=== PATIENT | male | born 1980 | race Caucasian/White ===

== ENCOUNTER 2021-07-14 19:51 | Inpatient (IN) | payer MEDICAID, SELFPAY ==
--- NOTE | ~2021-07-14 | CT_ITS ---
EXAMINATION: CT ABDOMEN AND PELVIS WITH CONTRAST CLINICAL INFORMATION: belly button bleeding/foul-smelling dis x1 mos.+ind mass COMPARISON: CT abdomen pelvis 03/19/2017, CT PE study 03/29/2019 TECHNIQUE: Multidetector volumetric images were obtained from the superior aspect of the liver through the pubic symphysis following administration 85 mL of Omnipaque 350 intravenous contrast. Sagittal and coronal reformatted images were obtained on the technologist's workstation. Oral contrast: No This CT examination was performed using dose optimization techniques as appropriate, variously including the following: *Automated exposure control *Adjustment of mA and/or kV according to patient size (this includes techniques or standardized protocols for targeted exams where dose is matched to indication/reason for exam; i.e. extremities or head) *Use of iterative reconstruction technique DLP: 993 mGy-cm FINDINGS: LUNG BASES: The visualized lung bases are unremarkable. LIVER, GALLBLADDER, AND BILIARY TREE: The liver is normal in size, shape, and attenuation. No focal hepatic lesion or biliary ductal dilatation is present. The gallbladder is unremarkable with no evidence of radiopaque gallstones, gallbladder wall thickening, or obvious pericholecystic inflammatory changes. PANCREAS: Unremarkable. SPLEEN: Unremarkable. ADRENAL GLANDS: Unremarkable. KIDNEYS AND URETERS: The kidneys are normal in size, shape, and attenuation. At least 5 small nonobstructing stones present in the right kidney, the largest measuring only 2 mm. 2 nonobstructing adjacent calculi noted in the left lower pole measuring about 4 mm each with few barely perceptible other calculi seen around this area. No hydronephrosis, hydroureter, or ureteral calculi seen. No perinephric stranding. BLADDER: Unremarkable. GASTROINTESTINAL TRACT: A lap band is present. The small and large bowel are unremarkable. The appendix is unremarkable. ABDOMINAL WALL: A periumbilical hernia is seen containing only fat. There is a tiny knee collection behind the umbilicus measuring 2.2 x 1.2 x 0.8 cm which contains a small locule of air inferiorly. No other abdominal wall or periumbilical collections are seen. No enterocutaneous fistulas are present. These findings are new when compared to the 03/19/2017 CT abdomen Some small lymph nodes are present in the greater omentum behind this region. LYMPH NODES: There is no retroperitoneal lymphadenopathy. VASCULAR: Unremarkable. PELVIC VISCERA: Unremarkable. OSSEOUS STRUCTURES: Unremarkable. CT/CT abdomen pelvis w con IMPRESSION: Small area of thickening/fluid collection with small locule of air in the periumbilical region as described above.
--- NOTE | ~2021-07-14 | CT_ITS ---
EXAMINATION: CT HEAD WITHOUT CONTRAST CLINICAL INFORMATION: Hypertensive urgency. Headache. COMPARISON: Head CT 03/29/2019. TECHNIQUE: Contiguous axial imaging was performed from the skull base to vertex without intravenous administration of contrast. This CT examination was performed using dose optimization techniques as appropriate, variously including the following: *Automated exposure control *Adjustment of mA and/or kV according to patient size (this includes techniques or standardized protocols for targeted exams where dose is matched to indication/reason for exam; i.e. extremities or head) *Use of iterative reconstruction technique DLP: 708 mGy-cm. FINDINGS: There is no intracranial hemorrhage, large infarction, or mass lesion. There is no extra-axial collection. The ventricles are normal in size and configuration without evidence of hydrocephalus. The cerebellar tonsils are normally positioned above the foramen magnum. There is mild paranasal sinus mucosal thickening. Mastoid air cells are clear. Cerclage wiring is incidentally noted posteriorly at the C1 level. CT/CT head/brain wo con IMPRESSION: No acute intracranial abnormality.
[2021-07-14 19:54] VITALS: BP 181/103; PULSE 73; RESP 16; TEMP 36.6; O2SAT 98; BMI 44.1
[2021-07-14 21:17] VITALS: BP 196/103
[2021-07-14 21:22] VITALS: BP 196/103; PULSE 73
[2021-07-14 21:22] LABS: MANUAL DIFF FLAG NO
[2021-07-14] MEDS: Losartan Potassium 50 MG TABLET PO (21:22)
[2021-07-14] MEDS: 0.9 % Sodium Chloride 1,000 ML 999 ML IVCONT (21:23)
[2021-07-14 21:24] LABS: Basophils Percent Auto 0.5 % (0-2); Eosinophils Absolute Auto 0.3 X10*3/uL (0.0-0.4); Eosinophils Percent Auto 3.7 % (0-4); Hematocrit 37.7 % (42-52); Hemoglobin 11.8 g/dl (14.0-18.0); Imm Gran Abs Auto 0.02 X10*3/uL (0.00-0.03); Imm Gran Pct Auto 0.3 % (0.0-0.4); Lymphocytes Absolute Auto 1.6 X10*3/uL (1.2-4.9); Lymphocytes Percent Auto 21.4 % (20-40); Mean Corpuscular HGB Conc 31.3 g/dl (31.0-36.0); Mean Corpuscular Hemoglobin 28.6 pg (27.0-33.0); Mean Corpuscular Volume 91.5 fL (80-98); Monocytes Absolute Auto 0.7 X10*3/uL (0.1-1.2); Monocytes Percent Auto 9.1 % (2-11); Neutrophils Absolute Auto 4.9 X10*3/uL (2.0-8.3); Platelet Count 252 X10*3/uL (160-400); Red Blood Count 4.12 X10*6/uL (4.60-5.80); Red Cell Distribution Width 13.2 % (11.0-16.0); White Blood Count 7.6 X10*3/uL (4.8-10.8)
--- NOTE | 2021-07-14 21:27 | ED.GENADULT ---
HPI - General Adult General Chief complaint: General Medical Stated complaint: bleeding from belly button? Time Seen by Provider: 07/14/21 20:49 Source: patient Mode of arrival: ambulatory History of Present Illness HPI narrative: 41-year-old male with a past medical history of hypertension, lap band about 3 years ago, presenting to the ED complaining of belly button bleeding and foul smelling discharge x1 month. Reports periumbilical pain that began today. Denies fever, chills, nausea, vomiting, diarrhea/constipation, dysuria Related Data Allergies Allergy/AdvReac Type Severity Reaction Status Date / Time No Known Allergies Allergy Unverified 07/30/20 15:19 [No Known Allergies*] Pt states no food/medication Allergy Unknown Uncoded 03/20/17 00:00 a Review of Systems Review of Systems: Constitutional: No Fever, No Chills, No Fatigue, No Malaise ENT/Mouth: No Ear Pain, No Nasal Congestion, No Sinus Pain, No sore throat, No Rhinorrhea, No Swallowing Difficulty Eyes: No Eye Pain, No Swelling, No Discharge Cardiovascular: No Chest Pain, No SOB Respiratory: No Cough, No Dyspnea Gastrointestinal: No Nausea, No Vomiting, No Diarrhea, No Constipation, + Abdominal pain, No Hematochezia, No Melena Genitourinary:No Dysuria, No Urinary Frequency, No Hematuria,+ Urgency, No Flank Pain Musculoskeletal: No joint pain, No Myalgias, No Joint Swelling Skin: +Skin Lesions, No rash Neuro: No Weakness, No Numbness, No Paresthesias, No Headache Yes all other systems are reviewed and are negative [facility] Past Medical History Attestation statement: The following information was validated with the patient. Medical History (Updated 07/14/21 @ 23:22 by DIONNE Tee) Hypertension Social History Social History Advance Directives: No Advance Directives Information Provided: No Physical Exam Vital Signs: Vital Signs: Last Vital Signs Temp 98.1 F 07/14/21 21:43 Pulse 61 07/14/21 21:43 Resp 16 07/14/21 21:43 BP 164/90 H 07/14/21 21:43 Pulse Ox 97 07/14/21 21:43 Body Mass Index 44.1 Const: General: cooperative and healthy appearing Orientation/consciousness: patient oriented x3 Limitations: no limitations HENMT: Head: Yes normal to inspection Ears: hearing grossly normal bilaterally General nose exam: Normal external nose present Face and sinus: Yes normal facial exam Eyes: General: appearance normal, both eyes and all related structures EOM: EOMs intact bilaterally Neck: Neck: Yes normal visual inspection Resp: Effort & Inspection: normal respiratory effort and no respiratory distress Cardio: Rate: regular rate Heart sounds: S1 normal heart sound present and S2 normal heart sound present GI: Other: + dark/bloody malodorous discharge noted from umbilicus. + hard indurated palpable mass noted left of umbilicus. No fluctuance Inspection: Yes normal to inspection Palpation (GI): Soft to palpation, Tenderness to palpation present (GI) (Periumbilically), no guarding and not rigid Skin: Rashes: no rashes Neuro: General: patient oriented x3 Gait exam (Neuro): Normal gait present Extrem: General: Yes normal to inspection Course Course Course Narrative: -2303--no leukocytosis. H&H is stable. Labs otherwise unremarkable. CT abdomen pelvis w con IMPRESSION: Small area of thickening/fluid collection with small locule of air in the periumbilical region as described above >> surgery consulted --case discussed with Dr. Christian, plan is for admission Medical Decision Making MDM Narrative Medical decision making narrative: 41-year-old male with a past medical history of hypertension, lap band about 3 years ago, presenting to the ED complaining of belly button bleeding and foul smelling discharge x1 month. On exam hypertensive patient reports he did not take his losartan today, will give home dose, NAD/nontoxic, physical exam as above. Concern for underlying abdominal abscess vs intra-abdominal infection or complication of prior lap band. Plan: Labs, UA, CT AP, IVF, reassess Lab Data Result diagrams: 07/14/21 21:13 07/14/21 21:13 Labs: Lab Results 07/14/21 07/14/21 07/14/21 Range/Units 21:13 21:13 21:13 WBC 7.6 (4.8-10.8) X10*3/uL RBC 4.12 L (4.60-5.80) X10*6/uL Hgb 11.8 L (14.0-18.0) g/dl Hct 37.7 L (42-52) % MCV 91.5 (80-98) fL MCH 28.6 (27.0-33.0) pg MCHC 31.3 (31.0-36.0) g/dl RDW 13.2 (11.0-16.0) % Plt Count 252 (160-400) X10*3/uL MPV 11.0 (9.4-12.4) fL Immature Gran % (Auto) 0.3 (0.0-0.4) % Neut % (Auto) 65.0 (45-73) % Lymph % (Auto) 21.4 (20-40) % Butts % (Auto) 9.1 (2-11) % Eos % (Auto) 3.7 (0-4) % Baso % (Auto) 0.5 (0-2) % Lymph # (Auto) 1.6 (1.2-4.9) X10*3/uL Butts # (Auto) 0.7 (0.1-1.2) X10*3/uL Eos # (Auto) 0.3 (0.0-0.4) X10*3/uL Baso # (Auto) 0.0 (0.0-0.2) X10*3/uL Abs Immat Gran (auto) 0.02 (0.00-0.03) X10*3/uL Absolute Neuts (auto) 4.9 (2.0-8.3) X10*3/uL Absolute Nucleated RBC 0.000 (0.0-0.012) X10*3/uL Nucleated RBC % (auto) 0.0 (0.0-0.2) /100WBC PT (9.9-13.0) SEC INR (0.9-1.1) APTT (24.1-38.0) SEC Sodium 140 (135-145) mmol/L Potassium 3.5 (3.3-5.1) mmol/L Chloride 105 (96-108) mmol/L Carbon Dioxide 29 (22-29) mmol/L Anion Gap 10 L (12-20) BUN 19 H (9-16) mg/dL Creatinine 0.83 (0.5-1.4) mg/dL Estim Creat Clear Calc 153.5 Estimated GFR > 60 Random Glucose 91 (60-115) mg/dL Lactic Acid 0.9 (0.5-2.0) mmol/L Calcium 9.1 (8.4-10.2) mg/dL Magnesium 2.1 (1.6-2.6) mg/dL Total Bilirubin 0.3 (0.0-1.0) mg/dL Direct Bilirubin < 0.2 (0.0-0.5) mg/dL AST 15 (5-37) U/L ALT 9 (0-40) U/L Alkaline Phosphatase 80 (39-117) U/L Total Protein 7.7 (6.5-8.0) g/dL Albumin 4.3 (3.5-5.0) g/dL Lipase 26 (8-78) U/L 07/14/21 Range/Units 21:43 WBC (4.8-10.8) X10*3/uL RBC (4.60-5.80) X10*6/uL Hgb (14.0-18.0) g/dl Hct (42-52) % MCV (80-98) fL MCH (27.0-33.0) pg MCHC (31.0-36.0) g/dl RDW (11.0-16.0) % Plt Count (160-400) X10*3/uL MPV (9.4-12.4) fL Immature Gran % (Auto) (0.0-0.4) % Neut % (Auto) (45-73) % Lymph % (Auto) (20-40) % Butts % (Auto) (2-11) % Eos % (Auto) (0-4) % Baso % (Auto) (0-2) % Lymph # (Auto) (1.2-4.9) X10*3/uL Butts # (Auto) (0.1-1.2) X10*3/uL Eos # (Auto) (0.0-0.4) X10*3/uL Baso # (Auto) (0.0-0.2) X10*3/uL Abs Immat Gran (auto) (0.00-0.03) X10*3/uL Absolute Neuts (auto) (2.0-8.3) X10*3/uL Absolute Nucleated RBC (0.0-0.012) X10*3/uL Nucleated RBC % (auto) (0.0-0.2) /100WBC PT 12.2 (9.9-13.0) SEC INR 1.1 (0.9-1.1) APTT 29.4 (24.1-38.0) SEC Sodium (135-145) mmol/L Potassium (3.3-5.1) mmol/L Chloride (96-108) mmol/L Carbon Dioxide (22-29) mmol/L Anion Gap (12-20) BUN (9-16) mg/dL Creatinine (0.5-1.4) mg/dL Estim Creat Clear Calc Estimated GFR Random Glucose (60-115) mg/dL Lactic Acid (0.5-2.0) mmol/L Calcium (8.4-10.2) mg/dL Magnesium (1.6-2.6) mg/dL Total Bilirubin (0.0-1.0) mg/dL Direct Bilirubin (0.0-0.5) mg/dL AST (5-37) U/L ALT (0-40) U/L Alkaline Phosphatase (39-117) U/L Total Protein (6.5-8.0) g/dL Albumin (3.5-5.0) g/dL Lipase (8-78) U/L Discharge Plan Discharge Clinical Impression: Abdominal fluid collection Patient Disposition: Admitted As Inpatient
[2021-07-14 21:40] LABS: Lactic Acid 0.9 mmol/L (0.5-2.0)
[2021-07-14 21:43] VITALS: BP 164/90; PULSE 61; RESP 16; TEMP 36.7; O2SAT 97
[2021-07-14 21:46] LABS: Alanine Aminotransferase 9 U/L (0-40); Albumin Level 4.3 g/dL (3.5-5.0); Alkaline Phosphatase 80 U/L (39-117); Anion Gap 10 (12-20); Aspartate Amino Transferase 15 U/L (5-37); Bilirubin Direct < 0.2 mg/dL (0.0-0.5); Bilirubin Total 0.3 mg/dL (0.0-1.0); Blood Urea Nitrogen 19 mg/dL (9-16); Calcium 9.1 mg/dL (8.4-10.2); Carbon Dioxide 29 mmol/L (22-29); Chloride 105 mmol/L (96-108); Creatinine Clr Calc Pharmacy 153.5; Estimated Glomerular Filt Rate > 60; Glucose Random 91 mg/dL (60-115); Lipase 26 U/L (8-78); Magnesium 2.1 mg/dL (1.6-2.6); Potassium 3.5 mmol/L (3.3-5.1); Sodium 140 mmol/L (135-145); Total Protein 7.7 g/dL (6.5-8.0)
[2021-07-14 21:59] LABS: INTERNATIONAL NORM RATIO 1.1 (0.9-1.1); Prothrombin Time 12.2 SEC (9.9-13.0)
[2021-07-14 22:01] LABS: Partial Thromboplastin Time 29.4 SEC (24.1-38.0)
[2021-07-14] MEDS: iohexoL 350 MG/ML 100 ML INFUS..BTL IV (22:26)
[2021-07-14 23:57] LABS: COVID-19 Test Negative (Negative); IDNOW Serial# 55D5AD1C
[2021-07-15] VITALS (12 sets, daily range): BP systolic 170–194; BP diastolic 86–120; PULSE 60–70; RESP 16–20; TEMP 36.4–37.1; O2SAT 96–99
--- NOTE | 2021-07-15 00:14 | PC.NURSE ---
JAYA TEIXEIRA IS AWARE OF PATIENT HIGH BLOOD PRESSURE OF 184/104.
[2021-07-15] MEDS: ceFAZolin Sodium/Dextrose,Iso 2 GM/50 ML PIGGYBACK IV ×4 (00:32→23:49)
--- NOTE | 2021-07-15 01:47 | PC.NURSE ---
Nurse to nurse given to Sarai LAKE on [facility].
[2021-07-15] MEDS: Dextrose 5 % and Lactated Ring 1,000 ML 100 ML IVCONT ×3 (02:57→23:50)
--- NOTE | 2021-07-15 07:58 | PM.HPGS ---
History of Present Illness History of Present Illness Date of Service: 07/15/21 Chief complaint: Ulcerated umbilical hernia Narrative: Ben Celaya is a 41 year old male presenting with a one month history of bleeding and discharge from the umbilicus. He previously underwent a lap band placement at [facility] approximately three years ago. He denies any problems following the surgery. He developed some bleeding from the umbilicus 1 month ago denies any inciting event. He denies fever or chills but does have occasional discomfort from the site. He denies a previous history of infection from this location. He presented to the emergency department and was found to have a normal WBC. CT of the abdomen abd pelvis reveals an umbilical hernia with a small fluid collection and a small loculus of air. The Lap Band tubing is noted to be adjacent to the umbilical hernia but no fluid collections are noted around the band/port/tubing. He is admitted to the surgical service for IV antibiotics and wound management. Review of Systems Review of Systems: Yes all other systems are reviewed and are negative Constitutional: Constitutional: Denies anorexia, Denies chills, Denies fever(s) and Denies night sweats ENT: Denies dysphagia Cardiovascular: Cardiovascular: Denies chest pain, Denies rapid heart rate, Denies irregular heart rhythm and Denies leg edema Respiratory: Respiratory: Denies chest congestion, Denies cough and Denies hemoptysis Gastrointestinal: Gastrointestinal: Reports abdominal pain, Denies hematochezia, Denies dysphagia, Denies heartburn, Denies diarrhea, Denies nausea and Denies vomiting Musculoskeletal: Musculoskeletal: Reports no additional musculoskeletal complaints Integumentary/Breasts: Skin/Breast: Reports as per [facility] Past Medical History Medical History (Updated 07/15/21 @ 08:17 by Raphael Toro MD) History of substance abuse Hypertension Obesity Surgical History Surgical History Hx of laparoscopic gastric banding Social History Social History Household Members: Spouse and Children Housing: House Patient Tobacco Use Status: Never used Tobacco Use of substances other than those prescribed or required for medical reasons: No Have you been hit, kicked, punched, or otherwise hurt by someone within the past year? If so, by whom?: No Do you feel safe in your current relationship?: Yes Is there a partner from a previous relationship who is making you feel unsafe now?: No Are you made to feel afraid or neglected: No Advance Directives: No Advance Directives Information Provided: No Do you have thoughts of harming others: None Do you have a plan to hurt others: No Plan Recently lost weight without trying: No Meds Allergies Allergy/AdvReac Type Severity Reaction Status Date / Time No Known Allergies Allergy Unverified 07/30/20 15:19 [No Known Allergies*] Pt states no food/medication Allergy Unknown Uncoded 03/20/17 00:00 a Active Medications: Current Medications Generic Name Dose Route Start Last Admin Trade Name Freq PRN Reason Stop Dose Admin Acetaminophen 650 mg 07/15/21 01:55 Acetaminophen 325 Mg Tablet PO Q6H PRN Pain, Mild (Pain Scale 1-3) Enoxaparin Sodium 40 mg 07/15/21 09:00 Enoxaparin Sodium 40 Mg/0.4 Ml Syringe SUBCUT DAILY YUE Cefazolin Sodium/Dextrose 2 gm in 50 mls @ 100 mls/hr 07/14/21 23:30 07/15/21 02:38 Ancef IV Infused Q8H YUE Infusion Dextrose/Lactated Ringer's 1,000 mls @ 100 mls/hr 07/15/21 01:55 07/15/21 02:57 D5lr IVCONT 100 mls/hr .Q10H YUE Administration Morphine Sulfate 4 mg 07/15/21 01:55 Morphine Sulfate 4 Mg/Ml Cartridge IVPUSH Q3H PRN Pain, severe Protocol Non-Formulary Medication 1 tab 07/15/21 09:00 Losartan-Hydrochlorothiazide PO DAILY YUE Ondansetron HCl 4 mg 07/15/21 01:55 Ondansetron Hcl 4 Mg/2 Ml Vial IVPUSH Q8H PRN Nausea Pharmacy Consult 1 each 07/14/21 23:22 Consult Rx Perform Med Rec MISCELLANE ONCE PRN Consult order Home Medications Medication Instructions Recorded Confirmed Last Taken Type buprenorphine 8 mg-naloxone 2 mg 2.5 film SUBLINGUAL 07/15/21 Unknown History sublingual film (Suboxone) losartan 50 mg-hydrochlorothiazide 1 tab PO DAILY 07/15/21 07/15/21 Unknown History 12.5 mg tablet Physical Exam Vital Signs: Vital Signs: Last Vital Signs Temp 98.0 F 07/15/21 07:27 Pulse 62 07/15/21 07:27 Resp 20 07/15/21 07:27 BP 176/100 H 07/15/21 02:18 Pulse Ox 98 07/15/21 07:27 Body Mass Index 44.1 Const: General: healthy appearing, comfortable and no acute distress Nutritional Appearance: obese Orientation/consciousness: patient oriented x3 Limitations: no limitations HENMT: Head: Yes normocephalic and Yes atraumatic Ears: hearing grossly normal bilaterally Eyes: Sclerae: sclerae normal EOM: EOMs intact bilaterally Resp: Effort & Inspection: normal respiratory effort, not labored and no stridor Cardio: Jugular venous distension: no JVD GI: Other: small umbilical hernia with bleeding from the base, fungal odor noted, no fluctuance, no purulent discharge. Inspection: Yes obesity and Yes scar Palpation (GI): Soft to palpation, nontender, no guarding and not rigid Abdomen image: 1. site of hernia/discharge Skin: Other: umbilical skin as noted above General skin exam: no rashes or lesions noted Neuro: General: patient oriented x3 Extrem: General: Yes normal exam except as noted and Yes no clubbing, cyanosis or edema Results Results Labs: Short CBC 07/14/21 Range/Units 21:13 WBC 7.6 (4.8-10.8) X10*3/uL Hgb 11.8 L (14.0-18.0) g/dl Hct 37.7 L (42-52) % Plt Count 252 (160-400) X10*3/uL BMP 07/14/21 21:13 Sodium 140 Potassium 3.5 Chloride 105 Carbon Dioxide 29 BUN 19 H Creatinine 0.83 Calcium 9.1 Liver Function 07/14/21 Range/Units 21:13 Total Bilirubin 0.3 (0.0-1.0) mg/dL Direct Bilirubin < 0.2 (0.0-0.5) mg/dL AST 15 (5-37) U/L ALT 9 (0-40) U/L Alkaline Phosphatase 80 (39-117) U/L Albumin 4.3 (3.5-5.0) g/dL Abdomen CT scan report/results: image reviewed Assessment and Plan (1) Abscess, umbilical: Status: Acute (2) Hypertension: Status: Acute 41 year old male patient presenting with an abdominal fluid collection and discharge from the umbilicus for one month, admitted to the surgical service for antibiotics and wound management. Review of the CT reveals an umbilical hernia associated with a small air collection with the lap band tubing adjacent to the hernia. Examination reveals a small hernia with blood discharge and a yeasty smell. BP is elevated this morning; has been off his meds. Plan: Continue IV antibiotics Add antifungal cream to skin Consult Weight Management to evaluate lap band Recheck CBC in AM Restart Losartan Hospitalist consult for further HTN management Quality Stroke Does the patient have a stroke diagnosis?: No VTE Prior VTE?: No VTE Risk Level:: Surgical - moderate VTE Device Contraindication: N/A - Device Ordered VTE Drug Contraindication: N/A - Med Ordered Procedures Date of Service Date of Service: 07/15/21
[2021-07-15] MEDS: hydroCHLOROthiazide 12.5 MG TABLET PO (08:09)
[2021-07-15] MEDS: Enoxaparin Sodium 40 MG/0.4 ML SYRINGE SUBCUT (08:09)
[2021-07-15] MEDS: Losartan Potassium 50 MG TABLET PO (08:09)
--- NOTE | 2021-07-15 09:24 | MHC.CM.PN ---
CM met with Patient at bedside. Patient lives in a house with his and 3 children ages 10,15,17 years of age. Patient's goal is to return home/no services and CM has initiated and will follow for dc planning. PCP is at [facility].
--- NOTE | 2021-07-15 10:20 | P.CONIM_ITS ---
History of Present Illness Data of Consult Service Date: 07/15/21 Primary Care Provider: [facility] HPI Reason for consult: Uncontrolled HTN This is a 41 yo M with a PMH of HTN, Obesity - s/p Lap Band about 3 years ago at [facility] who presents to the hospital with drainage from the umbilicus. He is admitted under the surgical service for treatment of that issue. Medical services are consulted for management of his uncontrolled HTN. Patient is seen and examined on [facility]. His is bedside. He currently does denies any symptoms of elevated blood pressure. In regards to his history of antihypertensives, he reports that he is on his current home med (Losartan/HCTZ combo) at the same dose for quiet some time. He reports that he does not check his BP at home, but at doctors visits it is typically ok. Upon further questioning, he reports that his BP is mainly a problem when he does not take this BP meds -- which is endorses is quiet frequently. He reports he last took his antihypertensives >5 days ago. Review of Systems Review of Systems: General - no fevers or chills Cardiovascular - no chest pain Respiratory - no shortness of breath or cough Abdominal- no abdominal pain, nausea, vomiting, diarrhea Neuro - no [facility] Medical History (Updated 07/15/21 @ 08:17 by Raphael Toro MD) History of substance abuse Hypertension Obesity Pertinent family history: HTN in mother DM in father Surgical History Hx of laparoscopic gastric banding Social History Household Members: Spouse and Children Housing: House Patient Tobacco Use Status: Never used Tobacco Use of substances other than those prescribed or required for medical reasons: No Currently Displaying Signs/Symptoms of Drug Intoxication Withdrawal: No Have you been hit, kicked, punched, or otherwise hurt by someone within the past year? If so, by whom?: No Do you feel safe in your current relationship?: Yes Is there a partner from a previous relationship who is making you feel unsafe now?: No Are you made to feel afraid or neglected: No Advance Directives: No Advance Directives Information Provided: No Do you have thoughts of harming others: None Do you have a plan to hurt others: No Plan Recently lost weight without trying: No service: No Current occupational status: unemployed Meds Allergies Allergy/AdvReac Type Severity Reaction Status Date / Time No Known Allergies Allergy Unverified 07/30/20 15:19 [No Known Allergies*] Pt states no food/medication Allergy Unknown Uncoded 03/20/17 00:00 a Active Medications: Current Medications Generic Name Dose Route Start Last Admin Trade Name Freq PRN Reason Stop Dose Admin Acetaminophen 650 mg 07/15/21 01:55 Acetaminophen 325 Mg Tablet PO Q6H PRN Pain, Mild (Pain Scale 1-3) Enoxaparin Sodium 40 mg 07/15/21 09:00 07/15/21 08:09 Enoxaparin Sodium 40 Mg/0.4 Ml Syringe SUBCUT 40 mg DAILY YUE Administration Hydrochlorothiazide 12.5 mg 07/15/21 09:00 07/15/21 08:09 Hydrochlorothiazide 12.5 Mg Tablet PO 12.5 mg DAILY YUE Administration Cefazolin Sodium/Dextrose 2 gm in 50 mls @ 100 mls/hr 07/14/21 23:30 07/15/21 08:42 Ancef IV Infused Q8H YUE Infusion Dextrose/Lactated Ringer's 1,000 mls @ 100 mls/hr 07/15/21 01:55 07/15/21 02:57 D5lr IVCONT 100 mls/hr .Q10H YUE Administration Losartan Potassium 50 mg 07/15/21 09:00 07/15/21 08:09 Losartan Potassium 50 Mg Tablet PO 50 mg DAILY YUE Administration Morphine Sulfate 4 mg 07/15/21 01:55 Morphine Sulfate 4 Mg/Ml Cartridge IVPUSH Q3H PRN Pain, severe Protocol Ondansetron HCl 4 mg 07/15/21 01:55 Ondansetron Hcl 4 Mg/2 Ml Vial IVPUSH Q8H PRN Nausea Pharmacy Consult 1 each 07/14/21 23:22 Consult Rx Perform Med Rec MISCELLANE ONCE PRN Consult order Home Medications Medication Instructions Recorded Confirmed Last Taken Type buprenorphine 8 mg-naloxone 2 mg 2.5 film SUBLINGUAL DAILY 07/15/21 07/15/21 Unknown History sublingual film (Suboxone) losartan 50 mg-hydrochlorothiazide 1 tab PO DAILY 07/15/21 07/15/21 Unknown History 12.5 mg tablet Physical Exam Vital Signs and Narrative: Vital Signs: Last Vital Signs Temp 98.0 F 07/15/21 07:27 Pulse 62 07/15/21 08:09 Resp 20 07/15/21 07:27 BP 190/98 H 07/15/21 08:09 Pulse Ox 98 07/15/21 07:27 Body Mass Index 44.1 Const: Other: General - no acute distress, appears comfortable Cardiovascular - regular rate and rhythm, S1-S2 Lungs - normal respiratory effort, clear to auscultation bilaterally, no wh eezing Abdomen - soft, nontender, no rebound or guarding Extremities - no edema bilaterally Neuro - awake and alert, no focal deficits Results Labs CBC and Chem 7: 07/14/21 21:13 07/14/21 21:13 Labs: Laboratory Results - last 24 hr 07/14/21 07/14/21 07/14/21 21:13 21:13 21:13 MCV 91.5 MCH 28.6 MCHC 31.3 RDW 13.2 Plt Count 252 MPV 11.0 Immature Gran % (Auto) 0.3 Neut % (Auto) 65.0 Lymph % (Auto) 21.4 [place] % (Auto) 9.1 Eos % (Auto) 3.7 Baso % (Auto) 0.5 Lymph # (Auto) 1.6 [place] # (Auto) 0.7 Eos # (Auto) 0.3 Baso # (Auto) 0.0 Abs Immat Gran (auto) 0.02 Absolute Neuts (auto) 4.9 Absolute Nucleated RBC 0.000 Nucleated RBC % (auto) 0.0 PT INR APTT Anion Gap 10 L Estim Creat Clear Calc 153.5 Estimated GFR > 60 Random Glucose 91 Lactic Acid 0.9 Calcium 9.1 Magnesium 2.1 Total Bilirubin 0.3 Direct Bilirubin < 0.2 AST 15 ALT 9 Alkaline Phosphatase 80 Total Protein 7.7 Albumin 4.3 Lipase 26 COVID-19 ([facility]) COVID-19 Clin Com 07/14/21 07/14/21 21:43 23:35 MCV MCH MCHC RDW Plt Count MPV Immature Gran % (Auto) Neut % (Auto) Lymph % (Auto) [place] % (Auto) Eos % (Auto) Baso % (Auto) Lymph # (Auto) [place] # (Auto) Eos # (Auto) Baso # (Auto) Abs Immat Gran (auto) Absolute Neuts (auto) Absolute Nucleated RBC Nucleated RBC % (auto) PT 12.2 INR 1.1 APTT 29.4 Anion Gap Estim Creat Clear Calc Estimated GFR Random Glucose Lactic Acid Calcium Magnesium Total Bilirubin Direct Bilirubin AST ALT Alkaline Phosphatase Total Protein Albumin Lipase COVID-19 ([facility]IANA) Negative COVID-19 Clin Com See Note Imaging Radiologist's Impressions: Impressions Abdomen/Pelvis CT 07/14/21 21:09 IMPRESSION: Small area of thickening/fluid collection with small locule of air in the periumbilical region as described above. Assessment and Plan (1) Hypertension: Status: Acute This is a 41 yo M with a PMH of HTN (non-compliant with his meds), Obesity - s/p Lap band 3 years ago who is admitted under the surgical services. Medical consultation has been requested for management of his uncontrolled HTN. 1. Uncontrolled BP due to non-compliance; reports he has not taken his meds in >5 days continue his home medications for now, if it remains uncontrolled -- will increase it further 2. Bita-umbilical collection mgmt per surgery. Will follow with you.
[2021-07-15] MEDS: Acetaminophen 325 MG TABLET 650 MG PO ×2 (12:45→21:37)
--- NOTE | 2021-07-15 14:43 | PM.CNGS ---
History of Present Illness Consult details Consult date: 07/15/21 <DIONNE Duran - Last Filed: 07/15/21 15:08> Reason for consult: other (Concern of lap band tubing adjacent to umbilical hernia) <DIONNE Duran Last Filed: 07/15/21 15:08> Requesting physician: Raphael Toro <DIONNE Duran - Last Filed: 07/15/21 15:08> Narrative: The patient is a pleasant 41-year-old male with a history lap band gastric surgery performed at [facility] approximately 3 years ago. He states that approximately 3-4 months after the surgery he had the band completely deflated as he was unable to tolerate it. He states that approximately 2 months ago he noticed mild drainage coming from the umbilicus. He applied alcohol and cleaned it while in the shower and the drainage stopped spontaneously. It began to recur approximately 3 weeks ago and last night there was more drainage with associated pain and he presented to the emergency room. In the emergency room, initial workup was benign for leukocytosis however CT scan of the abdomen showed a very small focus of air within an umbilical hernia and there was concern of infection adjacent to the lap band. He was started on cefazolin and is being managed by the surgical team. Consult was placed to bariatric surgery with regard to the lap band tubing as a potential nidus of ongoing infection. The patient does report mild pain about the umbilicus with external pressure or manipulation. Otherwise he offers no significant complaints and feels well. <DIONNE Duran - Last Filed: 07/15/21 15:08> Review of Systems Review of Systems: Yes all other systems are reviewed and are negative <DIONNE Duran Last Filed: 07/15/21 15:08> Constitutional: Constitutional: Reports as per HPI <DIONNE Duran Last Filed: 07/15/21 15:08> [facility] Past Medical History Medical History: Medical History History of substance abuse Hypertension Obesity <DIONNE Duran Last Filed: 07/15/21 15:08> Surgical History Surgical History: Surgical History Hx of laparoscopic gastric banding <DIONNE uDran Last Filed: 07/15/21 15:08> Social History Social History: Social History Household Members: Spouse and Children Housing: House Patient Tobacco Use Status: Never used Tobacco Use of substances other than those prescribed or required for medical reasons: No Currently Displaying Signs/Symptoms of Drug Intoxication Withdrawal: No Have you been hit, kicked, punched, or otherwise hurt by someone within the past year? If so, by whom?: No Do you feel safe in your current relationship?: Yes Is there a partner from a previous relationship who is making you feel unsafe now?: No Are you made to feel afraid or neglected: No Advance Directives: No Advance Directives Information Provided: No Do you have thoughts of harming others: None Do you have a plan to hurt others: No Plan Recently lost weight without trying: No service: No Current occupational status: unemployed <DIONNE Duran - Last Filed: 07/15/21 15:08> Meds Allergies/Adverse reactions: Allergies Allergy/AdvReac Type Severity Reaction Status Date / Time No Known Allergies Allergy Unverified 07/30/20 15:19 [No Known Allergies*] Pt states no food/medication Allergy Unknown Uncoded 03/20/17 00:00 a <DIONNE Duran - Last Filed: 07/15/21 15:08> Active Medications: Current Medications Generic Name Dose Route Start Last Admin Trade Name Freq PRN Reason Stop Dose Admin Acetaminophen 650 mg 07/15/21 01:55 07/15/21 12:45 Acetaminophen 325 Mg Tablet PO 650 mg Q6H PRN Administration Pain, Mild (Pain Scale 1-3) Enoxaparin Sodium 40 mg 07/15/21 09:00 07/15/21 08:09 Enoxaparin Sodium 40 Mg/0.4 Ml Syringe SUBCUT 40 mg DAILY YUE Administration Hydrochlorothiazide 12.5 mg 07/15/21 09:00 07/15/21 08:09 Hydrochlorothiazide 12.5 Mg Tablet PO 12.5 mg DAILY YUE Administration Cefazolin Sodium/Dextrose 2 gm in 50 mls @ 100 mls/hr 07/14/21 23:30 07/15/21 08:42 Ancef IV Infused Q8H YUE Infusion Dextrose/Lactated Ringer's 1,000 mls @ 100 mls/hr 07/15/21 01:55 07/15/21 12:45 D5lr IVCONT 100 mls/hr .Q10H YUE Administration Losartan Potassium 50 mg 07/15/21 09:00 07/15/21 08:09 Losartan Potassium 50 Mg Tablet PO 50 mg DAILY YUE Administration Morphine Sulfate 4 mg 07/15/21 01:55 Morphine Sulfate 4 Mg/Ml Cartridge IVPUSH Q3H PRN Pain, severe Protocol Ondansetron HCl 4 mg 07/15/21 01:55 Ondansetron Hcl 4 Mg/2 Ml Vial IVPUSH Q8H PRN Nausea Pharmacy Consult 1 each 07/14/21 23:22 Consult Rx Perform Med Rec MISCELLANE ONCE PRN Consult order <DIONNE Duran Last Filed: 07/15/21 15:08> Home medications: Home Medications Medication Instructions Recorded Confirmed Last Taken Type buprenorphine 8 mg-naloxone 2 mg 2.5 film SUBLINGUAL DAILY 07/15/21 07/15/21 Unknown History sublingual film (Suboxone) losartan 50 mg-hydrochlorothiazide 1 tab PO DAILY 07/15/21 07/15/21 Unknown History 12.5 mg tablet <DIONNE Duran Last Filed: 07/15/21 15:08> Physical Exam Vital Signs: Vital Signs: Last Vital Signs Temp 98.1 F 07/15/21 11:06 Pulse 60 07/15/21 11:06 Resp 20 07/15/21 11:06 BP 180/98 H 07/15/21 11:16 Pulse Ox 96 07/15/21 11:06 Body Mass Index 44.1 <DIONNE Duran Last Filed: 07/15/21 15:08> Const: General: cooperative, healthy appearing, comfortable and no acute distress <DIONNE Duran Last Filed: 07/15/21 15:08> Nutritional Appearance: obese <DIONNE Duran Last Filed: 07/15/21 15:08> Orientation/consciousness: patient oriented x3 <DIONNE Duran Last Filed: 07/15/21 15:08> Limitations: no limitations <DIONNE Duran Last Filed: 07/15/21 15:08> HENMT: Head: Yes normal to inspection <DIONNE Duran Last Filed: 07/15/21 15:08> Ears: hearing grossly normal bilaterally <Duy Lee DIONNE Benjamin - Last Filed: 07/15/21 15:08> Mouth: Normal oral and palatal mucosa present <Duy Lee DIONNE Benjamin - Last Filed: 07/15/21 15:08> Eyes: General: appearance normal, both eyes and all related structures <Duy Lee DIONNE Benjamin - Last Filed: 07/15/21 15:08> Chest: Chest palpation & inspection: normal inspection of the chest <Duy Lee DIONNE Benjamin - Last Filed: 07/15/21 15:08> Resp: Effort & Inspection: normal respiratory effort <Duy Lee DIONNE Benjamin - Last Filed: 07/15/21 15:08> Auscultation: clear to auscultation bilaterally <Duy Lee DIONNE Benjamin - Last Filed: 07/15/21 15:08> Cardio: Rate: regular rate <Duy Lee DIONNE Benjamin - Last Filed: 07/15/21 15:08> Rhythm: regular rhythm <Duy Jesus DIONNE Benjamin - Last Filed: 07/15/21 15:08> Heart sounds: S1 normal heart sound present and S2 normal heart sound present <Duy Lee DIONNE Benjamin - Last Filed: 07/15/21 15:08> GI: Inspection: Yes Abdominal panniculus present and Yes other (excoriated skin inferior posterior umbilicus, dried blood, no purulence) <Duy Lee DIONNE Benjamin - Last Filed: 07/15/21 15:08> Palpation (GI): Soft to palpation <Duy Jesus DIONNE Benjamin - Last Filed: 07/15/21 15:08> Auscultation: normal bowel sounds <DIONNE Duran - Last Filed: 07/15/21 15:08> Skin: Other: as above <DIONNE Duran - Last Filed: 07/15/21 15:08> Neuro: General: patient oriented x3 <DIONNE Duran - Last Filed: 07/15/21 15:08> Extrem: General: Yes normal to inspection and Yes no pedal edema <DIONNE Duran - Last Filed: 07/15/21 15:08> Results Labs Result diagrams: : 07/14/21 21:13 07/14/21 21:13 <DIONNE Duran - Last Filed: 07/15/21 15:08> Labs: Abnormal lab results 07/14/21 07/14/21 Range/Units 21:13 21:13 RBC 4.12 L (4.60-5.80) X10*6/uL Hgb 11.8 L (14.0-18.0) g/dl Hct 37.7 L (42-52) % Anion Gap 10 L (12-20) BUN 19 H (9-16) mg/dL Short CBC 07/14/21 Range/Units 21:13 WBC 7.6 (4.8-10.8) X10*3/uL Hgb 11.8 L (14.0-18.0) g/dl Hct 37.7 L (42-52) % Plt Count 252 (160-400) X10*3/uL BMP 07/14/21 21:13 Sodium 140 Potassium 3.5 Chloride 105 Carbon Dioxide 29 BUN 19 H Creatinine 0.83 Calcium 9.1 Liver Function 07/14/21 Range/Units 21:13 Total Bilirubin 0.3 (0.0-1.0) mg/dL Direct Bilirubin < 0.2 (0.0-0.5) mg/dL AST 15 (5-37) U/L ALT 9 (0-40) U/L Alkaline Phosphatase 80 (39-117) U/L Albumin 4.3 (3.5-5.0) g/dL All other labs normal. <DIONNE Duran - Last Filed: 07/15/21 15:08> Assessment and Plan (1) Abscess, umbilical: Status: Acute <DIONNE Duran - Last Filed: 07/15/21 15:08> Defer to surgery for wound care and continued antibiotics. Reviewed CT scan and doubt band tubing as source or involvement. He does have an umbilical hernia and would also defer to surgery for option of repair. <DIONNE Duran - Last Filed: 07/15/21 15:08> (2) History of laparoscopic adjustable gastric banding: Status: Acute <DIONNE Duran - Last Filed: 07/15/21 15:08> Pt has not followed up with his previous surgeon at [facility] since the procedure. He has had the band completely deflated since approximately 3-4 months postop and would like to join the weight management clinic as an outpt. Will give him an office card and he can follow up upon discharge. He would benefit from ban removal and this can be discussed further as an outpt. <DIONNE Duran - Last Filed: 07/15/21 15:08> (3) Abdominal fluid collection: Status: Acute <DIONNE Duran - Last Filed: 07/15/21 15:08> as above <DIONNE Duran - Last Filed: 07/15/21 15:08> Thank you for allowing us to participate in the care of your patient and if there are any further issues or questions, please do not hesitate to call or re-consult. The pt was seen and case was discussed in its entirety with attending Dr Hudson. <DIONNE Duran - Last Filed: 07/15/21 15:08> Thank you for allowing us to participate in the care of your patient and if there are any further issues or questions, please do not hesitate to call or re-consult. The pt was seen and case was discussed in its entirety with attending Dr Hudson. Patient was seen and examined. Above note was reviewed and I agree with its content. <Luis Hudson MD - Last Filed: 07/15/21 20:25> Procedures Date of Service Date of Service: 07/15/21 <DIONNE Duran - Last Filed: 07/15/21 15:08>
[2021-07-15] MEDS: Buprenorphine/Naloxone 8/2 mg FILM 2.5 FILM SUBLINGUAL (15:02)
[2021-07-15] MEDS: Labetalol HCL 100 MG/20 ML VIAL 10 MG IVPUSH (19:44)
[2021-07-16] VITALS (11 sets, daily range): BP systolic 160–213; BP diastolic 82–123; PULSE 60–90; RESP 16–20; TEMP 36.6–37.1; O2SAT 96–98
[2021-07-16 06:38] LABS: MANUAL DIFF FLAG NO
[2021-07-16 07:01] LABS: Basophils Percent Auto 0.7 % (0-2); Eosinophils Absolute Auto 0.2 X10*3/uL (0.0-0.4); Eosinophils Percent Auto 3.9 % (0-4); Hematocrit 36.6 % (42-52); Hemoglobin 11.7 g/dl (14.0-18.0); Imm Gran Abs Auto 0.02 X10*3/uL (0.00-0.03); Imm Gran Pct Auto 0.4 % (0.0-0.4); Lymphocytes Absolute Auto 1.3 X10*3/uL (1.2-4.9); Lymphocytes Percent Auto 23.3 % (20-40); Mean Corpuscular Hemoglobin 28.8 pg (27.0-33.0); Mean Corpuscular Volume 90.1 fL (80-98); Mean Platelet Volume 11.3 fL (9.4-12.4); Monocytes Absolute Auto 0.5 X10*3/uL (0.1-1.2); Neutrophils Absolute Auto 3.3 X10*3/uL (2.0-8.3); Neutrophils Percent Auto 61.7 % (45-73); Platelet Count 240 X10*3/uL (160-400); Red Blood Count 4.06 X10*6/uL (4.60-5.80); Red Cell Distribution Width 13.1 % (11.0-16.0); White Blood Count 5.4 X10*3/uL (4.8-10.8)
--- NOTE | 2021-07-16 07:50 | P.DS_ITS ---
DS: Providers Provider Date of Service: 07/16/21 Date of admission: 07/14/21 23:24 Date of discharge: 07/16/21 Primary care physician: [facility] Admitting clinician: Paula Christian Attending physician on admission: Raphael Toro Consults: 07/15/21 07:54 Consult to Bariatric Surgery Routine Consulting Provider: [facility] Weight Management Reason for consultation: Umbilical abscess, ? lap band infection Consult to Hospitalist Routine Consulting Provider: Hospitalist Reason For Exam: Hypertension, umbilical abscess Discharging clinician: Raphael Toro DS: Diagnosis Discharge Diagnosis (1) Abscess, umbilical: Status: Acute (2) History of laparoscopic adjustable gastric banding: Status: Acute (3) Abdominal fluid collection: Status: Acute DS: Summary Hospital Course Hospital Course: Ben Celaya is a 41 year old male presenting with a one month history of bleeding and discharge from the umbilicus.? He previously underwent a lap band placement at [facility] approximately three years ago.? He denies any problems? following the surgery.? He developed some bleeding from? the umbilicus 1 month ago denies any inciting event.? He denies fever or chills but does have occasional discomfort from the site.? He denies a previous history of infection from this location.? He presented to the emergency department and was found to have a normal WBC.? CT of the abdomen abd pelvis reveals an umbilical hernia with a small fluid collection and a small loculus of air.? The Lap Band tubing is noted to be adjacent to the umbilical hernia but no fluid collections are noted around the band/port/tubing. He is admitted to the surgical service for IV antibiotics and wound management. Examination of the abdominal wound revealed several cracks in the umbilical skin with an obvious small umbilical hernia. Discharge from the umbilicus had a fungal smell. Findings were suggestive of a fungal skin infection. Patient was placed on Ancef and nystatin topical ointment. Consultation was obtained from the hospitalist team regarding his elevated blood pressure. Patient apparently has not been taking his hypertensive medications daily. Consultation was also obtained from bariatric surgery to evaluate for lap band infection. They felt the tube was not involved in the infection and no additional treatment is needed at this time. On hospital day 2 the patient felt much improved and discharge had decreased significantly. On examination the umbilical skin appeared much improved with minimal discharge on the dressing. A clean dressing was applied to the wound. He will be discharged home on oral antibiotics as well as a topical antifungal cream. I have asked him to return to the office in 1-2 weeks for follow-up examination. The umbilical hernia will need to be repaired at some point once the infection is resolved. He may return to work without restriction as of tomorrow. Status at Discharge Functional status at discharge: independent ambulation Overall status at discharge: patient is back to baseline Time Spent with Patient Time attestation: Total time spent providing and/or coordinating discharge services: Discharge coordination time: Less than 30 minutes Quality: Stroke Does the patient have a stroke diagnosis?: No Physical Exam Vital Signs: Vital Signs: Last Vital Signs Temp 97.8 F 07/16/21 00:00 Pulse 82 07/16/21 00:00 Resp 16 07/16/21 00:00 BP 164/100 H 07/16/21 00:00 Pulse Ox 96 07/16/21 00:00 Body Mass Index 44.1 Const: General: cooperative, healthy appearing and well developed Nutritional Appearance: obese Orientation/consciousness: patient oriented x3 Limitations: no limitations HENMT: Head: Yes normocephalic and Yes atraumatic Ears: hearing grossly normal bilaterally Neck: Neck: Yes trachea midline and Yes supple Resp: Effort & Inspection: normal respiratory effort, no audible wheezes, no cough and no respiratory distress GI: Other: Umbilical skin is dry with no odor. There is a slight purplish di scoloration but the hernia is easily reducible. No tenderness elicited with palpation. Inspection: Yes normal to inspection Palpation (GI): Soft to palpation, nontender, no guarding and not rigid Percussion: Yes normal to percussion Auscultation: normal bowel sounds Skin: General skin exam: no rashes or lesions noted Neuro: General: patient oriented x3 Extrem: General: Yes no clubbing, cyanosis or edema DS: Data Data Completed and Pending Labs on day of discharge: Laboratory Results - last 24 hr 07/16/21 05:48 WBC 5.4 RBC 4.06 L Hgb 11.7 L Hct 36.6 L MCV 90.1 MCH 28.8 MCHC 32.0 RDW 13.1 Plt Count 240 MPV 11.3 Immature Gran % (Auto) 0.4 Neut % (Auto) 61.7 Lymph % (Auto) 23.3 [place] % (Auto) 10.0 Eos % (Auto) 3.9 Baso % (Auto) 0.7 Lymph # (Auto) 1.3 [place] # (Auto) 0.5 Eos # (Auto) 0.2 Baso # (Auto) 0.0 Abs Immat Gran (auto) 0.02 Absolute Neuts (auto) 3.3 Absolute Nucleated RBC 0.000 Nucleated RBC % (auto) 0.0 Preliminary micro results at discharge 07/14/21 21:43 Blood Culture - Preliminary Blood - Venous No growth after 24 hours. 07/14/21 21:13 Blood Culture - Preliminary Blood - Venous No growth after 24 hours. 07/14/21 21:15 Routine Culture - Preliminary Abdomen - Abdominal No growth to date. Imaging CT scan - abdomen: Attestation: I personally reviewed and interpreted this imaging study as follows: My impression: Umbilical hernia with adjacent lap band tubing. No bowel within the hernia sac. Radiologist's impression: ITS Impressions Abdomen/Pelvis CT 07/14/21 21:09 IMPRESSION: Small area of thickening/fluid collection with small locule of air in the periumbilical region as described above. Head CT 07/15/21 20:15 IMPRESSION: No acute intracranial abnormality. Discharge Plan Discharge Patient Disposition: Home, Self-Care Discharge Diagnosis: Umbilical abscess Referrals: [facility] [Primary Care Provider] - 1 Week Raphael Toro MD [Physician] - 1 Week Discharge Medications: New cephalexin [Keflex] 750 mg capsule 750 mg PO BID Qty: 20 RF: 0 nystatin-triamcinolone 100,000-0.1 unit/gram-% ointment 1 appl topical BID Qty: 30 RF: 0 Continued losartan-hydrochlorothiazide 50-12.5 mg tablet 1 tab PO DAILY RF: 0 buprenorphine-naloxone [Suboxone] 8-2 mg film 2.5 film sublingual DAILY RF: 0 Discharge Orders: Discharge Order (Routine); Ordered 07/16/21 Ordered By: Raphael Toro Diet: advance to usual diet Activity on Discharge: As tolerated Stand Alone Forms: Patient Portal Discharge page, Work/School Release Care Plan Goals: full healing of umbilical skin Health Concerns: bleeding and discharge from umbilicus Plan of Treatment: Antibiotics by mouth and antifungal cream Assessment: Umbilical abscess, fungal skin infection
[2021-07-16] MEDS: ceFAZolin Sodium/Dextrose,Iso 2 GM/50 ML PIGGYBACK IV ×3 (08:01→22:41)
[2021-07-16] MEDS: Labetalol HCL 100 MG/20 ML VIAL 10 MG IVPUSH (08:03)
[2021-07-16] MEDS: Dextrose 5 % and Lactated Ring 1,000 ML 100 ML IVCONT (08:11)
--- NOTE | 2021-07-16 08:22 | MHC.CM.PN ---
Patient has been medically cleared for dc to home today, no services.
[2021-07-16] MEDS: Losartan Potassium 50 MG TABLET PO ×2 (09:15→10:01)
[2021-07-16] MEDS: Buprenorphine/Naloxone 8/2 mg FILM 2.5 FILM SUBLINGUAL (09:15)
[2021-07-16] MEDS: Enoxaparin Sodium 40 MG/0.4 ML SYRINGE SUBCUT (09:15)
[2021-07-16] MEDS: hydroCHLOROthiazide 12.5 MG TABLET PO (09:20)
--- NOTE | 2021-07-16 09:48 | PC.NURSE ---
pt hypertensive at 190's this AM, treated with PRN dose of labetolol. At 9am reassessment pt remains more hypertensive in 220[address] Toro as pt ready for discharge. HE states contact Dr. Tinsley. Dr. Tinsley contacted and aware of pt condition. Pt denies headache or dizziness.
--- NOTE | 2021-07-16 11:06 | P.PNIM_ITS ---
Subjective Subjective Date of Service: 07/16/21 Interval History: seen and examined this AM no complaints denies brand, cp or other symptoms of elevated htn Review of Systems General - no fevers or chills Cardiovascular - no chest pain Respiratory - no shortness of breath or cough Abdominal- no abdominal pain, nausea, vomiting, diarrhea Physical Exam Vital Signs: Vital Signs: Last Vital Signs Temp 98.7 F 07/16/21 07:54 Pulse 62 07/16/21 10:01 Resp 20 07/16/21 07:54 BP 213/113 H 07/16/21 10:01 Pulse Ox 97 07/16/21 07:54 Body Mass Index 44.1 Const: Other: General - no acute distress, appears comfortable Cardiovascular - regular rate and rhythm, S1-S2 Lungs - normal respiratory effort, clear to auscultation bilaterally, no wheezing Abdomen - soft, nontender, no rebound or guarding Extremities - no edema bilaterally Neuro - awake and alert, no focal deficits Objective Data Active Medications Acetaminophen (Acetaminophen 325 Mg Tablet) 650 mg PO Q6H PRN PRN Reason: Pain, Mild (Pain Scale 1-3) Last Admin: 07/15/21 21:37 Dose: 650 mg Documented by: PABLO Buprenorphine/Naloxone (Buprenorphine/Naloxone 8/2 Mg Film) 2.5 film SUBLINGUAL DAILY [facility] Last Admin: 07/16/21 09:15 Dose: 2.5 film Documented by: NINO Enoxaparin Sodium (Enoxaparin Sodium 40 Mg/0.4 Ml Syringe) 40 mg SUBCUT DAILY [facility] Last Admin: 07/16/21 09:15 Dose: 40 mg Documented by: NINO Cefazolin Sodium/Dextrose (Ancef) 2 gm in 50 mls @ 100 mls/hr IV Q8H [facility] Last Infusion: 07/16/21 08:48 Dose: 0 mls/hr Documented by: NINO Morphine Sulfate (Morphine Sulfate 4 Mg/Ml Cartridge) 4 mg IVPUSH Q3H PRN; Protocol PRN Reason: Pain, severe Ondansetron HCl (Ondansetron Hcl 4 Mg/2 Ml Vial) 4 mg IVPUSH Q8H PRN PRN Reason: Nausea Pharmacy Consult (Consult Rx Perform Med Rec) 1 each MISCELLANE ONCE PRN PRN Reason: Consult order Labs CBC & Chem 7: 07/16/21 05:48 07/14/21 21:13 Labs: Laboratory Results - last 24 hr 07/16/21 05:48 MCV 90.1 MCH 28.8 MCHC 32.0 RDW 13.1 Plt Count 240 MPV 11.3 Immature Gran % (Auto) 0.4 Neut % (Auto) 61.7 Lymph % (Auto) 23.3 Perkins % (Auto) 10.0 Eos % (Auto) 3.9 Baso % (Auto) 0.7 Lymph # (Auto) 1.3 Perkins # (Auto) 0.5 Eos # (Auto) 0.2 Baso # (Auto) 0.0 Abs Immat Gran (auto) 0.02 Absolute Neuts (auto) 3.3 Absolute Nucleated RBC 0.000 Nucleated RBC % (auto) 0.0 Microbiology Microbiology Results: Microbiology 07/14/21 21:15 Gram Stain - Final Abdomen - Abdominal Routine Culture - Final 07/14/21 21:43 Blood Culture - Preliminary Blood - Venous No growth after 24 hours. 07/14/21 21:13 Blood Culture - Preliminary Blood - Venous No growth after 24 hours. Assessment and Plan (1) Hypertension: Status: Acute Assessment and Plan: This is a 41 yo M with a PMH of HTN (non-compliant with his meds), Obesity - s/p Lap band 3 years ago who is admitted under the surgical services. Medical consultation has been requested for management of his uncontrolled HTN. 1. Uncontrolled BP due to non-compliance; reports he has not taken his meds in >5 days required IV labetalol over night for BP increase cozaar to 100mg and hctz to 25; stop IVF if BP around 170/90 this afternoon, can d/c home on his home antihypertensives at double dose (from 50/12.5 to 100/25); if remains significantly elevated, would need to stay in the hospital 2. Bita-umbilical collection mgmt per surgery. Will follow with you if he remains in the hospital Quality Stroke Does the patient have a stroke diagnosis?: No VTE Prior VTE?: No VTE Risk Level:: Surgical - moderate VTE Device Contraindication: N/A - Device Ordered VTE Drug Contraindication: N/A - Med Ordered
[2021-07-16] MEDS: Acetaminophen 325 MG TABLET 650 MG PO (20:36)
[2021-07-17 07:23] VITALS: BP 177/73; PULSE 73; RESP 18; TEMP 37.2; O2SAT 97
[2021-07-17] MEDS: Enoxaparin Sodium 40 MG/0.4 ML SYRINGE SUBCUT (07:46)
[2021-07-17 07:47] VITALS: BP 177/73; PULSE 73
[2021-07-17] MEDS: Losartan Potassium 50 MG TABLET 100 MG PO (07:47)
[2021-07-17] MEDS: ceFAZolin Sodium/Dextrose,Iso 2 GM/50 ML PIGGYBACK IV ×2 (07:47→15:06)
[2021-07-17] MEDS: hydroCHLOROthiazide 25 MG TABLET PO ×2 (07:48→09:27)
--- NOTE | 2021-07-17 08:57 | PM.PNGS ---
Subjective Subjective Date of Service: 07/17/21 Interval history: Patient feels improved, denies abdominal pain. Reports blood pressures improved. Physical Exam Vital Signs: Vital Signs: Last Vital Signs Temp 99.0 F 07/17/21 07:23 Pulse 73 07/17/21 07:47 Resp 18 07/17/21 07:23 BP 177/73 H 07/17/21 07:47 Pulse Ox 97 07/17/21 07:23 Body Mass Index 44.1 Const: General: no acute distress and well developed Nutritional Appearance: obese Orientation/consciousness: patient oriented x3 Limitations: no limitations Resp: Other: Breathing comfortably on room air GI: Other: Abdominal wound at umbilicus is clean and dry. Neuro: General: patient oriented x3 Procedures Date of Service Date of Service: 07/17/21 Progress Note: A&P Assessment and plan (1) Fungal skin infection: Status: Acute (2) Abdominal fluid collection: Status: Acute (3) Abscess, umbilical: Status: Acute Assessment and Plan: Patient is much improved with decreased pain and discharge from the umbilicus. Will continue on the Keflex after discharge. Will await Dr. Tinsley's assessment of his blood pressure; possible discharge later today. Fall Risk Details Current Medications: Current Medications Generic Name Dose Route Start Last Admin Trade Name Freq PRN Reason Stop Dose Admin Acetaminophen 650 mg 07/15/21 01:55 07/16/21 20:36 Acetaminophen 325 Mg Tablet PO 650 mg Q6H PRN Administration Pain, Mild (Pain Scale 1-3) Buprenorphine/Naloxone 2.5 film 07/15/21 15:00 07/16/21 09:15 Buprenorphine/Naloxone 8/2 Mg Film SUBLINGUAL 2.5 film DAILY [facility] Administration Enoxaparin Sodium 40 mg 07/15/21 09:00 07/17/21 07:46 Enoxaparin Sodium 40 Mg/0.4 Ml Syringe SUBCUT 40 mg DAILY [facility] Administration Hydrochlorothiazide 25 mg 07/17/21 09:00 07/17/21 07:48 Hydrochlorothiazide 25 Mg Tablet PO 25 mg DAILY [facility]UE Administration Cefazolin Sodium/Dextrose 2 gm in 50 mls @ 100 mls/hr 07/14/21 23:30 07/17/21 08:23 Ancef IV Infused Q8H [facility] Infusion Losartan Potassium 100 mg 07/17/21 09:00 07/17/21 07:47 Losartan Potassium 50 Mg Tablet PO 100 mg DAILY [facility]UE Administration Morphine Sulfate 4 mg 07/15/21 01:55 Morphine Sulfate 4 Mg/Ml Cartridge IVPUSH Q3H PRN Pain, severe Protocol Ondansetron HCl 4 mg 07/15/21 01:55 Ondansetron Hcl 4 Mg/2 Ml Vial IVPUSH Q8H PRN Nausea Pharmacy Consult 1 each 07/14/21 23:22 Consult Rx Perform Med Rec MISCELLANE ONCE PRN Consult order Time Spent With Patient Time: Total time spent is greater than 50% in coordination of care (as documented) at patient's floor/unit and/or counseling patient: Time with patient: 15 - 24 minutes Quality Stroke Does the patient have a stroke diagnosis?: No VTE Prior VTE?: No VTE Risk Level:: Surgical - moderate VTE Device Contraindication: N/A - Device Ordered VTE Drug Contraindication: N/A - Med Ordered
[2021-07-17] MEDS: Buprenorphine/Naloxone 8/2 mg FILM 2.5 FILM SUBLINGUAL (09:28)
[2021-07-17 12:30] VITALS: BP 180/104; PULSE 85; RESP 20; TEMP 36.6; O2SAT 96
--- NOTE | 2021-07-17 14:13 | PM.IMPN ---
Progress Note: A&P (1) Hypertension: Status: Acute Assessment and Plan: This is a 41 yo M with a PMH of HTN (non-compliant with his meds), Obesity - s/p Lap band 3 years ago who is admitted under the surgical services. Medical consultation has been requested for management of his uncontrolled HTN. Uncontrolled BP due to non-compliance; reports he has not taken his meds in >5 days required IV labetalol over night for BP increase cozaar to 100mg and hctz to 50; stop IVF if BP around 170/90 this afternoon, can d/c home on his home antihypertensives at double dose (from 50/12.5 to 100/25); if remains significantly elevated, would need to stay in the hospital Bita-umbilical collection mgmt per surgery. Subjective Subjective Date of Service: 07/17/21 Review of Systems Follow up consult for HTN Still with some high BP but missed meds for one week Physical Exam Vital Signs: Vital Signs: Last Vital Signs Temp 97.8 F 07/17/21 12:30 Pulse 85 07/17/21 12:30 Resp 20 07/17/21 12:30 BP 180/104 H 07/17/21 12:30 Pulse Ox 96 07/17/21 12:30 Body Mass Index 44.1 Appearing in no acute distress lung sounds are clear to auscultation heart regular rate rhythm, clear S1, S2 positive bowel sounds, abdomen is soft, nontender neuro patient is alert x3, no focal deficits Objective Data Current Medications Generic Name Dose Route Start Last Admin Trade Name Freq PRN Reason Stop Dose Admin Acetaminophen 650 mg 07/15/21 01:55 07/16/21 20:36 Acetaminophen 325 Mg Tablet PO 650 mg Q6H PRN Administration Pain, Mild (Pain Scale 1-3) Buprenorphine/Naloxone 2.5 film 07/15/21 15:00 07/17/21 09:28 Buprenorphine/Naloxone 8/2 Mg Film SUBLINGUAL 2.5 film DAILY [facility] Administration Enoxaparin Sodium 40 mg 07/15/21 09:00 07/17/21 07:46 Enoxaparin Sodium 40 Mg/0.4 Ml Syringe SUBCUT 40 mg DAILY [facility] Administration Hydrochlorothiazide 50 mg 07/18/21 09:00 Hydrochlorothiazide 50 Mg Tablet PO DAILY [facility] Cefazolin Sodium/Dextrose 2 gm in 50 mls @ 100 mls/hr 07/14/21 23:30 07/17/21 08:23 Ancef IV Infused Q8H [facility] Infusion Losartan Potassium 100 mg 07/17/21 09:00 07/17/21 07:47 Losartan Potassium 50 Mg Tablet PO 100 mg DAILY [facility] Administration Morphine Sulfate 4 mg 07/15/21 01:55 Morphine Sulfate 4 Mg/Ml Cartridge IVPUSH Q3H PRN Pain, severe Protocol Ondansetron HCl 4 mg 07/15/21 01:55 Ondansetron Hcl 4 Mg/2 Ml Vial IVPUSH Q8H PRN Nausea Pharmacy Consult 1 each 07/14/21 23:22 Consult Rx Perform Med Rec MISCELLANE ONCE PRN Consult order Labs CBC & Chem 7: 07/16/21 05:48 07/14/21 21:13 Microbiology Microbiology Results: Microbiology 07/14/21 21:43 Blood - Venous Blood Culture - Preliminary No growth after 48 hours. 07/14/21 21:13 Blood - Venous Blood Culture - Preliminary No growth after 48 hours. 07/14/21 21:15 Abdomen - Abdominal Gram Stain - Final 07/14/21 21:15 Abdomen - Abdominal Routine Culture - Final Quality Stroke Does the patient have a stroke diagnosis?: No VTE Prior VTE?: No VTE Risk Level:: Surgical - moderate VTE Device Contraindication: N/A - Device Ordered VTE Drug Contraindication: N/A - Med Ordered
[2021-07-17 14:29] VITALS: BP 178/100
[2021-07-17 15:46] VITALS: BP 164/95; PULSE 86; RESP 18; O2SAT 96
== END 2021-07-17 17:39 | disposition home or self-care (01) | DRG 721 ==
LOC: HO.ED 23:21 → HO.EDOVER 23:50 → HO.IMC 07-15 00:12
PROVIDERS: Physician Assistant; Surgery; Admitting Provider Surgery; Emergency Provider Emergency Medicine; Visit Provider Surgery
DX: T85.79XA Infection and inflammatory reaction due to other internal prosthetic devices, implants and grafts, initial encounter (principal); F11.20 Opioid dependence, uncomplicated; L02.216 Cutaneous abscess of umbilicus; I10 Essential (primary) hypertension; Z91.14 Patient's other noncompliance with medication regimen; Z20.822 Contact with and (suspected) exposure to COVID-19; Z79.899 Other long term (current) drug therapy
CPT/HCPCS: 36415; 70450; 74177; 80048; 80076; 83605; 83690; 83735; 85025; 85610; 85730; 87040; 87071; 87205; 87635; 96360; 99285; J0690; J1650; Q9967

== ENCOUNTER 2022-05-31 09:36 | Outpatient (REF) | payer MEDICAID, SELFPAY ==
[2022-05-31 10:01] LABS: MANUAL DIFF FLAG NO
[2022-05-31 10:37] LABS: Basophils Absolute Auto 0.1 X10*3/uL (0.0-0.2); Basophils Percent Auto 0.8 % (0-2); Eosinophils Absolute Auto 0.2 X10*3/uL (0.0-0.4); Eosinophils Percent Auto 2.5 % (0-4); Imm Gran Abs Auto 0.03 X10*3/uL (0.00-0.03); Imm Gran Pct Auto 0.5 % (0.0-0.4); Lymphocytes Absolute Auto 1.4 X10*3/uL (1.2-4.9); Lymphocytes Percent Auto 22.5 % (20-40); Mean Corpuscular HGB Conc 32.5 g/dl (31.0-36.0); Mean Corpuscular Hemoglobin 28.9 pg (27.0-33.0); Mean Corpuscular Volume 88.9 fL (80.0-98.0); Mean Platelet Volume 10.7 fL (9.4-12.4); Monocytes Absolute Auto 0.7 X10*3/uL (0.1-1.2); Monocytes Percent Auto 10.9 % (2-11); Neutrophils Absolute Auto 3.8 x10*3/uL (2.0-8.3); Neutrophils Percent Auto 62.8 % (45-73); Platelet Count 281 X10*3/uL (160-400); Red Cell Distribution Width 13.1 % (11.0-16.0); White Blood Count 6.1 X10*3/uL (4.8-10.8)
[2022-05-31 10:43] LABS: Estimated Average Glucose 108 mg/dL; Hemoglobin A1c % 5.4 %
[2022-05-31 11:14] LABS: Alanine Aminotransferase 10 U/L (0-40); Albumin Level 4.4 g/dL (3.5-5.0); Alkaline Phosphatase 78 U/L (39-117); Anion Gap 13 (12-20); Aspartate Amino Transferase 16 U/L (5-37); Bilirubin Direct 0.2 mg/dL (0.0-0.5); Bilirubin Total 0.5 mg/dL (0.0-1.0); Blood Urea Nitrogen 19 mg/dL (9-16); Calcium 9.7 mg/dL (8.4-10.2); Carbon Dioxide 27 mmol/L (22-29); Chloride 99 mmol/L (96-108); Cholesterol 197 mg/dL; Estimated Glomerular Filt Rate > 60; Glucose Random 104 mg/dL (60-115); HDL Cholesterol 40 mg/dL; LDL Cholesterol Calculated 139 mg/dl; Potassium 3.6 mmol/L (3.3-5.1); Sodium 135 mmol/L (135-145); Triglycerides 91 mg/dL
[2022-05-31 11:24] LABS: ~HepC Num1 0.15 S/CO (0.00-0.79); ~Hepatitis C Antibody Nonreactive (Nonreactive)
[2022-05-31 11:25] LABS: HBS Num1 21.68 mIU/mL (0-7.99); HBsAGNum1 1.44 S/CO (0.00-0.99); HIV AB/AG Nonreactive (Nonreactive); HIV Num 1 0.13 S/CO (0.00-0.99); ~Hepatitis B Surface Antibody REACTIVE (Nonreactive)
[2022-05-31 11:37] LABS: Thyroid Stimulating Hormone 1.33 uIU/mL (0.32-4.0)
[2022-06-01 05:15] LABS: Hepatitis A Antibody IgG Nonreactive (Nonreactive); ~Hepatitis A Antibody IgG 0.36 S/CO (0.00-0.99)
[2022-06-01 06:11] LABS: HBsAGNum2 Nonreactive
[2022-06-01 06:12] LABS: HBsAGNum3 Nonreactive; Hepatitis B Surface Antigen NEGATIVE (Negative)
[2022-06-01 07:11] LABS: Syphilis Screen Nonreactive (Nonreactive)
== END 2022-05-31 09:37 | disposition home or self-care (01) ==
LOC: HO.LAB 09:36
PROVIDERS: PCP Family Medicine; Visit Provider Family Medicine
DX: Z11.4 Encounter for screening for human immunodeficiency virus [HIV] (principal); I10 Essential (primary) hypertension
CPT/HCPCS: 36415; 80048; 80061; 80076; 83036; 84443; 85025; 86706; 86708; 86780; 86803; 87340; 87389

== ENCOUNTER 2022-06-16 14:50 | Outpatient (REF) | payer MEDICAID, SELFPAY ==
[2022-06-16 15:19] LABS: Creatinine Urine 115.68 mg/dL; Microalbum/Creatinine Ratio Ur 12.9 ug/mg cr
[2022-06-17 00:01] LABS: CT PCR NOT DETECTED (Not Detect.); NG PCR NOT DETECTED (Not Detect.)
== END 2022-06-16 14:51 | disposition home or self-care (01) ==
LOC: HO.LNP 14:50
PROVIDERS: Visit Provider Family Medicine
DX: Z11.3 Encounter for screening for infections with a predominantly sexual mode of transmission (principal); I10 Essential (primary) hypertension; B36.9 Superficial mycosis, unspecified; E66.9 Obesity, unspecified; K42.9 Umbilical hernia without obstruction or gangrene; Z98.84 Bariatric surgery status
CPT/HCPCS: 82043; 87491; 87591; 99202

== ENCOUNTER → 2022-06-17 10:55 | Outpatient (BNVA) | payer MEDICAID, SELFPAY | PROVIDERS: PCP Family Medicine; Visit Provider Dietitian, Registered | DX: E66.9 Obesity, unspecified (principal); Z71.3 Dietary counseling and surveillance | CPT/HCPCS: 97802 ==

== ENCOUNTER → 2022-06-23 13:54 | Outpatient (BNVA) | payer MEDICAID, SELFPAY | PROVIDERS: PCP Family Medicine; Referring Provider Surgery; Visit Provider Dietitian, Registered | DX: E66.01 Morbid (severe) obesity due to excess calories (principal); Z71.3 Dietary counseling and surveillance | CPT/HCPCS: 97803 ==

== ENCOUNTER 2023-06-15 11:28 | Outpatient (REF) | payer MEDICAID, SELFPAY ==
[2023-06-15 13:21] LABS: MANUAL DIFF FLAG NO
[2023-06-15 13:46] LABS: Basophils Absolute Auto 0.1 X10*3/uL (0.0-0.2); Basophils Percent Auto 0.9 % (0-2); Eosinophils Absolute Auto 0.3 X10*3/uL (0.0-0.4); Eosinophils Percent Auto 5.6 % (0-4); Hematocrit 36.3 % (42.0-52.0); Hemoglobin 11.4 g/dl (14.0-18.0); Imm Gran Abs Auto 0.02 X10*3/uL (0.00-0.03); Imm Gran Pct Auto 0.4 % (0.0-0.4); Lymphocytes Absolute Auto 1.1 X10*3/uL (1.2-4.9); Lymphocytes Percent Auto 20.1 % (20-40); Mean Corpuscular HGB Conc 31.4 g/dl (31.0-36.0); Mean Corpuscular Hemoglobin 29.1 pg (27.0-33.0); Mean Corpuscular Volume 92.6 fL (80.0-98.0); Mean Platelet Volume 11.3 fL (9.4-12.4); Monocytes Absolute Auto 0.6 X10*3/uL (0.1-1.2); Monocytes Percent Auto 10.3 % (2-11); Neutrophils Absolute Auto 3.5 x10*3/uL (2.0-8.3); Neutrophils Percent Auto 62.7 % (45-73); Platelet Count 259 X10*3/uL (160-400); Red Blood Count 3.92 X10*6/uL (4.60-5.80); Red Cell Distribution Width 13.4 % (11.0-16.0); White Blood Count 5.6 X10*3/uL (4.8-10.8)
[2023-06-15 13:54] LABS: Estimated Average Glucose 100 mg/dL; Hemoglobin A1c % 5.1 %
[2023-06-15 14:27] LABS: Alanine Aminotransferase 8 U/L (0-40); Albumin Level 3.9 g/dL (3.5-5.0); Alkaline Phosphatase 57 U/L (39-117); Anion Gap 16 (12-20); Aspartate Amino Transferase 16 U/L (5-37); Bilirubin Direct 0.1 mg/dL (0.0-0.5); Bilirubin Total 0.3 mg/dL (0.0-1.0); Blood Urea Nitrogen 16 mg/dL (9-16); Calcium 9.2 mg/dL (8.4-10.2); Carbon Dioxide 24 mmol/L (22-29); Chloride 107 mmol/L (96-108); Cholesterol 171 mg/dL; Estimated Glomerular Filt Rate > 60; Glucose Random 98 mg/dL (60-115); HDL Cholesterol 36 mg/dL; LDL Cholesterol Calculated 120 mg/dl; Potassium 3.7 mmol/L (3.3-5.1); Sodium 143 mmol/L (135-145); Total Protein 7.2 g/dL (6.5-8.0); Triglycerides 76 mg/dL
[2023-06-15 14:32] LABS: Free T4 (Free Thyroxine) 0.81 ng/dL (0.71-1.85); Thyroid Stimulating Hormone 1.05 uIU/mL (0.32-4.0); Vitamin D 25-OH Total 27.4 ng/mL (>30)
[2023-06-15 17:05] LABS: Creatinine Urine 88.28 mg/dL; Microalbum/Creatinine Ratio Ur 19.2 ug/mg cr
[2023-06-15 18:08] LABS: CT PCR NOT DETECTED (Not Detect.); NG PCR NOT DETECTED (Not Detect.)
[2023-06-16 05:08] LABS: Syphilis Screen Nonreactive (Nonreactive)
[2023-06-16 05:34] LABS: HIV AB/AG Nonreactive (Nonreactive); HIV Num 1 0.07 S/CO (0.00-0.99)
[2023-06-16 05:48] LABS: ~HepC Num1 0.16 S/CO (0.00-0.79); ~Hepatitis C Antibody Nonreactive (Nonreactive)
== END 2023-06-15 11:29 | disposition home or self-care (01) ==
LOC: HO.HHCL 11:28
PROVIDERS: Visit Provider Family Medicine
DX: Z11.4 Encounter for screening for human immunodeficiency virus [HIV] (principal); Z11.3 Encounter for screening for infections with a predominantly sexual mode of transmission; I10 Essential (primary) hypertension
CPT/HCPCS: 0353U; 80048; 80061; 80076; 82043; 82306; 83036; 84439; 84443; 85025; 86780; 86803; 87389

== ENCOUNTER 2023-06-28 19:43 | Emergency (ER) | payer OTHER, SELFPAY ==
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
[2023-06-28 20:18] VITALS: BP 185/104; PULSE 72; RESP 16; TEMP 37.1; O2SAT 100; BMI 40.6
[2023-06-28] MEDS: Cyclobenzaprine HCl 10 MG TABLET PO (21:55)
--- NOTE | 2023-06-28 21:56 | PC.NURSE ---
pt medicated per JAN for 810 back pain.
[2023-06-28 23:48] VITALS: BP 190/107; PULSE 58; RESP 16; TEMP 36.3; O2SAT 100
--- NOTE | 2023-06-28 23:54 | PC.NURSE ---
provider Alonso made aware of increase in bp. discharge on hold till further notice.
[2023-06-29 00:51] VITALS: BP 187/108; PULSE 67; RESP 17; O2SAT 99
== END 2023-06-29 00:52 | disposition home or self-care (01) ==
PROVIDERS: Emergency Provider Emergency Medicine; PCP Family Medicine
DX: S13.4XXA Sprain of ligaments of cervical spine, initial encounter (principal); S39.012A Strain of muscle, fascia and tendon of lower back, initial encounter; M17.0 Bilateral primary osteoarthritis of knee; R51.9 Headache, unspecified; M54.2 Cervicalgia; V43.62XA Car passenger injured in collision with other type car in traffic accident, initial encounter; Y93.9 Activity, unspecified; Y92.410 Unspecified street and highway as the place of occurrence of the external cause; Y99.9 Unspecified external cause status; Z79.899 Other long term (current) drug therapy
CPT/HCPCS: 70450; 72100; 72125; 73564; 99283

== ENCOUNTER 2023-12-12 14:15 | Outpatient (AMB) | payer MEDICAID, SELFPAY ==
--- NOTE | 2023-12-12 14:18 | MHC.OFFVIS ---
Intake Vital Signs 12/12/23 14:29 Height 5 ft 8 in Weight 268 lb BMI 40.7 BP 166/96 H Blood Pressure Location Lt brachial Position Sitting Intake Visit Reasons: umbilical hernia Intake Note: Patient is seen in office for evaluation and treatment of an umbilical hernia. 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 He reports undergoing a lap band procedure several years ago but only recently began to note a lump in the umbilicus. This was initially asymptomatic but now has become more painful especially with lifting. 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 He feels this is increasing the pain. He denies nausea, vomiting, fever or chills. His bowels are normal without blood. [facility] Medical History History of substance abuse Obesity Hypertension Surgical History History of laparoscopic adjustable gastric banding Hx of laparoscopic gastric banding Social History Household Members: Spouse and Children Housing: House Patient Tobacco Use Status: Never used Tobacco service: No Current occupational status: unemployed Review of Systems Const All systems reviewed & are unremarkable except as noted in HPI and below Physical Exam Vital Signs: Last Vital Signs BP 190/110 H 12/12/23 14:29 BMI result Body Mass Index 40.7 Const General: cooperative and no acute distress Nutritional Appearance: well nourished Orientation/consciousness: patient oriented x3 Limitations: no limitations HEENT Head: Yes normocephalic and Yes atraumatic Ears: hearing grossly normal bilaterally Resp Effort & Inspection: normal respiratory effort, no audible wheezes, no cough and no respiratory distress Cardio Jugular venous distension: no JVD GI Inspection: Yes normal to inspection Palpation (GI): Soft to palpation, Tenderness to palpation present (GI) periumbilically and Hernia present (Non reducible, red skin, tender to palpation) umbilical Abdomen image: 1. Site of hernia Skin Other: Warm, dry, no rash Neuro General: patient oriented x3 Extrem General: Yes no clubbing, cyanosis or edema Assessment & Plan Assessment & Plan (1) Umbilical hernia: Code(s): K42.9 - Umbilical hernia without obstruction or gangrene Qualifiers: Obstruction and gangrene presence: without obstruction or gangrene Qualified Code(s): K42.9 - Umbilical hernia without obstruction or gangrene Plan 43-year-old male patient with a non reducible umbilical hernia at the site of previous surgery for a lap band. On examination there is a 2 cm defect which is not reducible. I recommended the patient avoid any lifting more than 5 lb until after surgical repair. We discussed repair of the umbilical hernia including the risks and benefits and he consents to the surgery. He will require approximately 5 weeks of no heavy greater than 10 lb following the surgery. Coding Level of Care Code New Pt Level 4 (53501) Diagnoses Umbilical hernia without obstruction and without gangrene K42.9 Obstruction and gangrene presence: without obstruction or gangrene
[2023-12-12 14:29] VITALS: BP 166/96; BMI 40.7
== END 2023-12-12 14:55 | disposition home or self-care (01) ==
PROVIDERS: PCP Family Medicine; Visit Provider Surgery
DX: K42.9 Umbilical hernia without obstruction or gangrene (principal)
CPT/HCPCS: 99214

== ENCOUNTER → 2023-12-12 14:15 | Outpatient (BNVA) | payer MEDICAID, SELFPAY | PROVIDERS: PCP Family Medicine; Visit Provider Surgery | DX: K42.9 Umbilical hernia without obstruction or gangrene (principal); Z98.84 Bariatric surgery status | CPT/HCPCS: 99212 ==

== ENCOUNTER 2023-12-20 07:00 | Day surgery (SDC) | payer MEDICAID, SELFPAY ==
--- NOTE | 2023-12-19 08:48 | HO.ANESPROP2 ---
Documented by User: Reina Bustamante NP 12/19/23 08:50 HPI - Anesthesia Eval Consult details Narrative: 43yo M for Repair Hernial Umbilical Irreducible with mesh Sublocade injections PMFSH Active Problems Active Problems: All Active Problems (Updated 12/12/23 @ 14:39 by Raphael Toro MD) Umbilical hernia (Acute) History of substance abuse (Acute) History of laparoscopic adjustable gastric banding (Acute) Fungal skin infection (Acute) Hypertension (Acute) Obesity (Acute) Abscess, umbilical (Acute) Past Medical History Medical History History of substance abuse Obesity Hypertension Surgical History Surgical History History of laparoscopic adjustable gastric banding Hx of laparoscopic gastric banding Social History Social History Household Members: Spouse and Children Housing: House Patient Tobacco Use Status: Never used Tobacco Advance Directives: No Advance Directives Information Provided: Yes service: No Current occupational status: unemployed Meds Allergies Allergy/AdvReac Type Severity Reaction Status Date / Time No Known Allergies Allergy Verified 12/20/23 07:29 [No Known Allergies*] Home Medications Medication Instructions Recorded Confirmed Last Taken Type buprenorphine 100 mg/0.5 mL mg subcut 12/12/23 Unknown History solution,exten.rel.subcutaneous syringe (Sublocade) diltiazem HCl 120 mg capsule,24 120 mg PO QAM 12/20/23 12/20/23 12/20/23 06:30 History hr,extended release Assessment and Plan Assessment Anesthesia Assessment: Chart Reviewed Documented by User: Colin Rothman MD 12/20/23 08:33 PMFSH Past Medical History Medical History History of substance abuse Obesity Hypertension Family History Family history of problems with anesthesia: No Surgical History Surgical History History of laparoscopic adjustable gastric banding Hx of laparoscopic gastric banding History of Problems with Anesthesia: No Social History Social History Household Members: Spouse and Children Housing: House Patient Tobacco Use Status: Never used Tobacco Advance Directives: No Advance Directives Information Provided: Yes service: No Current occupational status: unemployed Meds Allergies Allergy/AdvReac Type Severity Reaction Status Date / Time No Known Allergies Allergy Verified 12/20/23 07:29 [No Known Allergies*] Home Medications Medication Instructions Recorded Confirmed Last Taken Type buprenorphine 100 mg/0.5 mL mg subcut 12/12/23 Unknown History solution,exten.rel.subcutaneous syringe (Sublocade) diltiazem HCl 120 mg capsule,24 120 mg PO QAM 12/20/23 12/20/23 12/20/23 06:30 History hr,extended release Exam Airway Mallampati Class: III TM Dist: <=3cm Neck ROM: Full Loose/Missing/Broken Teeth: No Heart: rrr Lungs: cta b/l Assessment and Plan Assessment Anesthesia Assessment: Anesthesia Plan Discussed and Chart Reviewed Final Anesthetic Review Family History of Problems with Anesthesia: No History of Problems with Anesthesia: No NPO: Yes ASA Class: III Final Preanesthetic Review: No Changes in Pt Med Stat and Consent Obtained/Reviewed Patient Risk: Low Procedure Risk: Low Anesthetic Plan Anesthetic Plan: GA Disposition: Standard PACU
[2023-12-20] VITALS (15 sets, daily range): BP systolic 146–174; BP diastolic 90–116; PULSE 64–88; RESP 14–18; TEMP 36.5–37.4; O2SAT 94–100; BMI 40.3
--- NOTE | 2023-12-20 08:19 | MHC.SHP ---
Pre-Procedural Eval Section A - 24 Hr Update-Section A only Date of Service: 12/20/23 The patient is an INPATIENT: No Changes since office visit: Yes Patient answered all questions; No Cold of Flu in the past 2 weeks, No New Medical Problems and No Changes in Medication The patient has been examined within 24 hours of the surgical procedure. The History & Physical has been completed within 30 days and I have reviewed it.: Yes Section B - Complete if H&P > 30 days Chief Complaint: Umbilical hernia without obstruction or gangrene Allergies: Allergies Allergy/AdvReac Type Severity Reaction Status Date / Time No Known Allergies Allergy Verified 12/20/23 07:29 [No Known Allergies*] Plan Diagnosis/Plan: Unchanged I have reviewed the history and physical and performed a pertinent physical examination on my patient. No changes have occurred unless specified. Time Spent With Patient Time: Total time managing care of this patient today ____ minutes.
--- NOTE | 2023-12-20 09:48 | W.PM.OPN ---
Operative Note Operative Note Date of Service: 12/20/23 Narrative: Preoperative diagnosis: Umbilical hernia non reducible Postoperative diagnosis: Same Procedure: Repair of non reducible umbilical hernia with mesh Surgeon: Raphael Toro MD Land Clearer: Megan Minor PA-C Anesthesia: General LMA Indications for procedure: 43-year-old male patient presenting with a non reducible umbilical hernia measuring approximately 2 cm in diameter. Patient is reporting increased pain and redness in the skin and has requested repair. Operative findings: Incarcerated umbilical hernia measuring approximately 2 cm in diameter containing omentum and small bowel. Hernia was repaired using a 6.4 cm round Ventralex mesh. Specimen: None Estimated blood loss: 5 mL Complications: None Procedure details: Patient was brought to the OR placed in a supine position. After administering general anesthesia the patient's abdomen was prepped with ChloraPrep and draped in a sterile fashion. A surgical time-out was called the consent confirmed. Patient received preoperative antibiotics and Venodyne boots were in place. Local anesthesia consisting of 0.5% Sensorcaine was infiltrated in a curvilinear fashion across the umbilicus. A curvilinear incision was made above the umbilicus and carried out through subcutaneous tissue. The hernia sac was identified and dissected down to the fascia. This hernia sac was then dissected off the umbilical skin. The sac was then entered and omental and small bowel identified within the hernia sac. This was densely adherent and needed lysis of adhesions to remove. The abdominal contents were then reduced into the abdominal cavity. The sac was then further mobilized down to fascial edge. This was then reduced into the abdominal cavity. A preperitoneal space was then created using both sharp and blunt dissection. Hemostasis was assured all times using electrocautery. A 6.4 cm round Ventralex mesh was then obtained. This was deployed within the preperitoneal space and secured in 4 quadrants using a parachute type technique using 0 Tycron suture. The fascia was then closed over the mesh incorporating the mesh in the closure using [id number] 0 Tycron sutures. Wounds were then irrigated with saline solution and suctioned dry. Umbilical skin was then secured to the fascia using a 3-0 Polysorb suture. Dermis was reapproximated using interrupted 3-0 Polysorb sutures. Skin was then closed using a running subcuticular 4-0 Polysorb suture. Steri-Strips, 2 x 2 gauze and Tegaderm were then applied. The patient tolerated the procedure well. Sponge, instrument, and needle counts reported as correct. Patient was transferred to PACU in stable condition.
[2023-12-20] MEDS: HYDROmorphone HCl 0.5 MG/0.5 ML SYRINGE IVPUSH (11:08)
[2023-12-20] MEDS: fentaNYL citrate/PF 100 MCG/2 ML VIAL 25 MCG IVPUSH ×4 (11:30→11:58)
== END 2023-12-20 12:42 | disposition home or self-care (01) ==
PROVIDERS: Visit Provider Surgery
PROC: (CPT 49592; principal; 2023-12-20 08:40)
DX: K42.0 Umbilical hernia with obstruction, without gangrene (principal); Z98.84 Bariatric surgery status; I10 Essential (primary) hypertension; E66.9 Obesity, unspecified; Z68.41 Body mass index [BMI] 40.0-44.9, adult; F19.11 Other psychoactive substance abuse, in remission; Z79.899 Other long term (current) drug therapy
CPT/HCPCS: 49592; C1781; J0131; J0665; J0690; J1170; J1596; J2250; J2405; J2704; J3010

== ENCOUNTER → 2023-12-20 07:00 | Outpatient (BNV) | payer MEDICAID, SELFPAY | PROVIDERS: Visit Provider Surgery | DX: K42.9 Umbilical hernia without obstruction or gangrene (principal) | CPT/HCPCS: 49592 ==

== ENCOUNTER 2023-12-29 11:02 | Outpatient (AMB) | payer MEDICAID, SELFPAY ==
--- NOTE | 2023-12-29 11:04 | MHC.OFFVIS ---
Intake Vital Signs 12/29/23 11:09 Height 5 ft 8 in Weight 267 lb 6 oz BMI 40.6 BP 197/101 H Blood Pressure Location Lt brachial Position Sitting Pulse 72 Intake Visit Reasons: S/p umbilical hernia repair Intake Note: Patient is seen in office for post op assessment post umbilical hernia repair. Pt c/o: states minimal bleeding in the area mostly when bending or sitting, denies any other concerns OP: 12/20/23 Laboratory Phlebotomist Required: No Accompanied by: Self / Same As Patient Allergies No Known Allergies [No Known Allergies*] Allergy (Verified 12/29/23 11:09) Medication List - Last Reconciled 12/29/23 by Raphael Toro MD buprenorphine ER (Sublocade) mg subcut diltiazem HCl ER 120 mg PO QAM losartan-hydrochlorothiazide 50-12.5 mg 2 tabs PO DAILY nystatin-triamcinolone 100,000-0.1 unit/gram-% 1 appl topical BID HPI HPI Comments History of Present Illness Details 43-year-old male patient found to have an umbilical hernia at the site of a previous lap band procedure which had increased in size and become more uncomfortable. He subsequently underwent repair of the umbilical hernia on 12/20/2023 as a short-stay surgery. He returns today for wound check. 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 He tolerated the surgery well but does note some bleeding from the incision over the last several days. [facility] Medical History History of substance abuse Obesity Hypertension Surgical History Hx of umbilical hernia repair (12/20/23) History of laparoscopic adjustable gastric banding Hx of laparoscopic gastric banding Social History Household Members: Spouse and Children Housing: House Patient Tobacco Use Status: Never used Tobacco service: No Current occupational status: unemployed Physical Exam Vital Signs: Last Vital Signs Pulse 72 12/29/23 11:09 BP 197/101 H 12/29/23 11:09 BMI result Body Mass Index 40.6 Const General: comfortable Nutritional Appearance: well nourished Orientation/consciousness: patient oriented x3 Resp Effort & Inspection: normal respiratory effort GI Other: Umbilical incision is clean, and intact however in the central portion of the incision a small area of bleeding is identified. This appears to be some old liquified blood suggestive of an underlying hematoma. Wounds were dressed with dry sterile dressings. No evidence of wound infection. Inspection: Yes normal to inspection Palpation (GI): Soft to palpation, nontender, no guarding and not rigid Skin Other: warm, dry Neuro General: patient oriented x3 Extrem Other: No edema Assessment & Plan Assessment & Plan (1) Umbilical hernia: Code(s): K42.9 - Umbilical hernia without obstruction or gangrene Qualifiers: Obstruction and gangrene presence: without obstruction or gangrene Qualified Code(s): K42.9 - Umbilical hernia without obstruction or gangrene Plan patient returns 1 week following repair of and umbilical hernia with mesh. His wounds are healing nicely however there is a small area of bleeding in the mid incision. This was dressed with dry sterile dressings. He was instructed on local wound care and will return in 2 weeks for follow-up examination. Coding Level of Care Code Global (17685) Diagnoses Umbilical hernia without obstruction and without gangrene K42.9 Obstruction and gangrene presence: without obstruction or gangrene
[2023-12-29 11:09] VITALS: BP 197/101; PULSE 72; BMI 40.6
== END 2023-12-29 11:15 | disposition home or self-care (01) ==
PROVIDERS: PCP Family Medicine; Visit Provider Surgery
DX: K42.9 Umbilical hernia without obstruction or gangrene (principal)
CPT/HCPCS: 99212

== ENCOUNTER → 2023-12-29 11:02 | Outpatient (BNVA) | payer MEDICAID, SELFPAY | PROVIDERS: PCP Family Medicine; Visit Provider Surgery | DX: K42.9 Umbilical hernia without obstruction or gangrene (principal) | CPT/HCPCS: 99212 ==

== ENCOUNTER 2024-01-16 08:52 | Outpatient (AMB) | payer MEDICAID, SELFPAY ==
--- NOTE | 2024-01-16 08:55 | A.OFFVIS_ITS ---
Intake Vital Signs 01/16/24 09:01 Height 5 ft 8 in Weight 263 lb BMI 40.0 Respiration 16 Pulse 72 Intake Visit Reasons: 2 wk follow up S/p umbilical hernia repair Intake Note: Patient is seen in office for 2 weeks follow up visit, wound check post umbilical hernia repair. Pt c/o:had some discharge a week ago, applied triple antibiotic and is better now Clothing Designer Required: No Accompanied by: Self / Same As Patient Allergies No Known Allergies [No Known Allergies*] Allergy (Verified 01/16/24 09:00) Medication List - Last Reconciled 01/16/24 by Raphael Toro MD buprenorphine ER (Sublocade) mg subcut diltiazem HCl ER 120 mg PO QAM losartan-hydrochlorothiazide 50-12.5 mg 2 tabs PO DAILY nystatin-triamcinolone 100,000-0.1 unit/gram-% 1 appl topical BID HPI HPI Comments History of Present Illness Details 43-year-old male patient returning 4 wee ks following repair of an umbilical hernia with mesh. He reports some discharge from the wound 1 week ago and subsequently applied some bacitracin ointment to the wound. It is now much improved and denies any pain, redness or discharge. [facility] Medical History History of substance abuse Obesity Hypertension Surgical History Hx of umbilical hernia repair (12/20/23) History of laparoscopic adjustable gastric banding Hx of laparoscopic gastric banding Social History Household Members: Spouse and Children Housing: House Patient Tobacco Use Status: Never used Tobacco service: No Current occupational status: unemployed Physical Exam Vital Signs: Last Vital Signs Pulse 72 01/16/24 09:01 Resp 16 01/16/24 09:01 BMI result Body Mass Index 40.0 Const General: comfortable Nutritional Appearance: well nourished Orientation/consciousness: patient oriented x3 Resp Effort & Inspection: normal respiratory effort GI Other: Umbilical incision is clean, dry, and intact without redness or discharge. No hernias noted with Valsalva maneuvers. Inspection: Yes normal to inspection Palpation (GI): Soft to palpation, nontender, no guarding and not rigid Skin Other: warm, dry Neuro General: patient oriented x3 Extrem Other: No edema Assessment & Plan Assessment & Plan (1) Umbilical hernia: Code(s): K42.9 - Umbilical hernia without obstruction or gangrene Qualifiers: Obstruction and gangrene presence: without obstruction or gangrene Q ualified Code(s): K42.9 - Umbilical hernia without obstruction or gangrene Plan 43-year-old male patient returning 4 weeks following repair of an umbilical hernia with mesh. His wounds are now clean, dry, and intact without redness or discharge. Will need another 2 weeks no heavy lifting before returning to full duty. He may return as of 01/30/2024. He should call for any problems. Coding Level of Care Code Global (27728) Diagnoses Umbilical hernia without obstruction and without gangrene K42.9 Obstruction and gangrene presence: without obstruction or gangrene
[2024-01-16 09:01] VITALS: PULSE 72; RESP 16; BMI 40.0
== END 2024-01-16 09:19 | disposition home or self-care (01) ==
PROVIDERS: PCP Family Medicine; Visit Provider Surgery
DX: K42.9 Umbilical hernia without obstruction or gangrene (principal)
CPT/HCPCS: 99212

== ENCOUNTER → 2024-01-16 08:52 | Outpatient (BNVA) | payer MEDICAID, SELFPAY | PROVIDERS: PCP Family Medicine; Visit Provider Surgery | DX: K42.9 Umbilical hernia without obstruction or gangrene (principal) | CPT/HCPCS: 99212 ==

== ENCOUNTER 2025-01-28 10:04 | Outpatient (REF) | payer MEDICAID, SELFPAY ==
--- NOTE | ~2025-01-28 | XR_ITS ---
EXAMINATION: XR KNEE 4 OR MORE VIEWS LEFT HISTORY: b/l knee pain and giving out sensation COMPARISON: Comparison is made with the prior examination dated 06/28/2023. FINDINGS: Four views of the left knee are submitted. Osseous mineralization is normal. Again seen is severe osteoarthritis of the medial compartment with joint space narrowing and osteophyte formation. There is moderate osteoarthritis of the patellofemoral compartment and mild osteoarthritis of the lateral compartment. There is no fracture or dislocation. The soft tissues are unremarkable. There is no joint effusion. XR/XR knee LT 4V IMPRESSION: Osteoarthritis of the left knee as described. Electronically signed by: Fernando Shelton MD 01/28/2025 11:15 AM EDT
--- NOTE | ~2025-01-28 | XR_ITS ---
EXAMINATION: XR KNEE 4 OR MORE VIEWS RIGHT HISTORY: b/l knee pain and giving out sensation COMPARISON: Comparison is made with the prior examination dated 06/28/2023. FINDINGS: Five views of the right knee are submitted. Osseous mineralization is normal. A portion of an intramedullary veena is noted in the distal femur. There is no fracture or dislocation. There is severe osteoarthritis of the medial compartment with joint space narrowing and osteophyte formation. There is moderate osteoarthritis of the patellofemoral compartment and mild osteoarthritis of the lateral compartment. The soft tissues are unremarkable. There is no joint effusion. XR/XR knee RT 4V IMPRESSION: Osteoarthritis of the right knee as described. Electronically signed by: Fernando Shelton MD 01/28/2025 11:16 AM EDT
[2025-01-28 11:26] LABS: Hematocrit 34.6 % (42.0-52.0); Hemoglobin 10.9 g/dl (14.0-18.0); Mean Corpuscular HGB Conc 31.5 g/dl (31.0-36.0); Mean Corpuscular Hemoglobin 26.8 pg (27.0-33.0); Mean Corpuscular Volume 85.2 fL (80.0-98.0); Mean Platelet Volume 10.8 fL (9.4-12.4); Platelet Count 402 X10*3/uL (160-400); Red Blood Count 4.06 X10*6/uL (4.60-5.80); Red Cell Distribution Width 13.2 % (11.0-16.0); White Blood Count 7.1 X10*3/uL (4.8-10.8)
--- OUTSIDE RECORDS SUMMARY | 2025-01-28 11:29 | XMS_ITS | Encounter Summary ---
Author Organization [facility] Address [address] [place] [address] Care Team Providers Care Oil Pipeline Dispatcher Name Role Phone Erica Cantu DO Primary Care Provider + [phone] Reason for Visit * Reason Onset Date Comments Hospital Follow-up 01/16/2025 Encounter Details Date Type Department Care Team ([facility] st Contact Info) Description 01/16/2025 Telephone [facility] [address] [place] [address] Erica Cantu DO [address] [place] [address] Hospital Follow-up Social History Tobacco Use Types Packs/Day Years Used Date Smoking Tobacco: Never Smokeless Tobacco: Never Depression Answer Date Recorded Patient Health Questionnaire-9 Score 3 07/03/2023 Housing Stability Answer Date Recorded What is your housing situation today? I have all denise 01/16/[address] you li ve. Do you have problems with any of the following? None of the above 01/16/2025 Food Insecurity Answer Date Recorded Within the past 12 months, y ou worried that your food would run out before you got money to buy more: Often true 01/16/2025 Within the past 12 months,th e food you bought just didn't last and you didn't have enough money to get more: Often true 04/2025 Transportation Answer Date Recorded In the past 12 months, has l ack of transportation kept you from medical appts, meetings, work or from getting things needed for daily living? No 01/16/2025 Utilities Answer Date Recorded In the past 12 months, has t he electric, gas, oil or water company threatened to shut off services in your home? No 01/16/2025 Depression Answer Date Recorded Patient Health Questionnaire-2 Score 0 07/03/2023 Internet Access Answer Date Recorded Internet Access Q1 Yes 01/16/2025 Internet Access Q2 Not on file 01/16/2025 Sex and Gender Information Value Date Recorded Sex Assigned at Male 09/12/2022 10:17 AM EDT Legal Sex Male 10:17 AM EDT Gender Identity Male 09/12/2022 10:17 AM EDT Sexual Orientation Straight 09/12/2022 10 :17 AM EDT documented as of this encounter Miscellaneous Notes * Telephone Encounter - Daisy Corey - 01/16/2025 11:53 AM EST Tc from pt requesting a HDF appt. Hospital: [place], [place] Date of admission: 01/07 Discharge date: 01/10 Diagnosed: Blood spots *Send message to [place] [facility] Care Coordinators [phone] documented in this encounter Plan of Treatment Not on file documented as of this encounter Visit Diagnoses Not on filedocumented in this encounter Additional Health Concerns Assessment Noted Time PHQ-9 Depression Total Score: 3 07/03/20 23 10:46 AM EDT documented as of this encounter Care Teams Oil Pipeline Dispatcher Relationship Specialty Start Date End Date Erica Cantu DO [address] [place] [id number] PCP - General Family Medicine 05/30/14 documented as of this encounter
--- OUTSIDE RECORDS SUMMARY | 2025-01-28 11:29 | XMS_ITS | Encounter Summary ---
Author Organization [employer] Address [address] [facility] 7t [place] [address] Care Team Providers Care Frameman Name Role Phone AlondraErica Primary Care Provider + [phone] Encounter Details Date Type Department Care Team ([facility] st Contact Info) Description 01/21/2025 Telephone [facility] MEDICINE [address] [place] [address] Shea Urena, PharmD [address] [place] [address] Social History Tobacco Use Types Packs/Day Years [...] encounter Miscellaneous Notes * Telephone Encounter - Shea Urena PharmD - 01/21/2025 11:59 AM EDT Please assist in obtaining discharge paperwork from [facility]. Patient was discharged on 01/10/25. Thank you documented in this encounter Plan of Treatment Not on file documented as of this encounter Goals Goal Patient Goal Type Associated Problems Recent Progress Patient-Stated? Author To stay clean. 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, JAYA documented as of this encounter Visit Diagnoses Not on filedocumented in this encounter Additional Health Concerns Assessment Noted Time PHQ-9 Depression Total Score: 3 07/03/20 23 10:46 AM EDT documented as of this encounter Care Teams Frameman Relationship Specialty Start Date End Date Erica Cantu DO [address] [place] [address] PCP - General Family Medicine 05/30/14 documented as of this encounter
--- OUTSIDE RECORDS SUMMARY | 2025-01-28 11:29 | XMS_ITS | Encounter Summary ---
Author Organization [employer] Address [address] [facility] 7t [place] [address] Care Team Providers Care Medical Appliance Maker Name Role Phone Erica Cantu DO Primary Care Provider + [phone] Reason for Visit * Reason Comments Care Coordination CHW outreach for SDO H PT-1 and food needs-referral completed Encounter Details Date Type Department Care Team (Latest Contact Info) Description 01/16/2025 Patient Outreach [facility] MEDICINE [address] [place] [address] Erica Cantu DO [address] [place] [address] Care Coordination (CHW outreach for SDOH PT-1 and food needs-referral completed /) Social History Tobacco Use Types Packs/Day Years [...] AM EDT documented as of this encounter Progress Notes * Destin Massey - 01/16/2025 1:37 PM EST CHW Destin Massey, placed outbound call to patient for assistance with SDOH as a referral was received by the provider. Patient's name and were confirmed. Patient screened positive for the following SDOH food insecurities. CHW referral patient to the local list of pantries in the area for help. Patient verbalizes understanding, and able to agree with plan to follow up. Patient educated on ex tended clinic hours on Mondays through Wednesdays, and Walk-In Urgent Care Located in [facility] of [facility].Patient provided with after-hours line for [facility], , which offer night time triage serviceand option to transfer to conveyancer provider if needed. documented in this encounter Plan of Treatment Not on file documented as of this encounter Visit Diagnoses Not on filedocumented in this encounter Additional Health Concerns Assessment Noted Time PHQ-9 Depression Total Score: 3 07/03/20 23 10:46 AM EDT documented as of this encounter Care Teams Medical Appliance Maker Relationship Specialty Start Date End Date Erica Cantu DO [address] [place] [address] PCP - General Family Medicine 05/30/14 documented as of this encounter
--- OUTSIDE RECORDS SUMMARY | 2025-01-28 11:29 | XMS_ITS | Encounter Summary ---
Author Organization [employer] Address [address] [facility] 7t [place] [address] Care Team Providers Care Truck Car And Bus Cleaner Name Role Phone Erica Cantu DO Primary Care Provider + [phone] Reason for Visit * Reason Comments Med Refill Encounter Details Date Type Department Care Team (Late st Contact Info) Description 01/27/2025 Refill [facility] MEDICINE [address] [place] [address] Erica Cantu DO [address] [place] [address] Social History Tobacco Use Types Packs/Day Years Used Date Smoking Tobacco: Never Smokeless Tobacco: Never Depression Answer Date Recorded Patient Health Questionnaire-9 Score 0 01/28/2025 Patient Health Questionnaire-9 Score 0 01/28/2025 Last PHQ-9: Questionnaire Data Not on file 0 01/28/2025 Housing Stability Answer Date Recorded What is [...] Date Recorded Patient Health Questionnaire-2 Score 0 01/28/2025 Internet Access Answer Date Recorded Internet Access Q1 Yes 01/16/2025 Internet Access Q2 Not on file 01/16/2025 Sex and Gender Information Value Date Recorded Sex Assigned at Male 09/12/2022 10:17 AM EDT Legal Sex Male 10:17 AM EDT Gender Identity Male 09/12/2022 10:17 AM EDT Sexual Orientation Straight 09/12/2022 10 :17 AM EDT documented as of this encounter Plan of Treatment Not on [...] documented as of this encounter Care Teams Truck Car And Bus Cleaner Relationship Specialty Start Date End Date Erica Cantu DO [address] [place] [address] PCP - General Family Medicine 05/30/14 documented as of this encounter
--- OUTSIDE RECORDS SUMMARY | 2025-01-28 11:29 | XMS_ITS | Encounter Summary ---
Author Organization [employer] Address [address] [facility] 7t [place] [address] Care Team Providers Care Draw Press Operator Name Role Phone Erica Cantu DO Primary Care Provider + [phone] Encounter Details Date Type Department Care Team (Latest Contact Info) Description 01/21/2025 Travel Social History Tobacco Use Types Packs/Day Years [...] Author To stay clean. 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 RN documented as of this encounter Visit Diagnoses Not on filedocumented in this encounter Additional Health Concerns Assessment Noted Time PHQ-9 Depression Total Score: 3 07/03/20 23 10:46 AM EDT documented as of this encounter Care Teams Draw Press Operator Relationship Specialty Start Date End Date Erica Cantu DO [address] [place] [address] PCP - General Family Medicine 05/30/14 documented as of this encounter
--- OUTSIDE RECORDS SUMMARY | 2025-01-28 11:29 | XMS_ITS | Encounter Summary ---
Author Organization [employer] Address [address] [facility] 7t [place] [address] Care Team Providers Care Study Abroad Coordinator Name Role Phone Erica Cantu DO Primary Care Provider + [phone] Encounter Details Date Type Department Care Team (Latest Contact Info) Description 01/28/2025 Travel Social History Tobacco Use Types Packs/Day [...] Assessment Noted Time PHQ-9 Depression Total Score: 0 01/29/20 25 9:24 AM EDT documented as of this encounter Care Teams Study Abroad Coordinator Relationship Specialty Start Date End Date Erica Cantu DO [address] [place] [address] PCP - General Family Medicine 05/30/14 documented as of this encounter
--- OUTSIDE RECORDS SUMMARY | 2025-01-28 11:29 | XMS_ITS | Encounter Summary ---
Author Organization [employer] Address [address] [facility] 7t [place] [address] Care Team Providers Care Pet Handler Name Role Phone Erica Cantu DO Primary Care Provider [phone] Encounter Details Date Type Department Care Team ([facility] st Contact Info) Description 05/22/2023 Orders Only [facility] MEDICINE [address] [place] [address] Paula Woo RN Social History Tobacco Use Types Packs/Day Years Used Date Smoking Tobacco: Never Smokeless Tobacco: Never Sex and Gender Information Value Date Recorded Sex Assigned at Male 09/12/2022 10:17 AM EDT Legal Sex Male 10:17 AM EDT Gender Identity Male 09/12/2022 10:17 AM EDT Sexual Orientation Straight 09/12/2022 10 :17 AM EDT COVID-19 Exposure Response Date Recorded In the last 10 days, have yo u been in contact with someone who was confirmed or suspected to have Coronavirus/COVID-19? No / Unsure 05/10/2023 11:23 AM EDT documented as of this encounter Plan of Treatment Not on file documented as of this encounter Visit Diagnoses Not on filedocumented in this encounter Care Teams Pet Handler Relationship Specialty Start Date End Date Erica Cantu DO [address] [place] [address] PCP - General Family Medicine 05/30/14 documented as of this encounter
--- OUTSIDE RECORDS SUMMARY | 2025-01-28 11:29 | XMS_ITS | Encounter Summary ---
Author Organization [employer] Address [address] [facility] 7t [place] [address] Care Team Providers Care Oil Well Directional Surveyor Name Role Phone Erica Cantu DO Primary Care Provider + [phone] Reason for Visit * Reason Comments Med Refill Encounter Details Date Type Department Care Team (Late st Contact Info) Description 01/06/2025 Refill [facility] MEDICINE [address] [place] [address] Erica Cantu DO [address] [place] [address] Social History Tobacco Use Types Packs/Day Years Used Date Smoking Tobacco: Never Smokeless Tobacco: Never Depression Answer Date Recorded Patient Health Questionnaire-9 Score 3 07/03/2023 Housing Stability Answer Date Recorded What is your housing situation today? I have all denise 08/30/[address] you li ve. Do you have problems with any of the following? None of the above 08/30/2023 Food Insecurity Answer Date Recorded Within the past 12 months, y ou worried that your food would run out before you got money to buy more: Never True 08/30/2023 Within the past 12 months,th e food you bought just didn't last and you didn't have enough money to get more: Never True Transportation Answer Date Recorded In the past 12 months, has l ack of transportation kept you from medical appts, meetings, work or from getting things needed for daily living? No 08/30/2023 Utilities Answer Date Recorded In the past 12 months, has t he [employer], gas, oil or water company threatened to shut off services in your home? Yes 08/22/2023 Depression Answer Date Recorded Patient Health Questionnaire-2 Score 0 07/03/2023 Sex and Gender Information Value Date Recorded [...] as of this encounter Care Teams Oil Well Directional Surveyor Relationship Specialty Start Date End Date Erica Cantu DO [address] [place] [address] PCP - General Family Medicine 05/30/14 documented as of this encounter
--- OUTSIDE RECORDS SUMMARY | 2025-01-28 11:29 | XMS_ITS | Encounter Summary ---
Author Organization [employer] Address [address] [facility] 7t [place] [address] Care Team Providers Care Legal Archivist Name Role Phone Erica Cantu DO Primary Care Provider + [phone] Reason for Visit * Reason Comments Transition Of Care (Tcm) HDF- Scheduled Encounter Details Date Type Department Care Team ([facility] st Contact Info) Description 01/16/2025 Patient Outreach [facility] MEDICINE [address] [place] [address] Erica Cantu DO [address] [place] [address] Transition Of Care (Tcm) (HDF- Scheduled ) Social History Tobacco Use Types Packs/Day Years Used Date Smoking Tobacco: Never Smokeless Tobacco: Never Depression Answer Date Recorded Patient Health Questionnaire-9 Score 3 07/03/2023 Housing Stability Answer Date Recorded What is your housing situation today? I have all ednise 01/16/[address] you li [...] as of this encounter Progress Notes * Fernandez Will - 01/16/2025 1:01 PM EST CORRIE Ochoa placed successful outbound call to patient for pre-visit planning. Patient name and confirmed. Patient confirms appt date and time, and has transportation arrangements. Biggest concern for appointment at this time is requesting a call back to discuss blood thinner meds . Appropriate screenings completed in anticipation of appointment. SDOH screening is positive for food insecurities. * Dory Devlin RN - 01/16/2025 1:01 PM EST TC placed to patient [phone] in regards to below message. Patient reports he only has 3 more days of Eliquis left from the hospital and he needs more medication. RN inquired on dose of Eliquis and frequency however the patient was not sure. RN advised patient to return call to [facility] with Eliquisdose and frequency. Patient verbalized understanding. Patient to f/u PRN. Patient has [facility] pharmacy listed in chart. RN called [facility] pharmacy to inquire if Eliquis was filled at [facility], unfortunately it was not. RN will await CB from patient. documented in this encounter Miscellaneous Notes * Significant Event - Fernandez Will - 01/16/2025 1:08 PM EST 01/16/25 1303 Hospital Discharges and Admission for [facility] Type of Visit Hospital Admission Date of Admission/Visit 01/07/25 Date of Discharge 01/10/25 Facility [facility] Diagnosis Blood spots Disposition Discharged Home Follow-Up Actions Follow-Up Needed Provider appointment Follow-Up Outcome Spoke to Patient CC Fernandez Jsaon placed outbound call to patient for HDF outreach. Patient's name and were confirmed. Patient educated on the importance of follow up with provider following inpatient admission. Patient offered an HDF appt. Patient is agreeable to an appointment and has been scheduled for 01/28/2025 at 9:[address] Cantu.Patient is requesting a call back from nurses to discuss blood thinner meds. Will send to nurses for follow up. Insurance verified prior to scheduling. Patient advised to bring to appointment a photo id and insurance card. Patient also notified that a [facility] pharmacist will be reaching out to them via telephone prior to their scheduled appointment in order toreview their medications in preparation for their appointment. Patient provided with education on contacting the Health Center with any questions or concerns prior to the scheduled appointment. Patient educated on extended clinic hours on Mondays and Wednesdays, and Walk-In Urgent Care Located in [facility] of [facility]. Patient provided with after-hours line for [facility], , which offer night time tri age service and option to transfer to payroll consultant provider if needed. CC will request Discharge summaryto be scanned into chart. documented in this encounter Plan of Treatment Not on file documented as of this encounter Visit Diagnoses Not on filedocumented in this encounter Additional Health Concerns Assessment Noted Time PHQ-9 Depression Total Score: 3 07/03/20 23 10:46 AM EDT documented as of this encounter Care Teams Legal Archivist Relationship Specialty Start Date End Date Erica Cantu DO [address] [place] [address] PCP - General Family Medicine 05/30/14 documented as of this encounter
--- OUTSIDE RECORDS SUMMARY | 2025-01-28 11:29 | XMS_ITS | Encounter Summary ---
Author Organization [employer] Address [address] [facility] 7t [place] [address] Care Team Providers Care Silver Plater Name Role Phone AlondraErica Primary Care Provider + [phone] Encounter Details Date Type Department Care Team ([facility] st Contact Info) Description 01/24/2025 Telephone [facility] MEDICINE [address] [place] [address] Shea Urena, PharmD [address] [place] [address] Social History Tobacco Use Types Packs/Day Years [...] encounter Miscellaneous Notes * Telephone Encounter - Ligia Schulte RN - 01/24/2025 4:12 PM EDT called pt to triage, spoke to pt. pt has HDF appt on Monday post admission to [facility]. pt diagnosed with PE and discharged on Elequis. pt states having some aching pain in his right LE from calf up to his thigh. pt worried it could be a clot and wants recommendation. pt denies significant swelling, redness, heat, difficulty flexing the foot, fevers, or difficulty breathing. advised to pt that if he is having significant symptoms and is concerned would recommend going back to the ER at [facility] for re evaluation. also advised home care: rest, fluids, take Elequis as prescribed, ice, heat, OTC pain reliever as needed, and call back as needed. pt states they were unable to find out why he had the PE while in the hospital. insurance verified. advised to keep his appt for HDF on Monday as scheduled. Protocol Used: Leg Pain (Adult) Protocol-Based Disposition: See in Office or Video Visit within 2 Weeks Video visit offer not recorded Positive Triage Question: * Mild pain (e.g., does not interfere with normal activities) and present > 7 days * All higher-acuity triage questions were negative Care Advice Discussed: * Reassurance and Education - Leg Pain * Pain Medicines * Reasons To Call Back - Moderate pain (such as limping) lasts more than 3 days - Mild pain lasts more than 7 days - Signs of infection occur (such as spreading redness, warmth, fever) - You become worse * Telephone Encounter - Evona Bolaske, PharmD - 01/24/2025 3:33 PM EDT Pharmacist contacted this patient for pre-visit HDF and patient reported experiencing new onset R-sided leg cramping/pain. Of note, patient recently discharged from [facility] on 12/25/24 due to PE and was started on Eliquis at that time. Please reach out to patient for further evaluation and next steps. Thank you. documented in this encounter Plan of Treatment [...] documented as of this encounter Care Teams Silver Plater Relationship Specialty Start Date End Date Erica Cantu DO [address] [place] [id number] PCP - General Family Medicine 05/30/14 documented as of this encounter
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
--- OUTSIDE RECORDS SUMMARY | 2025-01-28 11:29 | XMS_ITS | Encounter Summary ---
Author Organization [employer] Address [address] [facility] [address]t [place] [address] Care Team Providers Care Sawmill Or Timber Yard Worker Name Role Phone MeyErica eddy Primary Care Provider + [phone] Encounter Details Date Type Department Care Team ([facility] st Contact Info) Description 01/24/[address] [facility] () Department [address] [place] [phone] Provider, Population Health Generic Social History Tobacco Use Types Packs/Day Years [...] documented as of this encounter Care Teams Sawmill Or Timber Yard Worker Relationship Specialty Start Date End Date Erica Cantu DO [address] [place] [address] PCP - General Family Medicine 05/30/14 documented as of this encounter
--- OUTSIDE RECORDS SUMMARY | 2025-01-28 11:29 | XMS_ITS | Encounter Summary ---
Author Organization [employer] Address [address] [facility] 7t [place] [address] Care Team Providers Care Financial Institution Manager Name Role Phone Erica Cantu DO Primary Care Provider + [phone] Reason for Visit * Reason Comments Med Refill Encounter Details Date Type Department Care Team (Late st Contact Info) Description 01/21/[address] [facility] [address] [place] [address] Erica Cantu DO [address] [place] [address] Social History Tobacco Use Types Packs/Day Years [...] the past 12 months, has t he [employer], gas, oil or water company threatened to [...] documented as of this encounter Care Teams Financial Institution Manager Relationship Specialty Start Date End Date Erica Cantu DO [address] [place] [address] PCP - General Family Medicine 05/30/14 documented as of this encounter
--- OUTSIDE RECORDS SUMMARY | 2025-01-28 11:29 | XMS_ITS | Encounter Summary ---
Author Organization [employer] Address [address] [facility] [address] [place] [address] Care Team Providers Care Area Sales Manager Name Role Phone Erica Cantu DO Primary Care Provider + [phone] Reason for Referral * Consultation (Urgent) - Pending Review Specialty Diagnoses / Procedures Referred By Contac t Referred To Contact Cardiology Diagnoses Paroxysmal atrial fibrillation (CMS/HCC) Erica Cantu DO [address] [place] [address] Phone: tel: fax: Referral ID Status Reason Start Date Expiration Date Visits Requested Visits Authorized [id number] Pending Review Specialty Services Required 01/28/2025 01/28/2026 1 1 * Consultation (Urgent) - Pending Review Specialty Diagnoses / Procedures Referred By Contac t Referred To Contact Urology Diagnoses Hydronephrosis, unspecified hydronephrosis type Nephrolithiasis Erica Cantu DO [address] [place] [address] Phone: tel: fax: Referral ID Status Reason Start Date Expiration Date Visits Requested Visits Authorized [id number] Pending Review Specialty Services Required 01/28/2025 01/28/2026 1 1 * Consultation (Urgent) - Pending Review Specialty Diagnoses / Procedures Referred By Contac t Referred To Contact Hematology and Oncology Diagnoses Pulmonary embolism, bilateral (CMS/HCC) Erica Cantu DO [address] [place] [address] Phone: tel: fax: Referral ID Status Reason Start Date Expiration Date Visits Requested Visits Authorized [id number] Pending Review Specialty Services Required 01/28/2025 01/28/2026 1 1 * Imaging (Routine) - Authorized Specialty Diagnoses / Procedures Referred By Contac t Referred To Contact Radiology Diagnoses Hydronephrosis, unspecified hydronephrosis type Nephrolithiasis Procedures US RENAL BI Erica Cantu DO [address] [place], [place] Phone: tel: fax: [address] Phone: tel: fax: Referral ID Status Reason Start Date Expiration Date V isits Requested Visits Authorized [id number] Authorized 01/28/2025 01/28/2026 1 1 * Imaging (Routine) - Authorized Specialty Diagnoses / Procedures Referred By Contac t Referred To Contact Cardiology Diagnoses Pulmonary embolism, bilateral (CMS/HCC) Paroxysmal atrial fibrillation (CMS/HCC) Procedures Transthoracic Echo (TTE) Complete Erica Cantu DO [address] [place], [place] Phone: tel: fax: [address] Phone: tel: fax: Referral ID Status Reason Start Date Expiration Date Visits Requested Visits Authorized [id number] Authorized Perform Procedure 01/28/2025 01/28/2026 1 1 Encounter Details Date Type Department Care Team (Latest Contact Info) Description 01/28/2025 9:15 AM EDT Office Visit [facility] [address] [place] [address] Erica Cantu DO [address] [place] [address] Pulmonary embolism, bilateral (CMS/HCC) (Primary Dx); Paroxysmal atrial fibrillation (CMS/HCC); Acute kidney injury (CMS/HCC); Hydronephrosis, unspecified hydronephrosis type; Nephrolithiasis; Acute pain of both knees Social History Tobacco Use Types Packs/Day Years [...] AM EDT documented as of this encounter Last Filed Vital Signs Vital Sign Reading [...] Mass Index 40.14 01/28/2025 9:23 AM EDT documented in this encounter Progress Notes * Erica Cantu, DO - 01/28/2025 9:15 AM EDT SUBJECTIVE: Ben Celaya is a 44 y.o. year old male who presents for follow up after recent [facility] hospitalization. HPI He was brought to [facility] ED on 12/23/24 for eval after syncopal episode while incarcerated. In the ED his initial BP was 84/74 which improved to 90s systolic with IVFs. His WBC was 15, hgb 12, initial troponin 76 -> 59, TSH nml, severe hypokalemia with Cr 2.3, COVID negative, BNP 249 and D-dimer 4000. He had CTA chest which revealed multiple PE with mild R heart strain and CT abd/pelvis with L hydronephrosis with renal and distal ureteral calculi. IR and ICE advised no indication for clot retrieval. He was admitted to telemetry for monitoring. He was initially anticoagulated with lovenox then transitioned to eliqius 10mg BID for 7 days then 5 mg BID. He had ECHO on 12/24 with no evidence of R heart strain. He had LE dopplers with no evidence of thrombosis. Immobility was thought to be his primary RF. He had a 6 min walk test with no desaturation prior to discharge. His IVFs were discontinued after HD#1 and he was transitioned to PO fluids. His Cr returned to 1.0. His elevated biomarkers were thought to be due to his VIC. His K+ was aggressively replenished withIV and PO. He was seen by urology for his hydronephrosis and offered stent placement vs watchful waiting and he opted for the latter. He was given prophylactic abx and advised to f/u in 4-6 weeks. His BP meds were initially held due to hypotension. He was noted to have A. Fib with RVR early during his hospitalization and diltiazem was started 12/25 with improvement in his rate control. [facility]. He says that he is feeling much better now. He says that at the time, the [facility] was really rushing for the hospital to discharge him and he didn't feel ready. He has never had blood clots before. He has no family h/o blood clots that he knows of. He had no blood clots in his legs. He says that he was very depressed in [facility] and was just lying down all the time for the 7 days thathe had been there. He wasn't even eating in [facility]. He had never been told that he he had A. Fib. He finished the abx that he was given but has not seen urology yet. He has not been contacted for an appt. He says that his knees have been hurting him since he started the eliquis. He feels that they are alittle more swollen and hurt to bend. He feels that they are going to give out. He denies any bruising. He denies and trauma. Review of Systems Constitutional: Negative for chills, fatigue and fever. HENT: Negative for congestion. Eyes: Negative for visual disturbance. Respiratory: Negative for cough and shortness of breath. Cardiovascular: Negative for chest pain, palpitations and leg swelling. Gastrointestinal: Negative for abdominal pain, constipation, diarrhea and vomiting. Musculoskeletal: Positive for arthralgias, gait problem and joint swelling. Skin: Negative for rash. Neurological: Negative for dizziness and headaches. Patient Active Problem List Diagnosis Chronic pain syndrome Essential hypertension Lymphedema Morbid obesity (CMS/HCC) Obstructive sleep apnea Opioid dependence in remission (CMS/HCC) Pulmonary embolism, bilateral (CMS/HCC) Paroxysmal atrial fibrillation (CMS/HCC) Nephrolithiasis No Known Allergies OBJECTIVE Vitals: 01/28/25 0923 BP: 122/70 BP Location: Left arm Patient Position: Sitting BP Cuff Size: Adult Pulse: 70 Resp: 19 Temp: 97.1 ??F (36.2 ??C) TempSrc: Oral SpO2: 99% Weight: 264 lb (120 kg) Height: 5' 8 (1.727 m) Physical Exam Constitutional: General: He is not in acute distress. Appearance: Normal appearance. Cardiovascular: Rate and Rhythm: Normal rate and regular rhythm. Heart sounds: Normal heart sounds. No murmur heard. Pulmonary: Effort: Pulmonary effort is normal. Breath sounds: Normal breath sounds. No wheezing or rhonchi. Neurological: General: No focal deficit present. Mental Status: He is alert and oriented to person, place, and time. Cranial Nerves: No cranial nerve deficit. Motor: No weakness. Gait: Gait normal. Psychiatric: Mood and Affect: Mood normal. ASSESSMENT/PLAN Diagnoses and all orders for this visit: Pulmonary embolism, bilateral (CMS/HCC) Likely 2/2 PAF -cont eliquis BID -referred to hematology for eval - Transthoracic Echo (TTE) Complete; Future - Referral to Hematology / Oncology; Future Paroxysmal atrial fibrillation (CMS/HCC) New onset, rate controlled -cont diltiazem daily -cont eliquis BID -referred for ECHO -referred to cardiology for eval - Transthoracic Echo (TTE) Complete; Future - Referral to Cardiology; Future Acute kidney injury (CMS/HCC) Likely 2/2 hypotension, resolved with IVFs -repeat basic labs - T4, Free; Future - Vitamin D, 25-Hydroxy, Total, Immunoassay; Future - Lipid Panel, Standard; Future - TSH; Future - Hepatic Function Panel; Future - Hemoglobin A1c; Future - Basic Metabolic Panel; Future - CBC; Future - Albumin, Random Urine W/Creatinine; Future - Hepatitis B surface antigen, EIA; Future - Chlamydia/N. Gonorrhoeae RNA, TMA, Urogenitial - HIV-1/2 Antigen and Antibodies, Fourth Generation, with Reflexes; Future - Hepatitis C Antibody with Reflex to HCV, RNA, Quantitative, Real-Time PCR; Future - RPR (Monitor) with Reflex to Titer; Future - Hepatitis B Surface Antibody, Qualitative; Future - Hepatitis A Antibody, Total; Future - Hepatitis B Core Antibody, Total; Future Hydronephrosis, unspecified hydronephrosis type Nephrolithiasis -referred for reneal US -referred to urology for eval - US RENAL BI; Future - Referral to Urology; Future Acute pain of both knees Probable OA flare -provided reassurance -referred for knee xrays -cont tylenol prn -trial baclofen and diclofenac gel -consider PT vs ortho pending results, he agrees with plans - XR Knee 4+ Views Left; Future - XR Knee 4+ Views Right; Future F/U with me in 3 mos or sooner prn Current Outpatient Medications: apixaban (Eliquis) 5 MG tablet, Take 1 tablet (5 mg) by mouth 2 times daily., Disp: 60 tablet, Rfl:0 cholecalciferol (Vitamin D-3) 25 MCG (1000 UT) tablet, Take 1 tablet (25 mcg) by mouth in the morning., Disp: 90 tablet, Rfl: 3 dilTIAZem ER (Tiazac) 120 MG 24 hr capsule, TAKE 1 CAPSULE BY MOUTH EVERY DAY IN THE MORNING, Disp:90 capsule, Rfl: 0 lidocaine (Lidoderm) 5 % patch, APPLY 1 PATCH TOPICALLY TO SKIN IN THE MORNING. LEAVE ON FOR 12 HOURS AND OFF FOR 12 HOURS DIRECTED, Disp: 15 patch, Rfl: 2 naloxone (Narcan) 4 mg/0.1 mL nasal spray, CALL 911. SPR CONTENTS OF ONE SPRAYER (0.1ML) INTO ONE NOSTRIL. REPEAT IN 2-3 MIN IF SYMPTOMS OF OPIOID EMERGENCY PERSIST, ALTERNATE NOSTRILS, Disp: , Rfl: Viagra 100 MG tablet, TAKE 1 TABLET 1 HOUR BEFORE SEXUAL RELATIONS ONCE DAILY NEEDED., Disp: 10 tablet, Rfl: 0 acetaminophen (Tylenol 8 Hour) 650 MG ER tablet, Take 1 tablet (650 mg) by mouth every 8 (eight) hours if needed for mild pain. Do not crush, chew, or split., Disp: 40 tablet, Rfl: 1 baclofen (Lioresal) 10 MG tablet, Take 1 tablet (10 mg) by mouth if needed in the morning, at noon,and at bedtime for muscle spasms., Disp: 60 tablet, Rfl: 1 Diclofenac Sodium 1 % gel, Apply 2 g topically if needed in the morning, at noon, in the evening, and at bedtime (pain)., Disp: 150 g, Rfl: 3 documented in this encounter Plan of Treatment Scheduled Orders Name Type Priority Associated Diagnoses Orde r Schedule T4, Free Lab Routine Acute kidney injury ([facility]/HCC) Expected: 01/28/2025 (Approximate), Expires: 01/28/2026 Vitamin D, 25-Hydroxy, Total, Immunoassay Lab Routine Acute kidney injury ([facility]/HCC) Expected: 01/28/2025 (Approximate), Expires: 01/28/2026 Lipid Panel, Standard Lab Routine Acute kidney injury ([facility]/HCC) Expected: 01/28/2025 (Approximate), Expires: 01/28/2026 TSH Lab Routine Acute kidney injury ([facility]) Expected: 01/28/2025 (Approximate), Expires: 01/28/2026 Hepatic Function Panel Lab Routine Acute kidney injury ([facility]) Expected: 01/28/2025 (Approximate), Expires: 01/28/2026 Hemoglobin A1c Lab Routine Acute kidney injury ([facility]) Expected: 01/28/2025 (Approximate), Expires: 01/28/2026 Basic Metabolic Panel Lab Routine Acute kidney injury ([facility]) Expected: 01/28/2025 (Approximate), Expires: 01/28/2026 Albumin, Random Urine W/Creatinine Lab Routine Acute kidney injury ([facility]) Expected: 01/28/2025 (Approximate), Expires: 01/28/2026 Hepatitis B surface antigen, EIA Lab Routine Acute kidney injury ([facility]) Expected: 01/28/2025 (Approximate), Expires: 01/28/2026 Chlamydia/N. Gonorrhoeae RNA, TMA, Urogenitial Microbiology Routine Acute kidney injury ([facility]) Ordered: 01/28/2025 HIV-1/2 Antigen and Antibodies, Fourth Generation, with Reflexes Lab Routine Acute kidney injury ([facility]) Expected: 01/28/2025 (Approximate), Expires: 01/28/2026 Hepatitis C Antibody with Reflex to HCV, RNA, Quantitative, Real-Time PCR Lab Routine Acute kidney injury ([facility]) Expected: 01/28/2025, Expires: 01/28/2026 RPR (Monitor) with Reflex to??Titer Lab Routine Acute kidney injury ([facility]) Expected: 01/28/2025, Expires: 01/28/2026 Hepatitis B Surface Antibody, Qualitative Lab Routine Acute kidney injury (CMS/HCC) Expected: 01/28/2025 (Approximate), Expires: 01/28/2026 Hepatitis A Antibody, Total Lab Routine Acute kidney injury (CMS/HCC) Expected: 01/28/2025 (Approximate), Expires: 01/28/2026 Hepatitis B Core Antibody, Total Lab Routine Acute kidney injury (CMS/HCC) Expected: 01/28/2025 (Approximate), Expires: 01/28/2026 Transthoracic Echo (TTE) Complete Echocardiography Routine Pulmonary embolism, bilateral (CMS/HCC) Paroxysmal atrial fibrillation (CMS/HCC) Expected: 01/28/2025 (Approximate), Expires: 01/28/2027 US RENAL BI Imaging Routine Hydronephrosis, unspecified hydronephrosis type Nephrolithiasis Expected: 01/28/2025, Expires: 01/28/2026 Scheduled Referrals Name Type Priority Associated Diagnoses Orde r Schedule Referral to Hematology / Oncology Outpatient Referral Urgent Pulmonary embolism, bilateral (CMS/HCC) Expected: 01/28/2025 (Approximate), Expires: 01/28/2026 Referral to Urology Outpatient Referral Urgent Hydronephrosis, unspecified hydronephrosis type Nephrolithiasis Expected: 01/28/2025 (Approximate), Expires: 01/28/2026 Referral to Cardiology Outpatient Referral Urgent Paroxysmal atrial fibrillation (CMS/HCC) Expected: 01/28/2025 (Approximate), Expires: 01/28/2026 documented as of this encounter Goals Goal Patient Goal Type Associated Problems Recent Progress Patient-Stated? Author To stay clean. 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 RN documented as of this encounter Procedures Procedure Name Priority Date/Time Associated Diagnosis Comments CBC Routine 01/28/2025 10:44 AM EDT Acute kidney injury (CMS/HCC) XR KNEE 4+ VIEWS RIGHT Routine 01/28/2025 10:05 AM EDT Acute pain of both knees XR KNEE 4+ VIEWS LEFT Routine 01/28/2025 10:05 AM EDT Acute pain of both knees documented in this encounter Results * (ABNORMAL) CBC (01/28/2025 10:44 AM EDT) White Blood Count 7.1 4.8 - 10.8 X10*3/uL [facility] Red Blood Count 4.06(L) 4.60 - 5.80 X10*6/uL [facility] Hemoglobin 10.9(L) 14.0 - 18.0 g/dl [facility] Hematocrit 34.6(L) 42.0 - 52.0 % [facility] Mean Corpuscular Volume 85.2 80.0 - 98.0 fL [facility] Mean Corpuscular Hemoglobin 26.8(L) 27.0 - 33.0 pg [facility] Mean Corpuscular HGB Conc 31.5 31.0 - 36.0 g/dl [facility] Red Cell Distribution Width 13.2 11.0 - 16.0 % [facility] Platelet Count 402(H) 160 - 400 X10*3/uL [facility] Mean Platelet Volume 10.8 9.4 - 12.4 fL [facility] NRBC Pct Auto 0.0 0.0 - 0.2 /100WBC [facility] NRBC Abs Auto 0.000 0.0 - 0.012 X10*3/uL [facility] Blood Venous blood specimen / Unknown 01/28/2025 10:44 AM EDT 01/28/2025 11:14 AM EDT us Erica Cantu DO LAB BLOOD ORDERABLES Final R esult [facility] [address] [place], [place] [id number] [phone] * XR Knee 4+ Views Right (01/28/2025 10:05 AM EDT) Anatomical Region Laterality Modality Lower Extremities, Knee Right Radiogra phic Imaging 01/28/2025 10:0 5 AM EDT Narrative 01/28/2025 11:19 AM EDT ?[facility] ?[address] ?[place] [address] ?XRay Report ? Signed ? Patient: Celaya,Ben ?MR#: [id number] ? : 1980 ?Acct:[id number] ? Age/Sex: 44 / M ?ADM Date: 01/28/25 ? Loc: HO.HHCX ? Attending Dr: Erica Cantu DO ? Ordering Physician: Erica Cantu DO ?? Date of Service: 01/28/25 ?? Procedure(s): XR knee RT 4V ?? Accession Number(s): [id number] ? cc: Erica Cantu DO ? EXAMINATION: [...] DD/ 1005 ? TD/TT: 01/28/25 1034 ? Business Job Titles: ? Procedure Note Suyapa Merino - 01/28/2025 [facility] [address] [place] [address] XRay Report Signed Patient: Ben CelayaMR#: [id number] : 1980Acct:[id number] Age/Sex: 44 / MADM Date: 01/28/25 Loc: HO.HHCX Attending Dr: Erica Cantu DO Ordering Physician: Erica Cantu DO Date of Service: 01/28/25 Procedure(s): XR knee RT 4V Accession Number(s): [id number] cc: Erica Cantu DO EXAMINATION: XR KNEE [...] Fernando Shelton MD 01/28/2025 11:16 AM EDT Dictated By: Fernando Shelton MD Signed By: <Electronically signed by Fernando Shelton MD in OV> 01/28/25 1116 DD/ 1005 TD/TT: 01/28/25 1034 Business Job Titles: us Erica Cantu DO IMG XR PROCEDURES Final Resu lt * XR Knee 4+ Views Left (01/28/2025 10:05 AM EDT) Anatomical Region Laterality Modality Lower Extremities, Knee Left [facility] 01/28/2025 10:0 5 AM EDT Narrative 01/28/2025 11:18 AM EDT ?[facility] ?[address] ?[place] [address] ?XRay Report ? Signed ? Patient: Celaya,Ben ?MR#: [id number] ? : 1980 ?Acct:[id number] ? Age/Sex: 44 / M ?ADM Date: 03/18/25 ? Loc: HO.HHCX ? Attending Dr: Erica Catnu DO ? Ordering Physician: Erica Cantu DO ?? Date of Service: 01/28/25 ?? Procedure(s): XR knee LT 4V ?? Accession Number(s): [id number] ? cc: Erica Cantu DO ? EXAMINATION: [...] ??Fernando Shelton MD ??01/28/2025 11:15 AM EDT ? Dictated By: ?Fernando Shelton MD ? Signed By: ?<Electronically signed by Fernando Shelton MD in OV> ?01/28/25 1115 ? DD/ 1005 ? TD/TT: 01/28/25 1034 ? Business Job Titles: ? Procedure Note Suyapa Merino - 01/28/[address] [address] XRay Report Signed Patient: Ben CelayaMR#: [id number] : 1980Acct:[id number] Age/Sex: 44 / MADM Date: 01/28/25 Loc: HO.HHCX Attending Dr: Erica Cantu DO Ordering Physician: Erica Cantu DO Date of Service: 01/28/25 Procedure(s): XR knee LT 4V Accession Number(s): [id number] cc: Erica Cantu DO EXAMINATION: XR KNEE [...] 01/28/25 1115 DD/ 1005 TD/TT: 01/28/25 1034 Business Job Titles: Erica Cantu DO IMG XR PROCEDURES Final Resu lt documented in this encounter Visit Diagnoses Diagnosis Pulmonary embolism, bilateral (CMS/HCC)- Primary Other pulmonary embolism and infarction Paroxysmal atrial fibrillation (CMS/HCC) Atrial fibrillation Acute kidney injury (CMS/HCC) Hydronephrosis, unspecified hydronephrosis type Nephrolithiasis Calculus of kidney Acute pain of both knees documented in this encounter Additional Health Concerns Assessment Noted Time PHQ-9 Depression Total Score: 0 01/29/20 25 9:24 AM EDT documented as of this encounter Care Teams Area Sales Manager Relationship Specialty Start Date End Date Erica Cantu DO [address] [place] [address] PCP - General Family Medicine 05/30/14 documented as of this encounter
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
--- OUTSIDE RECORDS SUMMARY | 2025-01-28 11:29 | XMS_ITS | Encounter Summary ---
Author Organization [employer] Address [address] [facility] 7[address] [place] [address] Care Team Providers Care Termite Inspector Name Role Phone Erica Cantu DO Primary Care Provider + [phone] Reason for Visit * Reason Onset Date Comments FYI 01/20/2025 Encounter Details Date Type Department Care Team (Late st Contact Info) Description 01/20/2025 Refill [facility] [address] [place] [address] Erica Cantu DO [address] [place] [address] History of blood clots Social History Tobacco Use Types Packs/Day Years [...] encounter Miscellaneous Notes * Telephone Encounter - Olivia Rey RN - 01/21/2025 9:10 AM EDT Per patient report: Eliquis 5mg bid prescribed by Lucero at recent admission. Pt. Is out of medication. HDF is scheduled for 01/28/25. Rx pended * Telephone Encounter - Gordo Monteiro - 01/20/2025 10:06 AM EDT Tc from pt Stating that He received a Call from the Nurse asking for Information Regarding Dosage of Medication Elequis. Which pt states now he has the Information and he states that he takes 5 Mg two times a Day. Contact pt at [phone] documented in this encounter Plan of Treatment Not on file documented as of this encounter Goals Goal Patient Goal Type Associated Problems Recent Progress Patient-Stated? Author To stay clean. 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, JAYA documented as of this encounter Visit Diagnoses Diagnosis History of blood clots documented in this encounter Additional Health Concerns Assessment Noted Time PHQ-9 Depression Total Score: 3 07/03/20 23 10:46 AM EDT documented as of this encounter Care Teams Termite Inspector Relationship Specialty Start Date End Date Erica Cantu DO [address] [place] [id number] PCP - General Family Medicine 05/30/14 documented as of this encounter
--- OUTSIDE RECORDS SUMMARY | 2025-01-28 11:30 | XMS_ITS | Encounter Summary ---
Author Organization [employer] Address [address] [facility] 7t [place] [address] Care Team Providers Care Kindergartner Name Role Phone Erica Cantu DO Primary Care Provider + [phone] Reason for Visit * Reason Comments Med Refill Encounter Details Date Type Department Care Team (Late st Contact Info) Description 09/01/2023 Refill [facility] [address] [place] [address] Erica Cantu DO [address] [place] [address] Social History Tobacco Use Types Packs/Day Years [...] the past 12 months, has t he [employer], gas, oil or water company threatened to [...] documented as of this encounter Care Teams Kindergartner Relationship Specialty Start Date End Date Erica Cantu DO [address] [place] [address] PCP - General Family Medicine 05/30/14 documented as of this encounter
--- OUTSIDE RECORDS SUMMARY | 2025-01-28 11:30 | XMS_ITS | Encounter Summary ---
Author Organization [employer] Address [address] [facility] 7[address] [place] [address] Care Team Providers Care Guard Museum Name Role Phone Erica Cantu DO Primary Care Provider [phone] Encounter Details Date Type Department Care Team (Late st Contact Info) Description 06/20/2023 Orders Only [facility] [address] [place] [address] Charito Bell MD [address] [place] [address] Social History Tobacco Use Types Packs/Day Years [...] on filedocumented in this encounter Care Teams Guard Museum Relationship Specialty Start Date End Date Erica Cantu DO [address] [place] [address] PCP - General Family Medicine 05/30/14 documented as of this encounter
--- OUTSIDE RECORDS SUMMARY | 2025-01-28 11:30 | XMS_ITS | Encounter Summary ---
Author Organization [employer] Address [address] [facility] 7[address] [place] [address] Care Team Providers Care Farm Equipment Assembler Name Role Phone Erica Cantu DO Primary Care Provider + [phone] Reason for Visit * Reason Comments Med Refill Encounter Details Date Type Department Care Team (Late st Contact Info) Description 09/19/2023 Refill [facility] [address] [place] [address] Erica Cantu DO [address] [place] [address] Social History Tobacco Use Types Packs/Day Years [...] the past 12 months, has t he [employer], gas, oil or water company threatened to [...] documented as of this encounter Care Teams Farm Equipment Assembler Relationship Specialty Start Date End Date Erica Cantu DO [address] [place] [address] PCP - General Family Medicine 05/30/14 documented as of this encounter
[2025-01-28 11:39] LABS: Estimated Average Glucose 111 mg/dL; Hemoglobin A1C 107.4406 umol/L; Hemoglobin A1c % 5.5 % (<6.0); Total Hemoglobin (HGBA1C) 2909.9867 umol/L
[2025-01-28 11:48] LABS: Alanine Aminotransferase < 6 U/L (0-40); Albumin Level 4.1 g/dL (3.5-5.0); Alkaline Phosphatase 69 U/L (39-117); Anion Gap 11 (12-20); Aspartate Amino Transferase 19 U/L (5-37); Bilirubin Direct 0.1 mg/dL (0.0-0.5); Bilirubin Total 0.3 mg/dL (0.0-1.0); Blood Urea Nitrogen 15 mg/dL (9-16); Calcium 9.3 mg/dL (8.4-10.2); Carbon Dioxide 25 mmol/L (22-29); Chloride 106 mmol/L (96-108); Cholesterol 159 mg/dL (<200); Estimated Glomerular Filt Rate > 60; Glucose Random 95 mg/dL (60-115); HDL Cholesterol 35 mg/dL (>40); LDL Cholesterol Calculated 108 mg/dL (<100); Potassium 3.1 mmol/L (3.3-5.1); Sodium 139 mmol/L (135-145); Triglycerides 81 mg/dL (<150)
[2025-01-28 12:03] LABS: Creatinine Urine 56.42 mg/dL; Microalbumin Urine < 5.0 mg/L; Thyroid Stimulating Hormone 0.75 uIU/mL (0.32-4.0); Vitamin D 25-OH Total 13.2 ng/mL (>30)
[2025-01-28 12:17] LABS: HBS Num1 137.67 mIU/mL (0-7.99); HBc Num1 0.28 S/CO (0.00-0.79); HBsAGNum1 0.29 S/CO (0.00-0.99); HIV AB/AG Nonreactive (Nonreactive); HIV Num 1 0.07 S/CO (0.00-0.99); Hepatitis B Core Antibody Nonreactive (Nonreactive); Hepatitis B Surface Antigen Negative (Negative); ~HepC Num1 0.24 S/CO (0.00-0.79); ~Hepatitis B Surface Antibody REACTIVE (Nonreactive); ~Hepatitis C Antibody Nonreactive (Nonreactive)
[2025-01-28 14:20] LABS: CT PCR NOT DETECTED (Not Detect.); NG PCR NOT DETECTED (Not Detect.)
[2025-01-28 17:28] LABS: Iron 31 mcg/dL (45-160); Percent Iron Saturation 9 % (15-50); Total Iron Binding Capacity 336 mcg/dL (228-428); Unsaturated Iron Binding 305 ug/dL
[2025-01-28 17:42] LABS: Ferritin 13 ng/mL (20-250)
[2025-01-29 08:53] LABS: Hepatitis A Antibody IgG Nonreactive (Nonreactive); ~Hepatitis A Antibody IgG 0.46 S/CO (0.00-0.99)
[2025-01-29 10:13] LABS: RPR Rapid Plasma Reagin NON-REACTIVE (NON-REACTIVE)
== END 2025-01-28 10:05 | disposition home or self-care (01) ==
LOC: HO.HHCX 10:04
PROVIDERS: Visit Provider Family Medicine
DX: M25.561 Pain in right knee (principal); M25.562 Pain in left knee; N17.9 Acute kidney failure, unspecified; Z11.3 Encounter for screening for infections with a predominantly sexual mode of transmission; Z11.4 Encounter for screening for human immunodeficiency virus [HIV]
CPT/HCPCS: 73564; 80048; 80061; 80076; 82043; 82306; 82570; 82728; 83036; 83540; 84439; 84443; 85027; 86592; 86704; 86706; 86708; 86803; 87340; 87389; 87491; 87591

== ENCOUNTER → 2025-01-28 10:05 | Outpatient (BNV) | payer MEDICAID, SELFPAY | PROVIDERS: Visit Provider Radiology Diagnostic Radiology | DX: M17.0 Bilateral primary osteoarthritis of knee (principal) | CPT/HCPCS: 73564 ==

== ENCOUNTER 2025-01-28 10:35 | Outpatient (REF) | payer MEDICAID, SELFPAY | END 2025-01-28 10:36 | disposition home or self-care (01) | LOC: HO.HHCL 10:35 | PROVIDERS: Visit Provider Family Medicine | DX: Z13.89 Encounter for screening for other disorder (principal) ==

== ENCOUNTER 2025-02-06 09:43 | Outpatient (REF) | payer MEDICAID, SELFPAY ==
[2025-02-06 11:37] LABS: Iron 23 mcg/dL (45-160); Percent Iron Saturation 7 % (15-50); Potassium 4.3 mmol/L (3.3-5.1); Total Iron Binding Capacity 308 mcg/dL (228-428); Unsaturated Iron Binding 285 ug/dL
[2025-02-06 11:47] LABS: Ferritin 8 ng/mL (20-250)
== END 2025-02-06 09:44 | disposition home or self-care (01) ==
LOC: HO.HHCL 09:43
PROVIDERS: Visit Provider Family Medicine
DX: D64.9 Anemia, unspecified (principal); I10 Essential (primary) hypertension
CPT/HCPCS: 36415; 82728; 83540; 84132

== ENCOUNTER 2025-02-12 09:50 | Outpatient (AMB) | payer MEDICAID, SELFPAY ==
--- NOTE | 2025-02-12 09:58 | MHC.OFFVIS ---
Intake Visit Reasons: bilateral calculi Intake Note: New patient presents today for initial visit for bilateral calculi Urology Medication:none Blood Thinner:none Antibiotic Allergies:none Allergies No Known Allergies [No Known Allergies*] Allergy (Verified 02/12/25 10:55) Medication List - Last Reconciled 02/12/25 by OCTAVIO Hurt-CASEY buprenorphine ER (Sublocade) mg subcut diltiazem HCl ER 120 mg PO QAM losartan-hydrochlorothiazide 50-12.5 mg 2 tabs PO DAILY nystatin-triamcinolone 100,000-0.1 unit/gram-% 1 appl topical BID HPI Comments Details: Anna is a very pleasant 44-year-old male patient of Dr. Cantu. He has a past medical history of substance abuse, pulmonary emboli, obesity, and hypertension. He presents to the office today as a new patient for nephrolithiasis. In discussion with the patient today he reports having seeked emergency room care at [facility] 2 months ago for ongoing issues he had been experiencing at which time CT 01/07 noted bilateral renal calculi with left hydronephrosis due to a 7 mm distal left ureteral calculus. When asked he reports a longstanding history of nephrolithiasis and a previous surgical history for nephrolithiasis. He reports previously following up with a urologist in [place] however does not recall his or her name and or how long ago this was. He reports pain he had been experiencing has since subsided. We discussed obtaining CT KUB for further assessment evaluation. He discusses his main concern is his ongoing issues with his erections. He reports following up with his PCP and was given a prescription for Viagra however given his history of heart failure discusses his reluctancy to wanting to take the medication. He does report a new patient appointment with cardiology here at [facility] within the next few weeks. We discussed potential causes of ED as well as further treatment options and risks and benefits of these treatment options. In office urinalysis results reviewed with the patient today. He denies urinary urgency, urinary frequency, incontinence, nocturia, hematuria, dysuria, foul smelling urine, changes to urinary stream, flank pain, fever, and or chills. He is happy with her current voiding parameters. He otherwise offers no other issues or concerns at this time Plan For nephrolithiasis, a CT scan will be scheduled to determine the presence of the kidney stone. If the scan reveals no passage, surgical options will be considered. I advised the patient on the benefits of hydration and lifestyle modifications to prevent the recurrence of stones. For erectile dysfunction, the safety of PDE5 inhibitors should be assessed by cardiology. Conservative and mechanical aids like penile pumps were suggested while avoiding medications that might impose cardiac risks. Patient was informed and verbally consented to the use of an ambient scribe for clinic note documentation during this visit. Discussion Notes I have discussed with the patient the necessity of further imaging studies via CT to confirm the passage of the kidney stone. I advised that without passage, surgical intervention might be necessary considering the historical difficulty in passing stones naturally. We reviewed lifestyle modifications to mitigate recurrence risk. Regarding erectile dysfunction, I informed the patient of concerns surrounding the use of PDE5 inhibitors given potential cardiac contraindications. We examined lifestyle factors contributing to dysfunction and suggested non-pharmacologic options such as penile vacuum devices. The patient acknowledged the need to consult his soft sugar operator head regarding medication safety before pursuing further pharmaceutical treatments. [facility] Medical History History of substance abuse Obesity Hypertension Surgical History Hx of umbilical hernia repair (12/20/23) History of laparoscopic adjustable gastric banding Hx of laparoscopic gastric banding Social History Household Members: Spouse and Children Housing: House Patient Tobacco Use Status: Never used Tobacco service: No Current occupational status: unemployed Review of Systems Const All systems reviewed & are unremarkable except as noted in HPI and below Physical Exam Const General: cooperative, healthy appearing, comfortable, no acute distress, well developed, alert and awake Nutritional Appearance: obese Orientation/consciousness: patient oriented x3 Limitations: no limitations HEENT Head: Yes normal to inspection, Yes normocephalic and Yes atraumatic Ears: hearing grossly normal bilaterally Eyes General: appearance normal, both eyes and all related structures Neck Neck: Yes normal visual inspection and Yes trachea midline Chest Chest palpation & inspection: normal inspection of the chest Resp Effort & Inspection: normal respiratory effort and able to speak in complete sentences Cardio Rate: regular rate GI Inspection: Yes normal to inspection General: Yes no CVA tenderness Back/Spine/Pelvis Back: no CVA tenderness Skin General skin exam: no rashes or lesions noted Neuro General: patient oriented x3 Extrem General: Yes normal to inspection Psych Appearance: grossly normal and well kempt Mental Status: mental status grossly normal Speech and movement: Normal speech and movement present and Clear speech present Affect: normal affect Attitude: cooperative Thought process: Normal thought process present Thought content: Normal thought content present Insight: Fair insight present (Psych) Judgement: Fair judgement present (Psych) Results AMB Urinalysis, Automated UA Leukoctes 0 Eulogio/uL Last Edit by Sumaya Mistry on 02/12/25 10:08 UA Nitrite Negative Last Edit by Sumaya Mistry on 02/12/25 10:08 UA Urobilinogen 0.2 mg/dL Last Edit by Sumaya Mistry on 02/12/25 10:08 UA Protein 15 mg/dL Last Edit by Sumaya Mistry on 02/12/25 10:08 UA pH 6.5 Last Edit by Sumaya Mistry on 02/12/25 10:08 UA Blood 25 Josiah/uL Last Edit by Sumaya Mistry on 02/12/25 10:08 UA Specific [place] 1.015 Last Edit by Sumaya Mistry on 02/12/25 10:08 UA Ketone Negative Last Edit by Sumaya Mistry on 02/12/25 10:08 UA Bilirubin 0 mg/dL Last Edit by Sumaya Mistry on 02/12/25 10:08 UA Glucose 0 mg/dL Last Edit by Sumaya Mistry on 02/12/25 10:08 Results Reviewed Results Reviewed: Laboratory Last Values Urine pH (Auto) 6.5 02/12/25 10:04 Specific [place] (Auto) 1.015 02/12/25 10:04 Urine Protein (Auto) 15 mg/dL 02/12/25 10:04 Glucose (UA)(Auto) 0 mg/dL 02/12/25 10:04 Urine Ketones (Auto) Negative 02/12/25 10:04 Urine Blood (Auto) 25 Josiah/uL 02/12/25 10:04 Urine Nitrite (Auto) Negative 02/12/25 10:04 Urine Bilirubin (Auto) 0 mg/dL 02/12/25 10:04 Urine Urobilinogen (Auto) 0.2 mg/dL 02/12/25 10:04 Leukocyte Esterase (Auto) 0 Eulogio/uL 02/12/25 10:04 Assessment & Plan Assessment & Plan (1) Nephrolithiasis: Code(s): N20.0 - Calculus of kidney Category: Medical (2) Hydronephrosis: Code(s): N13.30 - Unspecified hydronephrosis Category: Medical Plan In office urinalysis results with the patient today; as noted above. Previous records were reviewed Most recent CT results reviewed with the patient today; as noted above. Will obtain CT KUB for further assessment evaluation. We discussed at length potential causes of nephrolithiasis as well as erectile dysfunction and further treatment options and risks and benefits of these treatment options. We discussed lifestyle modifications to assist with ED as well as overall health and well-being. Patient currently denies any bothersome urinary issues. He reports be happy with current voiding parameters. Follow-up in 1 month with imaging to be completed prior; or sooner with any issues, concerns, and or questions. Orders: Orders AMB Urinalysis Automated Today Z13.9 - Encounter for screening, unspecified CT kidney stone Today N13.30 - Unspecified hydronephrosis, N20.0 - Calculus of kidney Patient Instructions: The patient had an opportunity to ask questions regarding the treatment plan. All questions were answered. Physical exam, labs, and imaging were discussed and reviewed in detail. As well as risks, benefits, and discussion of treatment choices. No major barriers to understanding were identified. The patient expressed understanding and agreement with the above treatment plan. The patient was made aware they should contact our office by phone for worsening of their current condition, the appearance of new symptoms, or with any questions or concerns. Compliance is encouraged with any medications and follow up testing that is ordered. It is a privilege to be allowed the opportunity to participate in? your urological care.? Again, if you have any questions or concerns If you have any questions or concerns please do not hesitate to contact me. The office is [phone]. This note is constructed using voice recognition software. While every effort has been made to ensure accuracy it web development consultant errors may have been included. Yours sincerely, LARRY Hurt Coding Level of Care Code New Pt Level 4 (50481) Diagnoses Nephrolithiasis N20.0 Hydronephrosis N13.30 Time Spent (min) 35
--- OUTSIDE RECORDS SUMMARY | 2025-02-12 11:11 | XMS_ITS | Encounter Summary ---
Author Organization [employer] Address [address] [facility] [address] [place] [address] Care Team Providers Care Solar Crew Member Name Role Phone Erica Cantu DO Primary Care Provider + [phone] Reason for Visit * Reason Comments Med Refill Encounter Details Date Type Department Care Team (Late st Contact Info) Description 09/19/2023 Refill [facility] MEDICINE [address] [place] [address] Erica Cantu DO [address] [place] [address] Social History Tobacco Use Types Packs/Day Years [...] the past 12 months, has t he [employer], gas, oil or water company threatened to [...] as of this encounter Plan of Treatment Upcoming Encounters Date Type Department Care Team (Late st Contact Info) Description 02/19/2025 10:00 AM EDT Clinical Support [facility] MEDICINE [address] [place] [address] documented as of this encounter Visit Diagnoses Not on filedocumented in this encounter Additional Health Concerns Assessment Noted Time PHQ-9 Depression Total Score: 3 07/03/20 23 10:46 AM EDT documented as of this encounter Care Teams Solar Crew Member Relationship Specialty Start Date End Date Erica Cantu DO [address] [place] [address] PCP - General Family Medicine 05/30/14 documented as of this encounter
--- OUTSIDE RECORDS SUMMARY | 2025-02-12 11:11 | XMS_ITS | Encounter Summary ---
Author Organization [employer] Address [address] [facility] [address] [place] [address] Care Team Providers Care Fabrication Technician Name Role Phone Erica Cantu DO Primary Care Provider + [phone] Reason for Visit * Reason Onset Date Comments Hospital Follow-up 01/16/2025 Encounter Details Date Type Department Care Team ([facility] st Contact Info) Description 01/16/2025 Telephone [facility] [address] [place] [address] Erica aCntu DO [address] [place] [address] Hospital Follow-up Social History Tobacco Use Types [...] from pt requesting a HDF appt. Hospital: [place], [place] Date of admission: 01/07 Discharge date: 01/10 Diagnosed: Blood spots *Send message to [place] Clinical Care Coordinators [phone] documented in this encounter Plan of Treatment Upcoming Encounters Date Type Department Care Team (Late st Contact Info) Description 02/19/2025 10:00 AM EDT Clinical Support [facility] [address] [place] [address] documented as of this encounter Visit Diagnoses Not on filedocumented in this encounter Additional Health Concerns Assessment Noted Time PHQ-9 Depression Total Score: 3 07/03/20 23 10:46 AM EDT documented as of this encounter Care Teams Fabrication Technician Relationship Specialty Start Date End Date Erica Cantu DO [address] [place] [address] PCP - General Family Medicine 05/30/14 documented as of this encounter
--- OUTSIDE RECORDS SUMMARY | 2025-02-12 11:11 | XMS_ITS | Encounter Summary ---
Author Organization [employer] Address [address] [facility] [address] [place] [address] Care Team Providers Care Biomed Tech Name Role Phone Erica Cantu DO Primary Care Provider + [phone] Reason for Visit * Reason Comments Med Refill Encounter Details Date Type Department Care Team (Late st Contact Info) Description 02/10/2025 Refill [facility] [address] [place] [address] Erica Cantu DO [address] [place] [address] Social History Tobacco Use Types Packs/Day Years [...] Description 02/19/2025 10:00 AM EDT Clinical Support [facility] [address] [place] [address] documented as of this encounter Goals Goal Patient Goal Type Associated Problems Recent Progress Patient-Stated? Author To stay clean. General Yes Puala Woo, JAYA documented as of this encounter Visit Diagnoses Not on filedocumented in this encounter Additional Health Concerns Assessment Noted Time PHQ-9 Depression Total Score: 0 01/29/20 25 9:24 AM EDT documented as of this encounter Care Teams Biomed Tech Relationship Specialty Start Date End Date Erica Cantu DO [address] [place] [address] PCP - General Family Medicine 05/30/14 documented as of this encounter
--- OUTSIDE RECORDS SUMMARY | 2025-02-12 11:11 | XMS_ITS | Encounter Summary ---
Author Organization [employer] Address [address] [facility] [address] [place] [address] Care Team Providers Care Supervisor Hand Workers Name Role Phone Erica Cantu DO Primary Care Provider [phone] Encounter Details Date Type Department Care Team (Late st Contact Info) Description 05/22/2023 Orders Only [facility] [address] [place] [phone] Paula Woo RN Social History Tobacco Use [...] Description 02/19/2025 10:00 AM EDT Clinical Support [facility] [address] [place] [phone] documented as of this encounter Visit Diagnoses Not on filedocumented in this encounter Care Teams Supervisor Hand Workers Relationship Specialty Start Date End Date Erica Cantu DO [address] [place] [id number] PCP - General Family Medicine 05/30/14 documented as of this encounter
--- OUTSIDE RECORDS SUMMARY | 2025-02-12 11:11 | XMS_ITS | Encounter Summary ---
Author Organization [employer] Address [address] [facility] [address] [place] [address] Care Team Providers Care Director Of User Experience Name Role Phone Erica Cantu DO Primary Care Provider + [phone] Reason for Visit * Reason Comments Med Refill Encounter Details Date Type Department Care Team (Late st Contact Info) Description 09/01/2023 Refill [facility] [address] [place] [address] Erica Cantu DO [address] [place] [address] Social History Tobacco Use Types Packs/Day Years [...] the past 12 months, has t he [employer], oil or water company threatened to [...] Description 02/19/2025 10:00 AM EDT Clinical Support [facility] [address] [place] [address] documented as of this encounter Visit Diagnoses Not on filedocumented in this encounter Additional Health Concerns Assessment Noted Time PHQ-9 Depression Total Score: 3 07/03/20 23 10:46 AM EDT documented as of this encounter Care Teams Director Of User Experience Relationship Specialty Start Date End Date Erica Cantu DO [address] [place] [address] PCP - General Family Medicine 05/30/14 documented as of this encounter
--- OUTSIDE RECORDS SUMMARY | 2025-02-12 11:11 | XMS_ITS | Clinical Summary ---
Author Organization [employer] Address [address] [facility] [address] [place] [address] Care Team Providers Care Tungsten Tender Name Role Phone MeyErica eddy Primary Care Provider Allergies No known active [...] DIRECTED 15 patch 2 11/07/20 23 Active dilTIAZem ER (Tiazac) 120 MG 24 hr capsule TAKE 1 CAPSULE BY MOUTH EVERY DAY IN THE MORNING 90 capsule 01/22/20 25 Active apixaban (Eliquis) 5 MG tabletIndicat ions:History of blood clots Take 1 tablet (5 mg) by mouth 2 times daily. 60 tablet 01/22/20 25 Active Viagra 100 MG tablet TAKE 1 TABLET 1 HOUR BEFORE SEXUAL RELATIONS ONCE DAILY NEEDED. 10 tablet 01/29/20 25 Active acetaminophen (Tylenol 8 Hour) 650 [...] for muscle spasms. 60 tablet 1 01/29/20 25 025 Active Diclofenac Sodium 1 % gel Apply 2 g topically if needed in the morning, at noon, in the evening, and at bedtime (pain). 150 g 3 01/29/20 25 Active ergocalcifero l (Vitamin D2) 1.25 MG (77032 UT) capsule Take 1 capsule (1.25 mg) by mouth 1 (one) time per week. 12 capsule 01/29/20 25 025 Active ferrous gluconate (Fergon) 324 (38 Fe) MG tablet Take 1 tablet (324 mg) by mouth with breakfast. 90 tablet 3 01/31/20 25 026 Active losartan (Cozaar) 50 MG tablet Take 1 tablet (50 mg) by mouth Once per day. 30 tablet 11 02/06/20 25 026 Active Blood Pressure kit Use to check blood pressure as directed. 1 kit 02/06/20 25 Active ferrous gluconate (Fergon) 324 (38 Fe) MG tablet Take 1 tablet (324 mg) by mouth with breakfast. 90 tablet 1 06/20/20 025 Discontinued cyclobenzapri ne (Flexeril) 2.5 MG split tablet 10 mg. 06/28/20 23 025 Discontinued Buprenorphine HCl-Naloxone HCl (Suboxone) 8-2 MG SL filmIndicatio ns:Opioid type dependence, continuous (CMS/HCC) Place 1 Film under the tongue Once per day for 4 days. 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 10 tablet 04/09/20 24 025 Discontinued dilTIAZem ER (Tiazac) 120 MG 24 hr capsule TAKE 1 CAPSULE BY MOUTH DAILY IN THE MORNING 90 capsule 1 06/03/20 24 025 Discontinued losartan-hydr oCHLOROthiazi de (Hyzaar) 100-25 MG tablet TAKE 1 TABLET BY MOUTH EVERY DAY IN THE MORNING 90 tablet 01/08/20 25 025 Discontinued(Di scontinued by another clinician) potassium chloride CR (Klor-Con M20) 20 MEQ ER tablet Take 1 tablet (20 mEq) by mouth 2 times daily for 7 days. Do not crush or chew. 14 tablet 01/29/20 25 025 Active Problems Problem Noted Date Diagnosed Date Pulmonary embolism, bilateral 01/28/2025 Paroxysmal atrial fibrillation 01/28/2025 Nephrolithiasis 01/28/2025 Opioid dependence in remission 02/15/2023 Morbid obesity 12/22/2022 Assessment & Plan (07/04/2023 7:12 PM EDT): Advised pt to improve diet and exercise,discussed healthy life style -discussed insurance premium auditor referral -referred today Chronic pain syndrome 07/27/2016 [...] Encounters Date Type Department Care Team Description 02/10/2025 Refill [facility] [address] [place] [address] Erica Cantu DO 02/05/2025 9:30 AM EDT Clinical Support [facility] [address] [facility] [place] [address] Naya Salazar RN Essential hypertension 02/05/2025 Refill [facility] [address] [facility] [place] [address] Erica Cantu DO 02/05/2025 Travel 02/04/2025 Orders Only [facility] [address] [facility] [place] [address] Erica Cantu DO Pain in both knees, unspecified chronicity (Primary Dx); Osteoarthritis of both knees, unspecified osteoarthritis type; Iron deficiency anemia, unspecified iron deficiency anemia type 01/28/2025 9:15 AM EDT Office Visit [facility] [address] [facility] [place] [address] Erica Cantu DO Pulmonary embolism, bilateral (CMS/HCC) (Primary Dx); Paroxysmal atrial fibrillation (CMS/HCC); Acute kidney injury (CMS/HCC); Hydronephrosis, unspecified hydronephrosis type; Nephrolithiasis; Acute pain of both knees 01/28/2025 Refill [facility] [address] [facility] [place] [address] Erica Cantu DO Low hemoglobin 01/28/2025 Travel 01/27/2025 Refill [facility] [address] [place] [address] Erica Cantu DO 01/24/2025 Telephone [facility] [address] [place] [address] Shea Urena, PharmD 01/24/2025 Population Health Risk Score [facility] () Department [address] [place] [phone] Provider, Population Health Generic 01/21/2025 9:30 AM EDT Office Visit [facility] [place] [address] Paula Woo RN Uncomplicated opioid dependence (CMS/HCC) 01/21/2025 Telephone [facility] [address] [place] [address] Shea Urena, PharmD 01/21/2025 Travel 01/21/2025 Refill [facility] [address] [place] [address] Erica Cantu DO 01/20/2025 Refill [facility] [address] [place] [address] Erica Cantu DO History of blood clots 01/16/2025 Patient Outreach [facility] [address] [place] [address] Erica Cantu DO Care Coordination (CHW outreach for SDOH PT-1 and food needs-referral completed /) 01/16/2025 Patient Outreach [facility] [address] [place] [address] Erica Cantu DO Transition Of Care (Tcm) (HDF- Scheduled ) 01/16/2025 Telephone [facility] [address] [place] [address] Erica Cantu DO Hospital Follow-up 01/06/2025 Refill [facility] [address] [place] [address] Erica Cantu, from Last 3 Months Immunizations Name Administration [...] Sign Reading Time Taken Comments Blood Pressure 160/102 02/05/2025 9:54 AM EDT Pulse 71 02/05/2025 9:54 AM EDT Temperature 36.2 ??C (97.1 ??F) 01/28/2025 9:23 AM ED T Respiratory Rate 19 01/28/2025 9:23 AM EDT Oxygen Saturation 100% 02/05/2025 9:54 AM EDT Inhaled Oxygen Concentration - - Weight 120 kg (264 lb) 01/28/2025 9:23 AM EDT Height 172.7 cm (5' 8 ) 01/28/2025 9:23 AM EDT Body Mass Index 40.14 01/28/2025 9:23 AM EDT Plan of Treatment Upcoming Encounters Date Type Department Care Team (Late st Contact Info) Description 02/19/2025 10:00 AM EDT Clinical Support [facility] [address] [place] [phone] Health Maintenance Due Date Last Done Comments [...] 01/28/2026 01/28/2025 Depression Screening 01/28/2026 01/28/2025, 01/29/20 Tobacco Screening 01/28/2026 01/28/2025 Zoster Vaccines (1 of 2) 2029 Lipid Panel 01/28/2030 01/28/2025, 06/15/2023 RSV Patients and Patients Aged 60 years or older (1 - 1-dose 75+ series) 2054 Hepatitis B Vaccines Completed 05/30/2022, 07/08/2011, 05/23/2011 HIV Screening Completed 01/28/2025, 01/2023, 05/31/2022, Additional history exists Hepatitis C Screening Completed 01/28/2025 , 06/15/2023, 05/31/2022 HIB Vaccines Aged Out No longer eligi [...] To stay clean. 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, recruitment manager Procedure Name Priority Date/Time Associated Diagnosis Comments FERRITIN Routine 02/06/2025 9:45 AM EDT Pain in both knees, unspecified chronicity IRON AND TOTAL IRON BINDING CAPACITY Routine 02/06/2025 9:45 AM EDT Pain in both knees, unspecified chronicity POTASSIUM Routine 02/06/2025 9:45 AM EDT Essential hypertension IRON AND TOTAL IRON BINDING CAPACITY Routine 01/28/2025 10:44 AM EDT Low hemoglobin FERRITIN Routine 01/28/2025 10:44 AM EDT Low hemoglobin HEPATITIS B CORE AB TOTAL Routine 01/28/2025 10:44 AM EDT Acute kidney injury (CMS/HCC) HEPATITIS A ANTIBODY, TOTAL Routine 01/28/2025 10:44 AM EDT Acute kidney injury (CMS/HCC) HEPATITIS B SURFACE ANTIBODY, QUALITATIVE Routine 01/28/2025 10:44 AM EDT Acute kidney injury (CMS/HCC) RPR (MONITOR) W/REFL TITER Routine 01/28/2025 10:44 AM EDT Acute kidney injury (CMS/HCC) HEPATITIS C AB W/REFL TO HCV RNA, QN, PCR Routine 01/28/2025 10:44 AM EDT Acute kidney injury (CMS/HCC) HIV 1/2 ANTIGEN/ANTIBODY, FOURTH GENERATION W/RFL Routine 01/28/2025 10:44 AM EDT Acute kidney injury (CMS/HCC) HEPATITIS B SURFACE ANTIGEN, EIA Routine 01/28/2025 10:44 AM EDT Acute kidney injury (CMS/HCC) ALBUMIN, RANDOM URINE W/CREATININE Routine 01/28/2025 10:44 AM EDT Acute kidney injury (CMS/HCC) CBC Routine 01/28/2025 10:44 AM EDT Acute kidney injury (CMS/HCC) BASIC METABOLIC PANEL Routine 01/28/2025 10:44 AM EDT Acute kidney injury (CMS/HCC) HEMOGLOBIN A1C Routine 01/28/2025 10:44 AM EDT Acute kidney injury (CMS/HCC) HEPATIC FUNCTION PANEL Routine 01/28/2025 10:44 AM EDT Acute kidney injury (CMS/HCC) TSH Routine 01/28/2025 10:44 AM EDT Acute kidney injury (CMS/HCC) LIPID PANEL, STANDARD Routine 01/28/2025 10:44 AM EDT Acute kidney injury (CMS/HCC) VITAMIN D,25-OH,TOTAL,IA Routine 01/28/2025 10:44 AM EDT Acute kidney injury (CMS/HCC) T4, FREE Routine 01/28/2025 10:44 AM EDT Acute kidney injury (CMS/HCC) CHLAMYDIA/N. GONORRHOEAE RNA, TMA, UROGENITAL Routine 01/28/2025 10:44 AM EDT Acute kidney injury (CMS/HCC) XR KNEE 4+ VIEWS RIGHT Routine 01/28/2025 10:05 AM EDT Acute pain of both knees XR KNEE 4+ VIEWS LEFT Routine 01/28/2025 10:05 AM EDT Acute pain of both knees from Last 3 Months Results * (ABNORMAL) Iron And Total Iron Binding Capacity (02/06/2025 9:45 AM EDT) Only the most recent of2 resultswithin the time period is included. Iron 23(L) 45 - 160 mcg/dL [facility] Total Iron Binding Capacity 308 228 - 428 mcg/dL [facility] Percent Iron Saturation 7(L) 15 - 50 % [facility] Unsaturated Iron Binding 285 ug/dL [facility] 02/06/2025 9:45 AM EDT 02/06/2025 11:06 AM EDT us Erica Cantu DO LAB BLOOD ORDERABLES Final R esult [facility] [address] [place] [phone] * Potassium (02/06/2025 9:45 AM EDT) Pathologist [facility] Potassium 4.3 3.3 - 5.1 mmol/L [facility] Blood Venous blood specimen / Unknown 02/06/2025 9:45 AM EDT 02/06/2025 11:06 AM EDT Erica Cantu DO LAB BLOOD ORDERABLES Final R esult Performing Organization Address [facility] de Phone Number [facility] [address] [place] [phone] * (ABNORMAL) Ferritin (02/06/2025 9:45 AM EDT) Only the most recent of2 resultswithin the time period is included. Pathologist [facility] Ferritin 8(L) 20 - 250 ng/mL [facility] 02/06/2025 9:45 AM EDT 02/06/2025 11:06 AM EDT Erica Cantu DO LAB BLOOD ORDERABLES Final R esult Performing Organization Address [facility] de Phone Number [facility] [address] [place] [phone] * (ABNORMAL) Vitamin D, 25-Hydroxy, Total, Immunoassay (01/28/2025 10:44 AM EDT) Vitamin D 25-OH Total 13.2(L) >30 ng/mL [facility] Comment: Health Based Reference Values*< 20 ??ng/mL ??Tnkbcqaku21-46 ng/mL ??Insufficient> 30 ??ng/mL ??Sufficient*Mari NERI. N Engl J Med. 2007;357:266-280There is no well-established upper level of normal vitamin Dlevels. Some laboratories use 50 ng/mL as an upper limit ofnormal. However, toxicity is patient-dependent and may occurat any level. Careful correlation with the patient'spresentation is necessary and, if there is concern forvitamin D toxicity, treatment should be consideredirrespective of the serum level.Care must be taken in interpreting Vitamin D results fromdifferent laboratories and methodologies. ??Published datademonstrated that results from patients undergoinghemodialysis may show a negative bias when tested withvarious automated 25-OH vitamin D assays when compared toLC- MS/MS.When testing samples from patients whose predominant form ofVitamin D is Vitamin D2, such as patients receiving VitaminD2 supplementation, results that are subtherapeutic shouldbe confirmed with another method such as LC-MS/MS. Blood Venous blood specimen / Unknown 01/28/2025 10:44 AM EDT 01/28/2025 11:14 AM EDT Erica Cantu DO LAB BLOOD ORDERABLES Final R ult Performing Organization Address [facility] Co de Phone Number [facility] [address] [place] [phone] * Albumin, Random Urine W/Creatinine (01/28/2025 10:44 AM EDT) Creatinine, Urine 56.42 mg/dL [facility] Microalbumin Urine <5.0 mg/L [facility] Microalbum Creatinine Ratio Ur TNP <30 ug/mg cr [facility] Comment:Unable to calculate albumin/creatinine ratio due to lowmicroalbumin or creatinine result. Urine (Urine, Random) 01/28/2025 10:44 AM EDT 01/28/2025 11:14 AM EDT Erica Cantu DO LAB URINE ORDERABLES Final R esult Performing Organization Address [facility] Co de Phone Number [facility] [address] [place] [phone] * Hepatitis C Antibody with Reflex to HCV, RNA, Quantitative, Real-Time PCR (01/28/2025 10:44 AM EDT) [facility] Hepatitis C Antibody Nonreactive Nonreactive [facility] Comment:Antibodies to HCV no t detected; does not exclude early acuteHCV infection. Blood Venous blood specimen / Unknown 01/28/2025 10:44 AM EDT 01/28/2025 11:14 AM EDT [facility] LAB BLOOD ORDERABLES Final R esult Performing Organization Address City/[facility]/ZIP Co de Phone Number [facility] [address] [place] [phone] * Hepatitis A Antibody, Total (01/28/2025 10:44 AM EDT) [facility] Hepatitis A Antibody IgG Nonreactive Nonreactive [facility] Blood Venous blood specimen / Unknown 01/28/2025 10:44 AM EDT 01/28/2025 11:14 AM EDT Eric[facility]iasAC[facility] LAB BLOOD ORDERABLES Final R esult Performing Organization Address [facility] Co de Phone Number [facility] [address] [place] [phone] * Chlamydia/N. Gonorrhoeae RNA, TMA, Urogenitial (01/28/2025 10:44 AM EDT) [facility] CT PCR NOT DETECTED Not Detect. [facility] Comment:A not detected test result does not exclude the possibilityof infection because test results can be affected byimproper specimen collection, concurrent antibiotic therapy,or the number of organisms in the specimen which may bebelow the sensitivity of the test. As with many diagnostictests, results from the Xpert CT/NG assay should beinterpreted in conjunction with other laboratory andclinical data available to the clinician.Xpert CT/NG performance has not been evaluated in patientsless than 14 years of age. The assay should not be used forthe evaluationof suspected sexual abuse or for other medico-legalindications. Additional testing is recommended in anycircumstance when false positive or false negative resultscould lead to adverse medical, social or psychologicalconsequences. NG PCR NOT DETECTED Not Detect. [facility] Comment:A not detected test result does not exclude the possibilityof infection because test results can be affected byimproper specimen collection, concurrent antibiotic therapy,or the number of organisms in the specimen which may bebelow the sensitivity of the test. As with many diagnostictests, results from the Xpert CT/NG assay should beinterpreted in conjunction with other laboratory andclinical data available to the clinician.Xpert CT/NG performance has not been evaluated in patientsless than 14 years of age. The assay should not be used forthe evaluationof suspected sexual abuse or for other medico-legalindications. Additional testing is recommended in anycircumstance when false positive or false negative resultscould lead to adverse medical, social or psychologicalconsequences. Urine Urethral structure / Unknown 01/28/2025 10:44 AM EDT 01/28/2025 11:14 AM EDT Narrative [facility] - 01/28/2025 2:20 PM EDT Urine Erica Cantu DO LAB MICROBIOLOGY - GENERAL O RDERABLES Final Result Performing Organization Address [facility] Co de Phone Number [facility] [address] [place] [phone] * Hepatitis B surface antigen, EIA (01/28/2025 10:44 AM EDT) Hepatitis B Surface Ag Negative Negative [facility] Blood Venous blood specimen / Unknown 01/28/2025 10:44 AM EDT 01/28/2025 11:14 AM EDT Erica Cantu DO LAB BLOOD ORDERABLES Final R esult Performing Organization Address [facility] Co de Phone Number [facility] [address] [place] [phone] * Hepatitis B Core Antibody, Total (01/28/2025 10:44 AM EDT) Hepatitis B Core Antibody Nonreactive Nonreactive [facility] Blood Venous blood specimen / Unknown 01/28/2025 10:44 AM EDT 01/28/2025 11:14 AM EDT Erica Alondra DO LAB BLOOD ORDERABLES Final R esult Performing Organization Address [facility] Co de Phone Number [facility] [address] [place] [phone] * RPR (Monitor) with Reflex to??Titer (01/28/2025 10:44 AM EDT) Pathologist [facility] RPR (Monitor) w/Refl Titer NON-REACTI VE NON-REACT YSABEL [facility] Comment:THIS TEST WAS PERFOR MED AT:[facility] [place] [phone] STRANGE MD Rapid Plasma Reagin Ab Titer TNP [facility] Blood Venous blood specimen / Unknown 01/28/2025 10:44 AM EDT 01/28/2025 11:14 AM EDT Erica Alondra DO LAB BLOOD ORDERABLES Final R [facility] Performing Organization Address [facility] Co de Phone Number [facility] [address] [place] [phone] * HIV-1/2 Antigen and Antibodies, Fourth Generation, with Reflexes (01/28/2025 10:44 AM EDT) HIV AB/AG Nonreactive Nonreactive [facility] Comment:HIV-1 p24 Ag and/or HIV-1/HIV-2 Ab not detected.A test result that is nonreactive does not exclude thepossibility of exposure to or infection with HIV-1 and/orHIV-2. Nonreactive results in this assay for individualswith prior exposure to HIV-1 and/or HIV-2 may be due toantigen and antibody levels that are below the limit ofdetection of this assay.The [facility] HIV Ag/Ab Combo assay result andsupplemental assay results should be interpreted inconjunction with the patient's clinical presentation,history and other laboratory results. If the results areinconsistent with clinical evidence, additional testing issuggested to confirm the result. Blood Venous blood specimen / Unknown 01/28/2025 10:44 AM EDT 01/28/2025 11:14 AM EDT Erica Alondra LAB BLOOD ORDERABLES Final R esult Performing Organization Address [facility]/ZIP Co de Phone Number [facility] [address] [place] [phone] * Hepatitis B Surface Antibody, Qualitative (01/28/2025 10:44 AM EDT) Pathologist [facility] ~Hepatitis B Surface Antibody REACTIVE Nonreactive [facility] Comment:REACTIVE: > 11.99 mI U/mL Blood Venous blood specimen / Unknown 01/28/2025 10:44 AM EDT 01/28/2025 11:14 AM EDT Erica Alondra LAB BLOOD ORDERABLES Final R esult Performing Organization Address [facility] Co de Phone Number [facility] [address] [place] [phone] * (ABNORMAL) CBC (01/28/2025 10:44 AM EDT) Pathologist [facility] White Blood Count 7.1 4.8 - 10.8 X10*3/uL [facility] Red Blood Count 4.06(L) 4.60 - 5.80 X10*6/uL [facility] Hemoglobin 10.9(L) 14.0 - 18.0 g/dl [facility] Hematocrit 34.6(L) 42.0 - 52.0 % [facility] Mean Corpuscular Volume 85.2 80.0 - 98.0 fL [facility] Mean Corpuscular Hemoglobin 26.8(L) 27.0 - 33.0 pg [facility] Mean Corpuscular HGB Conc 31.5 31.0 - 36.0 g/dl [facility] Red Cell Distribution Width 13.2 11.0 - 16.0 % [facility] Platelet Count 402(H) 160 - 400 X10*3/uL [facility] Mean Platelet Volume 10.8 9.4 - 12.4 fL [facility] NRBC Pct Auto 0.0 0.0 - 0.2 /100WBC [facility] NRBC Abs Auto 0.000 0.0 - 0.012 X10*3/uL [facility] Blood Venous blood specimen / Unknown 01/28/2025 10:44 AM EDT 01/28/2025 11:14 AM EDT us Erica Cantu DO LAB BLOOD ORDERABLES Final R esult Performing Organization Address City/[facility]/ZIP Co de Phone Number [facility] [address] [place] [phone] * TSH (01/28/2025 10:44 AM EDT) Thyroid Stimulating Hormone 0.75 0.32 - 4.0 uIU/mL [facility] Comment:TSH 3rd Generation ( [facility]) Blood Venous blood specimen / Unknown 01/28/2025 10:44 AM EDT 01/28/2025 11:14 AM EDT Erica Cantu DO LAB BLOOD ORDERABLES Final R esult Performing Organization Address City/[facility]/ZIP Co de Phone Number [facility] [address] [place] [phone] * T4, Free (01/28/2025 10:44 AM EDT) Free T4 (Free Thyroxine) 1.10 0.71 - 1.85 ng/dL [facility] Blood Venous blood specimen / Unknown 01/28/2025 10:44 AM EDT 01/28/2025 11:14 AM EDT Erica Alondra LAB BLOOD ORDERABLES Final R esult Performing Organization Address [facility] Co de Phone Number [facility] [address] [place] [phone] * Hemoglobin A1c (01/28/2025 10:44 AM EDT) Hemoglobin A1c 5.5 <6.0 % [facility] Comment:Hemoglobin A1C Refer ence Range Adults: 4.8 - 6.0 % Non diabetic: < 6.0 % Goal: < 7.0 %Additional Action Suggested: > 8.0 %Note: Hemoglobin A1c results are invalid for patients with abnormal amounts of HbF. Blood transfusions may impact the HbA1c concentration in the patient sample. Estimated Average Glucose 111 mg/dL [facility] Comment:eAG = Estimated ave rage glucose which is %A1C expressed asaverage glucose, using the formula of the [id number] Glucose study (ADAG), Diabetes Care, Vol.31,#8,Jun. 2007 Blood Venous blood specimen / Unknown 01/28/2025 10:44 AM EDT 01/28/2025 11:14 AM EDT Erica Cantu DO LAB BLOOD ORDERABLES Final R esult Performing Organization Address City/[facility]/ZIP Co de Phone Number [facility] [address] [place] [address] [phone] * Hepatic Function Panel (01/28/2025 10:44 AM EDT) Bilirubin, Total 0.3 0.0 - 1.0 mg/dL [facility] Bilirubin, Direct 0.1 0.0 - 0.5 mg/dL [facility] Aspartate Amino Transferase 19 5 - 37 U/L [facility] Alanine Aminotransferase <6 0 - 40 U/L [facility] Total Protein 8.0 6.5 - 8.0 g/dL [facility] Albumin Level 4.1 3.5 - 5.0 g/dL [facility] Alkaline Phosphatase 69 39 - 117 U/L [facility] Blood Venous blood specimen / Unknown 01/28/2025 10:44 AM EDT 01/28/2025 11:14 AM EDT Erica Cantu DO LAB BLOOD ORDERABLES Final R esult [facility] [address] [place] [address] [phone] * (ABNORMAL) Lipid Panel, Standard (01/28/2025 10:44 AM EDT) Triglycerides 81 <150 mg/dL [facility] Comment:Desirable Triglyceri de: less than 150 mg/dLBorderline High Triglyceride 150-199 mg/dLHigh Triglyceride: 200-499 mg/dLVery High Triglyceride: greater than or equal to 5OO mg/dL Cholesterol 159 <200 mg/dL [facility] Comment:Desirable Cholestero l: less than 200 mg/dLBorderline High Cholesterol: 200-239 mg/dLHigh Cholesterol: greater than 239 mg/dL LDL Cholesterol Calculated 108(H) <100 mg/dL [facility] Comment:Desirable LDL: less than 100 mg/dLNear Optimal/Above Optimal LDL: 110- 129 mg/dLBorderline High LDL: 130-159 mg/dLHigh LDL: 160-189 mg/dLVery High LDL: greater than or equal to 190 mg/dL HDL Cholesterol 35(L) >40 mg/dL [facility] Comment:Desirable HDL: great er than 40 mg/dL Note: This HDL assay may give artificially low results in patients with liver disease. Blood Venous blood specimen / Unknown 01/28/2025 10:44 AM EDT 01/28/2025 11:14 AM EDT Erica Cantu DO LAB BLOOD ORDERABLES Final R esult Performing Organization Address [facility] de Phone Number [facility] [address] [place] [address] [phone] * (ABNORMAL) Basic Metabolic Panel (01/28/2025 10:44 AM EDT) Sodium 139 135 - 145 mmol/L [facility] Potassium 3.1(L) 3.3 - 5.1 mmol/L [facility] Chloride 106 96 - 108 mmol/L [facility] Carbon Dioxide 25 22 - 29 mmol/L [facility] Anion Gap 11(L) 12 - 20 [facility] Urea Nitrogen (BUN) 15 9 - 16 mg/dL [facility] Creatinine, Serum 0.82 0.5 - 1.4 mg/dL [facility] Estimated Glomerular Filt Rate >60 [facility] Comment:Chronic Kidney Disea se: Estimated GFR < 60 mL/min/[id number] Kidney Disease: Estimated GFR < 15 mL/min/1.73m2 Glucose 95 60 - 115 mg/dL [facility] Calcium 9.3 8.4 - 10.2 mg/dL [facility] Blood Venous blood specimen / Unknown 01/28/2025 10:44 AM EDT 01/28/2025 11:14 AM EDT Erica Cantu DO LAB BLOOD ORDERABLES Final R esult Performing Organization Address [facility] Co de Phone Number [facility] [address] [place] [phone] [phone] * XR Knee 4+ Views Right (01/28/2025 10:05 AM EDT) Anatomical Region Laterality Modality Lower Extremities, Knee Right Radiogra phic Imaging 01/28/2025 10:0 5 AM EDT Narrative 01/28/2025 11:19 AM EDT ?[place] [facility] ?[address] ?[place] [address] ?XRay Report ? Signed ? Patient: Celaya,Ben ?MR#: [id number] ? : 1980 ?Acct:[id number] ? Age/Sex: 44 / M ?ADM Date: 01/28/25 ? Loc: HO.HHCX ? Attending Dr: Erica Cantu DO ? Ordering Physician: Erica Cantu DO ?? Date of Service: 01/28/25 ?? Procedure(s): XR knee RT 4V ?? Accession Number(s): [id number] ? cc: Erica Cantu DO ? EXAMINATION: [...] DD/ 1005 ? TD/TT: 01/28/25 1034 ? Real Estate Office Manager: ? Procedure Note Suyapa Merino - 01/28/[address] [address] XRay Report Signed Patient: Ben CelayaMR#: [id number] : 1980Acct:[id number] Age/Sex: 44 / MADM Date: 01/28/25 Loc: HO.HHCX Attending Dr: Erica Cantu DO Ordering Physician: Erica Cantu DO Date of Service: 01/28/25 Procedure(s): XR knee RT 4V Accession Number(s): [id number] cc: Erica Cantu DO EXAMINATION: XR KNEE [...] 01/28/25 1116 DD/ 1005 TD/TT: 01/28/25 1034 Real Estate Office Manager: us Erica Cantu DO IMG XR PROCEDURES Final Resu lt * XR Knee 4+ Views Left (01/28/2025 10:05 AM EDT) Anatomical Region Laterality Modality Lower Extremities, Knee Left Radiogra [facility] 01/28/2025 10:0 5 AM EDT Narrative 01/28/2025 11:18 AM EDT ?[facility] ?[address] ?[place] [address] ?XRay Report ? Signed ? Patient: Celaya,Ben ?MR#: [id number] ? : 1980 ?Acct:[id number] ? Age/Sex: 44 / M ?ADM Date: 03/18/25 ? Loc: HO.HHCX ? Attending Dr: Erica Cantu DO ? Ordering Physician: Erica Cantu DO ?? Date of Service: 01/28/25 ?? Procedure(s): XR knee LT 4V ?? Accession Number(s): [id number] ? cc: Erica Cantu DO ? EXAMINATION: [...] DD/ 1005 ? TD/TT: 01/28/25 1034 ? Real Estate Office Manager: ? Procedure Note Angelique, Image - 01/28/[address] [address] XRay Report Signed Patient: Ben CelayaMR#: [id number] : 1980Acct:[id number] Age/Sex: 44 / MADM Date: 01/28/25 Loc: HO.HHCX Attending Dr: Erica Cantu DO Ordering Physician: Erica Cantu DO Date of Service: 01/28/25 Procedure(s): XR knee LT 4V Accession Number(s): [id number] cc: Erica Cantu DO EXAMINATION: XR KNEE [...] Fernando Shelton MD 01/28/2025 11:15 AM EDT RP Dictated By: Fernando Shelton MD Signed By: <Electronically signed by Fernando Shelton MD in OV> 01/28/25 1115 DD/ 1005 TD/TT: 01/28/25 1034 Real Estate Office Manager: Erica Cantu DO IMG XR PROCEDURES Final Resu lt from Last 3 Months [facility] [employer] C/O [employer] JE[place] [id number] Care Teams Tungsten Tender Relationship Specialty Start Date End Date Erica Cantu DO [address] [place] [phone] PCP - General Family Medicine 05/30/14
--- OUTSIDE RECORDS SUMMARY | 2025-02-12 11:11 | XMS_ITS | Encounter Summary ---
Author Organization [employer] [facility] Address [address] [place] [address] Care Team Providers Care Pharmaceutical Officer Name Role Phone Erica Cantu DO Primary Care Provider [phone] Encounter Details Date Type Department Care Team (Late st Contact Info) Description 06/20/2023 Orders Only [facility] [address] [place] [phone] Charito Bell MD [address] [place] [address] Social History Tobacco Use Types Packs/Day Years [...] Description 02/19/2025 10:00 AM EDT Clinical Support [facility] [address] [place] [address] documented as of this encounter Visit Diagnoses Not on filedocumented in this encounter Care Teams Pharmaceutical Officer Relationship Specialty Start Date End Date Erica Cantu DO [address] [place] [address] PCP - General Family Medicine 05/30/14 documented as of this encounter
== END 2025-02-12 10:23 | disposition home or self-care (01) ==
LOC: HO.HUSH 09:50
PROVIDERS: PCP Family Medicine; Visit Provider Nurse Practitioner Family
DX: N20.0 Calculus of kidney (principal); N13.30 Unspecified hydronephrosis; Z13.9 Encounter for screening, unspecified
CPT/HCPCS: 99204

== ENCOUNTER → 2025-02-12 09:50 | Outpatient (BNVA) | payer MEDICAID, SELFPAY | PROVIDERS: PCP Family Medicine; Visit Provider Nurse Practitioner Family | DX: N20.0 Calculus of kidney (principal); N13.30 Unspecified hydronephrosis | CPT/HCPCS: 81003; 99212 ==

== ENCOUNTER 2025-02-18 16:41 | Outpatient (REF) | payer MEDICAID, SELFPAY ==
--- NOTE | ~2025-02-18 | CT_ITS ---
CLINICAL HISTORY: N20.0 - Calculus of kidney CT abdomen and pelvis without IV contrast. COMPARISON: None FINDINGS: Partially visualized lung bases are unremarkable. Gastric band present. Normal gallbladder. Noncontrast appearance of the liver, spleen, pancreas and adrenal glands are unremarkable. Nonobstructing 6 mm right renal calculus. No right-sided hydronephrosis. No right hydroureter. No right ureteral calculus. Multiple nonobstructing left renal calculi measuring up to 1.2 cm. No left-sided hydronephrosis. No left hydroureter. In the distal left ureter there is a 5 mm ureteral calculus. Normal appendix. Mild colonic stool burden. No bowel obstruction. No mesenteric or retroperitoneal lymphadenopathy. Normal abdominal aorta. Urinary bladder is unremarkable given degree of distention. Prostate calcifications present. No inguinal lymphadenopathy. No acute fracture or suspicious bone lesion. Partially visualized internal fixation hardware within the proximal right femur. IMPRESSION: 1. Nonobstructing distal left ureteral 5 mm calculus. 2. Nonobstructing renal calculi present bilaterally measuring up to 1.2 cm on the left and 0.6 cm on the right. This document has been electronically signed by: Shivam Solorzano MD on 02/19/2025 16:39:59
--- OUTSIDE RECORDS SUMMARY | 2025-02-18 19:08 | XMS_ITS | Clinical Summary ---
Author Organization [employer] Address [address] [facility] 7[address] [place] [address] Care Team Providers Care Law Firm Consultant Name Role Phone MeyErica eddy Primary Care [...] Active ergocalcifero l (Vitamin D2) 1.25 MG (33700 UT) capsule Take 1 capsule (1.25 mg) [...] per day for 4 days. 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 referral -referred today Chronic pain syndrome 07/27/2016 [...] Encounters Date Type Department Care Team Description 02/18/2025 Travel 02/10/2025 Refill [facility] [address] [place] [address] Erica Cantu DO 02/05/2025 9:30 AM EDT Clinical Support [facility] MEDICINE [address] [place] [address] Naya Salazar RN Essential hypertension 02/05/2025 Refill [facility] MED & PEDS [address] [place] [address] Erica Cantu DO 02/05/2025 Travel 02/04/2025 Orders Only [facility] MEDICINE [address] [place], [place] [address] [place] [address] Erica Cantu DO Pain in both knees, unspecified chronicity (Primary Dx); Osteoarthritis of both knees, unspecified osteoarthritis type; Iron deficiency anemia, unspecified iron deficiency anemia type 01/28/2025 9:15 AM EDT Office Visit [facility] [address] [place] [address] Erica Cantu DO Pulmonary embolism, bilateral (CMS/HCC) (Primary Dx); Paroxysmal atrial fibrillation (CMS/HCC); Acute kidney injury (CMS/HCC); Hydronephrosis, unspecified hydronephrosis type; Nephrolithiasis; Acute pain of both knees 01/28/2025 Refill [facility] [address] [address] Erica Cantu DO Low hemoglobin 01/28/2025 Travel 01/27/2025 Refill [facility] [address] [place] [address] Erica Cantu DO 01/24/2025 Telephone [facility] [address] [facility] [place] [address] Shea Urena, PharmD 01/24/2025 Population Health Risk Score [facility] () Department [address] [place] [phone] Provider, Population Health Generic 01/21/2025 9:30 AM EDT Office Visit [facility] [place] [address] Paula Woo RN Uncomplicated opioid dependence (CMS/HCC) 01/21/2025 Telephone [facility] [address] [facility] [address] Shea Urena, PharmD 01/21/2025 Travel 01/21/2025 Refill [facility] [address] [facility] [address] Erica Cantu DO 01/20/2025 Refill [facility] MEDICINE [address] [place] [address] Erica Cantu DO History of blood clots 01/16/2025 Patient Outreach [address] [address] Erica Cantu DO Care Coordination (CHW outreach for SDOH PT-1 and food needs-referral completed /) 01/16/2025 Patient Outreach [facility] [address] [place] [address] Erica Cantu DO Transition Of Care (Tcm) (HDF- Scheduled ) 01/16/[address] [address] Erica Cantu DO Hospital Follow-up 01/06/[address] [address] Erica Cantu DO from Last 3 Months [...] t he electric, gas, oil or water [employer] threatened to shut off services in your [...] Description 02/19/2025 10:00 AM EDT Clinical Support [address] [address] Health Maintenance Due Date Last Done Comments [...] 01/28/2025, 01/29/20 25 Tobacco Screening 01/28/2026 01/28/2025 Zoster Vaccines (1 [...] To stay clean. 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, mixer lever operator Procedure Name Priority Date/Time Associated Diagnosis Comments [...] included. Iron 23(L) 45 - 160 mcg/dL [facility] Total Iron Binding Capacity 308 228 - 428 mcg/dL [facility] Percent Iron Saturation 7(L) 15 - 50 % [facility] Unsaturated Iron Binding 285 ug/dL [facility] 02/06/2025 9:45 AM EDT 02/06/2025 11:06 AM EDT Erica Cantu DO LAB BLOOD ORDERABLES Final R esult Performing Organization Address [facility]/ZIP Co de Phone Number [facility] [address] [place] [address] [phone] * Potassium (02/06/2025 9:45 AM EDT) Pathologist [facility] Potassium 4.3 3.3 - 5.1 mmol/L [facility] Blood Venous blood specimen / Unknown 02/06/2025 9:45 AM EDT 02/06/2025 11:06 AM EDT Erica Cnatu DO LAB BLOOD ORDERABLES Final R esult Performing Organization Address [facility] Co de Phone Number [facility] [address] [place] [phone] * (ABNORMAL) Ferritin (02/06/2025 9:45 AM EDT) Only the most recent of2 resultswithin the time period is included. Pathologist [facility] Ferritin 8(L) 20 - 250 ng/mL [facility] 02/06/2025 9:45 AM EDT 02/06/2025 11:06 AM EDT Erica Cantu DO LAB BLOOD ORDERABLES Final R esult Performing Organization Address [facility] de Phone Number [facility] [address] [place] [phone] * (ABNORMAL) Vitamin D, 25-Hydroxy, Total, Immunoassay (01/28/2025 10:44 AM EDT) Vitamin D 25-OH Total 13.2(L) >30 ng/mL [facility] Comment: Health Based Reference Values*< 20 ??ng/mL ??[id number] ng/mL ??Insufficient> 30 ??ng/mL ??Sufficient*Mari NERI. N [...] ORDERABLES Final R esult Performing Organization Address [facility] Co de Phone Number [facility] [address] [place] [phone] * Albumin, Random Urine W/Creatinine (01/28/2025 10:44 AM EDT) Creatinine, Urine 56.42 mg/dL [facility] Microalbumin Urine <5.0 mg/L [facility] Microalbum Creatinine Ratio Ur TNP <30 ug/mg cr [facility] Comment:Unable to calculate albumin/creatinine ratio due to lowmicroalbumin or creatinine result. Urine (Urine, Random) 01/28/2025 10:44 AM EDT 01/28/2025 11:14 AM EDT Erica Cantu DO LAB URINE ORDERABLES Final R esult Performing Organization Address [facility] Co de Phone Number [facility] [address] [place] [phone] * Hepatitis C Antibody with Reflex to HCV, RNA, Quantitative, Real-Time PCR (01/28/2025 10:44 AM EDT) [facility] Hepatitis C Antibody Nonreactive Nonreactive [facility] Comment:Antibodies to HCV no t detected; does not exclude early acuteHCV infection. Blood Venous blood specimen / Unknown 01/28/2025 10:44 AM EDT 01/28/2025 11:14 AM EDT [facility] BLOOD ORDERABLES Final R esult Performing Organization Address [facility] Co de Phone Number [facility] [address] [place] [phone] * Hepatitis A Antibody, Total (01/28/2025 10:44 AM EDT) [facility] Hepatitis A Antibody IgG Nonreactive Nonreactive [facility] Blood Venous blood specimen / Unknown 01/28/2025 10:44 AM EDT 01/28/2025 11:14 AM EDT [facility] LAB BLOOD ORDERABLES Final R esult Performing Organization Address [facility] de Phone Number [facility] [address] [place] [phone] * Chlamydia/N. Gonorrhoeae RNA, TMA, Urogenitial (01/28/2025 10:44 AM EDT) [facility] CT PCR NOT DETECTED Not Detect. [facility] Comment:A not detected test result [...] psychologicalconsequences. NG PCR NOT DETECTED Not Detect. [facility] Comment:A not detected test result [...] AM EDT 01/28/2025 11:14 AM EDT Narrative [facility] - 01/28/2025 2:20 PM EDT Urine Erica Cantu DO LAB MICROBIOLOGY - GENERAL O RDERABLES Final Result Performing Organization Address [facility] Co de Phone Number [facility] [address] [place] [phone] * Hepatitis B surface antigen, EIA (01/28/2025 10:44 AM EDT) Hepatitis B Surface Ag Negative Negative [facility] Blood Venous blood specimen / Unknown 01/28/2025 10:44 AM EDT 01/28/2025 11:14 AM EDT us Erica Cantu DO LAB BLOOD ORDERABLES Final R esult Performing Organization Address [facility] Co de Phone Number [facility] [address] [place] [phone] * Hepatitis B Core Antibody, Total (01/28/2025 10:44 AM EDT) Hepatitis B Core Antibody Nonreactive Nonreactive [facility] Blood Venous blood specimen / Unknown 01/28/2025 10:44 AM EDT 01/28/2025 11:14 AM EDT Erica Alondra LAB BLOOD ORDERABLES Final R esult Performing Organization Address [facility] Co de Phone Number [facility] [address] [place] [address] [phone] * RPR (Monitor) with Reflex to??Titer (01/28/2025 10:44 AM EDT) RPR (Monitor) w/Refl Titer NON-REACTI VE NON-REACT YSABEL [facility] Comment:THIS TEST WAS PERFOR MED AT:[employer] [place] [phone] STRANGE MD Rapid Plasma Reagin Ab Titer TNP [facility] Blood Venous blood specimen / Unknown 01/28/2025 10:44 AM EDT 01/28/2025 11:14 AM EDT Erica Alondra LAB BLOOD ORDERABLES Final R esult Performing Organization Address [facility] de Phone Number [facility] [address] [place] [address] [phone] * HIV-1/2 Antigen and Antibodies, Fourth Generation, with Reflexes (01/28/2025 10:44 AM EDT) HIV AB/AG Nonreactive Nonreactive [facility] Comment:HIV-1 p24 Ag and/or HIV-1/HIV-2 Ab not detected.A test result that is nonreactive does not exclude thepossibility of exposure to or infection with HIV-1 and/orHIV-2. Nonreactive results in this assay for individualswith prior exposure to HIV-1 and/or HIV-2 may be due toantigen and antibody levels that are below the limit ofdetection of this assay.The [employer] HIV Ag/Ab Combo assay result andsupplemental assay results should be interpreted inconjunction with the patient's clinical presentation,history and other laboratory results. If the results areinconsistent with clinical evidence, additional testing issuggested to confirm the result. Blood Venous blood specimen / Unknown 01/28/2025 10:44 AM EDT 01/28/2025 11:14 AM EDT Erica Cantu DO LAB BLOOD ORDERABLES Final R esult Performing Organization Address [facility]/ZIP Co de Phone Number [facility] [address] [place] [phone] * Hepatitis B Surface Antibody, Qualitative (01/28/2025 10:44 AM EDT) Pathologist [facility] ~Hepatitis B Surface Antibody REACTIVE Nonreactive [facility] Comment:REACTIVE: > 11.99 mI U/mL Blood Venous blood specimen / Unknown 01/28/2025 10:44 AM EDT 01/28/2025 11:14 AM EDT Erica Cantu DO LAB BLOOD ORDERABLES Final R esult Performing Organization Address [facility]/ZIP Co de Phone Number [facility] [address] [place] [phone] * (ABNORMAL) CBC (01/28/2025 10:44 AM EDT) Pathologist [facility] White Blood Count 7.1 4.8 - 10.8 X10*3/uL [facility] Red Blood Count 4.06(L) 4.60 - 5.80 X10*6/uL [facility] Hemoglobin 10.9(L) 14.0 - 18.0 g/dl [facility] Hematocrit 34.6(L) 42.0 - 52.0 % [facility] Mean Corpuscular Volume 85.2 80.0 - 98.0 fL [facility] Mean Corpuscular Hemoglobin 26.8(L) 27.0 - 33.0 pg [facility] Mean Corpuscular HGB Conc 31.5 31.0 - 36.0 g/dl [facility] Red Cell Distribution Width 13.2 11.0 - 16.0 % [facility] Platelet Count 402(H) 160 - 400 X10*3/uL [facility] Mean Platelet Volume 10.8 9.4 - 12.4 fL [facility] NRBC Pct Auto 0.0 0.0 - 0.2 /100WBC [facility] NRBC Abs Auto 0.000 0.0 - 0.012 X10*3/uL [facility] Blood Venous blood specimen / Unknown 01/28/2025 10:44 AM EDT 01/28/2025 11:14 AM EDT Erica Cantu LAB BLOOD ORDERABLES Final R esult Performing Organization Address City/[facility]/ZIP Co de Phone Number [facility] [address] [place] [phone] * TSH (01/28/2025 10:44 AM EDT) Thyroid Stimulating Hormone 0.75 0.32 - 4.0 uIU/mL [facility] Comment:TSH 3rd Generation ( [facility]) Blood Venous blood specimen / Unknown 01/28/2025 10:44 AM EDT 01/28/2025 11:14 AM EDT Erica Cantu LAB BLOOD ORDERABLES Final R esult Performing Organization Address City/[facility]/ZIP Co de Phone Number [facility] [address] [place] [phone] * T4, Free (01/28/2025 10:44 AM EDT) Free T4 (Free Thyroxine) 1.10 0.71 - 1.85 ng/dL [facility] Blood Venous blood specimen / Unknown 01/28/2025 10:44 AM EDT 01/28/2025 11:14 AM EDT Erica Alondra DO LAB BLOOD ORDERABLES Final R esult Performing Organization Address City/[facility] Co de Phone Number [facility] [address] [place] [phone] * Hemoglobin A1c (01/28/2025 10:44 AM EDT) Hemoglobin A1c 5.5 <6.0 % [facility] Comment:Hemoglobin A1C Refer ence Range Adults: 4.8 - 6.0 % Non diabetic: < 6.0 % Goal: < 7.0 %Additional Action Suggested: > 8.0 %Note: Hemoglobin A1c results are invalid for patients with abnormal amounts of HbF. Blood transfusions may impact the HbA1c concentration in the patient sample. Estimated Average Glucose 111 mg/dL [facility] Comment:eAG = Estimated ave rage glucose which is %A1C expressed asaverage glucose, using the formula of the N4G-PipoihgHybinkx Glucose study (ADAG), Diabetes Care, Vol.31,#8,Jun. 2007 Blood Venous blood specimen / Unknown 01/28/2025 10:44 AM EDT 01/28/2025 11:14 AM EDT Erica Cantu DO LAB BLOOD ORDERABLES Final R esult Performing Organization Address City/[facility]/ZIP Co de Phone Number [facility] [address] [place] [phone] * Hepatic Function Panel (01/28/2025 10:44 AM EDT) Bilirubin, Total 0.3 0.0 - 1.0 mg/dL [facility] Bilirubin, Direct 0.1 0.0 - 0.5 mg/dL [facility] Aspartate Amino Transferase 19 5 - 37 U/L [facility] Alanine Aminotransferase <6 0 - 40 U/L [facility] Total Protein 8.0 6.5 - 8.0 g/dL [facility] Albumin Level 4.1 3.5 - 5.0 g/dL [facility] Alkaline Phosphatase 69 39 - 117 U/L [facility] Blood Venous blood specimen / Unknown 01/28/2025 10:44 AM EDT 01/28/2025 11:14 AM EDT us Erica Cantu DO LAB BLOOD ORDERABLES Final R esult [facility] [address] [place] [phone] [phone] * (ABNORMAL) Lipid Panel, Standard (01/28/2025 10:44 AM EDT) Triglycerides 81 <150 mg/dL [facility] Comment:Desirable Triglyceri de: less than 150 mg/dLBorderline High Triglyceride 150-199 mg/dLHigh Triglyceride: 200-499 mg/dLVery High Triglyceride: greater than or equal to 5OO mg/dL Cholesterol 159 <200 mg/dL [facility] Comment:Desirable Cholestero l: less than 200 mg/dLBorderline High Cholesterol: 200-239 mg/dLHigh Cholesterol: greater than 239 mg/dL LDL Cholesterol Calculated 108(H) <100 mg/dL [facility] Comment:Desirable LDL: less than 100 mg/dLNear Optimal/Above Optimal LDL: 110- 129 mg/dLBorderline High LDL: 130-159 mg/dLHigh LDL: 160-189 mg/dLVery High LDL: greater than or equal to 190 mg/dL HDL Cholesterol 35(L) >40 mg/dL [facility] Comment:Desirable HDL: great er than 40 mg/dL Note: This HDL assay may give artificially low results in patients with liver disease. Blood Venous blood specimen / Unknown 01/28/2025 10:44 AM EDT 01/28/2025 11:14 AM EDT us Erica Cantu DO LAB BLOOD ORDERABLES Final R esult Performing Organization Address [facility] de Phone Number [facility] [address] [place] [phone] [phone] * (ABNORMAL) Basic Metabolic Panel (01/28/2025 10:44 AM EDT) Sodium 139 135 - 145 mmol/L [facility] Potassium 3.1(L) 3.3 - 5.1 mmol/L [facility] Chloride 106 96 - 108 mmol/L [facility] Carbon Dioxide 25 22 - 29 mmol/L [facility] Anion Gap 11(L) 12 - 20 [facility] Urea Nitrogen (BUN) 15 9 - 16 mg/dL [facility] Creatinine, Serum 0.82 0.5 - 1.4 mg/dL [facility] Estimated Glomerular Filt Rate >60 [facility] Comment:Chronic Kidney Disea se: Estimated GFR < 60 mL/min/1.13u3Qbilbc Kidney Disease: Estimated GFR < 15 mL/min/1.73m2 Glucose 95 60 - 115 mg/dL [facility] Calcium 9.3 8.4 - 10.2 mg/dL [facility] Blood Venous blood specimen / Unknown 01/28/2025 10:44 AM EDT 01/28/2025 11:14 AM EDT us Erica Alondra DO LAB BLOOD ORDERABLES Final R esult Performing Organization Address [facility] Co de Phone Number [facility] [address] [place] [phone] * XR Knee 4+ Views Right (01/28/2025 10:05 AM EDT) Anatomical Region Laterality Modality Lower Extremities, Knee Right Radiogra phic Imaging 01/28/2025 10:0 5 AM EDT Narrative 01/28/2025 11:19 AM EDT ?[facility] [facility] ?[address] ?[place] [address] ?XRay Report ? Signed ? Patient: Celaya,Ben ?MR#: [id number] ? : 1980 ?Acct:[id number] ? Age/Sex: 44 / M ?ADM Date: 01/28/25 ? Loc: HO.HHCX ? Attending Dr: Erica Cantu DO ? Ordering Physician: Erica Cantu DO ?? Date of Service: 01/28/25 ?? Procedure(s): XR knee RT 4V ?? Accession Number(s): [id number] ? cc: Erica Cantu DO ? EXAMINATION: [...] DD/ 1005 ? TD/TT: 01/28/25 1034 ? Steel Post Installer: ? Procedure Note Suyapa Merino - 01/28/[address] [address] XRay Report Signed Patient: Ben CelayaMR#: [id number] : 1980Acct:[id number] Age/Sex: 44 / MADM Date: 01/28/25 Loc: HO.HHCX Attending Dr: Erica Cantu DO Ordering Physician: Erica Cantu DO Date of Service: 01/28/25 Procedure(s): XR knee RT 4V Accession Number(s): [id number] cc: Erica Cantu DO EXAMINATION: XR KNEE [...] 01/28/25 1116 DD/ 1005 TD/TT: 01/28/25 1034 Steel Post Installer: Erica Cantu DO IMG XR PROCEDURES Final Resu lt * XR Knee 4+ Views Left (01/28/2025 10:05 AM EDT) Anatomical Region Laterality Modality Lower Extremities, Knee Left [facility] 01/28/2025 10:0 5 AM EDT Narrative 01/28/2025 11:18 AM EDT ?[facility] ?[address] ?[place] [address] ?XRay Report ? Signed ? Patient: Celaya,Ben ?MR#: [id number] ? : 1980 ?Acct:[id number] ? Age/Sex: 44 / M ?ADM Date: 03/18/25 ? Loc: HO.HHCX ? Attending Dr: Erica Cantu DO ? Ordering Physician: Erica Cantu DO ?? Date of Service: 01/28/25 ?? Procedure(s): XR knee LT 4V ?? Accession Number(s): [id number] ? cc: Erica Cantu DO ? EXAMINATION: [...] DD/ 1005 ? TD/TT: 01/28/25 1034 ? Steel Post Installer: ? Procedure Note Angelique, Image - 01/28/[address] [address] XRay Report Signed Patient: Colton Celaya#: [id number] : 1980Acct:[id number] Age/Sex: 44 / MADM Date: 01/28/25 Loc: HO.HHCX Attending Dr: Erica Cantu DO Ordering Physician: Erica Cantu DO Date of Service: 01/28/25 Procedure(s): XR knee LT 4V Accession Number(s): [id number] cc: Erica Cantu DO EXAMINATION: XR KNEE [...] 01/28/25 1116 DD/ 1005 TD/TT: 01/28/25 1034 Steel Post Installer: Erica Cantu DO IMG XR PROCEDURES Final Resu lt from Last 3 Months Insurance [facility] [employer] [place] [id number] Care Teams Law Firm Consultant Relationship Specialty Start Date End Date Erica Cantu DO [address] [place] [phone] PCP - General Family Medicine 05/30/14
--- OUTSIDE RECORDS SUMMARY | 2025-02-18 19:08 | XMS_ITS | Encounter Summary ---
Author Organization [employer] [facility] Address [address] [facility] [address]t [place] [address] Care Team Providers Care Band Sawing Machine Operator Name Role Phone Erica Cantu DO Primary Care Provider [phone] Encounter Details Date Type Department Care Team (Late st Contact Info) Description 06/20/2023 Orders Only [facility] [address] [place] [phone] Charito Bell MD [address] [place] [address] Social History Tobacco Use Types Packs/Day Years [...] Description 02/19/2025 10:00 AM EDT Clinical Support [facility] [address] [place] [address] documented as of this encounter Visit Diagnoses Not on filedocumented in this encounter Care Teams Band Sawing Machine Operator Relationship Specialty Start Date End Date Erica Cantu DO [address] [place] [address] PCP - General Family Medicine 05/30/14 documented as of this encounter
--- OUTSIDE RECORDS SUMMARY | 2025-02-18 19:08 | XMS_ITS | Encounter Summary ---
Author Organization [employer] Address [address] [facility] [address] [place] [address] Care Team Providers Care Business Support Liaison Name Role Phone Erica Cantu DO Primary Care Provider + [phone] Reason for Visit * Reason Onset Date Comments Hospital Follow-up 01/16/2025 Encounter Details Date Type Department Care Team ([facility] st Contact Info) Description 01/16/2025 Telephone [facility] [address] [place] [address] Erica Cantu DO [address] [place] [address] Hospital Follow-up Social History Tobacco Use Types [...] from pt requesting a HDF appt. Hospital: [place], [place] Date of admission: 01/07 Discharge date: 01/10 Diagnosed: Blood spots *Send message to [place] Clinical Care Coordinators [phone] documented in this encounter Plan of Treatment Upcoming Encounters Date Type Department Care Team (Late st Contact Info) Description 02/19/2025 10:00 AM EDT Clinical Support [facility] [address] [place] [address] documented as of this encounter Visit Diagnoses Not on filedocumented in this encounter Additional Health Concerns Assessment Noted Time PHQ-9 Depression Total Score: 3 07/03/20 23 10:46 AM EDT documented as of this encounter Care Teams Business Support Liaison Relationship Specialty Start Date End Date Erica Cantu DO [address] [place] [address] PCP - General Family Medicine 05/30/14 documented as of this encounter
--- OUTSIDE RECORDS SUMMARY | 2025-02-18 19:08 | XMS_ITS | Encounter Summary ---
Author Organization [employer] Address [address] [facility] 7t [place] [address] Care Team Providers Care Truck Safety Inspector Name Role Phone Erica Cantu DO Primary Care Provider + [phone] Reason for Visit * Reason Comments Med Refill Encounter Details Date Type Department Care Team (Late st Contact Info) Description 02/10/2025 Refill [facility] MED & PEDS [address] [place] [address] Erica Cantu DO [address] [place] [address] Social History Tobacco Use Types Packs/Day Years [...] 02/19/2025 10:00 AM EDT Clinical Support [facility] MEDICINE [address] [place] [address] documented as of this encounter Goals Goal Patient Goal Type Associated Problems Recent Progress Patient-Stated? Author To stay clean. 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, JAYA documented as of this encounter Visit Diagnoses Not on filedocumented in this encounter Additional Health Concerns Assessment Noted Time PHQ-9 Depression Total Score: 0 01/29/20 25 9:24 AM EDT documented as of this encounter Care Teams Truck Safety Inspector Relationship Specialty Start Date End Date Erica Cantu DO [address] [place] [address] PCP - General Family Medicine 05/30/14 documented as of this encounter
--- OUTSIDE RECORDS SUMMARY | 2025-02-18 19:08 | XMS_ITS | Encounter Summary ---
Author Organization [employer] Address 75 [facility] 7t [place] [address] Care Team Providers Care Certified Physician Assistant Name Role Phone Erica Cantu DO Primary Care Provider + [phone] Reason for Visit * Reason Comments Med Refill Encounter Details Date Type Department Care Team (Late st Contact Info) Description 09/19/2023 Refill [facility] MEDICINE [address] [place] [address] Erica Cantu DO [address] [place] [address] Social History Tobacco Use Types Packs/Day Years [...] the past 12 months, has t he [email or web address], gas, oil or water company threatened to [...] Description 02/19/2025 10:00 AM EDT Clinical Support [facility] MEDICINE [address] [place] [address] documented as of this encounter Visit Diagnoses Not on filedocumented in this encounter Additional Health Concerns Assessment Noted Time PHQ-9 Depression Total Score: 3 07/03/20 23 10:46 AM EDT documented as of this encounter Care Teams Certified Physician Assistant Relationship Specialty Start Date End Date Erica Cantu DO [address] [place] [address] PCP - General Family Medicine 05/30/14 documented as of this encounter
--- OUTSIDE RECORDS SUMMARY | 2025-02-18 19:08 | XMS_ITS | Encounter Summary ---
Author Organization [employer] Address 75 [facility] 7t [place] [address] Care Team Providers Care Screen Writer Name Role Phone Erica Cantu DO Primary Care Provider + [phone] Reason for Visit * Reason Comments Med Refill Encounter Details Date Type Department Care Team (Late st Contact Info) Description 09/01/2023 Refill [facility] MEDICINE [address] [place] [address] Erica Cantu DO [address] [place] [address] Social History Tobacco Use Types Packs/Day Years [...] the past 12 months, has t he [employer], gas, oil or water company threatened to [...] Description 02/19/2025 10:00 AM EDT Clinical Support [facility] MEDICINE [address] [place] [address] documented as of this encounter Visit Diagnoses Not on filedocumented in this encounter Additional Health Concerns Assessment Noted Time PHQ-9 Depression Total Score: 3 07/03/20 23 10:46 AM EDT documented as of this encounter Care Teams Screen Writer Relationship Specialty Start Date End Date Erica Cantu DO [address] [place] [address] PCP - General Family Medicine 05/30/14 documented as of this encounter
--- OUTSIDE RECORDS SUMMARY | 2025-02-18 19:08 | XMS_ITS | Encounter Summary ---
Author Organization [employer] Address 75 [facility] 7t [place] [address] Care Team Providers Care Offset Press Operator Name Role Phone Erica Cantu DO Primary Care Provider + [phone] Encounter Details Date Type Department Care Team (Latest Contact Info) Description 02/18/2025 Travel Social History Tobacco Use Types Packs/Day [...] Support [facility] MEDICINE [address] [place] [address] documented as of this encounter Goals Goal Patient Goal Type Associated Problems Recent Progress Patient-Stated? Author To stay clean. 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, JAYA documented as of this encounter Visit Diagnoses Not on filedocumented in this encounter Additional Health Concerns Assessment Noted Time PHQ-9 Depression Total Score: 0 01/29/20 25 9:24 AM EDT documented as of this encounter Care Teams Offset Press Operator Relationship Specialty Start Date End Date Erica Cantu DO [address] [place] [address] PCP - General Family Medicine 05/30/14 documented as of this encounter
--- OUTSIDE RECORDS SUMMARY | 2025-02-18 19:08 | XMS_ITS | Encounter Summary ---
Author Organization [employer] Address [address] [facility] 7t [place] [address] Care Team Providers Care Loading Manager Name Role Phone Erica Cantu DO Primary Care Provider [phone] Encounter Details Date Type Department Care Team (Late st Contact Info) Description 05/22/2023 Orders [address] [facility] MEDICINE [address] [place] [id number] Paula Woo RN Social History Tobacco Use [...] Description 02/19/2025 10:00 AM EDT Clinical Support [facility] MEDICINE [address] [place] [address] documented as of this encounter Visit Diagnoses Not on filedocumented in this encounter Care Teams Loading Manager Relationship Specialty Start Date End Date Erica Cantu DO [address] [place] [address] PCP - General Family Medicine 05/30/14 documented as of this encounter
== END 2025-02-18 16:42 | disposition home or self-care (01) ==
LOC: HO.CT 16:41
PROVIDERS: PCP Family Medicine; Visit Provider Nurse Practitioner Family
DX: N20.0 Calculus of kidney (principal); N13.30 Unspecified hydronephrosis
CPT/HCPCS: 74176

== ENCOUNTER → 2025-02-18 16:43 | Outpatient (BNV) | payer MEDICAID, SELFPAY | PROVIDERS: PCP Family Medicine; Visit Provider Radiology Diagnostic Radiology | DX: N20.0 Calculus of kidney (principal) | CPT/HCPCS: 74176 ==

== ENCOUNTER → 2025-02-19 11:05 | Outpatient (REF) | payer MEDICAID, SELFPAY ==
--- NOTE | 2025-02-19 11:07 | CA_ITS ---
Transthoracic Echocardiogram Patient (Last, First, Middle): Ben Celaya, Gender: Male Date of : 1980 Age: 44 Procedure Date: 02/19/2025 Procedure Type: Transthoracic Echocardiogram Location: OP Height: 172.72 cm Weight: 117.94 kg BSA: 2.29 m2 Heart Rate: bpm BP: 140 / 90 mmHg Perinatal Technician: SAJAN Referring MD: Erica Cantu DO Radio Station Engineer: Ángel Souza MD Symptoms: PULMONARY EMBOLISM BI LAT I26.99 PAF I48.0 Study Quality: Fair ECG Rhythm: Sinus Conclusions: - 1. Normal biventricular systolic function with LVEF of 60-65% 2. Mild biatrial enlargement 3. Normal cardiac valvular Dopplers 4. Normal measured RV systolic pressure 5. No pericardial effusion Findings Left Ventricle Normal left ventricular size, thickness, and systolic function. The visually estimated ejection fraction is between 60-65%. Spectral Doppler is indicative of a normal filling pattern. Right Ventricle Mildly increased right ventricular cavity size. There is normal right ventricular systolic function. Atria Mild biatrial enlargement. There is no evidence of interatrial shunt. Aortic Valve Normal aortic valve structure and function. There is no aortic valve stenosis. There is no aortic valve regurgitation. Mitral Valve Normal mitral valve structure and function. There is trace mitral valve regurgitation. There is no mitral valve stenosis. Pulmonic Valve The pulmonic valve was not well visualized. Tricuspid Valve Likely normal tricuspid valve structure and function. There is trace tricuspid valve regurgitation. The right ventricular systolic pressure is normal. The right ventricular systolic pressure is 9 mmHg. Normal right atrial pressure. There is no evidence of pulmonary hypertension. Great Vessels All visible segments of the aorta are normal in size. The pulmonary artery was not well visualized. Venous The inferior vena cava is normal in size and collapses greater than 50% with inspiration. Pericardium/Pleural There is no evidence of pericardial effusion. Prior Study Comparison No prior study available for comparison. Measurements 2D Linear Measurements IVSd: 1.05 0.6-0.9/0.6-1.0 cm LVIDd: 5.27 3.9-5.3/4.2-5.9 cm LVIDd Index: 2.30 2.4-3.2/2.2-3.1 cm/m2 LVIDs: 3.56 2.0-3.6 cm LVPWd: 1.01 0.7-1.1 cm LA Diam: 3.80 2.7-3.8/3.0-4.0 cm LAIDs Index: 1.66 1.5-2.3 cm/m2 LV Mass: 257.37 67-162/88-224 g LV Mass Index: 112.39 43-95/49-115 g/m2 LVOT Diam: 2.10 3.0+(-)1.3 cm 2D Systolic Function EF 4C: 54.20 >55% EF 2C: 69.30 >55% EF BiP: 62.00 >55% Mitral Valve MV Pk E: 0.78 MV PK A: 0.84 MV Decel Time: 196.00 E/A: 0.90 E'Lateral: 9.14 E'Medial: 8.59 E/E' Med: 9.10 E/E' Lat: 8.60 PHT: 58.00 MVA PHT: 3.79 Decel [place]: 3.99 Aortic Valve AoV Pk Wilian: 1.50 AoV Mn Wilian: 1.02 AoV VTI: 0.35 AoV Pk Grad: 9.00 Aov Mn Grad: 5.00 SON Cont.VTI: 2.81 LVOT LVOT Pk Wilian: 1.27 LVOT Mn Wilian: 0.87 LVOT VTI: 0.29 LVOT Pk Grad: 6.00 LVOT Mn Grad: 3.00 LVOT Diam: 2.10 LVOT Area: 3.46 Diastolic Function MV Pk E: 0.78 MV Pk A: 0.84 E/A: 0.90 E'Medial: 8.59 E/E' Med: 9.10 E' Laterial: 9.14 E/E' Lat: 8.60 Right Ventricle TAPSE (mm): 26.40 TVS' Wilian: 13.70 Tricuspid Valve TR Pk Wilian: 1.25 TR Pk Grad: 6.00 RA Press: 3.00 RVSP: 9.00 Great Vessels Aorta Sinus of Valsalva: 3.82 2.0-3.[address] Ridge: 2.82 1.7-3.4 cm Ao Asc: 3.50 2.1-3.4 cm Ao Arch: 2.20 Updated in Other Vendor System with Status of Final Ángel Souza MD electronically signed on 02/19/2025 2:38:56 PM with status of Final
== END ==
LOC: HO.CARD 11:05
PROVIDERS: PCP Family Medicine; Visit Provider Family Medicine
DX: I26.99 Other pulmonary embolism without acute cor pulmonale (principal); I48.0 Paroxysmal atrial fibrillation
CPT/HCPCS: 93306

== ENCOUNTER → 2025-02-19 11:07 | Outpatient (BNV) | payer MEDICAID, SELFPAY | PROVIDERS: PCP Family Medicine; Visit Provider Internal Medicine Cardiovascular Disease | DX: I34.0 Nonrheumatic mitral (valve) insufficiency (principal); I36.1 Nonrheumatic tricuspid (valve) insufficiency; I51.7 Cardiomegaly | CPT/HCPCS: 93306 ==

== ENCOUNTER 2025-02-28 12:05 | Outpatient (REF) | payer MEDICAID, SELFPAY ==
--- NOTE | ~2025-02-28 | US_ITS ---
CLINICAL HISTORY: f u L hyrdonephrosis US Renal Comparison: None Findings: Right kidney normal size and echotexture, 10.9 cm length. Left kidney normal size and echotexture, 11.5 cm length. There are bilateral renal parenchymal calculi. No collecting system dilatation of either kidney. Normal color Doppler. IMPRESSION: 1. Bilateral renal parenchymal calculi. No acute findings. This document has been electronically signed by: Kelvin Murphy MD on 03/01/2025 09:36:00
--- OUTSIDE RECORDS SUMMARY | 2025-02-28 12:57 | XMS_ITS | Encounter Summary ---
Author Organization [employer] Address 75 [facility] [address]t [place] [address] Care Team Providers Care Manual Tester Name Role Phone Erica Cantu DO Primary Care Provider + [phone] Reason for Visit * Reason Onset Date Comments Hospital Follow-up 01/16/2025 Encounter Details Date Type Department Care Team ([facility] st Contact Info) Description 01/16/2025 Telephone [facility] MEDICINE [address] [place] [address] Erica Cantu DO [address] [place] [address] Hospital Follow-up Social History Tobacco Use Types [...] from pt requesting a HDF appt. Hospital: [place] Date of admission: 01/07 Discharge date: 01/10 Diagnosed: Blood spots *Send message to [facility] Co[facility] [phone] documented in this encounter Plan of Treatment Not on file documented as of this encounter Visit Diagnoses Not on filedocumented in this encounter Additional Health Concerns Assessment Noted Time PHQ-9 Depression Total Score: 3 07/03/20 23 10:46 AM EDT documented as of this encounter Care Teams Manual Tester Relationship Specialty Start Date End Date Erica Cantu DO [address] [place] [address] PCP - General Family Medicine 05/30/14 documented as of this encounter
--- OUTSIDE RECORDS SUMMARY | 2025-02-28 12:57 | XMS_ITS | Encounter Summary ---
Author Organization [employer] Address [address] [facility] [address]t [place] [address] Care Team Providers Care Addictions Recovery Specialist Name Role Phone Erica Cantu DO Primary Care Provider + [phone] Reason for Visit * Reason Comments Med Refill Encounter Details Date Type Department Care Team (Late st Contact Info) Description 02/10/2025 Refill [facility] CHC MED & PEDS [address] [place] [address] Erica Cantu DO [address] [place] [address] Social History Tobacco Use Types Packs/Day Years [...] documented as of this encounter Care Teams Addictions Recovery Specialist Relationship Specialty Start Date End Date Erica Cantu DO [address] [place] [address] PCP - General Family Medicine 05/30/14 documented as of this encounter
--- OUTSIDE RECORDS SUMMARY | 2025-02-28 12:57 | XMS_ITS | Encounter Summary ---
Author Organization [employer] Address [address] [facility] 7t [place] [address] Care Team Providers Care Technical Business Analyst Name Role Phone Erica Cantu DO Primary Care Provider + [phone] Reason for Visit * Reason Comments Med Refill Encounter Details Date Type Department Care Team (Late st Contact Info) Description 02/20/2025 Refill [facility] MEDICINE [address] [place] [address] Erica Cantu DO [address] [place] [address] Social History Tobacco Use Types Packs/Day Years [...] documented as of this encounter Care Teams Technical Business Analyst Relationship Specialty Start Date End Date Erica Cantu DO [address] [place] [address] PCP - General Family Medicine 05/30/14 documented as of this encounter
--- OUTSIDE RECORDS SUMMARY | 2025-02-28 12:57 | XMS_ITS | Encounter Summary ---
Author Organization [employer] Address [address] [facility] [address]t [place] [address] Care Team Providers Care Shank Paperer Name Role Phone Eirca Cantu DO Primary Care Provider + [phone] Reason for Visit * Reason Comments Med Refill Encounter Details Date Type Department Care Team (Late st Contact Info) Description 09/01/2023 Refill [facility] MEDICINE [address] [place] [address] Erica Cantu DO [address] [place] [address] Social History Tobacco Use Types Packs/Day Years [...] the past 12 months, has t he [employer], gas, oil or water company threatened to [...] documented as of this encounter Care Teams Shank Paperer Relationship Specialty Start Date End Date Erica Cantu DO [address] [place] [address] PCP - General Family Medicine 05/30/14 documented as of this encounter
--- OUTSIDE RECORDS SUMMARY | 2025-02-28 12:57 | XMS_ITS | Encounter Summary ---
Author Organization [employer] Address [address] [facility] [address]t [place] [address] Care Team Providers Care Crepe Maker Name Role Phone Erica Cantu DO Primary Care Provider [phone] Encounter Details Date Type Department Care Team (Late st Contact Info) Description 06/20/2023 Orders Only [facility] MEDICINE [address] [place] [address] Charito Bell MD [address] [place] [address] Social History Tobacco Use Types Packs/Day Years [...] on filedocumented in this encounter Care Teams Crepe Maker Relationship Specialty Start Date End Date Erica Cantu DO [address] [place] [address] PCP - General Family Medicine 05/30/14 documented as of this encounter
--- OUTSIDE RECORDS SUMMARY | 2025-02-28 12:57 | XMS_ITS | Encounter Summary ---
Author Organization [employer] Address [address] [facility] [address]t [place] [address] Care Team Providers Care Hotel Controller Name Role Phone Erica Cantu DO Primary Care Provider [phone] Encounter Details Date Type Department Care Team ([facility] st Contact Info) Description 05/22/2023 Orders Only [facility] MEDICINE [address] [place] [address] Paula Woo RN Social History Tobacco Use [...] on filedocumented in this encounter Care Teams Hotel Controller Relationship Specialty Start Date End Date Erica Cantu DO [address] [place] [address] PCP - General Family Medicine 05/30/14 documented as of this encounter
--- OUTSIDE RECORDS SUMMARY | 2025-02-28 12:57 | XMS_ITS | Clinical Summary ---
Author Organization [facility] Address [address] [facility] [address] [place] [address] Care Team Providers Care Court Orderly Name Role Phone MeyErica eddy Primary Care Provider Allergies No known active allergies Medications naloxone (Narcan) 4 mg/0.1 mL nasal spray CALL 911. SPR CONTENTS OF ONE SPRAYER (0.1ML) INTO ONE NOSTRIL. REPEAT IN 2-3 MIN IF SYMPTOMS OF OPIOID EMERGENCY PERSIST, ALTERNATE NOSTRILS 12/13/19 23 Active cholecalcifero l (Vitamin D-3) 25 MCG (1000 UT) tablet [...] 01/22/20 25 Active apixaban (Eliquis) 5 MG tabletIndicati ons:History of blood clots Take 1 tablet (5 mg) by mouth 2 times daily. 60 tablet 01/22/20 25 Active baclofen (Lioresal) 10 MG tablet Take 1 tablet (10 mg) by mouth if needed in the morning, at noon, and at bedtime for muscle spasms. 60 tablet 1 01/29/20 25 03/29/ 025 Active Diclofenac Sodium 1 % gel Apply 2 g topically if needed in the morning, at noon, in the evening, and at bedtime (pain). 150 g 3 01/29/20 25 Active ergocalciferol (Vitamin D2) 1.25 MG (55591 UT) capsule Take 1 capsule (1.25 mg) [...] as directed. 1 kit 02/06/20 25 Active Viagra 100 MG tablet TAKE 1 TABLET 1 HOUR BEFORE SEXUAL RELATIONS ONCE DAILY NEEDED. 10 tablet 02/22/20 25 Active Buprenorphine HCl-Naloxone HCl (Suboxone) 8-2 MG SL filmIndication s:Opioid type dependence, continuous (CMS/HCC) Place 1 Film under the tongue Once per day for 4 days. 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 10 tablet 01/29/20 25 025 Discontinued acetaminophen (Tylenol 8 Hour) 650 MG ER tablet Take 1 tablet (650 mg) by mouth every 8 (eight) hours if needed for mild pain. Do not crush, chew, or split. 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 Chronic pain syndrome 07/27/2016 [...] Encounters Date Type Department Care Team Description 02/21/2025 Refill [facility] [address] [place] [address] Erica Cantu DO 02/20/2025 Refill [facility] [address] [place] [address] Erica Cantu DO 02/19/2025 10:00 AM EDT Clinical Support [facility] [address] [place] [address] Dory Devlin RN Essential hypertension [I10] 02/19/2025 Travel 02/18/2025 Travel 02/10/2025 Refill [facility] [address] [place] [address] Erica Cantu DO 02/05/2025 9:30 AM EDT Clinical Support [facility] [address] [place] [address] Naya Salazar RN Essential hypertension 02/05/2025 Refill [facility] [address] [place] [address] Erica Cantu DO 02/05/2025 Travel 02/04/2025 Orders Only [facility] [address] [place] [phone] Erica Cantu DO Pain in both knees, unspecified chronicity (Primary Dx); Osteoarthritis of both knees, unspecified osteoarthritis type; Iron deficiency anemia, unspecified iron deficiency anemia type 01/28/2025 9:15 AM EDT Office Visit [facility] [place] [address] Erica Cantu DO Pulmonary embolism, bilateral (CMS/HCC) (Primary Dx); Paroxysmal atrial fibrillation (CMS/HCC); Acute kidney injury (CMS/HCC); Hydronephrosis, unspecified hydronephrosis type; Nephrolithiasis; Acute pain of both knees 01/28/2025 Refill [facility] MED[facility] [address] [place] [address] Erica Cantu DO Low hemoglobin 01/28/2025 Travel 01/27/2025 Refill [facility] [address] [place] [address] Erica Cantu DO 01/24/2025 Telephone [facility] [place] [address] Shea Urena PharmD 01/24/2025 Population Health Risk Score [facility] () Department [address] [place] [phone] Provider, Population Health Generic 01/21/2025 9:30 AM EDT Office Visit [facility] [place] [address] Paula Woo, RN Uncomplicated opioid dependence (CMS/HCC) 01/21/2025 Telephone [facility] [address] [facility] [place] [address] Shea Urena PharmD 01/21/2025 Travel 01/21/2025 Refill [facility] [address] [facility] [place] [address] Erica Cantu DO 01/20/2025 Refill [facility] [address] [facility] [place] [address] Erica Cantu DO History of blood clots 01/16/2025 Patient Outreach [facility] [address] [place] [address] Erica Cantu DO Care Coordination (CHW outreach for SDOH PT-1 and food needs-referral completed /) 01/16/2025 Patient Outreach [facility] [address] [place] [address] Erica Cantu DO Transition Of Care (Tcm) (HDF- Scheduled ) 01/16/2025 Telephone [facility] [address] [place] [address] Erica Cantu DO Hospital Follow-up 01/06/2025 Refill [facility] [address] [place] [address] Erica Cantu DO from Last 3 Months [...] Sign Reading Time Taken Comments Blood Pressure 142/96 02/19/2025 10:20 AM EDT Pulse 73 02/19/2025 10:20 AM EDT Temperature 36.2 ??C (97.1 ??F) 01/28/2025 9:23 AM ED T Respiratory Rate 18 02/19/2025 10:20 AM EDT Oxygen Saturation 99% 02/19/2025 10:20 AM EDT Inhaled Oxygen Concentration - - [...] Tdap) 02/14/2024 02/13/2014, 11/13/2007 COVID-19 Vaccine ( - season) 2024 03/15/2022, 09/10/2021, 01/01/2021, Additional history [...] 05/30/2022, 07/08/2011, 05/23/2011 HIV Screening Completed 01/28/2025, 0801/2023, 05/31/2022, Additional history exists Hepatitis C Screening [...] stay clean. 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 RN Procedures Procedure Name Priority Date/Time Associated Diagnosis Comments CT RENAL FOR STONES Routine 02/19/2025 4 :39 PM EDT FERRITIN Routine 02/06/2025 9:45 AM EDT Pain [...] knees from Last 3 Months Results * CT RENAL FOR STONES (02/19/2025 4:39 PM EDT) Anatomical Region Laterality Modality Computed Tomogra phy 02/19/2025 4:39 PM EDT Narrative 02/19/2025 4:41 PM EDT ? [facility] ?[address] ?[place] [address] ? CT Scan Report ? Signed ? Patient: Ben Celaya ?MR#: [id number] ? : 1980 ?Acct:[id number] ? Age/Sex: 44 / M ?ADM Date: 04/08/25 ? Loc: HO.CT ? Attending Giovany Celaya [employer] ? Ordering Physician: Margaret Celaya [facility]- ?? Date of Service: 02/18/25 ?? Procedure(s): CT kidney stone ?? Accession Number(s): [id number] ? cc: Erica Cantu DO; Margaret Celaya [facility]- ? Report Number: ?? [id number]: Total DLP = ??758.00 mGy-cm ? CLINICAL HISTORY: N20.0 - Calculus of kidney ? CT abdomen and pelvis without IV contrast. ? COMPARISON: None ? FINDINGS: ?? Partially visualized lung bases are unremarkable. ?? Gastric band present. Normal gallbladder. ?? Noncontrast appearance of the liver, spleen, pancreas and adrenal glands ?? are unremarkable. ?? Nonobstructing 6 mm right renal calculus. No right-sided hydronephrosis. ?? No right hydroureter. No right ureteral calculus. ?? Multiple nonobstructing left renal calculi measuring up to 1.2 cm. No ?? left-sided hydronephrosis. No left hydroureter. In the distal left ureter ?? there is a 5 mm ureteral calculus. ? Normal appendix. Mild colonic stool burden. No bowel obstruction. ?? No mesenteric or retroperitoneal lymphadenopathy. ?? Normal abdominal aorta. ? Urinary bladder is unremarkable given degree of distention. Prostate ?? calcifications present. ?? No inguinal lymphadenopathy. ?? No acute fracture or suspicious bone lesion. Partially visualized internal ?? fixation hardware within the proximal right femur. ? IMPRESSION: ?? 1. Nonobstructing distal left ureteral 5 mm calculus. ?? 2. Nonobstructing renal calculi present bilaterally measuring up to 1.2 cm ?? on the left and 0.6 cm on the right. ? This document has been electronically signed by: Shivam Solorzano MD on ?? 02/19/2025 16:39:59 ? Dictated By: ?Shivam Solorzano MD ? Signed By: ?<Electronically signed by Shivam Solorzano MD in OV> ?02/19/25 1640 ? DD/ 1639 ? TD/TT: 02/19/25 1639 ? Home Health Clinical Supervisor: ? Procedure Note Angelique, Image - 02/19/[address] [address] [address] Scan Report Signed Patient: Colton Celaya#: [id number] : 1980Acct:[id number] Age/Sex: 44 / MADM Date: 02/18/25 Loc: HO.CT Attending Dr: Margaret Celaya [employer] Ordering Physician: Margaret Celaya [facility] Date of Service: 02/18/25 Procedure(s): CT kidney stone Accession Number(s): [id number] cc: Erica Cantu DO; Margaret Celaya [facility] Report Number: [id number]: Total DLP = 758.00 mGy-cm CLINICAL HISTORY: N20.0 - Calculus of kidney CT abdomen and pelvis without IV contrast. COMPARISON: None FINDINGS: Partially visualized lung bases are unremarkable. Gastric band present. Normal gallbladder. Noncontrast appearance of the liver, spleen, pancreas and adrenal glands are unremarkable. Nonobstructing 6 mm right renal calculus. No right-sided hydronephrosis. No right hydroureter. No right ureteral calculus. Multiple nonobstructing left renal calculi measuring up to 1.2 cm. No left-sided hydronephrosis. No left hydroureter. In the distal left ureter there is a 5 mm ureteral calculus. Normal appendix. Mild colonic stool burden. No bowel obstruction. No mesenteric or retroperitoneal lymphadenopathy. Normal abdominal aorta. Urinary bladder is unremarkable given degree of distention. Prostate calcifications present. No inguinal lymphadenopathy. No acute fracture or suspicious bone lesion. Partially visualized internal fixation hardware within the proximal right femur. IMPRESSION: 1. Nonobstructing distal left ureteral 5 mm calculus. 2. Nonobstructing renal calculi present bilaterally measuring up to 1.2 cm on the left and 0.6 cm on the right. This document has been electronically signed by: Shivam Solorzano MD on 02/19/2025 16:39:59 Dictated By: Shivam Solorzano MD Signed By: <Electronically signed by Shivam Solorzano MD in OV> 02/19/25 1640 DD/ 1639 TD/TT: 02/19/25 1639 Home Health Clinical Supervisor: [facility] External Provider IMG CT PROCEDURES Final Result * (ABNORMAL) Iron And Total Iron Binding Capacity (02/06/2025 9:45 AM EDT) Only the most recent of2 resultswithin the time period is included. Iron 23(L) 45 - 160 mcg/dL [facility] Total Iron Binding Capacity 308 228 - 428 mcg/dL [facility] Percent Iron Saturation 7(L) 15 - 50 % [facility] Unsaturated Iron Binding 285 ug/dL [facility] 02/06/2025 9:45 AM EDT 02/06/2025 11:06 AM EDT Erica Alondra DO LAB BLOOD ORDERABLES Final R esult Performing Organization Address City/[facility]/ZIP Co de Phone Number [facility] [address] [place] [phone] * Potassium (02/06/2025 9:45 AM EDT) Potassium 4.3 3.3 - 5.1 mmol/L [facility] Blood Venous blood specimen / Unknown 02/06/2025 9:45 AM EDT 02/06/2025 11:06 AM EDT Erica Alondra LAB BLOOD ORDERABLES Final R esult Performing Organization Address [facility] de Phone Number [facility] [address] [place] [address] [phone] * (ABNORMAL) Ferritin (02/06/2025 9:45 AM EDT) Only the most recent of2 resultswithin the time period is included. Ferritin 8(L) 20 - 250 ng/mL [facility] 02/06/2025 9:45 AM EDT 02/06/2025 11:06 AM EDT Erica Noguerahilariasurjit LAB BLOOD ORDERABLES Final R esult Performing Organization Address [facility] Co de Phone Number [facility] [address] [place] [phone] * (ABNORMAL) Vitamin D, 25-Hydroxy, Total, Immunoassay (01/28/2025 10:44 AM EDT) Vitamin D 25-OH Total 13.2(L) >30 ng/mL [facility] Comment: Health Based Reference Values*< 20 ??ng/mL ??[id number] ng/mL ??Insufficient> 30 ??ng/mL ??Sufficient*Mari NERI. N [...] DO LAB BLOOD ORDERABLES Final R esult [facility] [address] [place] [address] [phone] * Albumin, Random Urine W/Creatinine (01/28/2025 10:44 AM EDT) Creatinine, Urine 56.42 mg/dL [facility] Microalbumin Urine <5.0 mg/L [facility] Microalbum Creatinine Ratio Ur TNP <30 ug/mg cr [facility] Comment:Unable to calculate albumin/creatinine ratio due to lowmicroalbumin or creatinine result. Urine (Urine, Random) 01/28/2025 10:44 AM EDT 01/28/2025 11:14 AM EDT Erica Noguerahilariasurjit DO LAB URINE ORDERABLES Final R esult Performing Organization Address City/[facility]/ZIP Co de Phone Number [facility] [address] [place] [address] [phone] * Hepatitis C Antibody with Reflex to HCV, RNA, Quantitative, Real-Time PCR (01/28/2025 10:44 AM EDT) Pathologist [facility] Hepatitis C Antibody Nonreactive Nonreactive [facility] Comment:Antibodies to HCV no t detected; does not exclude early acuteHCV infection. Blood Venous blood specimen / Unknown 01/28/2025 10:44 AM EDT 01/28/2025 11:14 AM EDT Erica Alondra LAB BLOOD ORDERABLES Final R esult Performing Organization Address [facility] Co de Phone Number [facility] [address] [place] [address] [phone] * Hepatitis A Antibody, Total (01/28/2025 10:44 AM EDT) [facility] Hepatitis A Antibody IgG Nonreactive Nonreactive [facility] Blood Venous blood specimen / Unknown 01/28/2025 10:44 AM EDT 01/28/2025 11:14 AM EDT Erica Noguerasaul DO LAB BLOOD ORDERABLES Final R esult Performing Organization Address [facility] Co de Phone Number [facility] [address] [place] [address] [phone] * Chlamydia/N. Gonorrhoeae RNA, TMA, Urogenitial (01/28/2025 10:44 AM EDT) [facility] CT PCR NOT DETECTED Not Detect. [facility] Comment:A not detected test result does [...] psychologicalconsequences. NG PCR NOT DETECTED Not Detect. [facility] Comment:A not detected test result does [...] AM EDT 01/28/2025 11:14 AM EDT Narrative [facility] - 01/28/2025 2:20 PM EDT Urine us Erica Cantu DO LAB MICROBIOLOGY - GENERAL O RDERABLES Final Result [facility] [address] [place] [phone] * Hepatitis B surface antigen, EIA (01/28/2025 10:44 AM EDT) Hepatitis B Surface Ag Negative Negative [facility] Blood Venous blood specimen / Unknown 01/28/2025 10:44 AM EDT 01/28/2025 11:14 AM EDT Erica Cantu DO LAB BLOOD ORDERABLES Final R esult Performing Organization Address City/[facility]/ZIP Co de Phone Number [facility] [address] [place] [phone] * Hepatitis B Core Antibody, Total (01/28/2025 10:44 AM EDT) Hepatitis B Core Antibody Nonreactive Nonreactive [facility] Blood Venous blood specimen / Unknown 01/28/2025 10:44 AM EDT 01/28/2025 11:14 AM EDT us Erica Cantu DO LAB BLOOD ORDERABLES Final R esult Performing Organization Address [facility] Co de Phone Number [facility] [address] [place] [phone] * RPR (Monitor) with Reflex to??Titer (01/28/2025 10:44 AM EDT) RPR (Monitor) w/Refl Titer NON-REACTI VE NON-REACT YSABEL [facility] Comment:THIS TEST WAS PERFOR MED AT:[employer] [address] [phone] STRANGE MD Rapid Plasma Reagin Ab Titer TNP [facility] Blood Venous blood specimen / Unknown 01/28/2025 10:44 AM EDT 01/28/2025 11:14 AM EDT Erica Cantu DO LAB BLOOD ORDERABLES Final R esult Performing Organization Address [facility] Co de Phone Number [facility] [address] [place] [address] [phone] * HIV-1/2 Antigen and Antibodies, Fourth Generation, with Reflexes (01/28/2025 10:44 AM EDT) [facility] HIV AB/AG Nonreactive Nonreactive [facility] Comment:HIV-1 p24 Ag and/or HIV-1/HIV-2 Ab not detected.A test result that is nonreactive does not exclude thepossibility of exposure to or infection with HIV-1 and/orHIV-2. Nonreactive results in this assay for individualswith prior exposure to HIV-1 and/or HIV-2 may be due toantigen and antibody levels that are below the limit ofdetection of this assay.The [employer] HIV Ag/Ab Combo assay result andsupplemental assay results should be interpreted inconjunction with the patient's clinical presentation,history and other laboratory results. If the results areinconsistent with clinical evidence, additional testing issuggested to confirm the result. Blood Venous blood specimen / Unknown 01/28/2025 10:44 AM EDT 01/28/2025 11:14 AM EDT Erica Cantu DO LAB BLOOD ORDERABLES Final R esult Performing Organization Address City/[facility]/ZIP Co de Phone Number [facility] [address] [place] [address] [phone] * Hepatitis B Surface Antibody, Qualitative (01/28/2025 10:44 AM EDT) [facility] ~Hepatitis B Surface Antibody REACTIVE Nonreactive [facility] Comment:REACTIVE: > 11.99 mI U/mL Blood Venous blood specimen / Unknown 01/28/2025 10:44 AM EDT 01/28/2025 11:14 AM EDT Erica Cantu [email or web address] LAB BLOOD ORDERABLES Final R esult Performing Organization Address City/[facility]/ZIP Co de Phone Number [facility] [address] [place] [address] [phone] * (ABNORMAL) CBC (01/28/2025 10:44 AM EDT) [facility] White Blood Count 7.1 4.8 - 10.8 X10*3/uL [facility] Red Blood Count 4.06(L) 4.60 - 5.80 X10*6/uL [facility] Hemoglobin 10.9(L) 14.0 - 18.0 g/dl [facility] Hematocrit 34.6(L) 42.0 - 52.0 % [facility] Mean Corpuscular Volume 85.2 80.0 - 98.0 fL [facility] Mean Corpuscular Hemoglobin 26.8(L) 27.0 - 33.0 pg [facility] Mean Corpuscular HGB Conc 31.5 31.0 - 36.0 g/dl [facility] Red Cell Distribution Width 13.2 11.0 - 16.0 % [facility] Platelet Count 402(H) 160 - 400 X10*3/uL [facility] Mean Platelet Volume 10.8 9.4 - 12.4 fL [facility] NRBC Pct Auto 0.0 0.0 - 0.2 /100WBC [facility] NRBC Abs Auto 0.000 0.0 - 0.012 X10*3/uL [facility] Blood Venous blood specimen / Unknown 01/28/2025 10:44 AM EDT 01/28/2025 11:14 AM EDT us Erica Cantu DO LAB BLOOD ORDERABLES Final R esult [facility] [address] [place] [address] [phone] * TSH (01/28/2025 10:44 AM EDT) [facility] Thyroid Stimulating Hormone 0.75 0.32 - 4.0 uIU/mL [facility] Comment:TSH 3rd Generation ( [facility]) Blood Venous blood specimen / Unknown 01/28/2025 10:44 AM EDT 01/28/2025 11:14 AM EDT Erica Cantu LAB BLOOD ORDERABLES Final R esult Performing Organization Address City/[facility]/ZIP Co de Phone Number [facility] [address] [place] [address] [phone] * T4, Free (01/28/2025 10:44 AM EDT) Free T4 (Free Thyroxine) 1.10 0.71 - 1.85 ng/dL [facility] Blood Venous blood specimen / Unknown 01/28/2025 10:44 AM EDT 01/28/2025 11:14 AM EDT Erica Cantu LAB BLOOD ORDERABLES Final R esult Performing Organization Address [facility] Co de Phone Number [facility] [address] [place] [address] [phone] * Hemoglobin A1c (01/28/2025 10:44 AM EDT) Hemoglobin A1c 5.5 <6.0 % [facility] Comment:Hemoglobin A1C Refer ence Range Adults: 4.8 - 6.0 % Non diabetic: < 6.0 % Goal: < 7.0 %Additional Action Suggested: > 8.0 %Note: Hemoglobin A1c results are invalid for patients with abnormal amounts of HbF. Blood transfusions may impact the HbA1c concentration in the patient sample. Estimated Average Glucose 111 mg/dL [facility] Comment:eAG = Estimated ave rage glucose which is %A1C expressed asaverage glucose, using the formula of the N8W-DiuozjnUlylozk Glucose study (ADAG), Diabetes Care, Vol.31,#8,2007 Blood Venous blood specimen / Unknown 01/28/2025 10:44 AM EDT 01/28/2025 11:14 AM EDT Erica Cantu DO LAB BLOOD ORDERABLES Final R esult Performing Organization Address [facility] Co de Phone Number [facility] [address] [place] [address] [phone] * Hepatic Function Panel (01/28/2025 10:44 AM EDT) Bilirubin, Total 0.3 0.0 - 1.0 mg/dL [facility] Bilirubin, Direct 0.1 0.0 - 0.5 mg/dL [facility] Aspartate Amino Transferase 19 5 - 37 U/L [facility] Alanine Aminotransferase <6 0 - 40 U/L [facility] Total Protein 8.0 6.5 - 8.0 g/dL [facility] Albumin Level 4.1 3.5 - 5.0 g/dL [facility] Alkaline Phosphatase 69 39 - 117 U/L [facility] Blood Venous blood specimen / Unknown 01/28/2025 10:44 AM EDT 01/28/2025 11:14 AM EDT us Erica Cantu DO LAB BLOOD ORDERABLES Final R esult [facility] [address] [place] [phone] [phone] * (ABNORMAL) Lipid Panel, Standard (01/28/2025 10:44 AM EDT) Triglycerides 81 <150 mg/dL [facility] Comment:Desirable Triglyceri de: less than 150 mg/dLBorderline High Triglyceride 150-199 mg/dLHigh Triglyceride: 200-499 mg/dLVery High Triglyceride: greater than or equal to 5OO mg/dL Cholesterol 159 <200 mg/dL [facility] Comment:Desirable Cholestero l: less than 200 mg/dLBorderline High Cholesterol: 200-239 mg/dLHigh Cholesterol: greater than 239 mg/dL LDL Cholesterol Calculated 108(H) <100 mg/dL [facility] Comment:Desirable LDL: less than 100 mg/dLNear Optimal/Above Optimal LDL: 110- 129 mg/dLBorderline High LDL: 130-159 mg/dLHigh LDL: 160-189 mg/dLVery High LDL: greater than or equal to 190 mg/dL HDL Cholesterol 35(L) >40 mg/dL [facility] Comment:Desirable HDL: great er than 40 mg/dL Note: This HDL assay may give artificially low results in patients with liver disease. Blood Venous blood specimen / Unknown 01/28/2025 10:44 AM EDT 01/28/2025 11:14 AM EDT Erica Cantu DO LAB BLOOD ORDERABLES Final R esult Performing Organization Address [facility]/ZIP Co de Phone Number [facility] [address] [place] [address] [phone] * (ABNORMAL) Basic Metabolic Panel (01/28/2025 10:44 AM EDT) Sodium 139 135 - 145 mmol/L [facility] Potassium 3.1(L) 3.3 - 5.1 mmol/L [facility] Chloride 106 96 - 108 mmol/L [facility] Carbon Dioxide 25 22 - 29 mmol/L [facility] Anion Gap 11(L) 12 - 20 [facility] Urea Nitrogen (BUN) 15 9 - 16 mg/dL [facility] Creatinine, Serum 0.82 0.5 - 1.4 mg/dL [facility] Estimated Glomerular Filt Rate >60 [facility] Comment:Chronic Kidney Disea se: Estimated GFR < 60 mL/min/1.74t9Exiroe Kidney Disease: Estimated GFR < 15 mL/min/1.73m2 Glucose 95 60 - 115 mg/dL [facility] Calcium 9.3 8.4 - 10.2 mg/dL [facility] Blood Venous blood specimen / Unknown 01/28/2025 10:44 AM EDT 01/28/2025 11:14 AM EDT Erica Cantu DO LAB BLOOD ORDERABLES Final R esult Performing Organization Address [facility]/ZIP Co de Phone Number [facility] [address] [place] [address] [phone] * XR Knee 4+ Views Right (01/28/2025 10:05 AM EDT) Anatomical Region Laterality Modality Lower Extremities, Knee Right Radiogra phic Imaging 01/28/2025 10:0 5 AM EDT Narrative 01/28/2025 11:19 AM EDT ?[facility] ?[address] ?[place] [address] ?XRay Report ? Signed ? Patient: Celaya,Ben ?MR#: [id number] ? : 1980 ?Acct:[id number] ? Age/Sex: 44 / M ?ADM Date: 01/28/25 ? Loc: HO.HHCX ? Attending Dr: Erica Cantu DO ? Ordering Physician: Erica Cantu DO ?? Date of Service: 01/28/25 ?? Procedure(s): XR knee RT 4V ?? Accession Number(s): [id number] ? cc: Erica Cantu DO ? EXAMINATION: [...] signed by Fernando Shelton MD in OV> ?/18/25 1116 ? DD/DT: 18/25 1005 ? TD/TT: 18/ 1034 ? Home Health Clinical Supervisor: ? Procedure Note Donotuseinterpreter, Image - 01/28/[address] [address] XRay Report Signed Patient: Ben CelayaMR#: [id number] : 1980Acct:[id number] Age/Sex: 44 / MADM Date: 01/28/25 Loc: HO.HHCX Attending Dr: Erica Cantu DO Ordering Physician: Erica Cantu DO Date of Service: 01/28/25 Procedure(s): XR knee RT 4V Accession Number(s): [id number] cc: Erica Cantu DO EXAMINATION: XR KNEE [...] 01/28/25 1116 DD/ 1005 TD/TT: 01/28/25 1034 Home Health Clinical Supervisor: Erica Cantu DO IMG XR PROCEDURES Final Resu lt * XR Knee 4+ Views Left (01/28/2025 10:05 AM EDT) Anatomical Region Laterality Modality Lower Extremities, Knee Left Radiogra phic Imaging 01/28/2025 10:0 5 AM EDT Narrative 01/28/2025 11:18 AM EDT ?[facility] ?[address] ?[place] [address] ?XRay Report ? Signed ? Patient: Celaya,Ben ?MR#: [id number] ? : 1980 ?Acct:[id number] ? Age/Sex: 44 / M ?ADM Date: 01/28/25 ? Loc: HO.HHCX ? Attending Dr: Erica Cantu DO ? Ordering Physician: Erica Cantu DO ?? Date of Service: 01/28/25 ?? Procedure(s): XR knee LT 4V ?? Accession Number(s): [id number] ? cc: Erica Cantu DO ? EXAMINATION: [...] DD/ 1005 ? TD/TT: 01/28/25 1034 ? Home Health Clinical Supervisor: ? Procedure Note Suyapa Merino - 01/28/2025 [facility] [address] [place] [address] XRay Report Signed Patient: Ben Celaya#: [id number] : 1980Acct:[id number] Age/Sex: 44 / MADM Date: 01/28/25 Loc: HO.HHCX Attending Dr: Erica Cantu DO Ordering Physician: Erica Cantu DO Date of Service: 01/28/25 Procedure(s): XR knee LT 4V Accession Number(s): [id number] cc: Erica Cantu DO EXAMINATION: XR KNEE [...] 01/28/25 1115 DD/ 1005 TD/TT: 01/28/25 1034 Home Health Clinical Supervisor: Erica Cantu DO IMG XR PROCEDURES Final Resu lt from Last 3 Months Insurance [facility] [employer] C/O [employer] SERENAJEAN MARIE [id number] Orderly Relationship Specialty Start Date End Date Erica Cantu DO [address] [place] [phone] PCP - General Family Medicine 05/30/14
--- OUTSIDE RECORDS SUMMARY | 2025-02-28 12:57 | XMS_ITS | Encounter Summary ---
Author Organization [employer] Address [address] [facility] 7t [place] [address] Care Team Providers Care Cabana Attendant Name Role Phone Erica Cantu DO Primary Care Provider + [phone] Reason for Visit * Reason Comments Med Refill Encounter Details Date Type Department Care Team (Late st Contact Info) Description 09/19/2023 Refill [facility] MEDICINE [address] [place] [address] Erica Cantu DO [address] [place] [address] Social History Tobacco Use Types Packs/Day Years [...] the past 12 months, has t he [employer], gas, oil or water company threatened to [...] documented as of this encounter Care Teams Cabana Attendant Relationship Specialty Start Date End Date Erica Cantu DO [address] [place] [address] PCP - General Family Medicine 05/30/14 documented as of this encounter
== END 2025-02-28 12:06 | disposition home or self-care (01) ==
LOC: HO.US 12:05
PROVIDERS: PCP Family Medicine; Visit Provider Family Medicine
DX: N13.30 Unspecified hydronephrosis (principal); N20.0 Calculus of kidney
CPT/HCPCS: 76775

== ENCOUNTER → 2025-02-28 12:06 | Outpatient (BNV) | payer MEDICAID, SELFPAY | PROVIDERS: PCP Family Medicine; Visit Provider Specialist | DX: N20.0 Calculus of kidney (principal) | CPT/HCPCS: 76775 ==

== ENCOUNTER 2025-03-12 09:49 | Outpatient (AMB) | payer MEDICAID, SELFPAY ==
--- NOTE | 2025-03-12 09:57 | A.OFFVIS_ITS ---
Intake Visit Reasons: 1m/ CT(set) Intake Note: Patient presents today for a 1 month follow up/CT Urology Medication:none Blood Thinner:none Antibiotic Allergies:none Allergies No Known Allergies [No Known Allergies*] Allergy (Verified 03/12/25 13:19) Medication List - Last Reconciled 03/12/25 by OCTAVIO Hurt-CASEY diltiazem HCl ER 120 mg PO QAM losartan-hydrochlorothiazide 50-12.5 mg 2 tabs PO DAILY nystatin-triamcinolone 100,000-0.1 unit/gram-% 1 appl topical BID HPI Comments Details: Anna is a very pleasant 44-year-old male patient of Dr. Cantu. He has a past medical history of substance abuse, pulmonary emboli, obesity, and hypertension. He presents to the office today still for follow-up of his nephrolithiasis. Of note, patient was seen approximately 2 weeks ago as a new patient for nephrolithiasis at which time a CT KUB was ordered for further ass essment evaluation as patient was unsure as if he had passed stone that was noted from CT [address] results reviewed with the patient today 03/07 nonobstructing 6 mm right renal calculus. No right-sided hydronephrosis. Multiple nonobstructing left renal calculi measuring up to 1.2 cm no left-sided hydronephrosis however there is a distal left ureter there is a 5 mm ureteral calculus. We discussed further treatment options and risks and benefits of these treatment options. He otherwise denies any bothersome urinary issues. He denies urinary urgency, urinary frequency, incontinence, nocturia, hematuria, dysuria, foul smelling urine, changes to urinary stream, flank pain, fever, and or chills. He discusses his main concern is his ongoing issues with his erections. He discusses being given a prescription by his PCP for Viagra however discusses his reluctancy and taking medication due to his history of heart failure. He discusses his recent follow-up with cardiology and has underwent diagnostic testing and due to follow-up. We discussed obtaining testosterone levels for further assessment evaluation. We also discussed at length further treatment options of ED and risks and benefits of these treatment options. We discussed the importance of lifestyle modifications to assist with ED as well as overall health and well-being. In office urinalysis results reviewed with the patient today. He otherwise offers no other issues or concerns at this time. [facility] Medical History History of substance abuse Obesity Hypertension Surgical History Hx of umbilical hernia repair (12/20/23) History of laparoscopic adjustable gastric banding Hx of laparoscopic gastric banding Social History Household Members: Spouse and Children Housing: House Patient Tobacco Use Status: Never used Tobacco service: No Current occupational status: unemployed Review of Systems Const All systems reviewed & are unremarkable except as noted in HPI and below Physical Exam Const General: cooperative, healthy appearing, comfortable, no acute distress, well developed, alert and awake Nutritional Appearance: obese Orientation/consciousness: patient oriented x3 Limitations: no limitations HEENT Head: Yes normal to inspection, Yes normocephalic and Yes atraumatic Ears: hearing grossly normal bilaterally Eyes General: appearance normal, both eyes and all related structures Neck Neck: Yes normal visual inspection and Yes trachea midline Chest Chest palpation & inspection: normal inspection of the chest Resp Effort & Inspection: normal respiratory effort and able to speak in complete sentences Cardio Rate: regular rate GI Inspection: Yes normal to inspection General: Yes no CVA tenderness Back/Spine/Pelvis Back: no CVA tenderness Skin General skin exam: no rashes or lesions noted Neuro General: patient oriented x3 Extrem General: Yes normal to inspection Psych Appearance: grossly normal and well kempt Mental Status: mental status grossly normal Speech and movement: Normal speech and movement present and Clear speech present Affect: normal affect Attitude: cooperative Thought process: Normal thought process present Thought content: Normal thought content present Insight: Fair insight present (Psych) Judgement: Fair judgement present (Psych) Results AMB Urinalysis, Automated UA Leukoctes 0 Eulogio/uL Last Edit by Sumaya Mistry on 03/12/25 10:16 UA Nitrite Negative Last Edit by Sumaya Mistry on 03/12/25 10:16 UA Urobilinogen 0.2 mg/dL Last Edit by Sumaya Mistry on 03/12/25 10:16 UA Protein 15 mg/dL Last Edit by Sumaya Mistry on 03/12/25 10:16 UA pH 7.0 Last Edit by Sumaya Mistry on 03/12/25 10:16 UA Blood 80 Josiah/uL Last Edit by Sumaya Munguiatiz on 03/12/25 10:16 UA Specific [place] 1.015 Last Edit by Sumaya Munguiatiz on 03/12/25 10:16 UA Ketone Negative Last Edit by Sumaya Munguiatiz on 03/12/25 10:16 UA Bilirubin 0 mg/dL Last Edit by Sumaya Munguiatiz on 03/12/25 10:16 UA Glucose 0 mg/dL Last Edit by Sumaya Mistry on 03/12/25 10:16 Results Reviewed Results Reviewed: Laboratory Last Values Urine pH (Auto) 7.0 03/12/25 08:11 Specific [place] (Auto) 1.015 03/12/25 08:11 Urine Protein (Auto) 15 mg/dL 03/12/25 08:11 Glucose (UA)(Auto) 0 mg/dL 03/12/25 08:11 Urine Ketones (Auto) Negative 03/12/25 08:11 Urine Blood (Auto) 80 Josiah/uL 03/12/25 08:11 Urine Nitrite (Auto) Negative 03/12/25 08:11 Urine Bilirubin (Auto) 0 mg/dL 03/12/25 08:11 Urine Urobilinogen (Auto) 0.2 mg/dL 03/12/25 08:11 Leukocyte Esterase (Auto) 0 Eulogio/uL 03/12/25 08:11 Date of Service: 02/18/25 Procedure(s): CT kidney stone FINDINGS: Partially visualized lung bases are unremarkable. Gastric band present. Normal gallbladder. Noncontrast appearance of the liver, spleen, pancreas and adrenal glands are unremarkable. Nonobstructing 6 mm right renal calculus. No right-sided hydronephrosis. No right hydroureter. No right ureteral calculus. Multiple nonobstructing left renal calculi measuring up to 1.2 cm. No left-sided hydronephrosis. No left hydroureter. In the distal left ureter there is a 5 mm ureteral calculus. Normal appendix. Mild colonic stool burden. No bowel obstruction. No mesenteric or retroperitoneal lymphadenopathy. Normal abdominal aorta. Urinary bladder is unremarkable given degree of distention. Prostate calcifications present. No inguinal lymphadenopathy. No acute fracture or suspicious bone lesion. Partially visualized internal fixation hardware within the proximal right femur. IMPRESSION: 1. Nonobstructing distal left ureteral 5 mm calculus. 2. Nonobstructing renal calculi present bilaterally measuring up to 1.2 cm on the left and 0.6 cm on the right. Assessment & Plan Assessment & Plan (1) Erectile dysfunction: Code(s): N52.9 - Male erectile dysfunction, unspecified Category: Medical Plan: Ureteroscopy We discussed the nature of the decision and reasonable alternatives for performing ureteroscopy. Options such as medical therapy were discussed. Interventions include chemical dissolution, ESWL, ureteroscopy with laser lithotripsy and stent placement, PCNL. The relative uncertainties and benefits related to each alternate procedure were adequately discussed. General surgical risks including, but not limited to - pain, bleeding, infection, myocardial infarction, pulmonary embolus, deep vein thrombosis and cerebrovascular accident which may result in further hospitalization were discussed.? Full disclosure of the procedure as well as all major risks, benefits and complications were discussed including but not limited to damage to the urethra, bladder and kidney infection, damage to the ureter, stent migration or malposition, scarring to the renal pelvis, remnant stone fragments, subsequent stone passage with need for secondary procedures. The overall secondary procedure rate is approximately 10-15%.? The overall clearance rate is approximately 90-95%. Success of the procedure in the short-term does not necessarily guarantee that long-term success will be maintained. Suitable follow up will need to be maintained. The patient showed understanding of discussion and wishes to proceed with - cystoscopy, retrograde, ureteroscopy, possible lithotripsy/stone basketing and stent on the left side Plan In office urinalysis results reviewed with the patient today; as noted above. Recent CT results reviewed with the patient today; as noted above. We discussed further treatment options of left distal stone in risks and benefits of these these treatment options. We also discussed potential near future treatment options of nonobstructing left nephrolithiasis Will obtain testosterone free and total for further assessment evaluation. We discussed further treatment options of erectile dysfunction as well as risks and benefits of these treatment options We also discussed lifestyle modifications to assist with ED as well as overall health and well-being. He otherwise denies any bothersome urinary issues. He reports be happy with current voiding parameters. Will schedule for cystoscopy, retrograde, ureteroscopy, possible lithotrips y/stone basketing and stent on the left side Orders: Orders AMB Urinalysis Automated Today Z13.9 - Encounter for screening, unspecified Testosterone, Free/Total Today N52.9 - Male erectile dysfunction, unspecified Patient Instructions: The patient had an opportunity to ask questions regarding the treatment plan. All questions were answered. Physical exam, labs, and imaging were discussed and reviewed in detail. As well as risks, benefits, and discussion of treatment choices. No major barriers to understanding were identified. The patient expressed understanding and agreement with the above treatment plan. The patient was made aware they should contact our office by phone for worsening of their current condition, the appearance of new symptoms, or with any questions or concerns. Compliance is encouraged with any medications and follow up testing that is ordered. It is a privilege to be allowed the opportunity to participate in? your urological care.? Again, if you have any questions or conc erns If you have any questions or concerns please do not hesitate to contact me. The office is [phone]. This note is constructed using voice recognition software. While every effort has been made to ensure accuracy organizational research consultant errors may have been included. Yours sincerely, LARRY Hurt Coding Level of Care Code Est Pt Level 4 (87596) Diagnoses Erectile dysfunction N52.9
--- OUTSIDE RECORDS SUMMARY | 2025-03-12 10:43 | XMS_ITS | Encounter Summary ---
Author Organization [employer] Address [address] [facility] 7t [place] [address] Care Team Providers Care Oil Agent Name Role Phone Erica Cantu DO Primary Care Provider [phone] Encounter Details Date Type Department Care Team (Late st Contact Info) Description 05/22/2023 Orders Only [facility] MEDICINE [address] [place] [address] Paula Woo RN Social History Tobacco Use [...] on filedocumented in this encounter Care Teams Oil Agent Relationship Specialty Start Date End Date Erica Cantu DO [address] [place] [address] PCP - General Family Medicine 05/30/14 documented as of this encounter
--- OUTSIDE RECORDS SUMMARY | 2025-03-12 10:43 | XMS_ITS | Encounter Summary ---
Author Organization [facility] Address [address] [facility] [address]t [place] [address] Care Team Providers Care Soil Scientist Name Role Phone Erica Cantu DO Primary Care Provider + [phone] Reason for Visit * Reason Comments Med Refill Encounter Details Date Type Department Care Team (Late st Contact Info) Description 02/10/2025 Refill [facility] [address] [place] [address] Erica Cantu DO [address] [place] [address] Social History Tobacco Use Types Packs/Day Years [...] documented as of this encounter Care Teams Soil Scientist Relationship Specialty Start Date End Date Erica Cantu DO [address] [place] [address] PCP - General Family Medicine 05/30/14 documented as of this encounter
--- OUTSIDE RECORDS SUMMARY | 2025-03-12 10:43 | XMS_ITS | Encounter Summary ---
Author Organization [employer] Address [address] [facility] 7t [place] [address] Care Team Providers Care Clerical Office Name Role Phone Erica Cantu DO Primary Care Provider + [phone] Reason for Visit * Reason Onset Date Comments Hospital Follow-up 01/16/2025 Encounter Details Date Type Department Care Team ([facility] st Contact Info) Description 01/16/2025 Telephone [facility] MEDICINE [address] [place] [address] Erica Cantu DO [address] [place] [address] Hospital Follow-up Social History Tobacco Use Types [...] from pt requesting a HDF appt. Hospital: [place], [place] Date of admission: 01/07 Discharge date: 01/10 Diagnosed: Blood spots *Send message to [place] Clinical Care Coordinators [phone] documented in this encounter Plan of Treatment Not on file documented as of this encounter Visit Diagnoses Not on filedocumented in this encounter Additional Health Concerns Assessment Noted Time PHQ-9 Depression Total Score: 3 07/03/20 23 10:46 AM EDT documented as of this encounter Care Teams Clerical Office Relationship Specialty Start Date End Date Erica Cantu DO [address] [place] [address] PCP - General Family Medicine 05/30/14 documented as of this encounter
--- OUTSIDE RECORDS SUMMARY | 2025-03-12 10:43 | XMS_ITS | Encounter Summary ---
Author Organization [employer] Address [address] [facility] 7t [place] [address] Care Team Providers Care Salesperson Furniture Name Role Phone Erica Cantu DO Primary Care Provider + [phone] Reason for Visit * Reason Onset Date Comments Med Refill 03/12/2025 Encounter Details Date Type Department Care Team (Late st Contact Info) Description 03/12/2025 Refill [facility] MEDICINE [address] [place] [address] Erica Cantu DO [address] [place] [address] Social History Tobacco Use Types Packs/Day Years [...] documented as of this encounter Care Teams Salesperson Furniture Relationship Specialty Start Date End Date Erica Cantu DO [address] [place] [address] PCP - General Family Medicine 05/30/14 documented as of this encounter
--- OUTSIDE RECORDS SUMMARY | 2025-03-12 10:44 | XMS_ITS | Encounter Summary ---
Author Organization [employer] Address [address] [facility] [address]t [place] [address] Care Team Providers Care Knit Goods Washer Name Role Phone Erica Cantu DO Primary Care Provider + [phone] Reason for Visit * Reason Comments Med Refill Encounter Details Date Type Department Care Team (Late st Contact Info) Description 09/19/2023 Refill [facility] MEDICINE [address] [place] [address] Erica Cantu DO [address] [place] [address] Social History Tobacco Use Types Packs/Day Years [...] the past 12 months, has t he [employer], gas, oil or water company threatened to [...] documented as of this encounter Care Teams Knit Goods Washer Relationship Specialty Start Date End Date Erica Cnatu DO [address] [place] [address] PCP - General Family Medicine 05/30/14 documented as of this encounter
--- OUTSIDE RECORDS SUMMARY | 2025-03-12 10:44 | XMS_ITS | Clinical Summary ---
Author Organization [employer] Address [address] [facility] [address] [place] [address] Care Team Providers Care Bookkeepers Supervisor Name Role Phone MeyErica eddy Primary Care [...] times daily. 60 tablet 01/22/20 25 Active Diclofenac Sodium 1 % gel Apply 2 g topically if needed in the morning, at noon, in the evening, and at bedtime (pain). 150 g 3 01/29/20 25 Active ergocalciferol (Vitamin D2) 1.25 MG (52257 UT) capsule Take 1 capsule (1.25 mg) [...] DAILY NEEDED. 10 tablet 02/22/20 25 Active baclofen (Lioresal) 10 MG tablet TAKE 1 TABLET BY MOUTH THREE TIMES DAILY IN THE MORNING, AT NOON, AND AT BEDTIME NEEDED FOR MUSCLE SPASMS 60 tablet 1 03/06/20 25 Active Buprenorphine HCl-Naloxone HCl (Suboxone) 8-2 MG SL filmIndication s:Opioid type dependence, continuous (CMS/HCC) Place 1 Film under the tongue Once per day for 4 days. 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 strip picker (OK to strip picker without an appointment card) 4 Film [...] split. 40 tablet 1 01/29/20 25 025 baclofen (Lioresal) 10 MG tablet Take 1 tablet (10 mg) by mouth if needed in the morning, at noon, and at bedtime for muscle spasms. 60 tablet 1 01/29/20 25 025 Discontinued Active Problems Problem Noted Date Diagnosed Date Pulmonary embolism, bilateral 01/28/2025 Paroxysmal atrial fibrillation 01/28/2025 Nephrolithiasis 01/28/2025 Opioid dependence in remission 02/15/2023 Morbid obesity 12/22/2022 Assessment & Plan (07/04/2023 7:12 PM EDT): Advised pt to improve diet and exercise,discussed healthy life style -discussed political science chair referral -referred today Chronic pain syndrome 07/27/2016 [...] Encounters Date Type Department Care Team Description 03/12/2025 Refill [facility] [address] [place] [address] Erica Cantu DO 03/06/2025 Refill [facility] [address] [place] [address] Erica Cantu DO 02/21/2025 Refill [facility] [address] [place] [address] Erica Cantu DO 02/20/2025 Refill [facility] [address] [place] [address] Erica Cantu DO 02/19/2025 10:00 AM EDT Clinical Support [facility] [address] [place] [phone] Dory Devlin RN Essential hypertension [I10] 02/19/2025 Travel 02/18/2025 Travel 02/10/2025 Refill [facility] [address] [place] [address] Erica Cantu DO 02/05/2025 9:30 AM EDT Clinical Support [facility] [address] [place] [address] aNya Salazar RN Essential hypertension 02/05/2025 Refill [facility] [address] [place] [address] Erica Cantu DO 02/05/2025 Travel 02/04/2025 Orders Only [facility] [address] [place] [address] Erica Cantu DO Pain in both knees, unspecified chronicity (Primary Dx); Osteoarthritis of both knees, unspecified osteoarthritis type; Iron deficiency anemia, unspecified iron deficiency anemia type 01/28/2025 9:15 AM EDT Office Visit [facility] [address] [place] [address] Erica Cantu DO Pulmonary embolism, bilateral (CMS/HCC) (Primary Dx); Paroxysmal atrial fibrillation (CMS/HCC); Acute kidney injury (CMS/HCC); Hydronephrosis, unspecified hydronephrosis type; Nephrolithiasis; Acute pain of both knees 01/28/2025 Refill [facility] [address] [place] [address] Erica Cantu DO Low hemoglobin 01/28/2025 Travel 01/27/2025 Refill [facility] [address] [place] [address] Erica Cantu DO 01/24/2025 Telephone [facility] [address] [place] [address] Shea Urena, PharmD 01/24/2025 Population Health Risk Score [facility] () [address] [phone] Provider, Population Health Generic 01/21/2025 9:30 AM EDT Office Visit [facility] [address] [place] [address] Paula Woo, JAYA Uncomplicated opioid dependence (CMS/HCC) 01/21/2025 Telephone [facility] [address] [place] [address] Shea Urena, PharmD 01/21/2025 Travel 01/21/2025 Refill [facility] [address] [place] [address] Erica Cantu DO 01/20/2025 Refill [facility] [address] [place] [address] Erica Cantu DO History of blood clots 01/16/2025 Patient Outreach [facility] [address] [place] [address] Erica Cantu DO Care Coordination (CHW outreach for SDOH PT-1 and food needs-referral completed /) 01/16/2025 Patient Outreach [facility] [address] [place] [address] Erica Cantu DO Transition Of Care (Tcm) (HDF- Scheduled ) 01/16/2025 Telephone [facility] [address] [place] [address] Erica Cantu DO Hospital Follow-up 01/06/2025 Refill [facility] [address] [place] [address] Erica Cantu, from Last 3 Months Immunizations [...] To stay clean. 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, ent physician Procedure Name Priority Date/Time Associated Diagnosis Comments US RENAL BI Routine 03/01/2025 9:36 AM EDT Hydronephrosis, unspecified hydronephrosis type Nephrolithiasis CT RENAL FOR STONES Routine 02/19/2025 4 [...] knees from Last 3 Months Results * US RENAL BI (03/01/2025 9:36 AM EDT) Anatomical Region Laterality Modality Abdomen Ultrasound 03/01/2025 9:36 AM EDT Narrative 03/01/2025 9:37 AM EDT ? [facility] ?[address] ?[place] [address] ? Ultrasound Report ? Signed ? Patient: Celaya,Ben ?MR#: [id number] ? : 1980 ?Acct:[id number] ? Age/Sex: 44 / M ?ADM Date: 04/18/25 ? Loc: HO.US ? Attending Dr: Erica Cantu DO ? Ordering Physician: Erica Cantu DO ?? Date of Service: 02/28/25 ?? Procedure(s): US renal BI ?? Accession Number(s): [id number] ? cc: Erica Cantu DO ? CLINICAL HISTORY: f u L hyrdonephrosis ? US Renal ? Comparison: None ? Findings: ?? Right kidney normal size and echotexture, 10.9 cm length. ?? Left kidney normal size and echotexture, 11.5 cm length. ?? There are bilateral renal parenchymal calculi. ? No collecting system dilatation of either kidney. Normal color Doppler. ? IMPRESSION: ?? 1. Bilateral renal parenchymal calculi. No acute findings. ? This document has been electronically signed by: Kelvin Murphy MD on ?? 03/01/2025 09:36:00 ? Dictated By: ?Kelvin Murphy MD ? Signed By: ?<Electronically signed by Kelvin Murphy MD in OV> ?03/01/25 0936 ? DD/ ? TD/TT: 03/01/25935 ? Caustic Preparer: ? Procedure Note Angelique, Image - 03/01/2025 [place] [address] Ultrasound Report Signed Patient: Colton Celaya#: [id number] : 1980Acct:[id number] Age/Sex: 44 / MADM Date: 02/28/25 Loc: HO.US Attending Dr: Erica Cantu DO Ordering Physician: Erica Cantu DO Date of Service: 02/28/25 Procedure(s): US renal BI Accession Number(s): [id number] cc: Erica Cantu DO CLINICAL HISTORY: f u L hyrdonephrosis US Renal Comparison: None Findings: Right kidney normal size and echotexture, 10.9 cm length. Left kidney normal size and echotexture, 11.5 cm length. There are bilateral renal parenchymal calculi. No collecting system dilatation of either kidney. Normal color Doppler. IMPRESSION: 1. Bilateral renal parenchymal calculi. No acute findings. This document has been electronically signed by: Kelvin Murphy MD on 03/01/2025 09:36:00 Dictated By: Kelvin Murphy MD Signed By: <Electronically signed by Kelvin Murphy MD in OV> 03/01/25935 DD/ 5 TD/TT: 03/01/25935 Caustic Preparer: us Erica Cantu DO IMG US PROCEDURES Final Resu lt * CT RENAL FOR STONES (02/19/2025 4:39 PM EDT) Anatomical Region Laterality Modality Computed Tomogra phy 02/19/2025 4:39 PM EDT Narrative 02/19/2025 4:41 PM EDT ? [facility] ?[address] ?[place] [address] ? CT Scan Report ? Signed ? Patient: Ben Celaya ?MR#: [id number] ? : 1980 ?Acct:[id number] ? Age/Sex: 44 / M ?ADM Date: 02/18/25 ? Loc: HO.CT ? Attending Dr: Margaret JUAREZ ? Ordering Physician: Margaret Celaya ?? Date of Service: 02/18/25 ?? Procedure(s): CT kidney stone ?? Accession Number(s): [id number] ? cc: Erica Cantu DO; Margaret Celaya-CASEY ? Report Number: ?? [id number]: Total DLP = ??758.00 mGy-cm ? CLINICAL [...] DD/ 1639 ? TD/TT: 02/19/25 1639 ? Caustic Preparer: ? Procedure Note Suyapa Merino - 02/19/[address] [place] [address] [address] Scan Report Signed Patient: Ben CelayaMR#: [id number] : 1980Acct:[id number] Age/Sex: 44 / MADM Date: 02/18/25 Loc: HO.CT Attending Dr: Margaret Celaya [facility] Ordering Physician: Margaret Celaya Date of Service: 02/18/25 Procedure(s): CT kidney stone Accession Number(s): [id number] cc: Erica Cantu DO; Margaret Celaya [employer]- Report Number: [id number]: Total DLP = 758.00 mGy-cm CLINICAL HISTORY: [...] 02/19/25 1640 DD/ 1639 TD/TT: 02/19/25 1639 Caustic Preparer: [facility] External Provider IMG CT PROCEDURES Final Result * (ABNORMAL) Iron And Total Iron Binding Capacity (02/06/2025 9:45 AM EDT) Only the most recent of2 resultswithin the time period is included. Iron 23(L) 45 - 160 mcg/dL [facility] Total Iron Binding Capacity 308 228 - 428 mcg/dL [facility] Percent Iron Saturation 7(L) 15 - 50 % [facility] Unsaturated Iron Binding 285 ug/dL [facility] 02/06/2025 9:45 AM EDT 02/06/2025 11:06 AM EDT Erica Cantu DO LAB BLOOD ORDERABLES Final R esult [facility] [address] [place] [phone] * Potassium (02/06/2025 9:45 AM EDT) Potassium 4.3 3.3 - 5.1 mmol/L [facility] Blood Venous blood specimen / Unknown 02/06/2025 9:45 AM EDT 02/06/2025 11:06 AM EDT Erica Alondra DO LAB BLOOD ORDERABLES Final R esult Performing Organization Address City/[facility] Co de Phone Number [facility] [address] [place] [phone] * (ABNORMAL) Ferritin (02/06/2025 9:45 AM EDT) Only the most recent of2 resultswithin the time period is included. Ferritin 8(L) 20 - 250 ng/mL [facility] 02/06/2025 9:45 AM EDT 02/06/2025 11:06 AM EDT Erica Cantu DO LAB BLOOD ORDERABLES Final R esult Performing Organization Address [facility] de Phone Number [facility] [address] [place] [phone] * (ABNORMAL) Vitamin D, 25-Hydroxy, Total, Immunoassay (01/28/2025 10:44 AM EDT) Vitamin D 25-OH Total 13.2(L) >30 ng/mL [facility] Comment: Health Based Reference Values*< 20 ??ng/mL ??Guzefgdqa04-53 ng/mL ??Insufficient> 30 ??ng/mL ??Sufficient*Mari NERI. N [...] ORDERABLES Final R esult Performing Organization Address City/[facility]/ZIP Co de Phone Number [facility] [address] [place] [address] [phone] * Albumin, Random Urine W/Creatinine (01/28/2025 10:44 AM EDT) Creatinine, Urine 56.42 mg/dL [facility] Microalbumin Urine <5.0 mg/L [facility] Microalbum Creatinine Ratio Ur TNP <30 ug/mg cr [facility] Comment:Unable to calculate albumin/creatinine ratio due to lowmicroalbumin or creatinine result. Urine (Urine, Random) 01/28/2025 10:44 AM EDT 01/28/2025 11:14 AM EDT us Erica Cantu DO LAB URINE ORDERABLES Final R esult Performing Organization Address City/[facility]/ZIP Co de Phone Number [facility] [address] [place] [address] [phone] * Hepatitis C Antibody with Reflex to HCV, RNA, Quantitative, Real-Time PCR (01/28/2025 10:44 AM EDT) Hepatitis C Antibody Nonreactive Nonreactive [facility] Comment:Antibodies to HCV no t detected; does not exclude early acuteHCV infection. Blood Venous blood specimen / Unknown 01/28/2025 10:44 AM EDT 01/28/2025 11:14 AM EDT Erica Cantu DO LAB BLOOD ORDERABLES Final R esult Performing Organization Address City/[facility]/ZIP Co de Phone Number [facility] [address] [place] [phone] * Hepatitis A Antibody, Total (01/28/2025 10:44 AM EDT) Hepatitis A Antibody IgG Nonreactive Nonreactive [facility] Blood Venous blood specimen / Unknown 01/28/2025 10:44 AM EDT 01/28/2025 11:14 AM EDT Erica Mathiassurjit LAB BLOOD ORDERABLES Final R esult Performing Organization Address [facility] Co de Phone Number [facility] [address] [place] [phone] * Chlamydia/N. Gonorrhoeae RNA, TMA, Urogenitial (01/28/2025 10:44 AM EDT) CT PCR NOT DETECTED Not Detect. [facility] Comment:A not detected test result [...] psychologicalconsequences. NG PCR NOT DETECTED Not Detect. [facility] Comment:A not detected test result [...] AM EDT 01/28/2025 11:14 AM EDT Narrative [facility] - 01/28/2025 2:20 PM EDT Urine Erica Cantu DO LAB MICROBIOLOGY - GENERAL O RDERABLES Final Result Performing Organization Address City/[facility]/ZIP Co de Phone Number [facility] [address] [place] [phone] * Hepatitis B surface antigen, EIA (01/28/2025 10:44 AM EDT) Hepatitis B Surface Ag Negative Negative [facility] Blood Venous blood specimen / Unknown 01/28/2025 10:44 AM EDT 01/28/2025 11:14 AM EDT Erica Cantu DO LAB BLOOD ORDERABLES Final R esult Performing Organization Address City/[facility]/ZIP Co de Phone Number [facility] [address] [place] [phone] * Hepatitis B Core Antibody, Total (01/28/2025 10:44 AM EDT) Hepatitis B Core Antibody Nonreactive Nonreactive [facility] Blood Venous blood specimen / Unknown 01/28/2025 10:44 AM EDT 01/28/2025 11:14 AM EDT Erica Cantu DO LAB BLOOD ORDERABLES Final R esult Performing Organization Address [facility]/ZIP Co de Phone Number [facility] [address] [place] [phone] * RPR (Monitor) with Reflex to??Titer (01/28/2025 10:44 AM EDT) RPR (Monitor) w/Refl Titer NON-REACTI VE NON-REACT YSABEL [facility] Comment:THIS TEST WAS PERFOR MED AT:[facility] [address] [place] [phone] STRANGE MD Rapid Plasma Reagin Ab Titer TNP [facility] Blood Venous blood specimen / Unknown 01/28/2025 10:44 AM EDT 01/28/2025 11:14 AM EDT us Erica Alondra DO LAB BLOOD ORDERABLES Final R esult Performing Organization Address [facility] Co de Phone Number [facility] [address] [place] [phone] * HIV-1/2 Antigen and Antibodies, Fourth Generation, with Reflexes (01/28/2025 10:44 AM EDT) HIV AB/AG Nonreactive Nonreactive [facility] Comment:HIV-1 p24 Ag and/or HIV-1/HIV-2 Ab not detected.A test result that is nonreactive does not exclude thepossibility of exposure to or infection with HIV-1 and/orHIV-2. Nonreactive results in this assay for individualswith prior exposure to HIV-1 and/or HIV-2 may be due toantigen and antibody levels that are below the limit ofdetection of this assay.The [employer] HIV Ag/Ab Combo assay result andsupplemental assay results should be interpreted inconjunction with the patient's clinical presentation,history and other laboratory results. If the results areinconsistent with clinical evidence, additional testing issuggested to confirm the result. Blood Venous blood specimen / Unknown 01/28/2025 10:44 AM EDT 01/28/2025 11:14 AM EDT Erica Cantu LAB BLOOD ORDERABLES Final R esult Performing Organization Address City/[facility] Co de Phone Number [facility] [address] [place] [phone] * Hepatitis B Surface Antibody, Qualitative (01/28/2025 10:44 AM EDT) Pathologist [facility] ~Hepatitis B Surface Antibody REACTIVE Nonreactive [facility] Comment:REACTIVE: > 11.99 mI U/mL Blood Venous blood specimen / Unknown 01/28/2025 10:44 AM EDT 01/28/2025 11:14 AM EDT Eirca Cantu LAB BLOOD ORDERABLES Final R esult Performing Organization Address [facility] de Phone Number [facility] [address] [place] [phone] * (ABNORMAL) CBC (01/28/2025 10:44 AM EDT) Pathologist [facility] White Blood Count 7.1 4.8 - 10.8 X10*3/uL [facility] Red Blood Count 4.06(L) 4.60 - 5.80 X10*6/uL [facility] Hemoglobin 10.9(L) 14.0 - 18.0 g/dl [facility] Hematocrit 34.6(L) 42.0 - 52.0 % [facility] Mean Corpuscular Volume 85.2 80.0 - 98.0 fL [facility] Mean Corpuscular Hemoglobin 26.8(L) 27.0 - 33.0 pg [facility] Mean Corpuscular HGB Conc 31.5 31.0 - 36.0 g/dl [facility] Red Cell Distribution Width 13.2 11.0 - 16.0 % [facility] Platelet Count 402(H) 160 - 400 X10*3/uL [facility] Mean Platelet Volume 10.8 9.4 - 12.4 fL [facility] NRBC Pct Auto 0.0 0.0 - 0.2 /100WBC [facility] NRBC Abs Auto 0.000 0.0 - 0.012 X10*3/uL [facility] Blood Venous blood specimen / Unknown 01/28/2025 10:44 AM EDT 01/28/2025 11:14 AM EDT Erica Cantu LAB BLOOD ORDERABLES Final R esult Performing Organization Address [facility]/ZIP Co de Phone Number [facility] [address] [place] [phone] * TSH (01/28/2025 10:44 AM EDT) Thyroid Stimulating Hormone 0.75 0.32 - 4.0 uIU/mL [facility] Comment:TSH 3rd Generation ( [employer]) Blood Venous blood specimen / Unknown 01/28/2025 10:44 AM EDT 01/28/2025 11:14 AM EDT Erica Cantu LAB BLOOD ORDERABLES Final R esult [facility] [address] [place] [phone] * T4, Free (01/28/2025 10:44 AM EDT) Free T4 (Free Thyroxine) 1.10 0.71 - 1.85 ng/dL [facility] Blood Venous blood specimen / Unknown 01/28/2025 10:44 AM EDT 01/28/2025 11:14 AM EDT us Erica Alondra DO LAB BLOOD ORDERABLES Final R esult [facility] [address] [place] [phone] * Hemoglobin A1c (01/28/2025 10:44 AM EDT) Hemoglobin A1c 5.5 <6.0 % [facility] Comment:Hemoglobin A1C Refer ence Range Adults: 4.8 - 6.0 % Non diabetic: < 6.0 % Goal: < 7.0 %Additional Action Suggested: > 8.0 %Note: Hemoglobin A1c results are invalid for patients with abnormal amounts of HbF. Blood transfusions may impact the HbA1c concentration in the patient sample. Estimated Average Glucose 111 mg/dL [facility] Comment:eAG = Estimated ave rage glucose which is %A1C expressed asaverage glucose, using the formula of the D6T-UheuuxsJauzhmt Glucose study (ADAG), Diabetes Care, Vol.31,#8,Jun. 2007 Blood Venous blood specimen / Unknown 01/28/2025 10:44 AM EDT 01/28/2025 11:14 AM EDT us Erica Alondra DO LAB BLOOD ORDERABLES Final R esult Performing Organization Address City/[facility]/ZIP Co de Phone Number [facility] [address] [place] [phone] * Hepatic Function Panel (01/28/2025 10:44 AM EDT) Bilirubin, Total 0.3 0.0 - 1.0 mg/dL [facility] Bilirubin, Direct 0.1 0.0 - 0.5 mg/dL [facility] Aspartate Amino Transferase 19 5 - 37 U/L [facility] Alanine Aminotransferase <6 0 - 40 U/L [facility] Total Protein 8.0 6.5 - 8.0 g/dL [facility] Albumin Level 4.1 3.5 - 5.0 g/dL [facility] Alkaline Phosphatase 69 39 - 117 U/L [facility] Blood Venous blood specimen / Unknown 01/28/2025 10:44 AM EDT 01/28/2025 11:14 AM EDT Erica Cantu LAB BLOOD ORDERABLES Final R esult Performing Organization Address City/[facility] Co de Phone Number [facility] [address] [place] [phone] * (ABNORMAL) Lipid Panel, Standard (01/28/2025 10:44 AM EDT) Triglycerides 81 <150 mg/dL [facility] Comment:Desirable Triglyceri de: less than 150 mg/dLBorderline High Triglyceride 150-199 mg/dLHigh Triglyceride: 200-499 mg/dLVery High Triglyceride: greater than or equal to 5OO mg/dL Cholesterol 159 <200 mg/dL [facility] Comment:Desirable Cholestero l: less than 200 mg/dLBorderline High Cholesterol: 200-239 mg/dLHigh Cholesterol: greater than 239 mg/dL LDL Cholesterol Calculated 108(H) <100 mg/dL [facility] Comment:Desirable LDL: less than 100 mg/dLNear Optimal/Above Optimal LDL: 110- 129 mg/dLBorderline High LDL: 130-159 mg/dLHigh LDL: 160-189 mg/dLVery High LDL: greater than or equal to 190 mg/dL HDL Cholesterol 35(L) >40 mg/dL [facility] Comment:Desirable HDL: great er than 40 mg/dL Note: This HDL assay may give artificially low results in patients with liver disease. Blood Venous blood specimen / Unknown 01/28/2025 10:44 AM EDT 01/28/2025 11:14 AM EDT Erica Cantu DO LAB BLOOD ORDERABLES Final R esult Performing Organization Address [facility]/ZIP Co de Phone Number [facility] [address] [place] [phone] * (ABNORMAL) Basic Metabolic Panel (01/28/2025 10:44 AM EDT) Sodium 139 135 - 145 mmol/L [facility] Potassium 3.1(L) 3.3 - 5.1 mmol/L [facility] Chloride 106 96 - 108 mmol/L [facility] Carbon Dioxide 25 22 - 29 mmol/L [facility] Anion Gap 11(L) 12 - 20 [facility] Urea Nitrogen (BUN) 15 9 - 16 mg/dL [facility] Creatinine, Serum 0.82 0.5 - 1.4 mg/dL [facility] Estimated Glomerular Filt Rate >60 [facility] Comment:Chronic Kidney Disea se: Estimated GFR < 60 mL/min/1.14d2Blbewh Kidney Disease: Estimated GFR < 15 mL/min/1.73m2 Glucose 95 60 - 115 mg/dL [facility] Calcium 9.3 8.4 - 10.2 mg/dL [facility] Blood Venous blood specimen / Unknown 01/28/2025 10:44 AM EDT 01/28/2025 11:14 AM EDT us Erica Cantu DO LAB BLOOD ORDERABLES Final R esult [facility] [address] [place] [phone] * XR Knee 4+ Views Right (01/28/2025 10:05 AM EDT) Anatomical Region Laterality Modality Lower Extremities, Knee Right Radiogra phic Imaging 01/28/2025 10:0 5 AM EDT Narrative 01/28/2025 11:19 AM EDT ?[facility] ?[address] ?[place] [address] ?XRay Report ? Signed ? Patient: Celaya,Ben ?MR#: [id number] ? : 1980 ?Acct:[id number] ? Age/Sex: 44 / M ?ADM Date: 03/18/25 ? Loc: HO.HHCX ? Attending Dr: Erica Cantu DO ? Ordering Physician: Erica Cantu DO ?? Date of Service: 01/28/25 ?? Procedure(s): XR knee RT 4V ?? Accession Number(s): [id number] ? cc: Erica Cantu DO ? EXAMINATION: [...] ??Fernando Shelton MD ??01/28/2025 11:16 AM EDT ? Dictated By: ?Fernando Shelton MD ? Signed By: ?<Electronically signed by Fernando Shelton MD in OV> ?01/28/25 1116 ? DD/ 1005 ? TD/TT: 01/28/25 1034 ? Caustic Preparer: ? Procedure Note Suyapa Merino - 01/28/2025 [facility] [address] [place] [address] XRay Report Signed Patient: Ben CelayaMR#: [id number] : 1980Acct:[id number] Age/Sex: 44 / MADM Date: 01/28/25 Loc: HO.HHCX Attending Dr: Erica Cantu DO Ordering Physician: Erica Cantu DO Date of Service: 01/28/25 Procedure(s): XR knee RT 4V Accession Number(s): [id number] cc: Erica Cantu DO EXAMINATION: XR KNEE [...] 01/28/25 1116 DD/ 1005 TD/TT: 01/28/25 1034 Caustic Preparer: us Erica Cantu DO IMG XR PROCEDURES Final Resu lt * XR Knee 4+ Views Left (01/28/2025 10:05 AM EDT) Anatomical Region Laterality Modality Lower Extremities, Knee Left Radiogra phic Imaging 01/28/2025 10:0 5 AM EDT Narrative 01/28/2025 11:18 AM EDT ?[facility] ?[address] ?[place] [address] ?XRay Report ? Signed ? Patient: Donnie Celayaick ?MR#: [id number] ? : 1980 ?Acct:[id number] ? Age/Sex: 44 / M ?ADM Date: 03/18/25 ? Loc: HO.HHCX ? Attending Dr: Erica Cantu DO ? Ordering Physician: Erica Cantu DO ?? Date of Service: 01/28/25 ?? Procedure(s): XR knee LT 4V ?? Accession Number(s): [id number] ? cc: Erica Cantu DO ? EXAMINATION: [...] DD/ 1005 ? TD/TT: 01/28/25 1034 ? Caustic Preparer: ? Procedure Note Angelique, Suyapa - 01/28/[address] [address] XRay Report Signed Patient: Ben CelayaMR#: [id number] : [id number]:[id number] Age/Sex: 44 / MADM Date: 01/28/25 Loc: HO.HHCX Attending Dr: Erica Cantu DO Ordering Physician: Erica Cantu DO Date of Service: 01/28/25 Procedure(s): XR knee LT 4V Accession Number(s): [id number] cc: Erica Cantu DO EXAMINATION: XR KNEE [...] 01/28/25 1115 DD/ 1005 TD/TT: 01/28/25 1034 Caustic Preparer: Erica Cantu DO IMG XR PROCEDURES Final Resu lt from Last 3 Months Insurance [employer] [place] [employer] C/O [employer] [place] [id number] Care Teams Bookkeepers Supervisor Relationship Specialty Start Date End Date Erica Cantu DO [address] [place] [id number] PCP - General Family Medicine 05/30/14
--- OUTSIDE RECORDS SUMMARY | 2025-03-12 10:44 | XMS_ITS | Encounter Summary ---
Author Organization [employer] Address [address] [facility] 7t [place] [address] Care Team Providers Care Pathology Technologist Name Role Phone Erica Cantu DO Primary Care Provider + [phone] Reason for Visit * Reason Comments Med Refill Encounter Details Date Type Department Care Team (Late st Contact Info) Description 09/01/2023 Refill [facility] MEDICINE [address] [place] [address] Erica Cantu DO [address] [place] [address] Social History Tobacco Use Types Packs/Day Years [...] the past 12 months, has t he [employer], gas, oil or water company threatened to [...] documented as of this encounter Care Teams Pathology Technologist Relationship Specialty Start Date End Date Erica Cantu DO [address] [place] [address] PCP - General Family Medicine 05/30/14 documented as of this encounter
--- OUTSIDE RECORDS SUMMARY | 2025-03-12 10:44 | XMS_ITS | Encounter Summary ---
Author Organization [employer] Address [address] [facility] 7t [place] [address] Care Team Providers Care Brass Burnisher Name Role Phone Erica Cantu DO Primary Care Provider [phone] Encounter Details Date Type Department Care Team (Late st Contact Info) Description 06/20/2023 Orders Only [facility] MEDICINE [address] [place] [address] Charito Bell MD [address] [place] [address] Social History Tobacco Use Types Packs/Day Years [...] on filedocumented in this encounter Care Teams Brass Burnisher Relationship Specialty Start Date End Date Erica Cantu DO [address] [place] [address] PCP - General Family Medicine 05/30/14 documented as of this encounter
--- OUTSIDE RECORDS SUMMARY | 2025-03-12 10:44 | XMS_ITS | Encounter Summary ---
Author Organization [employer] Address [address] [facility] 7t [place] [address] Care Team Providers Care Defensive Secondary Coach Name Role Phone Erica Cantu DO Primary Care Provider + [phone] Reason for Visit * Reason Comments Med Refill Encounter Details Date Type Department Care Team (Late st Contact Info) Description 02/20/2025 Refill [facility] MED[facility]INE [address] [place] [address] Erica Cantu DO [address] [place] [address] Social History Tobacco Use Types Packs/Day Years [...] documented as of this encounter Care Teams Defensive Secondary Coach Relationship Specialty Start Date End Date Erica Cantu DO [address] [place] [id number] PCP - General Family Medicine 05/30/14 documented as of this encounter
== END 2025-03-12 10:36 | disposition home or self-care (01) ==
LOC: HO.HUSH 09:50
PROVIDERS: PCP Family Medicine; Visit Provider Nurse Practitioner Family
DX: Z13.9 Encounter for screening, unspecified (principal); N52.9 Male erectile dysfunction, unspecified
CPT/HCPCS: 99214

== ENCOUNTER → 2025-03-12 09:49 | Outpatient (BNVA) | payer MEDICAID, SELFPAY | PROVIDERS: PCP Family Medicine; Visit Provider Nurse Practitioner Family | DX: N52.9 Male erectile dysfunction, unspecified (principal) | CPT/HCPCS: 81003; 99212 ==

== ENCOUNTER 2025-03-13 08:50 | Outpatient (REF) | payer MEDICAID, SELFPAY ==
--- OUTSIDE RECORDS SUMMARY | 2025-03-13 09:16 | XMS_ITS | Encounter Summary ---
Author Organization [employer] Address [address] [facility] 7t [place] [address] Care Team Providers Care Machine Fastener Name Role Phone Erica Cantu DO Primary Care Provider + [phone] Reason for Visit * Reason Onset Date Comments Med Refill 03/12/2025 Encounter Details Date Type Department Care Team (Late st Contact Info) Description 03/12/2025 Refill [facility] MEDICINE [address] [place] [address] Erica Cantu DO [address] [place] [address] Social History Tobacco Use Types Packs/Day Years [...] documented as of this encounter Care Teams Machine Fastener Relationship Specialty Start Date End Date Erica Cantu DO [address] [place] [phone] PCP - General Family Medicine 05/30/14 documented as of this encounter
--- OUTSIDE RECORDS SUMMARY | 2025-03-13 09:16 | XMS_ITS | Encounter Summary ---
Author Organization [employer] Address [address] [facility] 7t [place] [address] Care Team Providers Care Test Lead Application Testing Name Role Phone Erica Cantu DO Primary Care Provider + [phone] Reason for Visit * Reason Comments Med Refill Encounter Details Date Type Department Care Team (Late st Contact Info) Description 09/01/2023 Refill [facility] MEDICINE [address] [place] [address] Erica Cantu DO [address] [place] [address] Social History Tobacco Use Types Packs/Day Years [...] the past 12 months, has t he [employer], gas, oil or water company threatened to [...] documented as of this encounter Care Teams Test Lead Application Testing Relationship Specialty Start Date End Date Erica Cantu DO [address] [place] [address] PCP - General Family Medicine 05/30/14 documented as of this encounter
--- OUTSIDE RECORDS SUMMARY | 2025-03-13 09:16 | XMS_ITS | Encounter Summary ---
Author Organization [email or web address] Address [address] [facility] 7t [place] [address] Care Team Providers Care Stitcher Special Machine Name Role Phone Erica Cantu DO Primary Care Provider + [phone] Reason for Visit * Reason Onset Date Comments Hospital Follow-up 01/16/2025 Encounter Details Date Type Department Care Team ([facility] st Contact Info) Description 01/16/2025 Telephone [facility] MEDICINE [address] [place] [address] Erica Cantu DO [address] [place] [address] Hospital Follow-up Social History Tobacco Use Types [...] from pt requesting a HDF appt. Hospital: [place], [place] Date of admission: 01/07 Discharge date: 01/10 Diagnosed: Blood spots *Send message to [place] [facility] [phone] documented in this encounter Plan of Treatment Not on file documented as of this encounter Visit Diagnoses Not on filedocumented in this encounter Additional Health Concerns Assessment Noted Time PHQ-9 Depression Total Score: 3 07/03/20 23 10:46 AM EDT documented as of this encounter Care Teams Stitcher Special Machine Relationship Specialty Start Date End Date Erica Cantu DO [address] [place] [id number] PCP - General Family Medicine 05/30/14 documented as of this encounter
--- OUTSIDE RECORDS SUMMARY | 2025-03-13 09:16 | XMS_ITS | Encounter Summary ---
Author Organization [employer] Address [address] [facility] 7t [place] [address] Care Team Providers Care Bumper Machine Operator Name Role Phone Erica Cantu DO Primary Care Provider + [phone] Reason for Visit * Reason Comments Med Refill Encounter Details Date Type Department Care Team (Late st Contact Info) Description 02/20/2025 Refill [facility] MEDICINE [address] [place] [address] Erica Cantu DO [address] [place] [address] Social History Tobacco Use Types Packs/Day Years [...] documented as of this encounter Care Teams Bumper Machine Operator Relationship Specialty Start Date End Date Erica Cantu DO [address] [place] [id number] PCP - General Family Medicine 05/30/14 documented as of this encounter
--- OUTSIDE RECORDS SUMMARY | 2025-03-13 09:16 | XMS_ITS | Encounter Summary ---
Author Organization [employer] Address [address] [facility] [address] [place] [address] Care Team Providers Care Outreach Consultant Name Role Phone Erica Cantu DO Primary Care Provider + [phone] Reason for Visit * Reason Comments Med Refill Encounter Details Date Type Department Care Team (Late st Contact Info) Description 02/10/2025 Refill [facility] [address] [place] [address] Erica Cantu DO [address] [place] [address] Social History Tobacco Use Types Packs/Day Years [...] documented as of this encounter Care Teams Outreach Consultant Relationship Specialty Start Date End Date Erica Cantu DO [address] [place] [address] PCP - General Family Medicine 05/30/14 documented as of this encounter
--- OUTSIDE RECORDS SUMMARY | 2025-03-13 09:16 | XMS_ITS | Clinical Summary ---
Author Organization [employer] Address [address] [facility] 7t [place] [address] Care Team Providers Care Activities Volunteer Name Role Phone MeyErica eddy Primary Care [...] 25 Active ergocalciferol (Vitamin D2) 1.25 MG (53057 UT) capsule Take 1 capsule (1.25 mg) [...] per day for 4 days. 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) 4 Film [...] diet and exercise,discussed healthy life style -discussed crushed stone grader referral -referred today Chronic pain syndrome 07/27/2016 [...] Type Department Care Team Description 03/12/2025 Refill [facility] [address] [place] [address] Erica Cantu DO 03/06/2025 Refill [facility] [address] [place] [address] Erica Cantu DO 02/21/2025 Refill [facility] [address] [place] [address] Erica Cantu DO 02/20/2025 Refill [facility] [address] [place] [address] Erica Cantu DO 02/19/2025 10:00 AM EDT Clinical Support [facility] [address] [place] [phone] Dory Devlin RN Essential hypertension [I10] 02/19/2025 Travel 02/18/2025 Travel 02/10/2025 Refill [facility] [address] [place] [address] Ercia Cantu DO 02/05/2025 9:30 AM EDT Clinical Support [facility] [address] [place] [address] Naya Salazar RN Essential hypertension 02/05/2025 Refill [facility] [address] [place] [address] Erica Cantu DO 02/05/2025 Travel 02/04/2025 Orders Only [facility] [address] [place] [address] Erica Cantu DO Pain in both knees, unspecified chronicity (Primary Dx); Osteoarthritis of both knees, unspecified osteoarthritis type; Iron deficiency anemia, unspecified iron deficiency anemia type 01/28/2025 9:15 AM EDT Office Visit [facility] [address] [place] [address] Erica Cantu DO Pulmonary embolism, bilateral (CMS/HCC) (Primary Dx); Paroxysmal atrial fibrillation (CMS/HCC); Acute kidney injury (CMS/HCC); Hydronephrosis, unspecified hydronephrosis type; Nephrolithiasis; Acute pain of both knees 01/28/2025 Refill [facility] [address] [place] [address] Erica Cantu DO Low hemoglobin 01/28/2025 Travel 01/27/2025 Refill [facility] [address] [place] [address] Erica Cantu DO 01/24/2025 Telephone [facility] [address] [place] [address] Shea Urena, PharmD 01/24/2025 Population Health Risk Score [facility] () [address] [phone] Provider, Population Health Generic 01/21/2025 9:30 AM EDT Office Visit [facility] [address] [place] [address] Paula Woo, JAYA Uncomplicated opioid dependence (CMS/HCC) 01/21/2025 Telephone [facility] [address] [place] [address] Shea Urena, PharmD 01/21/2025 Travel 01/21/2025 Refill [facility] [address] [place] [address] Erica Cantu DO 01/20/2025 Refill [facility] [address] [place] [address] Erica Cantu DO History of blood clots 01/16/2025 Patient Outreach [facility] [address] [place] [address] Erica Cantu DO Care Coordination (CHW outreach for SDOH PT-1 and food needs-referral completed /) 01/16/[address] [facility] [address] [place] [address] Erica Cantu DO Transition Of Care (Tcm) (HDF- Scheduled ) 01/16/[address] [facility] [address] [place] [address] Erica Cantu DO Hospital Follow-up 01/06/[address] [facility] [address] [place] [address] Erica Cantu, from Last 3 Months Immunizations [...] To stay clean. 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, director of consumer marketing Procedure Name Priority Date/Time Associated Diagnosis Comments [...] EDT Narrative 03/01/2025 9:37 AM EDT ? [facility] ?[address] ?[place] [address] ? Ultrasound Report ? Signed ? Patient: Celaya,Ben ?MR#: [id number] ? : 1980 ?Acct:[id number] ? Age/Sex: 44 / M ?ADM Date: 04/18/25 ? Loc: HO.US ? Attending Dr: Erica Cantu DO ? Ordering Physician: Erica Cantu DO ?? Date of Service: 02/28/25 ?? Procedure(s): US renal BI ?? Accession Number(s): [id number] ? cc: Erica Cantu DO ? CLINICAL [...] 0936 ? DD/ ? TD/TT: 03/01/25935 ? Pneumatic Tester Mechanic: ? Procedure Note Angelique, Image - 03/01/2025 [place] [address] Ultrasound Report Signed Patient: Colton Celaya#: [id number] : 1980Acct:[id number] Age/Sex: 44 / MADM Date: 02/28/25 Loc: HO.US Attending Dr: Erica Cantu DO Ordering Physician: Erica Cantu DO Date of Service: 02/28/25 Procedure(s): US renal BI Accession Number(s): [id number] cc: Erica Cantu DO CLINICAL HISTORY: f [...] in OV> 03/01/25935 DD/ 5 TD/TT: 03/01/25935 Pneumatic Tester Mechanic: us Erica Cantu DO IMG US PROCEDURES Final Resu lt * CT RENAL FOR STONES (02/19/2025 4:39 PM EDT) Anatomical Region Laterality Modality Computed Tomogra phy 02/19/2025 4:39 PM EDT Narrative 02/19/2025 4:41 PM EDT ? [facility] ?[address] ?[place] [address] ? CT Scan Report ? Signed ? Patient: Ben Celaya ?MR#: [id number] ? : 1980 ?Acct:[id number] ? Age/Sex: 44 / M ?ADM Date: 02/18/25 ? Loc: HO.CT ? Attending Dr: Margaret JUAREZ ? Ordering Physician: Margaret Celaya ?? Date of Service: 02/18/25 ?? Procedure(s): CT kidney stone ?? Accession Number(s): [id number] ? cc: Erica Cantu DO; Margaret Celaya-CASEY ? Report Number: ?? [id number]: Total DLP = ??758.00 mGy-cm ? CLINICAL [...] DD/ 1639 ? TD/TT: 02/19/25 1639 ? Pneumatic Tester Mechanic: ? Procedure Note Suyapa Merino - 02/19/[address] [place] [address] [address] Scan Report Signed Patient: Ben CelayaMR#: [id number] : 1980Acct:[id number] Age/Sex: 44 / MADM Date: 02/18/25 Loc: HO.CT Attending Dr: Margaret [facility] Ordering Physician: Margaret Celaya Date of Service: 02/18/25 Procedure(s): CT kidney stone Accession Number(s): [id number] cc: Erica Cantu DO; Margaret Celaya STEAM HOIST OPERATOR- Report Number: [id number]: Total DLP = 758.00 mGy-cm CLINICAL HISTORY: [...] 02/19/25 1640 DD/ 1639 TD/TT: 02/19/25 1639 Pneumatic Tester Mechanic: [facility] External Provider IMG CT PROCEDURES Final Result * (ABNORMAL) Iron And Total Iron Binding Capacity (02/06/2025 9:45 AM EDT) Only the most recent of2 resultswithin the time period is included. Iron 23(L) 45 - 160 mcg/dL [facility] Total Iron Binding Capacity 308 228 - 428 mcg/dL [facility] Percent Iron Saturation 7(L) 15 - 50 % [facility] Unsaturated Iron Binding 285 ug/dL [facility] 02/06/2025 9:45 AM EDT 02/06/2025 11:06 AM EDT Erica Cantu DO LAB BLOOD ORDERABLES Final R esult [facility] [address] [place] [phone] * Potassium (02/06/2025 9:45 AM EDT) Potassium 4.3 3.3 - 5.1 mmol/L [facility] Blood Venous blood specimen / Unknown 02/06/2025 9:45 AM EDT 02/06/2025 11:06 AM EDT Erica Alondra DO LAB BLOOD ORDERABLES Final R esult Performing Organization Address [facility] Co de Phone Number [facility] [address] [place] [phone] * (ABNORMAL) Ferritin (02/06/2025 9:45 AM EDT) Only the most recent of2 resultswithin the time period is included. Ferritin 8(L) 20 - 250 ng/mL [facility] 02/06/2025 9:45 AM EDT 02/06/2025 11:06 AM EDT Erica Cantu DO LAB BLOOD ORDERABLES Final R esult Performing Organization Address [facility] de Phone Number [facility] [address] [place] [phone] * (ABNORMAL) Vitamin D, 25-Hydroxy, Total, Immunoassay (01/28/2025 10:44 AM EDT) Vitamin D 25-OH Total 13.2(L) >30 ng/mL [facility] Comment: Health Based Reference Values*< 20 ??ng/mL ??Fiudlayie76-43 ng/mL ??Insufficient> 30 ??ng/mL ??Sufficient*Mari NERI. N [...] ORDERABLES Final R esult Performing Organization Address [facility]/ZIP Co de Phone Number [facility] [address] [place] [address] [phone] * Albumin, Random Urine W/Creatinine (01/28/2025 10:44 AM EDT) Creatinine, Urine 56.42 mg/dL [facility] Microalbumin Urine <5.0 mg/L [facility] Microalbum Creatinine Ratio Ur TNP <30 ug/mg cr [facility] Comment:Unable to calculate albumin/creatinine ratio due to lowmicroalbumin or creatinine result. Urine (Urine, Random) 01/28/2025 10:44 AM EDT 01/28/2025 11:14 AM EDT us Erica Cantu DO LAB URINE ORDERABLES Final R esult Performing Organization Address [facility]/ZIP Co de Phone Number [facility] [address] [place] [address] [phone] * Hepatitis C Antibody with Reflex to HCV, RNA, Quantitative, Real-Time PCR (01/28/2025 10:44 AM EDT) Hepatitis C Antibody Nonreactive Nonreactive [facility] Comment:Antibodies to HCV no t detected; does not exclude early acuteHCV infection. Blood Venous blood specimen / Unknown 01/28/2025 10:44 AM EDT 01/28/2025 11:14 AM EDT Erica Cantu DO LAB BLOOD ORDERABLES Final R esult Performing Organization Address [facility]/ZIP Co de Phone Number [facility] [address] [place] [phone] * Hepatitis A Antibody, Total (01/28/2025 10:44 AM EDT) Hepatitis A Antibody IgG Nonreactive Nonreactive [facility] Blood Venous blood specimen / Unknown 01/28/2025 10:44 AM EDT 01/28/2025 11:14 AM EDT Erica Mathiassurjit LAB BLOOD ORDERABLES Final R esult Performing Organization Address [facility] Co de Phone Number [facility] [address] [place] [phone] * Chlamydia/N. Gonorrhoeae RNA, TMA, Urogenitial (01/28/2025 10:44 AM EDT) CT PCR NOT DETECTED Not Detect. [facility] Comment:A not detected test result [...] psychologicalconsequences. NG PCR NOT DETECTED Not Detect. [facility] Comment:A not detected test result [...] AM EDT 01/28/2025 11:14 AM EDT Narrative [facility] - 01/28/2025 2:20 PM EDT Urine Erica Cantu DO LAB MICROBIOLOGY - GENERAL O RDERABLES Final Result Performing Organization Address [facility]/ZIP Co de Phone Number [facility] [address] [place] [phone] * Hepatitis B surface antigen, EIA (01/28/2025 10:44 AM EDT) Hepatitis B Surface Ag Negative Negative [facility] Blood Venous blood specimen / Unknown 01/28/2025 10:44 AM EDT 01/28/2025 11:14 AM EDT Erica Cantu DO LAB BLOOD ORDERABLES Final R esult Performing Organization Address [facility]/ZIP Co de Phone Number [facility] [address] [place] [phone] * Hepatitis B Core Antibody, Total (01/28/2025 10:44 AM EDT) Hepatitis B Core Antibody Nonreactive Nonreactive [facility] Blood Venous blood specimen / Unknown 01/28/2025 10:44 AM EDT 01/28/2025 11:14 AM EDT Erica Cantu DO LAB BLOOD ORDERABLES Final R esult Performing Organization Address [facility]/ZIP Co de Phone Number [facility] [address] [place] [phone] * RPR (Monitor) with Reflex to??Titer (01/28/2025 10:44 AM EDT) RPR (Monitor) w/Refl Titer NON-REACTI VE NON-REACT YSABEL [facility] Comment:THIS TEST WAS PERFOR MED AT:[email or web address] [place] [id number] STRANGE MD Rapid Plasma Reagin Ab Titer TNP [facility] Blood Venous blood specimen / Unknown 01/28/2025 10:44 AM EDT 01/28/2025 11:14 AM EDT us Erica Alondra DO LAB BLOOD ORDERABLES Final R esult Performing Organization Address [facility] Co de Phone Number [facility] [address] [place] [phone] * HIV-1/2 Antigen and Antibodies, Fourth Generation, with Reflexes (01/28/2025 10:44 AM EDT) HIV AB/AG Nonreactive Nonreactive [facility] Comment:HIV-1 p24 Ag and/or HIV-1/HIV-2 Ab not detected.A test result that is nonreactive does not exclude thepossibility of exposure to or infection with HIV-1 and/orHIV-2. Nonreactive results in this assay for individualswith prior exposure to HIV-1 and/or HIV-2 may be due toantigen and antibody levels that are below the limit ofdetection of this assay.The [employer] HIV Ag/Ab Combo assay result andsupplemental assay results should be interpreted inconjunction with the patient's clinical presentation,history and other laboratory results. If the results areinconsistent with clinical evidence, additional testing issuggested to confirm the result. Blood Venous blood specimen / Unknown 01/28/2025 10:44 AM EDT 01/28/2025 11:14 AM EDT Erica Cantu LAB BLOOD ORDERABLES Final R esult Performing Organization Address [facility] Co de Phone Number [facility] [address] [place] [phone] * Hepatitis B Surface Antibody, Qualitative (01/28/2025 10:44 AM EDT) Pathologist [facility] ~Hepatitis B Surface Antibody REACTIVE Nonreactive [facility] Comment:REACTIVE: > 11.99 mI U/mL Blood Venous blood specimen / Unknown 01/28/2025 10:44 AM EDT 01/28/2025 11:14 AM EDT Erica Cantu LAB BLOOD ORDERABLES Final R esult Performing Organization Address [facility] de Phone Number [facility] [address] [place] [phone] * (ABNORMAL) CBC (01/28/2025 10:44 AM EDT) Pathologist [facility] White Blood Count 7.1 4.8 - 10.8 X10*3/uL [facility] Red Blood Count 4.06(L) 4.60 - 5.80 X10*6/uL [facility] Hemoglobin 10.9(L) 14.0 - 18.0 g/dl [facility] Hematocrit 34.6(L) 42.0 - 52.0 % [facility] Mean Corpuscular Volume 85.2 80.0 - 98.0 fL [facility] Mean Corpuscular Hemoglobin 26.8(L) 27.0 - 33.0 pg [facility] Mean Corpuscular HGB Conc 31.5 31.0 - 36.0 g/dl [facility] Red Cell Distribution Width 13.2 11.0 - 16.0 % [facility] Platelet Count 402(H) 160 - 400 X10*3/uL [facility] Mean Platelet Volume 10.8 9.4 - 12.4 fL [facility] NRBC Pct Auto 0.0 0.0 - 0.2 /100WBC [facility] NRBC Abs Auto 0.000 0.0 - 0.012 X10*3/uL [facility] Blood Venous blood specimen / Unknown 01/28/2025 10:44 AM EDT 01/28/2025 11:14 AM EDT Erica Cantu LAB BLOOD ORDERABLES Final R esult Performing Organization Address [facility]/ZIP Co de Phone Number [facility] [address] [place] [phone] * TSH (01/28/2025 10:44 AM EDT) Thyroid Stimulating Hormone 0.75 0.32 - 4.0 uIU/mL [facility] Comment:TSH 3rd Generation ( [employer]) Blood Venous blood specimen / Unknown 01/28/2025 10:44 AM EDT 01/28/2025 11:14 AM EDT Erica Cantu LAB BLOOD ORDERABLES Final R esult [facility] [address] [place] [phone] * T4, Free (01/28/2025 10:44 AM EDT) Free T4 (Free Thyroxine) 1.10 0.71 - 1.85 ng/dL [facility] Blood Venous blood specimen / Unknown 01/28/2025 10:44 AM EDT 01/28/2025 11:14 AM EDT us Erica Alondra DO LAB BLOOD ORDERABLES Final R esult [facility] [address] [place] [phone] * Hemoglobin A1c (01/28/2025 10:44 AM EDT) Hemoglobin A1c 5.5 <6.0 % [facility] Comment:Hemoglobin A1C Refer ence Range Adults: 4.8 - 6.0 % Non diabetic: < 6.0 % Goal: < 7.0 %Additional Action Suggested: > 8.0 %Note: Hemoglobin A1c results are invalid for patients with abnormal amounts of HbF. Blood transfusions may impact the HbA1c concentration in the patient sample. Estimated Average Glucose 111 mg/dL [facility] Comment:eAG = Estimated ave rage glucose which is %A1C expressed asaverage glucose, using the formula of the R0H-IlielwwAmyncnd Glucose study (ADAG), Diabetes Care, Vol.31,#8,Jun. 2007 Blood Venous blood specimen / Unknown 01/28/2025 10:44 AM EDT 01/28/2025 11:14 AM EDT us Erica Alondra DO LAB BLOOD ORDERABLES Final R esult Performing Organization Address [facility]/ZIP Co de Phone Number [facility] [address] [place] [phone] * Hepatic Function Panel (01/28/2025 10:44 AM EDT) Bilirubin, Total 0.3 0.0 - 1.0 mg/dL [facility] Bilirubin, Direct 0.1 0.0 - 0.5 mg/dL [facility] Aspartate Amino Transferase 19 5 - 37 U/L [facility] Alanine Aminotransferase <6 0 - 40 U/L [facility] Total Protein 8.0 6.5 - 8.0 g/dL [facility] Albumin Level 4.1 3.5 - 5.0 g/dL [facility] Alkaline Phosphatase 69 39 - 117 U/L [facility] Blood Venous blood specimen / Unknown 01/28/2025 10:44 AM EDT 01/28/2025 11:14 AM EDT Erica Cantu LAB BLOOD ORDERABLES Final R esult Performing Organization Address [facility] Co de Phone Number [facility] [address] [place] [phone] * (ABNORMAL) Lipid Panel, Standard (01/28/2025 10:44 AM EDT) Triglycerides 81 <150 mg/dL [facility] Comment:Desirable Triglyceri de: less than 150 mg/dLBorderline High Triglyceride 150-199 mg/dLHigh Triglyceride: 200-499 mg/dLVery High Triglyceride: greater than or equal to 5OO mg/dL Cholesterol 159 <200 mg/dL [facility] Comment:Desirable Cholestero l: less than 200 mg/dLBorderline High Cholesterol: 200-239 mg/dLHigh Cholesterol: greater than 239 mg/dL LDL Cholesterol Calculated 108(H) <100 mg/dL [facility] Comment:Desirable LDL: less than 100 mg/dLNear Optimal/Above Optimal LDL: 110- 129 mg/dLBorderline High LDL: 130-159 mg/dLHigh LDL: 160-189 mg/dLVery High LDL: greater than or equal to 190 mg/dL HDL Cholesterol 35(L) >40 mg/dL [facility] Comment:Desirable HDL: great er than 40 mg/dL Note: This HDL assay may give artificially low results in patients with liver disease. Blood Venous blood specimen / Unknown 01/28/2025 10:44 AM EDT 01/28/2025 11:14 AM EDT Erica Cantu DO LAB BLOOD ORDERABLES Final R esult Performing Organization Address [facility]/ZIP Co de Phone Number [facility] [address] [place] [phone] * (ABNORMAL) Basic Metabolic Panel (01/28/2025 10:44 AM EDT) Sodium 139 135 - 145 mmol/L [facility] Potassium 3.1(L) 3.3 - 5.1 mmol/L [facility] Chloride 106 96 - 108 mmol/L [facility] Carbon Dioxide 25 22 - 29 mmol/L [facility] Anion Gap 11(L) 12 - 20 [facility] Urea Nitrogen (BUN) 15 9 - 16 mg/dL [facility] Creatinine, Serum 0.82 0.5 - 1.4 mg/dL [facility] Estimated Glomerular Filt Rate >60 [facility] Comment:Chronic Kidney Disea se: Estimated GFR < 60 mL/min/1.87u5Nwnrgi Kidney Disease: Estimated GFR < 15 mL/min/1.73m2 Glucose 95 60 - 115 mg/dL [facility] Calcium 9.3 8.4 - 10.2 mg/dL [facility] Blood Venous blood specimen / Unknown 01/28/2025 10:44 AM EDT 01/28/2025 11:14 AM EDT us Erica Cantu DO LAB BLOOD ORDERABLES Final R esult [facility] [address] [place] [phone] * XR Knee 4+ Views Right (01/28/2025 10:05 AM EDT) Anatomical Region Laterality Modality Lower Extremities, Knee Right Radiogra phic Imaging 01/28/2025 10:0 5 AM EDT Narrative 01/28/2025 11:19 AM EDT ?[facility] ?[address] ?[place] [address] ?XRay Report ? Signed ? Patient: Celaya,Ben ?MR#: [id number] ? : 1980 ?Acct:[id number] ? Age/Sex: 44 / M ?ADM Date: 03/18/25 ? Loc: HO.HHCX ? Attending Dr: Erica Cantu DO ? Ordering Physician: Erica Cantu DO ?? Date of Service: 01/28/25 ?? Procedure(s): XR knee RT 4V ?? Accession Number(s): [id number] ? cc: Erica Cantu DO ? EXAMINATION: [...] DD/ 1005 ? TD/TT: 01/28/25 1034 ? Pneumatic Tester Mechanic: ? Procedure Note Suyapa Merino - 01/28/2025 [facility] [address] [place] [address] XRay Report Signed Patient: Ben CelayaMR#: [id number] : 1980Acct:[id number] Age/Sex: 44 / MADM Date: 01/28/25 Loc: HO.HHCX Attending Dr: Erica Cantu DO Ordering Physician: Erica Cantu DO Date of Service: 01/28/25 Procedure(s): XR knee RT 4V Accession Number(s): [id number] cc: Erica Cantu DO EXAMINATION: XR KNEE [...] 01/28/25 1116 DD/ 1005 TD/TT: 01/28/25 1034 Pneumatic Tester Mechanic: us Erica Cantu DO IMG XR PROCEDURES Final Resu lt * XR Knee 4+ Views Left (01/28/2025 10:05 AM EDT) Anatomical Region Laterality Modality Lower Extremities, Knee Left Radiogra phic Imaging 01/28/2025 10:0 5 AM EDT Narrative 01/28/2025 11:18 AM EDT ?[facility] ?[address] ?[place] [address] ?XRay Report ? Signed ? Patient: Donnie Celayaick ?MR#: [id number] ? : 1980 ?Acct:[id number] ? Age/Sex: 44 / M ?ADM Date: 03/18/25 ? Loc: HO.HHCX ? Attending Dr: Erica Cantu DO ? Ordering Physician: Erica Cantu DO ?? Date of Service: 01/28/25 ?? Procedure(s): XR knee LT 4V ?? Accession Number(s): [id number] ? cc: Erica Cantu DO ? EXAMINATION: [...] DD/ 1005 ? TD/TT: 01/28/25 1034 ? Pneumatic Tester Mechanic: ? Procedure Note Angelique, Suyapa - 01/28/[address] [address] XRay Report Signed Patient: Ben CelayaMR#: [id number] : 1980Acct:[id number] Age/Sex: 44 / MADM Date: 01/28/25 Loc: HO.HHCX Attending Dr: Erica Cantu DO Ordering Physician: Erica Cantu DO Date of Service: 01/28/25 Procedure(s): XR knee LT 4V Accession Number(s): [id number] cc: Erica Cantu DO EXAMINATION: XR KNEE [...] Shelton MD Signed By: <Electronically signed by Fernanod Shelton MD in OV> 01/28/25 1115 DD/ 1005 TD/TT: 01/28/25 1034 Pneumatic Tester Mechanic: Erica Cantu DO IMG XR PROCEDURES Final Resu lt from Last 3 Months Insurance Product[employer]ev C[employer] C/O MEDATA JEAN [place] [phone] Care Teams Activities Volunteer Relationship Specialty Start Date End Date Erica Cantu DO [address] [place] [phone] PCP - General Family Medicine 05/30/14
--- OUTSIDE RECORDS SUMMARY | 2025-03-13 09:16 | XMS_ITS | Encounter Summary ---
Author Organization [employer] Address [address] [facility] 7t [place] [address] Care Team Providers Care Communications Scientist Name Role Phone Erica Cantu DO Primary Care Provider + [phone] Reason for Visit * Reason Comments Med Refill Encounter Details Date Type Department Care Team (Late st Contact Info) Description 09/19/2023 Refill [facility] [address] [place] [address] Erica Cantu DO [address] [place] [address] Social History Tobacco Use Types Packs/Day Years [...] the past 12 months, has t he [email or web address], gas, oil or water company threatened to [...] documented as of this encounter Care Teams Communications Scientist Relationship Specialty Start Date End Date Erica Cantu DO [address] [place] [address] PCP - General Family Medicine 05/30/14 documented as of this encounter
--- OUTSIDE RECORDS SUMMARY | 2025-03-13 09:16 | XMS_ITS | Encounter Summary ---
Author Organization [employer] Address [address] [facility] [address]t [place] [address] Care Team Providers Care Plan Manager Name Role Phone Erica Cantu DO Primary Care Provider [phone] Encounter Details Date Type Department Care Team (Late st Contact Info) Description 06/20/2023 Orders Only [facility] [address] [place] [address] Charito Bell MD [address] [place] [address] Social History Tobacco Use Types Packs/Day Years [...] on filedocumented in this encounter Care Teams Plan Manager Relationship Specialty Start Date End Date Erica Cantu DO [address] [place] [address] PCP - General Family Medicine 05/30/14 documented as of this encounter
--- OUTSIDE RECORDS SUMMARY | 2025-03-13 09:16 | XMS_ITS | Encounter Summary ---
Author Organization [employer] Address [address] [facility] 7t [place] [address] Care Team Providers Care Director Digital Catalogue Name Role Phone Erica Cantu DO Primary Care Provider [phone] Encounter Details Date Type Department Care Team ([facility] st Contact Info) Description 05/22/2023 Orders Only [facility] [address] [place] [address] Paula Woo RN Social History Tobacco Use [...] on filedocumented in this encounter Care Teams Director Digital Catalogue Relationship Specialty Start Date End Date Erica Cantu DO [address] [place] [address] PCP - General Family Medicine 05/30/14 documented as of this encounter
[2025-03-20 20:54] LABS: Testosterone, Free 48.1 pg/mL (35.0-155.0); Testosterone, Total 271 ng/dL (250-1100)
== END 2025-03-13 08:51 | disposition home or self-care (01) ==
LOC: HO.LAB 08:50
PROVIDERS: PCP Family Medicine; Visit Provider Nurse Practitioner Family
DX: N52.9 Male erectile dysfunction, unspecified (principal)
CPT/HCPCS: 36415; 84402; 84403

== ENCOUNTER → 2025-03-18 10:52 | Outpatient (BNV) | payer MEDICAID, SELFPAY | PROVIDERS: PCP Family Medicine; Referring Provider Family Medicine; Visit Provider Internal Medicine | DX: I26.09 Other pulmonary embolism with acute cor pulmonale (principal) | CPT/HCPCS: 99205 ==

== ENCOUNTER 2025-04-04 15:34 | Outpatient (REF) | payer MEDICAID, SELFPAY ==
--- NOTE | ~2025-04-04 | CT_ITS ---
CLINICAL HISTORY: histroy of PE CTA chest with 3-D postprocessing Comparison: None Findings: Study quality is adequate for the diagnosis of pulmonary embolism. No pulmonary embolism. Heart size within normal limits. RV/LV ratio is normal. No calcified coronary artery disease. No aortic dissection or aneurysm. No significant calcified atherosclerotic disease. No lymphadenopathy. No pulmonary pathology. No pneumothorax or pleural effusion. No acute osseous or soft tissue abnormality. No acute pathology in the imaged portion of the upper abdomen. Gastric band. Impression: No pulmonary embolism or other acute findings. This document has been electronically signed by: Mira Gonsalez MD on 04/04/2025 18:02:39
--- OUTSIDE RECORDS SUMMARY | 2025-04-04 15:37 | XMS_ITS | Encounter Summary ---
Author Organization [employer] Address 75 [facility] 7t [place] [address] Care Team Providers Care Thread Clipper Name Role Phone Erica Cantu DO Primary Care Provider Encounter Details Date Type Department Care Team ([facility] st Contact Info) Description 05/22/2023 Orders Only [facility] [address] [place] [address] Paula Woo RN Social History Tobacco Use [...] on filedocumented in this encounter Care Teams Thread Clipper Relationship Specialty Start Date End Date Erica Cantu DO [address] [place] [address] PCP - General Family Medicine 05/30/14 documented as of this encounter
[2025-04-04] MEDS: iohexoL 350 MG/ML 100 ML INFUS..BTL IV (17:16)
== END 2025-04-04 15:35 | disposition home or self-care (01) ==
LOC: HO.CT 15:34
PROVIDERS: PCP Family Medicine; Visit Provider Internal Medicine
DX: I26.99 Other pulmonary embolism without acute cor pulmonale (principal)
CPT/HCPCS: 71275; Q9967

== ENCOUNTER → 2025-04-04 15:36 | Outpatient (BNV) | payer MEDICAID, SELFPAY | PROVIDERS: PCP Family Medicine; Visit Provider Radiology Diagnostic Radiology | DX: Z86.711 Personal history of pulmonary embolism (principal) | CPT/HCPCS: 71275 ==

== ENCOUNTER 2025-04-08 09:46 | Day surgery (SDC) | payer MEDICAID, SELFPAY ==
--- OUTSIDE RECORDS SUMMARY | 2025-03-13 16:30 | XMS_ITS | Encounter Summary ---
Author Organization [employer] Address [address] [facility] 7t [place] [address] Care Team Providers Care Flask Fitter Name Role Phone Erica Cantu DO Primary Care Provider + [phone] Reason for Visit * Reason Onset Date Comments Med Refill 03/12/2025 Encounter Details Date Type Department Care Team (Late st Contact Info) Description 03/12/2025 Refill [facility] [address] [place] [address] Erica Cantu DO [address] [place] [address] Social History Tobacco Use Types Packs/Day Years [...] Care Team (Late st Contact Info) Description 03/19/2025 2:45 PM EDT Office Visit [facility] [address] [place], [place] [phone] Sukhwinder Blankenship CNP [address] [place] [address] documented as of this encounter Goals Goal Patient Goal Type Associated Problems Recent Progress Patient-Stated? Author To stay clean. 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, JAYA documented as of this encounter Visit Diagnoses Not on filedocumented in this encounter Additional Health Concerns Assessment Noted Time PHQ-9 Depression Total Score: 0 01/29/20 25 9:24 AM EDT documented as of this encounter Care Teams Flask Fitter Relationship Specialty Start Date End Date Erica Cantu DO [address] [place] [address] [phone] PCP - General Family Medicine 05/30/14 documented as of this encounter
--- OUTSIDE RECORDS SUMMARY | 2025-03-13 16:30 | XMS_ITS | Encounter Summary ---
Author Organization [employer] Address [address] [facility] 7t [place] [address] Care Team Providers Care Gypsum Roofer Name Role Phone Erica Cantu DO Primary Care Provider + [phone] Reason for Visit * Reason Comments Med Refill Encounter Details Date Type Department Care Team (Late st Contact Info) Description 02/10/2025 Refill [facility] [address] [place] [address] Erica Cantu DO [address] [place] [address] Social History Tobacco Use Types Packs/Day Years [...] Description 03/19/2025 2:45 PM EDT Office Visit [facility] [address] [place] [address] [phone] Sukhwinder Blankenship CNP [address] [place] [address] documented as of this encounter Goals Goal Patient Goal Type Associated Problems Recent Progress Patient-Stated? Author To stay clean. 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, JAYA documented as of this encounter Visit Diagnoses Not on filedocumented in this encounter Additional Health Concerns Assessment Noted Time PHQ-9 Depression Total Score: 0 01/29/20 25 9:24 AM EDT documented as of this encounter Care Teams Gypsum Roofer Relationship Specialty Start Date End Date Erica Cantu DO [address] [place] [id number] PCP - General Family Medicine 05/30/14 documented as of this encounter
--- OUTSIDE RECORDS SUMMARY | 2025-03-13 16:30 | XMS_ITS | Encounter Summary ---
Author Organization [employer] Address [address] [facility] 7t [place] [address] Care Team Providers Care Electric Motor Repairer Name Role Phone Erica Cantu DO Primary Care Provider + [phone] Reason for Visit * Reason Comments Med Refill Encounter Details Date Type Department Care Team (Late st Contact Info) Description 09/19/2023 Refill [facility] [address] [place] [address] Erica Cantu DO [address] [place] [address] Social History Tobacco Use Types Packs/Day Years [...] the past 12 months, has t he [employer] gas, oil or water company threatened to [...] Description 03/19/2025 2:45 PM EDT Office Visit [facility] [address] [place], [place] [phone] Sukhwinder Blankenship CNP [address] [place], [place] [phone] documented as of this encounter Visit Diagnoses Not on filedocumented in this encounter Additional Health Concerns Assessment Noted Time PHQ-9 Depression Total Score: 3 07/03/20 23 10:46 AM EDT documented as of this encounter Care Teams Electric Motor Repairer Relationship Specialty Start Date End Date Erica Cantu DO [address] [place] [address] [phone] PCP - General Family Medicine 05/30/14 documented as of this encounter
--- OUTSIDE RECORDS SUMMARY | 2025-03-13 16:30 | XMS_ITS | Encounter Summary ---
Author Organization [employer] Address [address] [facility] 7t [place] [address] Care Team Providers Care Laboratory Cureman Name Role Phone Erica Cantu DO Primary Care Provider + [phone] Reason for Visit * Reason Comments Med Refill Encounter Details Date Type Department Care Team (Late st Contact Info) Description 09/01/2023 Refill [facility] [address] [place] [address] Erica Cantu DO [address] [place] [address] Social History Tobacco Use Types Packs/Day Years [...] the past 12 months, has t he [employer], gas, oil or water company threatened to [...] Description 03/19/2025 2:45 PM EDT Office Visit [facility] [address] [place], [place] [phone] Sukhwinder Blankenship CNP [address] [place], [place] [phone] documented as of this encounter Visit Diagnoses Not on filedocumented in this encounter Additional Health Concerns Assessment Noted Time PHQ-9 Depression Total Score: 3 07/03/20 23 10:46 AM EDT documented as of this encounter Care Teams Laboratory Cureman Relationship Specialty Start Date End Date Erica Cantu DO [address] [place] [address] [phone] PCP - General Family Medicine 05/30/14 documented as of this encounter
--- OUTSIDE RECORDS SUMMARY | 2025-03-13 16:30 | XMS_ITS | Encounter Summary ---
Author Organization [employer] Address [address] [facility] 7t [place] [address] Care Team Providers Care Dressing Room Porter Name Role Phone Erica Cantu DO Primary Care Provider + [phone] Reason for Visit * Reason Onset Date Comments Hospital Follow-up 01/16/2025 Encounter Details Date Type Department Care Team ([facility] st Contact Info) Description 01/16/2025 Telephone [facility] [address] [place] [address] Erica Cantu DO [address] [place] [address] Hospital Follow-up Social History Tobacco Use Types [...] from pt requesting a HDF appt. Hospital: [place], [place] Date of admission: 01/07 Discharge date: 01/10 Diagnosed: Blood spots *Send message to [place] [facility] [phone] documented in this encounter Plan of Treatment Upcoming Encounters Date Type Department Care Team (Late st Contact Info) Description 03/19/2025 2:45 PM EDT Office Visit [facility] [address] [place] [address] Sukhwinder Blankenship CNP [address] [place] [address] documented as of this encounter Visit Diagnoses Not on filedocumented in this encounter Additional Health Concerns Assessment Noted Time PHQ-9 Depression Total Score: 3 07/03/20 23 10:46 AM EDT documented as of this encounter Care Teams Dressing Room Porter Relationship Specialty Start Date End Date Erica Cantu DO [address] [place] [address] PCP - General Family Medicine 05/30/14 documented as of this encounter
--- OUTSIDE RECORDS SUMMARY | 2025-03-13 16:30 | XMS_ITS | Clinical Summary ---
Author Organization [employer] Address [address] [facility] [address] [place] [address] Care Team Providers Care Meter Tester Primary Name Role Phone MeyErica eddy Primary Care [...] Active ergocalcifero l (Vitamin D2) 1.25 MG (37374 UT) capsule Take 1 capsule (1.25 mg) [...] as directed. 1 kit 02/06/20 25 Active baclofen (Lioresal) 10 MG tablet TAKE 1 TABLET BY MOUTH THREE TIMES DAILY IN THE MORNING, AT NOON, AND AT BEDTIME NEEDED FOR MUSCLE SPASMS 60 tablet 1 03/06/20 25 Active sildenafil (Viagra) 100 MG tablet TAKE 1 TABLET 1 HOUR BEFORE SEXUAL RELATIONS ONCE DAILY NEEDED. 10 tablet 03/13/20 25 Active Buprenorphine HCl-Naloxone HCl (Suboxone) 8-2 MG SL filmIndicatio ns:Opioid type dependence, continuous (CMS/HCC) Place 1 Film under the tongue Once per day for 4 days. 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 10 tablet 02/22/20 25 025 Discontinued(Re order (will not trigger notification to Pharmacy)) Active Problems Problem Noted Date Diagnosed Date Pulmonary embolism, bilateral 01/28/2025 Paroxysmal atrial fibrillation 01/28/2025 Nephrolithiasis 01/28/2025 Opioid dependence in remission 02/15/2023 Morbid obesity 12/22/2022 Assessment & Plan (07/04/2023 7:12 PM EDT): Advised pt to improve diet and exercise,discussed healthy life style -discussed [employer]orer [employer] referral -referred today Chronic pain syndrome 07/27/2016 [...] Encounters Date Type Department Care Team Description 03/13/2025 Telephone [facility] [address] [place] [address] Erica Cantu DO Pre-op Visit 03/12/2025 Refill [facility] [address] [place] [address] Erica Cantu DO 03/06/2025 Refill [facility] [address] [place] [address] Erica Cantu DO 02/21/2025 Refill [facility] [address] [place] [address] Erica Cantu DO 02/20/2025 Refill [facility] [address] [place] [address] Erica Cantu DO 02/19/2025 10:00 AM EDT Clinical Support [facility] [address] [place] [address] Dory Devlin, JAYA Essential hypertension [I10] 02/19/2025 Travel 02/18/2025 Travel 02/10/2025 Refill [facility] [address] [place], [place] [phone] Erica Cantu DO 02/05/2025 9:30 AM EDT Clinical Support [facility] [address] [facility] [address] Naya Salazar RN Essential hypertension 02/05/2025 Refill [facility] [address] [place] [address] Erica Cantu DO 02/05/2025 Travel 02/04/2025 Orders Only [facility] [address] [facility] [place] [address] Erica Cantu DO Pain in both knees, unspecified chronicity (Primary Dx); Osteoarthritis of both knees, unspecified osteoarthritis type; Iron deficiency anemia, unspecified iron deficiency anemia type 01/28/2025 9:15 AM EDT Office Visit [facility] [address] Erica Cantu DO Pulmonary embolism, bilateral (CMS/HCC) (Primary Dx); Paroxysmal atrial fibrillation (CMS/HCC); Acute kidney injury (CMS/HCC); Hydronephrosis, unspecified hydronephrosis type; Nephrolithiasis; Acute pain of both knees 01/28/2025 Refill [facility] [address] [facility] [address] Erica Cantu DO Low hemoglobin 01/28/2025 Travel 01/27/2025 Refill [facility] [address] [place], [place] [address]add[facility] [place] [address] Erica Cantu DO 01/24/2025 Telephone [facility] [address] [place] [address] Shea Urena PharmD 01/24/2025 Population Health Risk Score [facility] () Department [address] [place] [phone] Provider, Population Health Generic 01/21/2025 9:30 AM EDT Office Visit [facility] [address] [facility] [place] [address] Paula Woo RN Uncomplicated opioid dependence (CMS/HCC) 01/21/2025 Telephone [facility] [address] [place] [address] Shea Urena, Ashlee 01/21/2025 Travel 01/21/2025 Refill [facility] [address] [place] [phone] Erica Cantu DO 01/20/2025 Refill [facility] [address] [place] [phone] Erica Cantu DO History of blood clots 01/16/2025 Patient Outreach [address] [address] Erica Cantu DO Care Coordination (CHW outreach for SDOH PT-1 and food needs-referral completed /) 01/16/2025 Patient Outreach [address] [address] Erica Cantu DO Transition Of Care (Tcm) (HDF- Scheduled ) 01/16/[address] [address] Erica Cantu DO Hospital Follow-up 01/06/2025 Refill [facility] [address] [place] [phone] Erica Cantu DO from Last 3 Months [...] Description 03/19/2025 2:45 PM EDT Office Visit [facility] [address] [place] [address] Sukhwinder Blankenship, IDALIA [address] [place], [place] [phone] Health Maintenance Due Date Last Done Comments CT Colonography 1980 Colonoscopy 1979 Colorectal Cancer Screening 1979 FIT DNA/Cologuard 1979 FIT 1979 FOBT 1979 Sigmoidoscopy 1980 Family Planning (PISQ) 1994 DTaP/Tdap/Td Vaccines (2 - Td or Tdap) 02/14/2024 02/13/2014, 11/13/2007 COVID-19 Vaccine (5 - season) 2024 03/15/2022, 09/10/2021, 01/01/2021, Additional [...] EDT Narrative 03/01/2025 9:37 AM EDT ? [facility] ?[address] ?[place] [address] ? Ultrasound Report ? Signed ? Patient: Ben Celaya ?MR#: [id number] ? : 1980 ?Acct:[id number] ? Age/Sex: 44 / M ?ADM Date: 02/28/25 ? Loc: HO.US ? Attending Dr: Erica Cantu DO ? Ordering Physician: Erica Cantu DO ?? Date of Service: 02/28/25 ?? Procedure(s): US renal BI ?? Accession Number(s): [id number] ? cc: Erica Cantu DO ? CLINICAL [...] MD in OV> ?03/01/25 0936 ? DD/ 0936 ? TD/TT: 03/01/25 0936 ? Event Marketing Representative: ? Procedure Note Suyapa Merino - 03/01/[address] [address] Ultrasound Report Signed Patient: Ben Celaya#: [id number] : 1980Acct:[id number] Age/Sex: 44 / MADM Date: 02/28/25 Loc: HO.US Attending Dr: Erica Cantu DO Ordering Physician: Erica Cantu DO Date of Service: 02/28/25 Procedure(s): US renal BI Accession Number(s): [id number] cc: Erica Cantu DO CLINICAL HISTORY: f [...] in OV> 03/01/[address] DD/ 5 TD/TT: 03/01/25935 Event Marketing Representative: us Erica Cantu DO IMG US PROCEDURES Final Resu lt * CT RENAL FOR STONES (02/19/2025 4:39 PM EDT) Anatomical Region Laterality Modality Computed Tomogra phy 02/19/2025 4:39 PM EDT Narrative 02/19/2025 4:41 PM EDT ? [facility] ?[address] ?[place] [address] ? CT Scan Report ? Signed ? Patient: Celaya,Ben ?MR#: [id number] ? : 1980 ?Acct:[id number] ? Age/Sex: 44 / M ?ADM Date: 04/08/25 ? Loc: HO.CT ? Attending Dr: Margaret JUAREZ ? Ordering Physician: Margaret Celaya ?? Date of Service: 02/18/25 ?? Procedure(s): CT kidney stone ?? Accession Number(s): [id number] ? cc: Erica Cantu DO; Margaret Celaya ? Report Number: ?? [id number]: Total DLP = ??758.00 mGy-cm ? CLINICAL [...] DD/ 1639 ? TD/TT: 02/19/25 1639 ? Event Marketing Representative: ? Procedure Note Suyapa Merino - 02/19/[address] [address] [address] Scan Report Signed Patient: Ben CelayaMR#: [id number] : 1980Acct:[id number] Age/Sex: 44 / MADM Date: 02/18/25 Loc: HO.CT Attending Dr: Margaret Celaya [facility] Ordering Physician: Margaret Celaya Date of Service: 02/18/25 Procedure(s): CT kidney stone Accession Number(s): [id number] cc: AlondraErica Mratinez DO; Margaret Celaya [facility] Report Number: [id number]: Total DLP = 758.00 mGy-cm CLINICAL HISTORY: [...] 02/19/25 1640 DD/ 1639 TD/TT: 02/19/25 1639 Event Marketing Representative: [facility] External Provider IMG CT PROCEDURES Final Result * (ABNORMAL) Iron And Total Iron Binding Capacity (02/06/2025 9:45 AM EDT) Only the most recent of2 resultswithin the time period is included. Iron 23(L) 45 - 160 mcg/dL [facility] Total Iron Binding Capacity 308 228 - 428 mcg/dL [facility] Percent Iron Saturation 7(L) 15 - 50 % [facility] Unsaturated Iron Binding 285 ug/dL [facility] 02/06/2025 9:45 AM EDT 02/06/2025 11:06 AM EDT Erica Cantu DO LAB BLOOD ORDERABLES Final R esult Performing Organization Address City/[facility]/ZIP Co de Phone Number [facility] [address] [place] [phone] * Potassium (02/06/2025 9:45 AM EDT) [facility] Potassium 4.3 3.3 - 5.1 mmol/L [facility] Blood Venous blood specimen / Unknown 02/06/2025 9:45 AM EDT 02/06/2025 11:06 AM EDT Erica Cantu LAB BLOOD ORDERABLES Final R esult Performing Organization Address [facility] Co de Phone Number [facility] [address] [place] [phone] * (ABNORMAL) Ferritin (02/06/2025 9:45 AM EDT) Only the most recent of2 resultswithin the time period is included. Pathologist [facility] Ferritin 8(L) 20 - 250 ng/mL [facility] 02/06/2025 9:45 AM EDT 02/06/2025 11:06 AM EDT Erica Alondra LAB BLOOD ORDERABLES Final R esult Performing Organization Address [facility] Co de Phone Number [facility] [address] [place] [phone] * (ABNORMAL) Vitamin D, 25-Hydroxy, Total, Immunoassay (01/28/2025 10:44 AM EDT) Vitamin D 25-OH Total 13.2(L) >30 ng/mL [facility] Comment: Health Based Reference Values*< 20 ??ng/mL ??Dczvavqkd09-76 ng/mL ??Insufficient> 30 ??ng/mL ??Sufficient*Mari NERI. N [...] DO LAB BLOOD ORDERABLES Final R esult [facility] [address] [place] [phone] * Albumin, Random Urine W/Creatinine (01/28/2025 10:44 AM EDT) Creatinine, Urine 56.42 mg/dL [facility] Microalbumin Urine <5.0 mg/L [facility] Microalbum Creatinine Ratio Ur TNP <30 ug/mg cr [facility] Comment:Unable to calculate albumin/creatinine ratio due to lowmicroalbumin or creatinine result. Urine (Urine, Random) 01/28/2025 10:44 AM EDT 01/28/2025 11:14 AM EDT Erica Alondra LAB URINE ORDERABLES Final R esult Performing Organization Address City/[facility]/ZIP Co de Phone Number [facility] [address] [place] [phone] * Hepatitis C Antibody with Reflex to HCV, RNA, Quantitative, Real-Time PCR (01/28/2025 10:44 AM EDT) Hepatitis C Antibody Nonreactive Nonreactive [facility] Comment:Antibodies to HCV no t detected; does not exclude early acuteHCV infection. Blood Venous blood specimen / Unknown 01/28/2025 10:44 AM EDT 01/28/2025 11:14 AM EDT [facility] LAB BLOOD ORDERABLES Final R esult Performing Organization Address [facility]/ZIP Co de Phone Number [facility] [address] [place] [phone] * Hepatitis A Antibody, Total (01/28/2025 10:44 AM EDT) Hepatitis A Antibody IgG Nonreactive Nonreactive [facility] Blood Venous blood specimen / Unknown 01/28/2025 10:44 AM EDT 01/28/2025 11:14 AM EDT Erica [facility]Prem[facility] LAB BLOOD ORDERABLES Final R esult Performing Organization Address City/[facility]/ZIP Co de Phone Number [facility] [address] [place] [phone] * Chlamydia/N. Gonorrhoeae RNA, TMA, Urogenitial (01/28/2025 10:44 AM EDT) Pathologist [facility] CT PCR NOT DETECTED Not Detect. [facility] Comment:A not detected test result [...] psychologicalconsequences. NG PCR NOT DETECTED Not Detect. [facility] Comment:A not detected test result [...] AM EDT 01/28/2025 11:14 AM EDT Narrative [facility] - 01/28/2025 2:20 PM EDT Urine us Erica Cantu DO LAB MICROBIOLOGY - GENERAL O RDERABLES Final Result [facility] [address] [place] [phone] * Hepatitis B surface antigen, EIA (01/28/2025 10:44 AM EDT) Hepatitis B Surface Ag Negative Negative [facility] Blood Venous blood specimen / Unknown 01/28/2025 10:44 AM EDT 01/28/2025 11:14 AM EDT Erica Cantu DO LAB BLOOD ORDERABLES Final R esult Performing Organization Address City/[facility]/ZIP Co de Phone Number [facility] [address] [place] [phone] * Hepatitis B Core Antibody, Total (01/28/2025 10:44 AM EDT) Pathologist [facility] Hepatitis B Core Antibody Nonreactive Nonreactive [facility] Blood Venous blood specimen / Unknown 01/28/2025 10:44 AM EDT 01/28/2025 11:14 AM EDT Erica Cantu DO LAB BLOOD ORDERABLES Final R esult Performing Organization Address [facility] Co de Phone Number [facility] [address] [place] [phone] * RPR (Monitor) with Reflex to??Titer (01/28/2025 10:44 AM EDT) Pathologist [facility] RPR (Monitor) w/Refl Titer NON-REACTI VE NON-REACT YSABEL [facility] Comment:THIS TEST WAS PERFOR MED AT:[facility] [place] [phone] STRANGE MD Rapid Plasma Reagin Ab Titer TNP [facility] Blood Venous blood specimen / Unknown 01/28/2025 10:44 AM EDT 01/28/2025 11:14 AM EDT Erica Cantu DO LAB BLOOD ORDERABLES Final R esult Performing Organization Address [facility]/ZIP Co de Phone Number [facility] [address] [place] [phone] * HIV-1/2 Antigen and Antibodies, Fourth Generation, with Reflexes (01/28/2025 10:44 AM EDT) Pathologist [facility] HIV AB/AG Nonreactive Nonreactive [facility] Comment:HIV-1 p24 Ag and/or HIV-1/HIV-2 Ab not detected.A test result that is nonreactive does not exclude thepossibility of exposure to or infection with HIV-1 and/orHIV-2. Nonreactive results in this assay for individualswith prior exposure to HIV-1 and/or HIV-2 may be due toantigen and antibody levels that are below the limit ofdetection of this assay.The [email or web address] HIV Ag/Ab Combo assay result andsupplemental assay results should be interpreted inconjunction with the patient's clinical presentation,history and other laboratory results. If the results areinconsistent with clinical evidence, additional testing issuggested to confirm the result. Blood Venous blood specimen / Unknown 01/28/2025 10:44 AM EDT 01/28/2025 11:14 AM EDT Erica Cantu [facility] LAB BLOOD ORDERABLES Final R esult Performing Organization Address City/[facility]/ZIP Co de Phone Number [facility] [address] [place] [phone] * Hepatitis B Surface Antibody, Qualitative (01/28/2025 10:44 AM EDT) Pathologist [facility] ~Hepatitis B Surface Antibody REACTIVE Nonreactive [facility] Comment:REACTIVE: > 11.99 mI U/mL Blood Venous blood specimen / Unknown 01/28/2025 10:44 AM EDT 01/28/2025 11:14 AM EDT Erica Cantu [facility] LAB BLOOD ORDERABLES Final R esult [facility] [address] [place] [phone] * (ABNORMAL) CBC (01/28/2025 10:44 AM EDT) White Blood Count 7.1 4.8 - 10.8 X10*3/uL [facility] Red Blood Count 4.06(L) 4.60 - 5.80 X10*6/uL [facility] Hemoglobin 10.9(L) 14.0 - 18.0 g/dl [facility] Hematocrit 34.6(L) 42.0 - 52.0 % [facility] Mean Corpuscular Volume 85.2 80.0 - 98.0 fL [facility] Mean Corpuscular Hemoglobin 26.8(L) 27.0 - 33.0 pg [facility] Mean Corpuscular HGB Conc 31.5 31.0 - 36.0 g/dl [facility] Red Cell Distribution Width 13.2 11.0 - 16.0 % [facility] Platelet Count 402(H) 160 - 400 X10*3/uL [facility] Mean Platelet Volume 10.8 9.4 - 12.4 fL [facility] NRBC Pct Auto 0.0 0.0 - 0.2 /100WBC [facility] NRBC Abs Auto 0.000 0.0 - 0.012 X10*3/uL [facility] Blood Venous blood specimen / Unknown 01/28/2025 10:44 AM EDT 01/28/2025 11:14 AM EDT us Erica Cantu DO LAB BLOOD ORDERABLES Final R esult [facility] [address] [place] [phone] * TSH (01/28/2025 10:44 AM EDT) Thyroid Stimulating Hormone 0.75 0.32 - 4.0 uIU/mL [facility] Comment:TSH 3rd Generation ( [facility]) Blood Venous blood specimen / Unknown 01/28/2025 10:44 AM EDT 01/28/2025 11:14 AM EDT Erica Noguerahilariasurjit LAB BLOOD ORDERABLES Final R esult Performing Organization Address City/[facility] Co de Phone Number [facility] [address] [place] [phone] * T4, Free (01/28/2025 10:44 AM EDT) Free T4 (Free Thyroxine) 1.10 0.71 - 1.85 ng/dL [facility] Blood Venous blood specimen / Unknown 01/28/2025 10:44 AM EDT 01/28/2025 11:14 AM EDT Erica Noguerahilariasurjit LAB BLOOD ORDERABLES Final R esult Performing Organization Address [facility] Co de Phone Number [facility] [address] [place] [phone] * Hemoglobin A1c (01/28/2025 10:44 AM EDT) Hemoglobin A1c 5.5 <6.0 % [facility] Comment:Hemoglobin A1C Refer ence Range Adults: 4.8 - 6.0 % Non diabetic: < 6.0 % Goal: < 7.0 %Additional Action Suggested: > 8.0 %Note: Hemoglobin A1c results are invalid for patients with abnormal amounts of HbF. Blood transfusions may impact the HbA1c concentration in the patient sample. Estimated Average Glucose 111 mg/dL [facility] Comment:eAG = Estimated ave rage glucose which is %A1C expressed asaverage glucose, using the formula of the I7O-KvgydsaCdzlvoi Glucose study (ADAG), Diabetes Care, Vol.31,#8,Jun. 2007 Blood Venous blood specimen / Unknown 01/28/2025 10:44 AM EDT 01/28/2025 11:14 AM EDT Erica Cantu DO LAB BLOOD ORDERABLES Final R esult Performing Organization Address City/[facility]/ZIP Co de Phone Number [facility] [address] [place] [phone] * Hepatic Function Panel (01/28/2025 10:44 AM EDT) Bilirubin, Total 0.3 0.0 - 1.0 mg/dL [facility] Bilirubin, Direct 0.1 0.0 - 0.5 mg/dL [facility] Aspartate Amino Transferase 19 5 - 37 U/L [facility] Alanine Aminotransferase <6 0 - 40 U/L [facility] Total Protein 8.0 6.5 - 8.0 g/dL [facility] Albumin Level 4.1 3.5 - 5.0 g/dL [facility] Alkaline Phosphatase 69 39 - 117 U/L [facility] Blood Venous blood specimen / Unknown 01/28/2025 10:44 AM EDT 01/28/2025 11:14 AM EDT us Erica Cantu DO LAB BLOOD ORDERABLES Final R esult Performing Organization Address [facility] Co de Phone Number [facility] [address] [place] [phone] * (ABNORMAL) Lipid Panel, Standard (01/28/2025 10:44 AM EDT) Triglycerides 81 <150 mg/dL [facility] Comment:Desirable Triglyceri de: less than 150 mg/dLBorderline High Triglyceride 150-199 mg/dLHigh Triglyceride: 200-499 mg/dLVery High Triglyceride: greater than or equal to 5OO mg/dL Cholesterol 159 <200 mg/dL [facility] Comment:Desirable Cholestero l: less than 200 mg/dLBorderline High Cholesterol: 200-239 mg/dLHigh Cholesterol: greater than 239 mg/dL LDL Cholesterol Calculated 108(H) <100 mg/dL [facility] Comment:Desirable LDL: less than 100 mg/dLNear Optimal/Above Optimal LDL: 110- 129 mg/dLBorderline High LDL: 130-159 mg/dLHigh LDL: 160-189 mg/dLVery High LDL: greater than or equal to 190 mg/dL HDL Cholesterol 35(L) >40 mg/dL [facility] Comment:Desirable HDL: great er than 40 mg/dL Note: This HDL assay may give artificially low results in patients with liver disease. Blood Venous blood specimen / Unknown 01/28/2025 10:44 AM EDT 01/28/2025 11:14 AM EDT Erica Cantu DO LAB BLOOD ORDERABLES Final R esult Performing Organization Address City/[facility]/ZIP Co de Phone Number [facility] [address] [place] [address] [phone] * (ABNORMAL) Basic Metabolic Panel (01/28/2025 10:44 AM EDT) Sodium 139 135 - 145 mmol/L [facility] Potassium 3.1(L) 3.3 - 5.1 mmol/L [facility] Chloride 106 96 - 108 mmol/L [facility] Carbon Dioxide 25 22 - 29 mmol/L [facility] Anion Gap 11(L) 12 - 20 [facility] Urea Nitrogen (BUN) 15 9 - 16 mg/dL [facility] Creatinine, Serum 0.82 0.5 - 1.4 mg/dL [facility] Estimated Glomerular Filt Rate >60 [facility] Comment:Chronic Kidney Disea se: Estimated GFR < 60 mL/min/1.68n7Pplste Kidney Disease: Estimated GFR < 15 mL/min/1.73m2 Glucose 95 60 - 115 mg/dL [facility] Calcium 9.3 8.4 - 10.2 mg/dL [facility] Blood Venous blood specimen / Unknown 01/28/2025 10:44 AM EDT 01/28/2025 11:14 AM EDT Erica Cantu DO LAB BLOOD ORDERABLES Final R esult [facility] [address] [place] [phone] * XR Knee 4+ Views Right (01/28/2025 10:05 AM EDT) Anatomical Region Laterality Modality Lower Extremities, Knee Right Radiogra phic Imaging 01/28/2025 10:0 5 AM EDT Narrative 01/28/2025 11:19 AM EDT ?[facility] ?[address] ?[place] [address] ?XRay Report ? Signed ? Patient: Ben Celaya ?MR#: [id number] ? : 1980 ?Acct:[id number] ? Age/Sex: 44 / M ?ADM Date: 01/28/25 ? Loc: HO.HHCX ? Attending Dr: Erica Cantu DO ? Ordering Physician: Erica Cantu DO ?? Date of Service: 01/28/25 ?? Procedure(s): XR knee RT 4V ?? Accession Number(s): [id number] ? cc: Erica Cantu DO ? EXAMINATION: [...] DD/ 1005 ? TD/TT: 01/28/25 1034 ? Event Marketing Representative: ? Procedure Note Donotabimbolater, Image - 01/28/2025 [facility] [address] [place] [address] XRay Report Signed Patient: Ben CelayaMR#: [id number] : 1980Acct:[id number] Age/Sex: 44 / MADM Date: 01/28/25 Loc: HO.HHCX Attending Dr: Erica Cantu DO Ordering Physician: Erica Cantu DO Date of Service: 01/28/25 Procedure(s): XR knee RT 4V Accession Number(s): [id number] cc: Erica Cantu DO EXAMINATION: XR KNEE [...] 01/28/25 1116 DD/ 1005 TD/TT: 01/28/25 1034 Event Marketing Representative: Erica Cantu DO IMG XR PROCEDURES Final Resu lt * XR Knee 4+ Views Left (01/28/2025 10:05 AM EDT) Anatomical Region Laterality Modality Lower Extremities, Knee Left Radiogra phic Imaging 01/28/2025 10:0 5 AM EDT Narrative 01/28/2025 11:18 AM EDT ?[facility] ?[address] ?[place] [address] ?XRay Report ? Signed ? Patient: Ben Celaya ?MR#: [id number] ? : 1980 ?Acct:[id number] ? Age/Sex: 44 / M ?ADM Date: 01/28/25 ? Loc: HO.HHCX ? Attending Dr: Erica Cantu DO ? Ordering Physician: Erica Cantu DO ?? Date of Service: 01/28/25 ?? Procedure(s): XR knee LT 4V ?? Accession Number(s): [id number] ? cc: Erica Cantu DO ? EXAMINATION: [...] DD/ 1005 ? TD/TT: 01/28/25 1034 ? Event Marketing Representative: ? Procedure Note Angelique, Image - 01/28/2025 [facility] [place] [address] [place] [address] XRay Report Signed Patient: Ben CelayaMR#: [id number] : 1980Acct:[id number] Age/Sex: 44 / MADM Date: 01/28/25 Loc: HO.HHCX Attending Dr: Erica Cantu DO Ordering Physician: Erica Cantu DO Date of Service: 01/28/25 Procedure(s): XR knee LT 4V Accession Number(s): [id number] cc: Erica Cantu DO EXAMINATION: XR KNEE [...] 01/28/25 1115 DD/ 1005 TD/TT: 01/28/25 1034 Event Marketing Representative: Erica Cantu DO IMG XR PROCEDURES Final Resu lt from Last 3 Months Insurance [place] [id number] [facility] C3 [place] [employer] C/O MEDATA Care Teams Meter Tester Primary Relationship Specialty Start Date End Date Erica Cantu DO [address] [place] [address] PCP - General Family Medicine 05/30/14
--- OUTSIDE RECORDS SUMMARY | 2025-03-13 16:30 | XMS_ITS | Encounter Summary ---
Author Organization [employer] Address [address] [facility] 7t [place] [address] Care Team Providers Care Gis Software Developer Name Role Phone Erica Cantu DO Primary Care Provider + [phone] Reason for Visit * Reason Comments Med Refill Encounter Details Date Type Department Care Team (Late st Contact Info) Description 02/20/2025 Refill [facility] [address] [place] [address] Erica Cantu DO [address] [place] [address] Social History Tobacco Use Types Packs/Day Years [...] Description 03/19/2025 2:45 PM EDT Office Visit [facility] [address] [place] [address] [phone] Sukhwinder Blankenship CNP [address] [place] [address] documented as of this encounter Goals Goal Patient Goal Type Associated Problems Recent Progress Patient-Stated? Author To stay clean. 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, JAYA documented as of this encounter Visit Diagnoses Not on filedocumented in this encounter Additional Health Concerns Assessment Noted Time PHQ-9 Depression Total Score: 0 01/29/20 25 9:24 AM EDT documented as of this encounter Care Teams Gis Software Developer Relationship Specialty Start Date End Date Erica Cantu DO [address] [place] [phone] PCP - General Family Medicine 05/30/14 documented as of this encounter
--- OUTSIDE RECORDS SUMMARY | 2025-03-13 16:30 | XMS_ITS | Encounter Summary ---
Author Organization [employer] Address 75 [facility] 7 [place] [address] Care Team Providers Care Charrer Name Role Phone Erica Cantu DO Primary Care Provider [phone] Encounter Details Date Type Department Care Team (Late st Contact Info) Description 06/20/2023 Orders Only [facility] [address] [place] [phone] Charito Bell MD [address] [place] [address] Social History Tobacco Use Types Packs/Day Years [...] Description 03/19/2025 2:45 PM EDT Office Visit [facility] [address] [place] [phone] Sukhwinder Blankenship CNP [address] [place] [address] documented as of this encounter Visit Diagnoses Not on filedocumented in this encounter Care Teams Charrer Relationship Specialty Start Date End Date Erica Cantu DO [address] [place] [id number] PCP - General Family Medicine 05/30/14 documented as of this encounter
--- OUTSIDE RECORDS SUMMARY | 2025-03-13 16:30 | XMS_ITS | Encounter Summary ---
Author Organization [employer] Address 75 [facility] 7t [place] [address] Care Team Providers Care Railroad Firer Name Role Phone Erica Cantu DO Primary Care Provider + [phone] Reason for Visit * Reason Onset Date Comments Pre-op Visit 03/13/2025 Encounter Details Date Type Department Care Team ([facility] st Contact Info) Description 03/13/2025 Telephone [facility] [address] [place] [address] Erica Cantu DO [address] [place] [address] Pre-op Visit Social History Tobacco Use Types Packs/Day Years [...] encounter Miscellaneous Notes * Telephone Encounter - Tom Price - 03/13/2025 12:14 PM EDT Agreed to pre-op on 03/19 with GEORGES santiago Date of Surgery: 04/08/25 Surgical procedure being done: Urethoscopy Type of anesthesia: general anesthesia Lab needed: No EKG: Yes Elicrys to be placed on hold . Surgeon's name: Arpan ibrahim Facility name: [facility] Surgeon's office number: [phone] Surgeon's office fax number: [phone] Contact name (person you spoke with): Zeenat Last office note from surgeon requested: Yes Send Message to Ligia Abernathy and Tom Price documented in this encounter Plan of Treatment Upcoming Encounters Date Type Department Care Team (Late st Contact Info) Description 03/19/2025 2:45 PM EDT Office Visit [facility] [address] [place], [place] [phone] Sukhwinder Santiago CNP [address] [place] [address] documented as of this encounter Goals Goal Patient Goal Type Associated Problems Recent Progress Patient-Stated? Author To stay clean. 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 RN documented as of this encounter Visit Diagnoses Not on filedocumented in this encounter Additional Health Concerns Assessment Noted Time PHQ-9 Depression Total Score: 0 01/29/20 25 9:24 AM EDT documented as of this encounter Care Teams Railroad Firer Relationship Specialty Start Date End Date Erica Cantu DO [address] [place] [address] PCP - General Family Medicine 05/30/14 documented as of this encounter
--- OUTSIDE RECORDS SUMMARY | 2025-03-13 16:30 | XMS_ITS | Encounter Summary ---
Author Organization [employer] Address 75 [facility] 7t [place] [address] Care Team Providers Care Shop Router Name Role Phone Erica Cantu DO Primary Care Provider [phone] Encounter Details Date Type Department Care Team (Late st Contact Info) Description 05/22/2023 Orders Only [facility] [address] [place] [phone] Paula Woo RN Social History Tobacco Use [...] Description 03/19/2025 2:45 PM EDT Office Visit [facility] [address] [place] [address] Sukhwinder Blankenship CNP [address] [place] [address] documented as of this encounter Visit Diagnoses Not on filedocumented in this encounter Care Teams Shop Router Relationship Specialty Start Date End Date Erica Cantu DO [address] [place] [address] PCP - General Family Medicine 05/30/14 documented as of this encounter
[2025-04-03 13:47] VITALS: BMI 40.0
--- NOTE | ~2025-04-08 | FL_ITS ---
EXAMINATION: FL GUIDANCE ONLY HISTORY: CYSTOSCOPY, URETEROSCOPY, RETRO, LASER WITH STENT COMPARISON: Correlation is made with an unenhanced CT of the abdomen and pelvis dated 03/02/2025. TECHNIQUE: Fluoroscopy time: 22.1 seconds. Cumulative Dose: 11.64 mGy. Images: 4. FINDINGS: The initial image demonstrates contrast within the distal left ureter which is normal in caliber. No filling defects are identified. The final films demonstrate a wire in the ureter and renal collecting system. FL/FL guidance in OR IMPRESSION: Fluoroscopy during procedure. Please see procedure report for additional information. Electronically signed by: Fernando Shelton MD 04/08/2025 01:07 PM EDT
[2025-04-08 10:26] VITALS: BMI 38.2
[2025-04-08 10:36] VITALS: BP 124/79; PULSE 62; RESP 16; TEMP 36.7; O2SAT 97
[2025-04-08] MEDS: Lactated Ringers 1,000 ML 50 ML IVCONT (10:46)
--- NOTE | 2025-04-08 11:41 | P.OP_ITS ---
Operative Note Operative Note Date of Service: 04/08/25 Narrative: PreOperative Diagnosis:?? Left ureteral stone Post Operative Diagnosis:?? Left ureteral stone passed Procedure: - Cystoscopy, left retrograde, left ureteroscopy Surgeon:?Dr Anel Parker Anesthesia:? General Procedure: After informed consent was verified the patient was brought to the operating placed on the OR table in supine position.? General Anesthesia was administered per protocol.? The patient was placed in lithotomy position, prepped and draped in the usual sterile fashion.? Safety pause time-out and side of surgery confirmed.? Antibiotics confirmed. 2% lidocaine jelly 10 mL was passed transurethrally. A 22 Ecuadorean cystoscope was inserted transurethrally, [] the bulbous urethra was within normal limits. The prostatic urethra was nonobstructive. The bladder was visualized.? Both ureteric orifices were in normal position. There was good efflux of urine from both ureteral orifices. An open-ended ureteral catheter was passed into the left ureteral orifice and a retrograde examination was performed. There was distal narrowing with proximal dilatation of the left ureter. 2 guidewires were passed through the ureteral catheter into the kidney. The cystoscope was removed, leaving both guidewires in place. One guidewire was used as the safety and was attached to the draping. The semi rigid ureteroscope was passed over one of the guidewires to the proximal ureter. A stone was not visualized in the ureter. The ureteroscope was removed. The cystoscope was replaced transurethrally into the bladder, there were no calculi in the bladder. The bladder was emptied.? The rigid cystoscope was removed. ? The patient tolerated the procedure well and was brought to the recovery room in stable condition. Complications: None Drains: none
--- NOTE | 2025-04-08 11:41 | MHC.SHP ---
Pre-Procedural Eval Section A - 24 Hr Update-Section A only Date of Service: 04/08/25 The patient is an INPATIENT: No The patient has been examined within 24 hours of the surgical procedure. The History & Physical has been completed within 30 days and I have reviewed it.: Yes Section B - Complete if H&P > 30 days Chief Complaint: Calculus of kidney Allergies: Allergies Allergy/AdvReac Type Severity Reaction Status Date / Time No Known Allergies Allergy Verified 03/18/25 11:06 [No Known Allergies*] Plan Diagnosis/Plan: Unchanged I have reviewed the history and physical and performed a pertinent physical examination on my patient. No changes have occurred unless specified. Left Ureteral stone. Plan for Cystoscopy, Left ureteroscopy, possible laser lithotripsy, possible ureteral stent. Risks discussed included but not limited to, possible need to repeat procedure if stone is not completely fragmented, Irritative voiding symptoms, bladder spasms, urgency, blood in urine. Time Spent With Patient Time: Total time managing care of this patient today ____ minutes.
--- NOTE | 2025-04-08 12:26 | P.CONAN_ITS ---
[facility] Active Problems Active Problems: All Active Problems Pulmonary emboli (Acute) Erectile dysfunction (Acute) Hydronephrosis (Acute) Nephrolithiasis (Acute) Umbilical hernia (Acute) Fungal skin infection (Acute) Abscess, umbilical (Acute) PAF (paroxysmal atrial fibrillation) (Acute) History of substance abuse (Acute) History of laparoscopic adjustable gastric banding (Acute) Hypertension (Acute) Obesity (Acute) Past Medical History Medical History PAF (paroxysmal atrial fibrillation) Pulmonary embolism Sleep apnea Chronic pain syndrome Femur fracture, right History of substance abuse Obesity Hypertension Functional capacity: independent ambulation Family History Family History Father Lung cancer Mother Breast cancer Family history of problems with anesthesia: No Surgical History Surgical History H/O spinal fusion Hx of umbilical hernia repair (12/20/23) History of laparoscopic adjustable gastric banding Hx of laparoscopic gastric banding History of Problems with Anesthesia: No Social History Social History Household Members: Spouse and Children Housing: House Are you a primary rn primary care to a significant other at home: No Do you presently have visiting nurse or other home services: No Patient Tobacco Use Status: Never used Tobacco Use of substances other than those prescribed or required for medical reasons: No Advance Directives: No Advance Directives Information Provided: Yes Poor oral hygiene: No service: No Current occupational status: unemployed Meds Allergies Allergy/AdvReac Type Severity Reaction Status Date / Time No Known Allergies Allergy Verified 03/18/25 11:06 [No Known Allergies*] Active Medications: Current Medications Lactated Ringer's (Lr) 1,000 mls @ 50 mls/hr IVCONT .Q20H YUE Last Admin: 04/08/25 10:46 Dose: 50 mls/hr Home Medications ?Medication ?Instructions ?Recorded ?Confirmed ?Last Taken ?Type diltiazem HCl 120 mg capsule,24 120 mg PO QAM 12/20/23 04/03/25 04/08/25 History hr,extended release apixaban 5 mg tablet (Eliquis) 5 mg PO BID 0504/08/25 04/05/25 History baclofen 10 mg tablet 10 mg PO TID PRN muscle spasm 03/18/25 04/03/25 Unknown History diclofenac sodium 1 % topical gel 2 g topical QID PRN pain 03/18/25 04/03/25 Unknown History ergocalciferol (vitamin D2) 1,250 1,250 mcg PO QWEEK 03/18/25 04/03/25 Unknown History mcg (50,000 unit) capsule ferrous gluconate 324 mg (38 mg 324 mg PO QAM 03/18/25 04/03/25 Unknown History iron) tablet Exam Height,Weight and Vital Signs: Height 5 ft 8 in Weight 113.9 kg Last Vital Signs Temp 98.0 F 04/08/25 10:36 Pulse 62 04/08/25 10:36 Resp 16 04/08/25 10:36 BP 124/79 04/08/25 10:36 Pulse Ox 97 04/08/25 10:36 O2 Del Method Room Air 04/08/25 10:36 Airway Mallampati Class: II TM Dist: >3cm Neck ROM: Full Heart: RRR Lungs: CTA Assessment and Plan Assessment Anesthesia Assessment: Anesthesia Plan Discussed Final Anesthetic Review Family History of Problems with Anesthesia: No History of Problems with Anesthesia: No NPO: Yes ASA Class: III Final Preanesthetic Review: Meds/Allgs Chart Reviewed, Consent Obtained/Reviewed and Anes Risks/Benef Reviewed Patient Risk: Intermediate Procedure Risk: Low Anesthetic Plan Anesthetic Plan: GA Disposition: Standard PACU
[2025-04-08 12:40] VITALS: BP 133/77; PULSE 76; RESP 18; TEMP 36.7; O2SAT 98
[2025-04-08 12:45] VITALS: BP 136/87; PULSE 63; RESP 17; O2SAT 98
[2025-04-08 12:50] VITALS: BP 137/88; PULSE 63; RESP 17; O2SAT 99
[2025-04-08 12:55] VITALS: BP 136/88; PULSE 61; RESP 17; O2SAT 98
[2025-04-08 13:10] VITALS: BP 144/94; PULSE 59; RESP 18; TEMP 36.7; O2SAT 99
== END 2025-04-08 13:24 | disposition home or self-care (01) ==
PROVIDERS: PCP Family Medicine; Visit Provider Urology
PROC: (CPT 52351; principal; 2025-04-08 11:40)
DX: N20.1 Calculus of ureter (principal); N52.9 Male erectile dysfunction, unspecified; Z86.711 Personal history of pulmonary embolism; I10 Essential (primary) hypertension; E66.9 Obesity, unspecified; I48.0 Paroxysmal atrial fibrillation; G47.30 Sleep apnea, unspecified; Z79.01 Long term (current) use of anticoagulants; Z79.899 Other long term (current) drug therapy; F19.11 Other psychoactive substance abuse, in remission; Z98.84 Bariatric surgery status; Z98.890 Other specified postprocedural states; Z56.0 Unemployment, unspecified
CPT/HCPCS: 52351; C1758; C1769; J0690; J2003; J2704; J3010; Q9967

== ENCOUNTER → 2025-04-08 09:46 | Outpatient (BNV) | payer MEDICAID, SELFPAY | PROVIDERS: PCP Family Medicine; Visit Provider Urology | DX: N20.1 Calculus of ureter (principal) | CPT/HCPCS: 52000; 74420 ==

== ENCOUNTER 2025-04-10 11:06 | Outpatient (AMB) | payer MEDICAID, SELFPAY ==
--- NOTE | 2025-04-10 11:09 | MHC.OFFVIS ---
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 Required: No Accompanied by: Self / Same As Patient Allergies No Known Allergies [No Known Allergies*] Allergy (Verified 03/18/25 11:06) Medication List - Last Reconciled 04/10/25 by Andrez Walters MD apixaban (Eliquis) 5 mg PO BID baclofen 10 mg PO TID PRN diclofenac sodium 1% 2 grams topical QID PRN diltiazem HCl ER 120 mg PO QAM ergocalciferol (vitamin D2) 1,250 mcg PO QWEEK ferrous gluconate 324 mg PO QAM losartan-hydrochlorothiazide 50-12.5 mg 2 tabs PO DAILY nystatin-triamcinolone 100,000-0.1 unit/gram-% 1 appl topical BID HPI Comments Details: Ben is here for consultation regarding atrial fibrillation. Apparently, in December of 2024, he was incarcerated and at that time, had a syncopal episode. He was taken to [facility] ER where he was thought to be hypotensive. He was also hypokalemic with elevated creatinine. Elevated D-dimers. He had chest CTA and that showed multiple pulmonary embolisms with mild right heart strain. In that context, he had evidence of atrial fibrillation and then given diltiazem. Subsequently discharged home. He states that he did feel some palpitations around the time of atrial fibrillation but none since. No other cardiac issues. No known coronary disease or cardiomyopathy or in fact anything else of cardiac nature. [facility] Medical History PAF (paroxysmal atrial fibrillation) Pulmonary embolism Sleep apnea Chronic pain syndrome Femur fracture, right History of substance abuse Obesity Hypertension Surgical History H/O spinal fusion Hx of umbilical hernia repair (12/20/23) History of laparoscopic adjustable gastric banding Hx of laparoscopic gastric banding Family History Father Lung cancer Mother Breast cancer Social History Household Members: Spouse and Children Housing: House Are you a primary patient care specialist to a significant other at home: No Do you presently have visiting nurse or other home services: No Patient Tobacco Use Status: Never used Tobacco service: No Current occupational status: unemployed Review of Systems Const Denies chills, Denies fatigue, Denies fever(s), Denies frequent falls, Denies weakness, Denies weight gain and Denies weight loss ENT Denies dizziness Card Denies chest pain, Denies leg edema, Denies lightheadedness, Denies palpitations, Denies dyspnea, Denies dyspnea on exertion and Denies orthopnea Resp Denies cough, Denies dyspnea and Denies dyspnea on exertion GI Denies bloating and Denies change in bowel habits Musc Denies muscle weakness, Denies numbness and Denies tingling Neuro Denies dizziness, Denies frequent falls, Denies numbness, Denies tingling and Denies weakness Endo Denies fatigue and Denies palpitations Physical Exam Vital Signs: Last Vital Signs Pulse 62 04/10/25 11:12 BP 130/62 04/10/25 11:12 BMI result Body Mass Index 38.3 Const General: comfortable and no acute distress Orientation/consciousness: patient oriented x3 HEENT Other: Unremarkable Head: Yes normal to inspection Neck Neck: Yes normal visual inspection Chest Chest palpation & inspection: normal inspection of the chest Resp Auscultation: clear to auscultation bilaterally Cardio Palpation: normal PMI Heart sounds: S1 normal heart sound present, S2 normal heart sound present, no gallops, no murmurs and no rubs GI Palpation (GI): Soft to palpation Back/Spine/Pelvis Other: unremarkable Skin General skin exam: no rashes or lesions noted Neuro General: patient oriented x3 Extrem General: Yes normal to inspection Psych Mental Status: mental status grossly normal Assessment & Plan Assessment & Plan (1) PAF (paroxysmal atrial fibrillation): Comment: taking eliquis Code(s): I48.0 - Paroxysmal atrial fibrillation Category: Medical (2) Pulmonary emboli: Code(s): I26.99 - Other pulmonary embolism without acute cor pulmonale Category: Medical Plan In the recent echocardiogram, LVEF is 60-65%. Mildly increased right ventricular size with normal function. Mild biatrial enlargement. No significant valvular findings. It appears that the atrial fibrillation happened in the setting of acute pulmonary embolism, acute kidney injury and other acute medical issues. We will check a Holter monitor for any recurrence. Hopefully, he may not need anticoagulation long-term from the atrial fibrillation standpoint. With regard to the indication from pulmonary embolism, per primary care team. Follow up after the Holter. Orders: Orders ECG 14 day holter monitor Today I48.0 - Paroxysmal atrial fibrillation Coding Level of Care Code New Pt Level 4 (51451) Diagnoses PAF (paroxysmal atrial fibrillation) I48.0 Pulmonary emboli I26.99
[2025-04-10 11:12] VITALS: BP 130/62; PULSE 62; BMI 38.3
--- OUTSIDE RECORDS SUMMARY | 2025-04-10 11:34 | XMS_ITS | Encounter Summary ---
Author Organization [email or web address] Address 75 [facility] [address] [place] [address] Care Team Providers Care Heating Equipment Repairer Name Role Phone Erica Cantu DO Primary Care Provider [phone] Encounter Details Date Type Department Care Team ([facility] st Contact Info) Description 05/22/2023 Orders Only [facility] MEDICINE [address] [place] [address] Paula Woo RN Social History Tobacco Use [...] on filedocumented in this encounter Care Teams Heating Equipment Repairer Relationship Specialty Start Date End Date Erica Cantu DO [address] [place] [address] PCP - General Family Medicine 05/30/14 documented as of this encounter
== END 2025-04-10 11:32 | disposition home or self-care (01) ==
LOC: HO.HCS 11:07
PROVIDERS: PCP Family Medicine; Visit Provider Internal Medicine
DX: I48.0 Paroxysmal atrial fibrillation (principal); I26.99 Other pulmonary embolism without acute cor pulmonale
CPT/HCPCS: 93010; 99204

== ENCOUNTER → 2025-04-10 11:06 | Outpatient (BNVA) | payer MEDICAID, SELFPAY | PROVIDERS: PCP Family Medicine; Visit Provider Internal Medicine | DX: I48.0 Paroxysmal atrial fibrillation (principal); I26.99 Other pulmonary embolism without acute cor pulmonale; R94.31 Abnormal electrocardiogram [ECG] [EKG] | CPT/HCPCS: 93005; 99202 ==

== ENCOUNTER 2025-04-16 10:02 | Outpatient (AMB) | payer MEDICAID, SELFPAY ==
--- NOTE | 2025-04-16 10:03 | MHC.OFFVIS ---
Intake Visit Reasons: Stones Post-op/Labs(set) follow up Intake Note: Pt presents to the office today for a post op stones/lab/ follow up Urology meds:None Blood thinners:Eliquis Allergies No Known Allergies [No Known Allergies*] Allergy (Verified 04/16/25 10:29) Medication List - Last Reconciled 04/16/25 by OCTAVIO Hurt- apixaban (Eliquis) 5 mg PO BID baclofen 10 mg PO TID PRN diclofenac sodium 1% 2 grams topical QID PRN diltiazem HCl ER 120 mg PO QAM ergocalciferol (vitamin D2) 1,250 mcg PO QWEEK ferrous gluconate 324 mg PO QAM losartan-hydrochlorothiazide 50-12.5 mg 2 tabs PO DAILY nystatin-triamcinolone 100,000-0.1 unit/gram-% 1 appl topical BID HPI Comments Details: Anna is a very pleasant 44-year-old male patient of Dr. Cantu. He has a past medical history of substance abuse, pulmonary emboli, obesity, and hypertension. He presents to the office today for a follow-up of his nephrolithiasis and erectile dysfunction. Of note, patient was to undergo ureteroscopy with Dr. Gorge Guzman 04/08/2025 however upon procedure it appears patient had passed his stone. In discussion with the patient today he reports to be doing and feeling well. He currently denies any bothersome urinary issues. He continues to experience issues with obtaining and maintaining his erections. Recent labs were reviewed with the patient. Testosterone: 04/06 271 Free testosterone: 04/06 48.1 We did discussed borderline hypogonadism as well as further treatment options and risks and benefits of these treatment options. Previous workup for nephrolithiasis included CT 03/07 nonobstructing 6 mm right renal calculus. No right-sided hydronephrosis. Multiple nonobstructing left renal calculi measuring up to 1.2 cm no left-sided hydronephrosis however there is a distal left ureter there is a 5 mm ureteral calculus. We discussed repeat imaging. He otherwise denies any bothersome urinary issues. He denies urinary urgency, urinary frequency, incontinence, nocturia, hematuria, dysuria, foul smelling urine, changes to urinary stream, flank pain, fever, and or chills. He discusses his main concern is his ongoing issues with his erections. We discussed the importance of lifestyle modifications to assist with ED as well as overall health and well-being. In office urinalysis results reviewed with the patient today. He otherwise offers no other issues or concerns at this time. FORMERLY [facility], [facility] Medical History PAF (paroxysmal atrial fibrillation) Pulmonary embolism Sleep apnea Chronic pain syndrome Femur fracture, right History of substance abuse Obesity Hypertension Surgical History H/O spinal fusion Hx of umbilical hernia repair (12/20/23) History of laparoscopic adjustable gastric banding Hx of laparoscopic gastric banding Family History Father Lung cancer Mother Breast cancer Social History Household Members: Spouse and Children Housing: House Are you a primary career law clerk to a significant other at home: No Do you presently have visiting nurse or other home services: No Patient Tobacco Use Status: Never used Tobacco service: No Current occupational status: unemployed Review of Systems Const All systems reviewed & are unremarkable except as noted in HPI and below Physical Exam Const General: cooperative, healthy appearing, comfortable, no acute distress, well developed, alert and awake Nutritional Appearance: obese Orientation/consciousness: patient oriented x3 Limitations: no limitations HEENT Head: Yes normal to inspection, Yes normocephalic and Yes atraumatic Ears: hearing grossly normal bilaterally Eyes General: appearance normal, both eyes and all related structures Neck Neck: Yes normal visual inspection and Yes trachea midline Chest Chest palpation & inspection: normal inspection of the chest Resp Effort & Inspection: normal respiratory effort and able to speak in complete sentences Cardio Rate: regular rate GI Inspection: Yes normal to inspection General: Yes no CVA tenderness Back/Spine/Pelvis Back: no CVA tenderness Skin General skin exam: no rashes or lesions noted Neuro General: patient oriented x3 Extrem General: Yes normal to inspection Psych Appearance: grossly normal and well kempt Mental Status: mental status grossly normal Speech and movement: Normal speech and movement present and Clear speech present Affect: normal affect Attitude: cooperative Thought process: Normal thought process present Thought content: Normal thought content present Insight: Fair insight present (Psych) Judgement: Fair judgement present (Psych) Results AMB Urinalysis, Automated UA Leukoctes 0 Eulogio/uL Last Edit by Chacha Mejia CMA on 04/16/25 10:12 UA Nitrite Negative Last Edit by Chacha Mejia, BAL on 04/16/25 10:12 UA Urobilinogen 3.5 mg/dL Last Edit by Chacha Mejia, BAL on 04/16/25 10:12 UA Protein 15 mg/dL Last Edit by Chacha Mejia, BAL on 04/16/25 10:12 UA pH 6.0 Last Edit by Chacha Mejia, BAL on 04/16/25 10:12 UA Blood 80 Josiah/uL Last Edit by Chacha Mejia, BAL on 04/16/25 10:12 UA Specific [place] 1.020 Last Edit by Chacha Mejia, BAL on 04/16/25 10:12 UA Ketone Negative Last Edit by Chacha Mejia, BAL on 04/16/25 10:12 UA Bilirubin 0 mg/dL Last Edit by Chacha Mejia, BAL on 04/16/25 10:12 UA Glucose 0 mg/dL Last Edit by Chacha Mejia CMA on 04/16/25 10:12 Results Reviewed Results Reviewed: Laboratory Last Values Urine pH (Auto) 6.0 04/16/25 10:11 Specific [place] (Auto) 1.020 04/16/25 10:11 Urine Protein (Auto) 15 mg/dL 04/16/25 10:11 Glucose (UA)(Auto) 0 mg/dL 04/16/25 10:11 Urine Ketones (Auto) Negative 04/16/25 10:11 Urine Blood (Auto) 80 Josiah/uL 04/16/25 10:11 Urine Nitrite (Auto) Negative 04/16/25 10:11 Urine Bilirubin (Auto) 0 mg/dL 04/16/25 10:11 Urine Urobilinogen (Auto) 3.5 mg/dL 04/16/25 10:11 Leukocyte Esterase (Auto) 0 Eulogio/uL 04/16/25 10:11 Assessment & Plan Assessment & Plan (1) Microscopic hematuria: Code(s): R31.29 - Other microscopic hematuria Category: Medical (2) Erectile dysfunction: Code(s): N52.9 - Male erectile dysfunction, unspecified Category: Medical Plan In office urinalysis results reviewed with the patient today; as noted above; will send for urine cytology. Recent labs were reviewed with the patient today; as noted above. We discussed potential causes of borderline hypogonadism as well as further treatment options and risks and benefits of these treatment options. Start Cialis 5 mg daily as discussed and prescribed. Will reassess testosterone, free testosterone, PSA, LH, prolactin, FSH, estradiol, and SHBG. We discussed the importance of lifestyle modifications to assist with borderline hypogonadism as well as nephrolithiasis. All questions were answered. Will obtain renal ultrasound He otherwise denies any bothersome urinary issues or concerns. He reports be happy with current voiding parameters. Follow-up in 3 months with labs and imaging to be completed prior; or sooner with any issues, concerns, and or questions. Orders: Orders AMB Urinalysis Automated Today N20.0 - Calculus of kidney Urine Cytology Today R31.29 - Other microscopic hematuria Lutenizing Hormone 3 Months N52.9 - Male erectile dysfunction, unspecified Prolactin 3 Months N52.9 - Male erectile dysfunction, unspecified Follicle Stimulating Hormone 3 Months N52.9 - Male erectile dysfunction, unspecified Estradiol Ultra Sensitive 3 Months E29.1 - Testicular hypofunction, N52.9 - Male erectile dysfunction, unspecified Prostate Specific Antigen 3 Months N52.9 - Male erectile dysfunction, unspecified AMB Post Void Residual by ultrasound Today N20.0 - Calculus of kidney US renal BI 3 Months N20.0 - Calculus of kidney Testosterone, Free/Total 3 Months N52.9 - Male erectile dysfunction, unspecified Sex Hormone Binding Globulin 3 Months N52.9 - Male erectile dysfunction, unspecified Medications: New tadalafil (Cialis) [id number] [facility] [id number] Member [id number] 5 mg PO DAILY 90 days 90 tabs 1RF Patient Instructions: The patient had an opportunity to ask questions regarding the treatment plan. All questions were answered. Physical exam, labs, and imaging were discussed and reviewed in detail. As well as risks, benefits, and discussion of treatment choices. No major barriers to understanding were identified. The patient expressed understanding and agreement with the above treatment plan. The patient was made aware they should contact our office by phone for worsening of their current condition, the appearance of new symptoms, or with any questions or concerns. Compliance is encouraged with any medications and follow up testing that is ordered. It is a privilege to be allowed the opportunity to participate in? your urological care.? Again, if you have any questions or concerns If you have any questions or concerns please do not hesitate to contact me. The office is [phone]. This note is constructed using voice recognition software. While every effort has been made to ensure accuracy pharmacy technology instructor errors may have been included. Yours sincerely, LARRY Hurt Coding Level of Care Code Est Pt Level 4 (15555) Diagnoses Microscopic hematuria R31.29 Erectile dysfunction N52.9
--- OUTSIDE RECORDS SUMMARY | 2025-04-16 10:37 | XMS_ITS | Encounter Summary ---
Author Organization [employer] Address [address] [place] [address] Care Team Providers Care Coffee Sommelier Name Role Phone Erica Cantu DO Primary Care Provider Encounter Details Date Type Department Care Team ([facility] st Contact Info) Description 05/22/2023 Orders Only [facility] [address] [place] [address] Paula Woo RN Social History Tobacco Use [...] on filedocumented in this encounter Care Teams Coffee Sommelier Relationship Specialty Start Date End Date Erica Cantu DO [address] [place] [address] PCP - General Family Medicine 05/30/14 documented as of this encounter
== END 2025-04-16 10:54 | disposition home or self-care (01) ==
LOC: HO.HUSH 10:02
PROVIDERS: PCP Family Medicine; Visit Provider Nurse Practitioner Family
DX: R31.29 Other microscopic hematuria (principal); N52.9 Male erectile dysfunction, unspecified; N20.0 Calculus of kidney
CPT/HCPCS: 99214

== ENCOUNTER 2025-04-16 10:02 | Outpatient (REF) | payer MEDICAID, SELFPAY ==
[2025-04-16 16:47] LABS: Urine Cytology See Pathology rpt
== END 2025-04-16 10:03 | disposition home or self-care (01) ==
LOC: HO.LAB 10:02
PROVIDERS: PCP Family Medicine; Visit Provider Nurse Practitioner Family
DX: R31.29 Other microscopic hematuria (principal); N52.9 Male erectile dysfunction, unspecified
CPT/HCPCS: 81003; 88112; 99212

== ENCOUNTER 2025-08-14 10:47 | Emergency (ER) | payer MEDICAID, SELFPAY ==
[2025-08-14] VITALS (11 sets, daily range): BP systolic 131–207; BP diastolic 77–115; PULSE 65–82; RESP 6–18; TEMP 36.8–37; O2SAT 96–100; BMI 33.4
--- NOTE | 2025-08-14 11:52 | ED_ITS ---
HPI - General Adult General Chief complaint: ETOH/Substance Use Stated complaint: BOUGHT/TOOK UNK PILL OFF STREETS PER EMS Time Seen by Provider: 08/14/25 11:23 History of Present Illness ED Provider: Cam Orozco MD HPI narrative: 45-year-old male apparently took pill off the street and that he thought was oxycodone. Patient noncontributory to history on arrival due to likely intoxication. No external signs of trauma. No naloxone given Related Data Home Medications ?Medication ?Instructions ?Recorded ?Confirmed diltiazem HCl 120 mg capsule,24 120 mg PO QAM 12/20/23 04/10/25 hr,extended release apixaban 5 mg tablet (Eliquis) 5 mg PO BID 03/18/25 baclofen 10 mg tablet 10 mg PO TID PRN muscle spas m 03/18/25 04/10/25 diclofenac sodium 1 % topical gel 2 g topical QID PRN pain 03/18/25 04/10/25 ergocalciferol (vitamin D2) 1,250 1,250 mcg PO QWEEK 0 03/18/25 04/10/25 mcg (50,000 unit) capsule ferrous gluconate 324 mg (38 mg 324 mg PO QAM 03/18/25 04/10/25 iron) tablet Previous Rx's ?Medication ?Instructions ?Recorded losartan 50 mg-hydrochlorothiazide 2 tab PO DAILY #0 t abs 07/16/21 12.5 mg tablet nystatin-triamcinolone 100,000 1 appl topical BID umbi lical skin 07/16/21 unit/gram-0.1 % topical ointment fungal infection #30 grams tadalafil 5 mg tablet (Cialis) 5 mg PO DAILY 90 days # 90 tabs 04/16/25 Allergies Allergy/AdvReac Type Severity Reaction Status Date / Time No Known Allergies (No Known Allergy Verified 08/14/25 11:23 Allergies*) FORMERLY [facility], [facility] Past Medical History Medical History PAF (paroxysmal atrial fibrillation) Pulmonary embolism Sleep apnea Chronic pain syndrome Femur fracture, right History of substance abuse Obesity Hypertension Surgical History H/O spinal fusion Hx of umbilical hernia repair (12/20/23) History of laparoscopic adjustable gastric banding Hx of laparoscopic gastric banding Family History Family History Father Lung cancer Mother Breast cancer Social History Social History Household Members: Spouse and Children Housing: House Are you a primary insurance healthcare representative to a significant other at home: No Do you presently have visiting nurse or other home services: No Patient Tobacco Use Status: Never used Tobacco Smoked in Last 30 Days: No Use of substances other than those prescribed or required for medical reasons: Yes Substance Use Type: Painkillers Advance Directives: No Advance Directives Information Provided: No Do you have a plan to hurt others: No Plan service: No Current occupational status: unemployed Physical Exam ED Exam Exam: EXAM: Gen: Drowsy arousable with sternal rub. Pupils pinpoint. Respiratory rate approximately 14. Protecting airway. Head: Atraumatic Eyes: Anicteric, Normal conjunctiva. ENT: Moist mucosa, no pallor. ? Neck: Supple. Skin: ?No observable rash or bruising on exposed or examined skin Respiratory: Breathing comfortably, No distress.Clear to auscultation bilaterally, symmetric chest expansion, No wheeze, rales, ronchi. Cardiovascular: Regular rate and rhythm. No murmurs or rub. Well perfused periphery, warm extremities. No edema. ? Abdominal: No focal tenderness. Soft, no objective distension. No palpable masses or obvious organomegaly. ?No guarding, no rebound tenderness or other peritoneal findings. MSK: No grossly visible deformity. Vital signs: See flowsheet Vital Signs: Vital Signs - 24 hr 08/14/25 11:25 08/14/25 12:33 08/14/25 13:08 Temperature 98.5 F Pulse Rate 66 65 75 Respiratory Rate 18 12 12 Blood Pressure 139/77 161/94 H 141/87 H Pulse Oximetry 96 100 96 Oxygen Delivery Method Room Air Room Air Oxygen Flow Rate 08/14/25 14:35 08/14/25 15:13 08/14/25 17:51 Temperature Pulse Rate 76 77 Respiratory Rate 18 12 Blood Pressure 180/115 H 207/113 H 207/113 H Pulse Oximetry 96 99 Oxygen Delivery Method Nasal Cannula Nasal Cannula Oxygen Flow Rate 2 08/14/25 17:52 08/14/25 18:10 08/14/25 20:46 Temperature 98.3 F 98.6 F Pulse Rate 82 71 70 Respiratory Rate 6 L 11 L Blood Pressure 207/113 H 177/100 H 131/101 H Pulse Oximetry 100 100 Oxygen Delivery Method Nasal Cannula with ETCO2 Room Air Nasal Cannula with ETCO2 Oxygen Flow Rate 3 08/14/25 23:32 Temperature 98.6 F Pulse Rate 68 Respiratory Rate 16 Blood Pressure 171/94 H Pulse Oximetry 100 Oxygen Delivery Method Room Air Nasal Cannula with ETCO2 Oxygen Flow Rate BMI result Body Mass Index 33.4 Course Reevaluation(s) Reevaluation #1: 6:54 PM 08/14/2025 (Dr. Cam Orozco): Patient's initial VIC was reassessed after 2 L crystalloid bolus hydration. Chemistry results pending Patient continues to protect airway respiratory rate over 10 no indication for naloxone during ED course thus far we will continue to monitor him Reevaluation #2: 7:59 PM 08/14/2025 (Dr. Cam Orozco): Brought to my attention that the patient had not yet received an IV difficult IV access. I was notified early but was unable to perform this. At this time I placed 20 gauge IV in the right basilic and initiated the IV fluid pale he will need this and then repeat after he is now awake alert oriented pupils are normal he is comfortable has no complaints. Does acknowledge taking a pill on the street that he thought was oxycodone and says ?I overdosed?. He did not mean to there was no suicidal ideation. Medications Administered Discontinued Medications Generic Name Dose Route Start Last Admin Trade Name Freq PRN Reason Stop Dose Admin Lactated Ringer's 1,000 mls @ 999 mls/hr 08/14/25 14:00 08/14/25 21:30 Lr IV 08/14/25 16:00 Infused .Q1H1M YUE Infusion Lactated Ringer's 1,000 mls @ 999 mls/hr 08/14/25 20:15 08/14/25 20:36 Lr IV 08/14/25 21:15 Not Given .Q1H1M YUE Losartan Potassium 25 mg 08/14/25 17:21 08/14/25 17:51 Losartan Potassium 25 Mg Tablet PO 08/14/25 17:22 25 mg ONCE ONE Administration Protocol Metoprolol Tartrate 25 mg 08/14/25 17:21 08/14/25 17:52 Metoprolol Tartrate 25 Mg Tablet PO 08/14/25 17:22 25 mg ONCE ONE Administration Protocol Naloxone HCl 8 mg 08/14/25 11:50 08/14/25 12:41 Naloxone Hcl Nasal Take Home 4 Mg [place] NOSTRILALT 08/14/25 11:51 8 mg ONCE ONE Administration Procedures Procedure Narrative Procedure Narrative: Ultrasound Guided Peripheral Intravenous Catheter Placement Indication: Intravenous Access Location: Right ??Vascular Location of Catheter Tip: Basilic Provider: Self I was approached by nursing staff and informed that multiple unsuccessful attempts had been made to establish IV access in the patient. The patients arm was surveyed with the ultrasound for verification of vessel collapsibility, patency, depth and caliber, as well as identification of nearby structures. The target area was prepped with chlorhexidine. A tourniquet was placed proximally on the extremity. Under real-time ultrasound guidance, an 20 G 2.25 inch AccuCath nontunneled catheter ? was advanced into the target vein. Dark blood was visualized in the flash chamber. The catheter was easily advanced into the vein. The catheter was evacuated of air and flushed with sterile saline. The catheter was secured in place with a tegaderm. The patient tolerated the procedure well and there were no complications. Estimated Blood Loss: 1mL Total Time for Procedure: 5min Images Stored CPT: 17253; 49193 Medical Decision Making Medical Decision Making MDM Narrative: Medical Decision Makin-year-old male arrived after found him unresponsive. No tongue bite incontinence or convulsive episode witnessed nor any history of epilepsy or seizures. The patient was said to have taken a pill that he got from the street felt to be opioid. Clinical presentation suggestive of opioid toxidrome here. No indication given the respiratory rate airway protection and overall picture for emergent naloxone administration here. We will continue to closely monitor him and administer naloxone as needed. Broad toxicologic workup initiated. No signs of trauma. Preliminary Favored Differential Diagnosis: Toxic or infectious or metabolic encephalopathy among additional considered etiologies Testing Interpreted Independently: ?Labs initially with mild VIC dehydration appearance. Radiology or Lab testing Results Reviewed: ?See below for details Consults: ?See below for details Independent Historians/External Chart Reviews: ?See below for details Social Determinants of Health Impacting MDM/Planning: ?See below for details I received sign-out from my colleague Dr. Smith -chemistry shows an improvement in patient's creatinine. Patient's vitals are stable Differential Diagnosis Differential Diagnoses: The differential diagnosis associated with the presentation includes (Dehydration, polysubstance abuse, alcohol intoxication, anxiety, up pseudo-seizure) Admission/Observation Consideration of admission/observation: Escalation of care including admission/observation considered (Given patient's presentation and labs, observation was considered) Lab Data MDM Lab Attestation statement: I reviewed the patient's lab results. 08/14/25 13:07 08/14/25 22:12 Labs: Lab Results 08/14/25 08/14/25 Range/Units 13:07 22:12 WBC 9.7 (4.8-10.8) X10*3/uL RBC 4.31 L (4.60-5.80) X10*6/uL Hgb 12.5 L (14.0-18.0) g/dl Hct 39.1 L (42.0-52.0) % MCV 90.7 (80.0-98.0) fL MCH 29.0 (27.0-33.0) pg MCHC 32.0 (31.0-36.0) g/dl RDW 13.1 (11.0-16.0) % Plt Count 190 (160-400) X10*3/uL MPV 10.9 (9.4-12.4) fL Immature Gran % (Auto) 0.4 (0.0-0.4) % Neut % (Auto) 77.6 H (45-73) % Lymph % (Auto) 7.6 L (20-40) % [facility] % (Auto) 12.3 H (2-11) % Eos % (Auto) 1.5 (0-4) % Baso % (Auto) 0.6 (0-2) % Lymph # (Auto) 0.7 L (1.2-4.9) X10*3/uL [place] # (Auto) 1.2 (0.1-1.2) X10*3/uL Eos # (Auto) 0.2 (0.0-0.4) X10*3/uL Baso # (Auto) 0.1 (0.0-0.2) X10*3/uL Abs Immat Gran (auto) 0.04 H (0.00-0.03) X10*3/uL Absolute Neuts (auto) 7.6 (2.0-8.3) x10*3/uL Absolute Nucleated RBC 0.000 (0.0-0.012) X10*3/uL Nucleated RBC % (auto) 0.0 (0.0-0.2) /100WBC Smear Tech's Comments VERIFIED Sodium 141 142 (135-145) mmol/L Potassium 3.6 3.8 (3.3-5.1) mmol/L Chloride 110 H 109 H (96-108) mmol/L Carbon Dioxide 21 L 25 (22-29) mmol/L Anion Gap 14 12 (12-20) BUN 19 H 14 (9-16) mg/dL Creatinine 1.62 H 0.90 (0.5-1.4) mg/dL Estim Creat Clear Calc 65.2 117.4 Estimated GFR 46 > 60 Random Glucose 91 99 (60-115) mg/dL Calcium 9.1 9.2 (8.4-10.2) mg/dL Total Bilirubin 0.2 (0.0-1.0) mg/dL AST 19 (5-37) U/L ALT 6 (0-40) U/L Alkaline Phosphatase 79 (39-117) U/L Total Protein 7.9 (6.5-8.0) g/dL Albumin 4.3 (3.5-5.0) g/dL Salicylates < 5.0 L (15-30) mg/dL Acetaminophen < 3 (<30) mcg/mL Ethyl Alcohol 12 mg/dL Critical Care Time Critical Care Time Critical Care Time: Yes Total Critical Care Time: 35 Attestation: I have personally provided critical care time. Time includes review of lab data, radiology results, discussion with consultants, and monitoring for potential decompensation. Intervention performed as documented. Discharge Plan Discharge Clinical Impression: Acute kidney injury, Opioid overdose, Acute dehydration Patient Disposition: Home, Self-Care Instructions: Naloxone (Into the nose) (Narcan, Kloxxado, Rezenopy, Rivive), Dehydration (ED) Additional Instructions: It appears you inadvertently overdosed on opioids. We highly recommend not trying pill form opioids from the street as these are often mixed with fentanyl. We discussed with you resources for substance use disorder and have put a referral into our comprehensive Care Center. Call them at anytime. We offered and provided you with a nasal naloxone instructions were provided here. Prescriptions: No Action nystatin-triamcinolone 100,000-0.1 unit/gram-% ointment 1 appl topical BID Qty: 30 0RF losartan-hydrochlorothiazide 50-12.5 mg tablet 2 tab PO DAILY Qty: 0 0RF diltiazem HCl 120 mg capsule,extended release 24 hr 120 mg PO QAM baclofen 10 mg tablet 10 mg PO TID PRN (Reason: muscle spasm) ergocalciferol (vitamin D2) 1,250 mcg (50,000 unit) capsule 1,250 mcg PO QWEEK ferrous gluconate 324 mg (38 mg iron) tablet 324 mg PO QAM diclofenac sodium 1 % gel 2 g topical QID PRN (Reason: pain) Eliquis 5 mg tablet 5 mg PO BID tadalafil [Cialis] 5 mg tablet 5 mg PO DAILY 90 Days Qty: 90 1RF Rx Instructions: [id number] [facility][NOTE 3] [id number] Member [id number] Referrals: [facility] [Provider Group, Addiction Medicine] Interventions: ED Discharge Assessment Last Done: 08/14/25 23:32 Discharge Date/Time: 08/15/25 07:05 Print Language: Uzbek
--- NOTE | 2025-08-14 12:00 | PC.NURSE ---
Addendum entered by Jill Olmos RN 08/14/25 12:36: Pt becoming more lethargic, airway remains intact, SPO2 99% on room air, CO2 13. Dr. Orozco aware, pt moved to rm 20 for cardiac monitoring. Currently resting in bed, arousable to sternal rub. Bedside O2 and suction setup. Care ongoing. Original Note: Pt becoming more lethargic, airway remains intact, SPO2 99% on room air, CO2 13. aware, pt moved to rm 20 for cardiac monitoring. Currently resting in bed, arousable to sternal rub. Care ongoing.
[2025-08-14] MEDS: Naloxone HCl Nasal TAKE HOME 4 MG SPRAY 8 MG NOSTRILALT (12:41)
[2025-08-14 13:30] LABS: Hematocrit 39.1 % (42.0-52.0); Hemoglobin 12.5 g/dl (14.0-18.0); Imm Gran Abs Auto 0.04 X10*3/uL (0.00-0.03); Imm Gran Pct Auto 0.4 % (0.0-0.4); Lymphocytes Absolute Auto 0.7 X10*3/uL (1.2-4.9); MANUAL DIFF FLAG SCAN; Mean Corpuscular HGB Conc 32.0 g/dl (31.0-36.0); Mean Corpuscular Hemoglobin 29.0 pg (27.0-33.0); Mean Corpuscular Volume 90.7 fL (80.0-98.0); NRBC Abs Auto 0.000 X10*3/uL (0.0-0.012); NRBC Pct Auto 0.0 /100WBC (0.0-0.2); PLT CLUMP 1; Red Blood Count 4.31 X10*6/uL (4.60-5.80); SCAN SMEAR FLAG 1
[2025-08-14 13:31] LABS: White Blood Count 9.7 X10*3/uL (4.8-10.8)
[2025-08-14 13:33] LABS: Alanine Aminotransferase 6 U/L (0-40); Albumin Level 4.3 g/dL (3.5-5.0); Alkaline Phosphatase 79 U/L (39-117); Anion Gap 14 (12-20); Aspartate Amino Transferase 19 U/L (5-37); Blood Urea Nitrogen 19 mg/dL (9-16); Calcium 9.1 mg/dL (8.4-10.2); Carbon Dioxide 21 mmol/L (22-29); Chloride 110 mmol/L (96-108); Creatinine Clr Calc Pharmacy 65.2; Estimated Glomerular Filt Rate 46; Potassium 3.6 mmol/L (3.3-5.1); Sodium 141 mmol/L (135-145); Total Protein 7.9 g/dL (6.5-8.0)
[2025-08-14 13:44] LABS: Acetaminophen LAB < 3 mcg/mL (<30); Salicylate < 5.0 mg/dL (15-30)
[2025-08-14 13:47] LABS: Platelet Count 190 X10*3/uL (160-400)
--- OUTSIDE RECORDS SUMMARY | 2025-08-14 14:30 | XMS_ITS | Encounter Summary ---
Author Organization [employer] Address [address] [facility] 7[address] [place] [address] Care Team Providers Care Cafeteria Clerk Name Role Phone Erica Cantu DO Primary Care Provider + [phone] Reason for Visit * Reason Onset Date Comments Hospital Follow-up 01/16/2025 Encounter Details Date Type Department Care Team ([facility] st Contact Info) Description 01/16/2025 Telephone [facility] MEDICINE [address] [place] [address] Erica Cantu DO [address] [place] [address] Hospital Follow-up Social History Tobacco Use Types [...] the past 12 months, has t he [employer], gas, oil or water company threatened to [...] from pt requesting a HDF appt. Hospital: [place], [place] Date of admission: 01/07 Discharge date: 01/10 Diagnosed: Blood spots *Send message to [facility] Coordinators [phone] documented in this encounter Plan of Treatment Not on file documented as of this encounter Visit Diagnoses Not on filedocumented in this encounter Additional Health Concerns Assessment Noted Time PHQ-9 Depression Total Score: 3 07/03/20 23 10:46 AM EDT documented as of this encounter Care Teams Cafeteria Clerk Relationship Specialty Start Date End Date Erica Cantu DO [address] [place] [address] PCP - General Family Medicine 05/30/14 documented as of this encounter
--- OUTSIDE RECORDS SUMMARY | 2025-08-14 14:30 | XMS_ITS | Encounter Summary ---
Author Organization [employer] Address [address] [facility] 7t [place] [address] Care Team Providers Care Black Oxide Operator Name Role Phone AlonrdaErica Primary Care Provider Encounter Details Date Type Department Care Team (Late st Contact Info) Description 08/14/2025 Orders Only GENERIC EXTERNAL DATA DEPARTMENT Provider, Generic External Data Social History Tobacco Use Types Packs/Day Years [...] Procedure Name Priority Date/Time Associated Diagnosis Comments SLIDE REVIEW Routine 08/14/2025 1:07 PM EDT ETHANOL Routine 08/14/2025 1:07 PM EDT CBC WITH AUTO DIFFERENTIAL Routine 08/14/2025 1:07 PM EDT ACETAMINOPHEN LEVEL Routine 08/14/2025 1 :07 PM EDT SALICYLATE Routine 08/14/2025 1:07 PM EDT COMPREHENSIVE METABOLIC PANEL Routine 08/14/2025 1:07 PM EDT documented in this encounter Results * Slide Review (08/14/2025 1:07 PM EDT) Slide Review VERIFIED [facility] 08/14/2025 1:07 PM EDT 08/14/2025 1:11 PM EDT us Generic External Data Provider LAB BLOOD ORDERAB LES Final Result [facility] [address] [place] [phone] * Acetaminophen level (08/14/2025 1:07 PM EDT) Acetaminophen LAB <3 <30 mcg/mL [facility] 08/14/2025 1:07 PM EDT 08/14/2025 1:11 PM EDT Generic External Data Provider LAB BLOOD ORDERAB LES Final Result Performing Organization Address [facility] Co de Phone Number [facility] [address] [place] [phone] * (ABNORMAL) Salicylate (08/14/2025 1:07 PM EDT) Salicylate <5.0(L) 15 - 30 mg/dL [facility] 08/14/2025 1:07 PM EDT 08/14/2025 1:11 PM EDT Generic External Data Provider LAB BLOOD ORDERAB LES Final Result Performing Organization Address [facility] Phone Number [facility] [address] [place] [phone] * Ethanol (08/14/2025 1:07 PM EDT) Pathologist [facility] ETHANOL (MG/DL) IN SER/PLAS 12 mg/dL [facility] Comment:Serum/plasma ethanol results are to be used formedical/treatment purposes only. 08/14/2025 1:07 PM EDT 08/14/2025 1:11 PM EDT Generic External Data Provider LAB BLOOD ORDERAB LES Final Result Performing Organization Address [facility] Co de Phone Number [facility] [address] [place] [phone] * (ABNORMAL) Comprehensive Metabolic Panel (08/14/2025 1:07 PM EDT) Sodium 141 135 - 145 mmol/L [facility] Potassium 3.6 3.3 - 5.1 mmol/L [facility] Chloride 110(H) 96 - 108 mmol/L [facility] Carbon Dioxide 21(L) 22 - 29 mmol/L [facility] Anion Gap 14 12 - 20 [facility] Urea Nitrogen (BUN) 19(H) 9 - 16 mg/dL [facility] Creatinine, Serum 1.62(H) 0.5 - 1.4 mg/dL [facility] Creatinine Clr Calc Pharmacy 65.2 [facility] Comment:eGFR (calculated fro m the MDRD study equation) and eCrCl(calculated from the Cockcroft-Gault equation) are based ondifferent parameters and may not yield comparable results.If eCrCl result is absurd, please check patient'sheight/weight. Estimated Glomerular Filt Rate 46 [facility] Comment:Chronic Kidney Disea se: Estimated GFR < 60 mL/min/1.23t0Ntxvwe Kidney Disease: Estimated GFR < 15 mL/min/1.73m2 Glucose 91 60 - 115 mg/dL [facility] Calcium 9.1 8.4 - 10.2 mg/dL [facility] Bilirubin, Total 0.2 0.0 - 1.0 mg/dL [facility] Aspartate Amino Transferase 19 5 - 37 U/L [facility] Alanine Aminotransferase 6 0 - 40 U/L [facility] Total Protein 7.9 6.5 - 8.0 g/dL [facility] Albumin Level 4.3 3.5 - 5.0 g/dL [facility] Alkaline Phosphatase 79 39 - 117 U/L [facility] 08/14/2025 1:07 PM EDT 08/14/2025 1:11 PM EDT us Generic External Data Provider LAB BLOOD ORDERAB LES Final Result [facility] [address] [place] [phone] * (ABNORMAL) CBC auto differential (08/14/2025 1:07 PM EDT) White Blood Count 9.7 4.8 - 10.8 X10*3/uL [facility] Red Blood Count 4.31(L) 4.60 - 5.80 X10*6/uL [facility] Hemoglobin 12.5(L) 14.0 - 18.0 g/dl [facility] Hematocrit 39.1(L) 42.0 - 52.0 % [facility] Mean Corpuscular Volume 90.7 80.0 - 98.0 fL [facility] Mean Corpuscular Hemoglobin 29.0 27.0 - 33.0 pg [facility] Mean Corpuscular HGB Conc 32.0 31.0 - 36.0 g/dl [facility] Red Cell Distribution Width 13.1 11.0 - 16.0 % [facility] Platelet Count 190 160 - 400 X10*3/uL [facility] Mean Platelet Volume 10.9 9.4 - 12.4 fL [facility] Neutrophils Percent Auto 77.6(H) 45 - 73 % [facility] Imm Gran Pct Auto 0.4 0.0 - 0.4 % [facility] Lymphocytes Percent Auto 7.6(L) 20 - 40 % [facility] Monocytes Percent Auto 12.3(H) 2 - 11 % [facility] Eosinophils Percent Auto 1.5 0 - 4 % [facility] Basophils Percent Auto 0.6 0 - 2 % [facility] NRBC Pct Auto 0.0 0.0 - 0.2 /100WBC [facility] Neutrophils Absolute Auto 7.6 2.0 - 8.3 x10*3/uL [facility] Imm Gran Abs Auto 0.04(H) 0.00 - 0.03 X10*3/uL [facility] Lymphocytes Absolute Auto 0.7(L) 1.2 - 4.9 X10*3/uL [facility] Monocytes Absolute Auto 1.2 0.1 - 1.2 X10*3/uL [facility] Eosinophils Absolute Auto 0.2 0.0 - 0.4 X10*3/uL [facility] Basophils Absolute Auto 0.1 0.0 - 0.2 X10*3/uL [facility] NRBC Abs Auto 0.000 0.0 - 0.012 X10*3/uL [facility] 08/14/2025 1:07 PM EDT 08/14/2025 1:11 PM EDT us Generic External Data Provider LAB BLOOD ORDERAB LES Edited Result - Final [facility] [address] [place] [phone] documented in this encounter Visit Diagnoses Not on filedocumented in this encounter Additional Health Concerns Assessment Noted Time PHQ-9 Depression Total Score: 0 01/29/20 25 9:24 AM EDT documented as of this encounter Care Teams Black Oxide Operator Relationship Specialty Start Date End Date Erica Cantu DO [address] [place] [phone] PCP - General Family Medicine 05/30/14 documented as of this encounter
--- OUTSIDE RECORDS SUMMARY | 2025-08-14 14:30 | XMS_ITS | Encounter Summary ---
Author Organization [employer] Address [address] [facility] 7t [place] [address] Care Team Providers Care Air Pollution Inspector Name Role Phone Erica Cantu DO Primary Care Provider Encounter Details Date Type Department Care Team ([facility] st Contact Info) Description 05/22/2023 Orders Only [facility] MED[facility] [address] [place] [address] Paula Woo RN Social History Tobacco Use [...] on filedocumented in this encounter Care Teams Air Pollution Inspector Relationship Specialty Start Date End Date Erica Cantu DO [address] [place] [address] PCP - General Family Medicine 05/30/14 documented as of this encounter
--- OUTSIDE RECORDS SUMMARY | 2025-08-14 14:30 | XMS_ITS | Clinical Summary ---
Author Organization [employer] Address [address] [facility] 7t [place] [address] Care Team Providers Care Technical Staff Assistant Name Role Phone Dulce Cantufer Primary Care Provider Allergies No known active [...] times daily. 60 tablet 01/22/20 25 Active ferrous gluconate (Fergon) 324 (38 Fe) MG tablet Take 1 tablet (324 mg) by mouth with breakfast. 90 tablet 3 01/31/20 25 026 Active losartan (Cozaar) 50 MG tablet Take 1 tablet (50 mg) by mouth Once per day. 30 tablet 11 02/06/20 25 026 Active Blood Pressure kit Use to check blood pressure as directed. 1 kit 02/06/20 25 Active sildenafil (Viagra) 100 MG tablet TAKE 1 TABLET 1 HOUR BEFORE SEXUAL RELATIONS ONCE DAILY NEEDED. 10 tablet 04/10/20 25 Active Diclofenac Sodium 1 % gel APPLY 2 GRAMS TOPICALLY TO AFFECTED AREA(S) 4 TIMES A DAY IN THE MORNING, AT NOON, IN THE EVENING, AND AT BEDTIME NEEDED FOR PAIN 200 g 2 04/16/20 25 Active acetaminophen (Tylenol 8 Hour) 650 MG ER tablet TAKE 1 TABLET BY MOUTH EVERY 8 HOURS NEEDED FOR MILD PAIN. DO NOT BREAK, CRUSH, DISSOLVE OR CHEW 40 tablet 1 04/16/20 25 Active ergocalciferol (Vitamin D2) 1.25 MG (01276 UT) capsule TAKE 1 CAPSULE BY MOUTH ONCE A WEEK 12 capsule 04/17/20 25 Active baclofen (Lioresal) 10 MG tablet TAKE 1 TABLET BY MOUTH THREE TIMES DAILY IN THE MORNING, AT NOON, AND AT BEDTIME NEEDED FOR MUSCLE SPASMS 60 tablet 1 08/01/20 25 Active Buprenorphine HCl-Naloxone HCl (Suboxone) 8-2 MG SL filmIndication s:Opioid type dependence, continuous (CMS/HCC) ([facility]) Place 1 Film under the tongue Once per day for 4 days. 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 cloth picker (OK to cloth picker without an appointment card) 4 Film 03/08/20 24 024 Discontinued baclofen (Lioresal) 10 MG tablet TAKE 1 TABLET BY MOUTH THREE TIMES DAILY IN THE MORNING, AT NOON, AND AT BEDTIME NEEDED FOR MUSCLE SPASMS 60 tablet 1 04/23/20 25 025 Discontinued Active Problems Problem Noted Date Diagnosed Date Pulmonary embolism, bilateral (CMS/HCC) 01/29/20 25 Paroxysmal atrial fibrillation (CMS/HCC) 025 Nephrolithiasis 01/28/2025 Opioid dependence in remission (CMS/HCC) 023 Morbid obesity (CMS/HCC) 12/22/2022 Assessment & Plan (07/04/2023 7:12 PM EDT): Advised pt to improve diet and exercise,discussed healthy life style -discussed camera engineer referral -referred today Chronic pain syndrome 07/27/2016 [...] xr calcification-denies symptoms History of substance abuse ([facility]) 12/22/2022 01/28/2025 Encounters Date Type Department Care Team Description 08/14/2025 Orders Only GENERIC EXTERNAL DATA DEPARTMENT Provider, Generic External Data 07/31/2025 Refill [facility] [address] [place] [phone] Erica Cantu DO from Last 3 Months Immunizations Immunization Administration Dates Next Due Hep B, adult [...] Sign Reading Time Taken Comments Blood Pressure 125/77 03/19/2025 2:46 PM EDT Pulse 55 03/19/2025 2:46 PM EDT Temperature 36.8 C (98.2 F) 03/19/2025 2:46 PM EDT Respiratory Rate 20 03/19/2025 2:46 PM EDT Oxygen Saturation 98% 03/19/2025 2:46 PM EDT Inhaled Oxygen Concentration - - Weight 115 kg (254 lb) 03/19/2025 2:46 PM EDT Height 172.7 cm (5' 8 ) 03/19/2025 2:46 PM EDT Body Mass Index 38.62 03/19/2025 2:46 PM EDT Plan of Treatment Health Maintenance Due Date Last Done Comments CT Colonography 1979 Colonoscopy 1979 Colorectal Cancer Screening 1979 FIT DNA/Cologuard 1979 FIT 1979 FOBT 1979 Sigmoidoscopy 1979 Family Planning (PISQ) 1994 DTaP/Tdap/Td Vaccines (2 - Td or Tdap) 02/14/2024 02/13/2014, 11/13/2007 COVID-19 Vaccine ( season) 2025 03/15/2022, 09/10/2021, 01/01/2021, Additional history exists Influenza Vaccine (#1) 2025 SDOH Screening 01/16/2026 01/16/2025 Alcohol/Substance Use Screening 01/28/2026 01/28/2025 Depression Screening 01/28/2026 01/28/2025, 01/29/20 25 Disability Screening 03/19/2026 03/19/2025 Tobacco Screening 03/20/2026 03/20/2025 Zoster Vaccines (1 of 2) 2029 Lipid [...] patient's age to complete this topic Meningococcal B Vaccine Aged Out No l onger eligible based on patient's age to complete this topic Meningococcal Vaccine Aged Out No anali dolores eligible based on patient's age to complete this topic Pneumococcal Vaccine: Pediatrics (0 to 5 Years) and At-Risk Patients (6 to 49) Years Aged Out No longer eligible based on [...] To stay clean. 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, cutting and boning supervisor Procedure Name Priority Date/Time Associated Diagnosis Comments SLIDE REVIEW Routine 08/14/2025 1:07 PM EDT ACETAMINOPHEN LEVEL Routine 08/14/2025 1 :07 PM EDT SALICYLATE Routine 08/14/2025 1:07 PM EDT ETHANOL Routine 08/14/2025 1:07 PM EDT COMPREHENSIVE METABOLIC PANEL Routine 08/14/2025 1:07 PM EDT CBC WITH AUTO DIFFERENTIAL Routine 08/14/2025 1:07 PM EDT HEPATITIS C AB W/REFL TO HCV RNA, QN, PCR Routine 01/28/2025 10:44 AM EDT Acute kidney injury (CMS/HCC) HIV 1/2 ANTIGEN/ANTIBODY, FOURTH GENERATION W/RFL Routine 01/28/2025 10:44 AM EDT Acute kidney injury (CMS/HCC) LIPID PANEL, STANDARD Routine 01/28/2025 10:44 AM EDT Acute kidney injury (CMS/HCC) from Last 3 Months or Most Recently Relevant to Health Maintenance Results * Slide Review (08/14/2025 1:07 PM EDT) Slide Review VERIFIED [facility] 08/14/2025 1:07 PM EDT 08/14/2025 1:11 PM EDT us Generic External Data Provider LAB BLOOD ORDERAB LES Final Result Performing Organization Address [facility] Co de Phone Number [facility] [address] [place] [phone] * Ethanol (08/14/2025 1:07 PM EDT) ETHANOL (MG/DL) IN SER/PLAS 12 mg/dL [facility] Comment:Serum/plasma ethanol results are to be used formedical/treatment purposes only. 08/14/2025 1:07 PM EDT 08/14/2025 1:11 PM EDT us Generic External Data Provider LAB BLOOD ORDERAB LES Final Result Performing Organization Address [facility]/ZIP Co de Phone Number [facility] [address] [place] [phone] * (ABNORMAL) CBC auto differential (08/14/2025 1:07 PM EDT) White Blood Count 9.7 4.8 - 10.8 X10*3/uL [facility] Red Blood Count 4.31(L) 4.60 - 5.80 X10*6/uL [facility] Hemoglobin 12.5(L) 14.0 - 18.0 g/dl [facility] Hematocrit 39.1(L) 42.0 - 52.0 % [facility] Mean Corpuscular Volume 90.7 80.0 - 98.0 fL [facility] Mean Corpuscular Hemoglobin 29.0 27.0 - 33.0 pg [facility] Mean Corpuscular HGB Conc 32.0 31.0 - 36.0 g/dl [facility] Red Cell Distribution Width 13.1 11.0 - 16.0 % [facility] Platelet Count 190 160 - 400 X10*3/uL [facility] Mean Platelet Volume 10.9 9.4 - 12.4 fL [facility] Neutrophils Percent Auto 77.6(H) 45 - 73 % [facility] Imm Gran Pct Auto 0.4 0.0 - 0.4 % [facility] Lymphocytes Percent Auto 7.6(L) 20 - 40 % [facility] Monocytes Percent Auto 12.3(H) 2 - 11 % [facility] Eosinophils Percent Auto 1.5 0 - 4 % [facility] Basophils Percent Auto 0.6 0 - 2 % [facility] NRBC Pct Auto 0.0 0.0 - 0.2 /100WBC [facility] Neutrophils Absolute Auto 7.6 2.0 - 8.3 x10*3/uL [facility] Imm Gran Abs Auto 0.04(H) 0.00 - 0.03 X10*3/uL [facility] Lymphocytes Absolute Auto 0.7(L) 1.2 - 4.9 X10*3/uL [facility] Monocytes Absolute Auto 1.2 0.1 - 1.2 X10*3/uL [facility] Eosinophils Absolute Auto 0.2 0.0 - 0.4 X10*3/uL [facility] Basophils Absolute Auto 0.1 0.0 - 0.2 X10*3/uL [facility] NRBC Abs Auto 0.000 0.0 - 0.012 X10*3/uL [facility] 08/14/2025 1:07 PM EDT 08/14/2025 1:11 PM EDT us Generic External Data Provider LAB BLOOD ORDERAB LES Edited Result - Final Performing Organization Address [facility]/ZIP Co de Phone Number [facility] [address] [place] [phone] * Acetaminophen level (08/14/2025 1:07 PM EDT) Acetaminophen LAB <3 <30 mcg/mL [facility] 08/14/2025 1:07 PM EDT 08/14/2025 1:11 PM EDT us Generic External Data Provider LAB BLOOD ORDERAB LES Final Result Performing Organization Address [facility] Co de Phone Number [facility] [address] [place] [phone] * (ABNORMAL) Salicylate (08/14/2025 1:07 PM EDT) Salicylate <5.0(L) 15 - 30 mg/dL [facility] 08/14/2025 1:07 PM EDT 08/14/2025 1:11 PM EDT us Generic External Data Provider LAB BLOOD ORDERAB LES Final Result Performing Organization Address [facility] Co de Phone Number [facility] [address] [place] [phone] * (ABNORMAL) Comprehensive Metabolic Panel (08/14/2025 1:07 PM EDT) Sodium 141 135 - 145 mmol/L [facility] Potassium 3.6 3.3 - 5.1 mmol/L [facility] Chloride 110(H) 96 - 108 mmol/L [facility] Carbon Dioxide 21(L) 22 - 29 mmol/L [facility] Anion Gap 14 12 - 20 [facility] Urea Nitrogen (BUN) 19(H) 9 - 16 mg/dL [facility] Creatinine, Serum 1.62(H) 0.5 - 1.4 mg/dL [facility] Creatinine Clr Calc Pharmacy 65.2 [facility] Comment:eGFR (calculated fro m the MDRD study equation) and eCrCl(calculated from the Cockcroft-Gault equation) are based ondifferent parameters and may not yield comparable results.If eCrCl result is absurd, please check patient'sheight/weight. Estimated Glomerular Filt Rate 46 [facility] Comment:Chronic Kidney Disea se: Estimated GFR < 60 mL/min/1.54m1Cxbhjn Kidney Disease: Estimated GFR < 15 mL/min/1.73m2 Glucose 91 60 - 115 mg/dL [facility] Calcium 9.1 8.4 - 10.2 mg/dL [facility] Bilirubin, Total 0.2 0.0 - 1.0 mg/dL [facility] Aspartate Amino Transferase 19 5 - 37 U/L [facility] Alanine Aminotransferase 6 0 - 40 U/L [facility] Total Protein 7.9 6.5 - 8.0 g/dL [facility] Albumin Level 4.3 3.5 - 5.0 g/dL [facility] Alkaline Phosphatase 79 39 - 117 U/L [facility] 08/14/2025 1:07 PM EDT 08/14/2025 1:11 PM EDT us Generic External Data Provider LAB BLOOD ORDERAB LES Final Result [facility] [address] [place] [phone] * Hepatitis C Antibody with Reflex to HCV, RNA, Quantitative, Real-Time PCR (01/28/2025 10:44 AM EDT) Pathologist [facility] Hepatitis C Antibody Nonreactive Nonreactive [facility] Comment:Antibodies to HCV no t detected; does not exclude early acuteHCV infection. Blood Venous blood specimen / Unknown 01/28/2025 10:44 AM EDT 01/28/2025 11:14 AM EDT Erica Cantu DO LAB BLOOD ORDERABLES Final R esult Performing Organization Address [facility] Co de Phone Number [facility] [address] [place] [phone] * HIV-1/2 Antigen and Antibodies, Fourth Generation, with Reflexes (01/28/2025 10:44 AM EDT) Pathologist [facility] HIV AB/AG Nonreactive Nonreactive [facility] Comment:HIV-1 p24 Ag and/or HIV-1/HIV-2 Ab not detected.A test result that is nonreactive does not exclude thepossibility of exposure to or infection with HIV-1 and/orHIV-2. Nonreactive results in this assay for individualswith prior exposure to HIV-1 and/or HIV-2 may be due toantigen and antibody levels that are below the limit ofdetection of this assay.The [email or web address] HIV Ag/Ab Combo assay result andsupplemental assay results should be interpreted inconjunction with the patient's clinical presentation,history and other laboratory results. If the results areinconsistent with clinical evidence, additional testing issuggested to confirm the result. Blood Venous blood specimen / Unknown 01/28/2025 10:44 AM EDT 01/28/2025 11:14 AM EDT Erica Cantu DO LAB BLOOD ORDERABLES Final R esult Performing Organization Address City/[facility]/ZIP Co de Phone Number [facility] [address] [place] [phone] * (ABNORMAL) Lipid Panel, Standard (01/28/2025 10:44 AM EDT) Triglycerides 81 <150 mg/dL [facility] Comment:Desirable Triglyceri de: less than 150 mg/dLBorderline High Triglyceride 150-199 mg/dLHigh Triglyceride: 200-499 mg/dLVery High Triglyceride: greater than or equal to 5OO mg/dL Cholesterol 159 <200 mg/dL [facility] Comment:Desirable Cholestero l: less than 200 mg/dLBorderline High Cholesterol: 200-239 mg/dLHigh Cholesterol: greater than 239 mg/dL LDL Cholesterol Calculated 108(H) <100 mg/dL [facility] Comment:Desirable LDL: less than 100 mg/dLNear Optimal/Above Optimal LDL: 110- 129 mg/dLBorderline High LDL: 130-159 mg/dLHigh LDL: 160-189 mg/dLVery High LDL: greater than or equal to 190 mg/dL HDL Cholesterol 35(L) >40 mg/dL [facility] Comment:Desirable HDL: great er than 40 mg/dL Note: This HDL assay may give artificially low results in patients with liver disease. Blood Venous blood specimen / Unknown 01/28/2025 10:44 AM EDT 01/28/2025 11:14 AM EDT us Erica Cantu DO LAB BLOOD ORDERABLES Final R esult [facility] [address] [place] [phone] from Last 3 Months or Most Recently Relevant to Health Maintenance [facility] [employer] [place] [employer] C[employer] Care Teams Technical Staff Assistant Relationship Specialty Start Date End Date Erica Cantu DO [address] [place] [phone] PCP - General Family Medicine 05/30/14
--- OUTSIDE RECORDS SUMMARY | 2025-08-14 14:30 | XMS_ITS | Encounter Summary ---
Author Organization [employer] Address 75 [facility] 7t [place] [address] Care Team Providers Care Brick Burner Name Role Phone Erica Cantu DO Primary Care Provider Encounter Details Date Type Department Care Team ([facility] st Contact Info) Description 06/20/2023 Orders Only [facility] MEDICINE [address] [place] [address] Charito Bell MD [address] [place] [address] Social History Tobacco Use Types Packs/Day Years [...] on filedocumented in this encounter Care Teams Brick Burner Relationship Specialty Start Date End Date Erica Cantu DO [address] [place], [place] [id number] PCP - General Family Medicine 05/30/14 documented as of this encounter
--- OUTSIDE RECORDS SUMMARY | 2025-08-14 14:30 | XMS_ITS | Encounter Summary ---
Author Organization [employer] Address 75 [facility] 7t [place] [address] Care Team Providers Care Senior Chemical Engineer Name Role Phone MeyErica eddy Primary Care Provider [phone] Encounter Details Date Type Department Care Team ([facility] st Contact Info) Description 04/03/2025 Community Care Management [facility] MEDICINE [address] [place] [address] Epiccare Link, Physician, Social History Tobacco Use Types Packs/Day Years [...] documented as of this encounter Care Teams Senior Chemical Engineer Relationship Specialty Start Date End Date Erica Cantu DO [address] [place] [id number] PCP - General Family Medicine 05/30/14 documented as of this encounter
--- OUTSIDE RECORDS SUMMARY | 2025-08-14 14:30 | XMS_ITS | Encounter Summary ---
Author Organization [employer] Address 75 [facility] 7t [place] [address] Care Team Providers Care Kettle Coordinator Name Role Phone Erica Cantu DO Primary Care Provider + [phone] Reason for Visit * Reason Comments Med Refill Encounter Details Date Type Department Care Team ([facility] st Contact Info) Description 09/19/2023 Refill [facility] MEDICINE [address] [place] [address] Erica Cantu DO [address] [place] [address] Social History Tobacco Use Types Packs/Day Years [...] documented as of this encounter Care Teams Kettle Coordinator Relationship Specialty Start Date End Date Erica Cantu DO [address] [place] [address] PCP - General Family Medicine 05/30/14 documented as of this encounter
--- OUTSIDE RECORDS SUMMARY | 2025-08-14 14:30 | XMS_ITS | Encounter Summary ---
Author Organization [employer] Address 75 [facility] 7t [place] [address] Care Team Providers Care Director Medical Science Name Role Phone Erica Cantu DO Primary Care Provider + [phone] Reason for Visit * Reason Comments Med Refill Encounter Details Date Type Department Care Team ([facility] st Contact Info) Description 02/20/2025 Refill [facility] MEDICINE [address] [place] [address] Erica Cantu DO [address] [place] [address] Social History Tobacco Use Types Packs/Day Years [...] as of this encounter Care Teams Director Medical Science Relationship Specialty Start Date End Date Erica Cantu DO [address] [place] [address] PCP - General Family Medicine 05/30/14 documented as of this encounter
--- OUTSIDE RECORDS SUMMARY | 2025-08-14 14:30 | XMS_ITS | Encounter Summary ---
Author Organization [employer] Address 75 [facility] 7t [place] [address] Care Team Providers Care Florist Helper Name Role Phone Erica Cantu DO Primary Care Provider + [phone] Reason for Visit * Reason Comments Med Refill Encounter Details Date Type Department Care Team ([facility] st Contact Info) Description 02/10/2025 Refill [facility] [address] [place] [address] Erica Cantu DO [address] [facility] [place] [address] Social History Tobacco Use Types Packs/Day Years [...] documented as of this encounter Care Teams Florist Helper Relationship Specialty Start Date End Date Erica Cantu DO [address] [place] [address] PCP - General Family Medicine 05/30/14 documented as of this encounter
--- OUTSIDE RECORDS SUMMARY | 2025-08-14 14:30 | XMS_ITS | Encounter Summary ---
Author Organization [employer] Address 75 [facility] 7t [place] [address] Care Team Providers Care Enrollment Nurse Name Role Phone Erica Cantu DO Primary Care Provider + [phone] Reason for Visit * Reason Comments Med Refill Encounter Details Date Type Department Care Team ([facility] st Contact Info) Description 09/01/2023 Refill [facility] MEDICINE [address] [place] [address] Erica Cantu DO [address] [place] [address] Social History Tobacco Use Types Packs/Day Years [...] documented as of this encounter Care Teams Enrollment Nurse Relationship Specialty Start Date End Date Erica Cantu DO [address] [place] [address] PCP - General Family Medicine 05/30/14 documented as of this encounter
--- NOTE | 2025-08-14 15:30 | PC.NURSE ---
Multiple unsuccessful IV attempts from multiple nurses, Dr. Orozco aware. Awaiting USIV placement. Pt resting comfortably in bed at this time.
[2025-08-14] MEDS: Lactated Ringers 1,000 ML 999 ML IV (20:00)
--- NOTE | 2025-08-14 20:00 | PC.NURSE ---
1000mL LR bolus administered by provider after obtaining USIV. Awaiting infusion completion for BMP draw per MD order. Care ongoing.
[2025-08-14 22:33] LABS: Anion Gap 12 (12-20); Blood Urea Nitrogen 14 mg/dL (9-16); Calcium 9.2 mg/dL (8.4-10.2); Carbon Dioxide 25 mmol/L (22-29); Chloride 109 mmol/L (96-108); Creatinine Clr Calc Pharmacy 117.4; Estimated Glomerular Filt Rate > 60; Potassium 3.8 mmol/L (3.3-5.1); Sodium 142 mmol/L (135-145)
--- NOTE | 2025-08-14 23:31 | PC.NURSE ---
Took over care from JAYA Dallas, Iv removed, reviewed discharge instructions with pt pt verbalized understanding.
== END 2025-08-15 07:05 | disposition home or self-care (01) ==
PROVIDERS: Emergency Medicine; Emergency Provider Emergency Medicine
DX: F10.129 Alcohol abuse with intoxication, unspecified (principal); Y90.0 Blood alcohol level of less than 20 mg/100 ml; R11.0 Nausea; Z51.81 Encounter for therapeutic drug level monitoring; Z79.899 Other long term (current) drug therapy
CPT/HCPCS: 36415; 80048; 80053; 80143; 80179; 80307; 85025; 96360; 99285; J7120

== ENCOUNTER 2025-08-19 13:35 | Outpatient (AMB) | payer MEDICAID, SELFPAY ==
[2025-08-19 13:51] VITALS: BP 140/80; PULSE 100; O2SAT 98; BMI 39.5
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
--- OUTSIDE RECORDS SUMMARY | 2025-08-19 16:43 | XMS_ITS | Encounter Summary ---
Author Organization [employer] Address 75 [facility] 7t [place] [address] Care Team Providers Care Health Advisor Name Role Phone Erica Cantu DO Primary Care Provider Encounter Details Date Type Department Care Team ([facility] st Contact Info) Description 05/22/2023 Orders Only [facility] MEDICINE [address] [place] [address] Paula Woo RN Social History Tobacco Use [...] on filedocumented in this encounter Care Teams Health Advisor Relationship Specialty Start Date End Date Erica Cantu DO [address] [place] [address] PCP - General Family Medicine 05/30/14 documented as of this encounter
--- OUTSIDE RECORDS SUMMARY | 2025-08-19 16:43 | XMS_ITS | Encounter Summary ---
Author Organization [employer] Address 75 [facility] 7t [place] [address] Care Team Providers Care Economic Development Coordinator Name Role Phone Erica Cantu DO Primary Care Provider + [phone] Reason for Visit * Reason Comments Med Refill Encounter Details Date Type Department Care Team ([facility] st Contact Info) Description 02/10/2025 Refill [facility] MED & PEDS [address] [place] [address] Erica Cantu DO 230 [facility] [place] [address] Social History Tobacco Use Types Packs/Day Years [...] documented as of this encounter Care Teams Economic Development Coordinator Relationship Specialty Start Date End Date Erica Cantu DO [address] [place] [address] PCP - General Family Medicine 05/30/14 documented as of this encounter
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
--- OUTSIDE RECORDS SUMMARY | 2025-08-19 16:43 | XMS_ITS | Encounter Summary ---
Author Organization [employer] Address 75 [facility] 7t [place] [address] Care Team Providers Care Jukebox Operator Name Role Phone Erica Cantu DO Primary Care Provider + [phone] Reason for Visit * Reason Comments Med Refill Encounter Details Date Type Department Care Team ([facility] st Contact Info) Description 02/20/2025 Refill [facility] MEDICINE [address] [place] [address] Erica Cantu DO [address] [place] [address] Social History Tobacco Use Types Packs/Day Years [...] documented as of this encounter Care Teams Jukebox Operator Relationship Specialty Start Date End Date Erica Cantu DO [address] [place] [address] PCP - General Family Medicine 05/30/14 documented as of this encounter
--- OUTSIDE RECORDS SUMMARY | 2025-08-19 16:44 | XMS_ITS | Encounter Summary ---
Author Organization [employer] Address [address] [facility] 7t [place] [address] Care Team Providers Care Gas Flow Regulator Name Role Phone MeyErica eddy Primary Care Provider [phone] Encounter Details Date Type Department Care Team ([facility] st Contact Info) Description 04/03/2025 Community Care Management [facility] MEDICINE [address] [place] [address] Epiccare Link, Physician, Social History Tobacco Use [...] documented as of this encounter Care Teams Gas Flow Regulator Relationship Specialty Start Date End Date Erica Cantu DO [address] [place] [id number] PCP - General Family Medicine 05/30/14 documented as of this encounter
--- OUTSIDE RECORDS SUMMARY | 2025-08-19 16:44 | XMS_ITS | Encounter Summary ---
Author Organization [employer] Address [address] [facility] 7[address] [place] [address] Care Team Providers Care Telemetry Nurse Name Role Phone AlondraErica Primary Care Provider Encounter Details Date Type [...] Procedure Name Priority Date/Time Associated Diagnosis Comments BASIC METABOLIC PANEL Routine 08/14/2025 10:12 PM EDT SLIDE REVIEW Routine 08/14/2025 1:07 PM EDT ETHANOL Routine 08/14/2025 1:07 PM EDT CBC WITH AUTO DIFFERENTIAL Routine 08/14/2025 1:07 PM EDT ACETAMINOPHEN LEVEL Routine 08/14/2025 1 :07 PM EDT SALICYLATE Routine 08/14/2025 1:07 PM EDT COMPREHENSIVE METABOLIC PANEL Routine 08/14/2025 1:07 PM EDT documented in this encounter Results * (ABNORMAL) Basic Metabolic Panel (08/14/2025 10:12 PM EDT) Sodium 142 135 - 145 mmol/L [facility] Potassium 3.8 3.3 - 5.1 mmol/L [facility] Comment:Slight Hemolysis.Int erpret result with caution. Chloride 109(H) 96 - 108 mmol/L [facility] Carbon Dioxide 25 22 - 29 mmol/L [facility] Anion Gap 12 12 - 20 [facility] Urea Nitrogen (BUN) 14 9 - 16 mg/dL [facility] Creatinine, Serum 0.90 0.5 - 1.4 mg/dL [facility] Creatinine Clr Calc Pharmacy 117.4 [facility] Comment:eGFR (calculated fro m the MDRD study equation) and eCrCl(calculated from the Cockcroft-Gault equation) are based ondifferent parameters and may not yield comparable results.If eCrCl result is absurd, please check patient'sheight/weight. Estimated Glomerular Filt Rate >60 [facility] Comment:Chronic Kidney Disea se: Estimated GFR < 60 mL/min/1.30d3Mqroku Kidney Disease: Estimated GFR < 15 mL/min/1.73m2 Glucose 99 60 - 115 mg/dL [facility] Calcium 9.2 8.4 - 10.2 mg/dL [facility] 08/14/2025 10:1 2 PM EDT 08/14/2025 10:16 PM EDT us Generic External Data Provider LAB BLOOD ORDERAB LES Final Result Performing Organization Address [facility] Co de Phone Number [facility] [address] [place] [phone] * Slide Review (08/14/2025 1:07 PM EDT) Slide Review VERIFIED [facility] 08/14/2025 1:07 PM EDT 08/14/2025 1:11 PM EDT Generic External Data Provider LAB BLOOD ORDERAB LES Final Result Performing Organization Address [facility] Co de Phone Number [facility] [address] [place] [phone] * Acetaminophen level (08/14/2025 1:07 PM EDT) Acetaminophen LAB <3 <30 mcg/mL [facility] 08/14/2025 1:07 PM EDT 08/14/2025 1:11 PM EDT us Generic External Data Provider LAB BLOOD ORDERAB LES Final Result Performing Organization Address [facility] [place] [facility]/ZIP Co de Phone Number [facility] [address] [place] [phone] * (ABNORMAL) Salicylate (08/14/2025 1:07 PM EDT) Salicylate <5.0(L) 15 - 30 mg/dL [facility] 08/14/2025 1:07 PM EDT 08/14/2025 1:11 PM EDT Generic External Data Provider LAB BLOOD ORDERAB LES Final Result Performing Organization Address [facility] de Phone Number [facility] [address] [place] [phone] * Ethanol (08/14/2025 1:07 PM EDT) Pathologist [facility] ETHANOL (MG/DL) IN SER/PLAS 12 mg/dL [facility] Comment:Serum/plasma ethanol results are to be used formedical/treatment purposes only. 08/14/2025 1:07 PM EDT 08/14/2025 1:11 PM EDT us Generic External Data Provider LAB BLOOD ORDERAB LES Final Result Performing Organization Address [facility] Co de Phone Number [facility] [address] [place] [address] [phone] * (ABNORMAL) Comprehensive Metabolic Panel (08/14/2025 1:07 PM EDT) Sodium 141 135 - 145 mmol/L [facility] Potassium 3.6 3.3 - 5.1 mmol/L [facility] Chloride 110(H) 96 - 108 mmol/L [facility] Carbon Dioxide 21(L) 22 - 29 mmol/L [facility] Anion Gap 14 12 - 20 [facility] Urea Nitrogen (BUN) 19(H) 9 - 16 mg/dL [facility] Creatinine, Serum 1.62(H) 0.5 - 1.4 mg/dL [facility] Creatinine Clr Calc Pharmacy 65.2 [facility] Comment:eGFR (calculated fro m the MDRD study equation) and eCrCl(calculated from the Cockcroft-Gault equation) are based ondifferent parameters and may not yield comparable results.If eCrCl result is absurd, please check patient'sheight/weight. Estimated Glomerular Filt Rate 46 [facility] Comment:Chronic Kidney Disea se: Estimated GFR < 60 mL/min/1.30r1Hatahv Kidney Disease: Estimated GFR < 15 mL/min/1.73m2 Glucose 91 60 - 115 mg/dL [facility] Calcium 9.1 8.4 - 10.2 mg/dL [facility] Bilirubin, Total 0.2 0.0 - 1.0 mg/dL [facility] Aspartate Amino Transferase 19 5 - 37 U/L [facility] Alanine Aminotransferase 6 0 - 40 U/L [facility] Total Protein 7.9 6.5 - 8.0 g/dL [facility] Albumin Level 4.3 3.5 - 5.0 g/dL [facility] Alkaline Phosphatase 79 39 - 117 U/L [facility] 08/14/2025 1:07 PM EDT 08/14/2025 1:11 PM EDT us Generic External Data Provider LAB BLOOD ORDERAB LES Final Result [facility] [address] [place] [phone] * (ABNORMAL) CBC auto differential (08/14/2025 1:07 PM EDT) White Blood Count 9.7 4.8 - 10.8 X10*3/uL [facility] Red Blood Count 4.31(L) 4.60 - 5.80 X10*6/uL [facility] Hemoglobin 12.5(L) 14.0 - 18.0 g/dl [facility] Hematocrit 39.1(L) 42.0 - 52.0 % [facility] Mean Corpuscular Volume 90.7 80.0 - 98.0 fL [facility] Mean Corpuscular Hemoglobin 29.0 27.0 - 33.0 pg [facility] Mean Corpuscular HGB Conc 32.0 31.0 - 36.0 g/dl [facility] Red Cell Distribution Width 13.1 11.0 - 16.0 % [facility] Platelet Count 190 160 - 400 X10*3/uL [facility] Mean Platelet Volume 10.9 9.4 - 12.4 fL [facility] Neutrophils Percent Auto 77.6(H) 45 - 73 % [facility] Imm Gran Pct Auto 0.4 0.0 - 0.4 % [facility] Lymphocytes Percent Auto 7.6(L) 20 - 40 % [facility] Monocytes Percent Auto 12.3(H) 2 - 11 % [facility] Eosinophils Percent Auto 1.5 0 - 4 % [facility] Basophils Percent Auto 0.6 0 - 2 % [facility] NRBC Pct Auto 0.0 0.0 - 0.2 /100WBC [facility] Neutrophils Absolute Auto 7.6 2.0 - 8.3 x10*3/uL [facility] Imm Gran Abs Auto 0.04(H) 0.00 - 0.03 X10*3/uL [facility] Lymphocytes Absolute Auto 0.7(L) 1.2 - 4.9 X10*3/uL [facility] Monocytes Absolute Auto 1.2 0.1 - 1.2 X10*3/uL [facility] Eosinophils Absolute Auto 0.2 0.0 - 0.4 X10*3/uL [facility] Basophils Absolute Auto 0.1 0.0 - 0.2 X10*3/uL [facility] NRBC Abs Auto 0.000 0.0 - 0.012 X10*3/uL [facility] 08/14/2025 1:07 PM EDT 08/14/2025 1:11 PM EDT us Generic External Data Provider LAB BLOOD ORDERAB LES Edited Result - Final [facility] [address] [place] [phone] documented in this encounter Visit Diagnoses Not on filedocumented in this encounter Additional Health Concerns Assessment Noted Time PHQ-9 Depression Total Score: 0 01/29/20 25 9:24 AM EDT documented as of this encounter Care Teams Telemetry Nurse Relationship Specialty Start Date End Date Erica Cantu DO [address] [place] [address] PCP - General Family Medicine 05/30/14 documented as of this encounter
--- OUTSIDE RECORDS SUMMARY | 2025-08-19 16:44 | XMS_ITS | Encounter Summary ---
Author Organization [employer] Address [address] [facility] 7t [place] [address] Care Team Providers Care Platform Mill Supervisor Name Role Phone Erica Cantu DO Primary Care Provider + [phone] Reason for Visit * Reason Comments Med Refill Encounter Details Date Type Department Care Team ([facility] st Contact Info) Description 09/01/2023 Refill [facility] [address] [place] [address] Erica Cantu DO [address] [place] [address] Social History Tobacco Use Types Packs/Day Years [...] documented as of this encounter Care Teams Platform Mill Supervisor Relationship Specialty Start Date End Date Erica Cantu DO [address] [place] [address] PCP - General Family Medicine 05/30/14 documented as of this encounter
--- OUTSIDE RECORDS SUMMARY | 2025-08-19 16:44 | XMS_ITS | Clinical Summary ---
Author Organization [employer] Address [address] [facility] 7t [place] [address] Care Team Providers Care Hand Thermal Cutter Name Role Phone Dulce Cantufer Primary Care Provider [phone] Allergies No known active allergies Medications naloxone [...] 25 Active ergocalciferol (Vitamin D2) 1.25 MG (72331 UT) capsule TAKE 1 CAPSULE BY MOUTH ONCE A WEEK 12 capsule 04/17/20 25 Active baclofen (Lioresal) 10 MG tablet TAKE 1 TABLET BY MOUTH THREE TIMES DAILY IN THE MORNING, AT NOON, AND AT BEDTIME NEEDED FOR MUSCLE SPASMS 60 tablet 1 08/01/20 25 Active Buprenorphine HCl-Naloxone HCl (Suboxone) 8-2 MG SL filmIndication s:Opioid type dependence, continuous (CMS/HCC) ([facility]) Place 1 Film under the tongue Once per day for 4 days. 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..] To stay clean. 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, clinical administrative coordinator Procedure Name Priority Date/Time Associated Diagnosis Comments [...] Relevant to Health Maintenance Results * (ABNORMAL) Basic Metabolic Panel (08/14/2025 10:12 PM EDT) Sodium 142 135 - 145 mmol/L [facility] Potassium 3.8 3.3 - 5.1 mmol/L [facility] Comment:Slight Hemolysis.Int erpret result with caution. Chloride 109(H) 96 - 108 mmol/L [facility] Carbon Dioxide 25 22 - 29 mmol/L [facility] Anion Gap 12 12 - 20 [facility] Urea Nitrogen (BUN) 14 9 - 16 mg/dL [facility] Creatinine, Serum 0.90 0.5 - 1.4 mg/dL [facility] Creatinine Clr Calc Pharmacy 117.4 [facility] Comment:eGFR (calculated fro m the MDRD study equation) and eCrCl(calculated from the Cockcroft-Gault equation) are based ondifferent parameters and may not yield comparable results.If eCrCl result is absurd, please check patient'sheight/weight. Estimated Glomerular Filt Rate >60 [facility] Comment:Chronic Kidney Disea se: Estimated GFR < 60 mL/min/1.87q7Ffrxor Kidney Disease: Estimated GFR < 15 mL/min/1.73m2 Glucose 99 60 - 115 mg/dL [facility] Calcium 9.2 8.4 - 10.2 mg/dL [facility] 08/14/2025 10:1 2 PM EDT 08/14/2025 10:16 PM EDT Generic External Data Provider LAB BLOOD ORDERAB LES Final Result Performing Organization Address [facility] Co de Phone Number [facility] [address] [place] [phone] * Slide Review (08/14/2025 1:07 PM EDT) Pathologist [facility] Slide Review VERIFIED [facility] 08/14/2025 1:07 PM EDT 08/14/2025 1:11 PM EDT Generic External Data Provider LAB BLOOD ORDERAB LES Final Result Performing Organization Address [facility] Phone Number [facility] [address] [place] [phone] * Ethanol (08/14/2025 1:07 PM EDT) ETHANOL (MG/DL) IN SER/PLAS 12 mg/dL [facility] Comment:Serum/plasma ethanol results are to be used formedical/treatment purposes only. 08/14/2025 1:07 PM EDT 08/14/2025 1:11 PM EDT Generic External Data Provider LAB BLOOD ORDERAB LES Final Result Performing Organization Address [facility] de Phone Number [facility] [address] [place] [phone] * (ABNORMAL) CBC auto differential (08/14/2025 1:07 PM EDT) Pathologist [facility] White Blood Count 9.7 4.8 - 10.8 X10*3/uL [facility] Red Blood Count 4.31(L) 4.60 - 5.80 X10*6/uL [facility] Hemoglobin 12.5(L) 14.0 - 18.0 g/dl [facility] Hematocrit 39.1(L) 42.0 - 52.0 % [facility] Mean Corpuscular Volume 90.7 80.0 - 98.0 fL [facility] Mean Corpuscular Hemoglobin 29.0 27.0 - 33.0 pg [facility] Mean Corpuscular HGB Conc 32.0 31.0 - 36.0 g/dl [facility] Red Cell Distribution Width 13.1 11.0 - 16.0 % [facility] Platelet Count 190 160 - 400 X10*3/uL [facility] Mean Platelet Volume 10.9 9.4 - 12.4 fL [facility] Neutrophils Percent Auto 77.6(H) 45 - 73 % [facility] Imm Gran Pct Auto 0.4 0.0 - 0.4 % [facility] Lymphocytes Percent Auto 7.6(L) 20 - 40 % [facility] Monocytes Percent Auto 12.3(H) 2 - 11 % [facility] Eosinophils Percent Auto 1.5 0 - 4 % [facility] Basophils Percent Auto 0.6 0 - 2 % [facility] NRBC Pct Auto 0.0 0.0 - 0.2 /100WBC [facility] Neutrophils Absolute Auto 7.6 2.0 - 8.3 x10*3/uL [facility] Imm Gran Abs Auto 0.04(H) 0.00 - 0.03 X10*3/uL [facility] Lymphocytes Absolute Auto 0.7(L) 1.2 - 4.9 X10*3/uL [facility] Monocytes Absolute Auto 1.2 0.1 - 1.2 X10*3/uL [facility] Eosinophils Absolute Auto 0.2 0.0 - 0.4 X10*3/uL [facility] Basophils Absolute Auto 0.1 0.0 - 0.2 X10*3/uL [facility] NRBC Abs Auto 0.000 0.0 - 0.012 X10*3/uL [facility] 08/14/2025 1:07 PM EDT 08/14/2025 1:11 PM EDT us Generic External Data Provider LAB BLOOD ORDERAB LES Edited Result - Final Performing Organization Address [facility]/ZIP Co de Phone Number [facility] [address] [place] [phone] * Acetaminophen level (08/14/2025 1:07 PM EDT) Pathologist [facility] Acetaminophen LAB <3 <30 mcg/mL [facility] 08/14/2025 1:07 PM EDT 08/14/2025 1:11 PM EDT us Generic External Data Provider LAB BLOOD ORDERAB LES Final Result Performing Organization Address [facility] Co de Phone Number [facility] [address] [place] [phone] * (ABNORMAL) Salicylate (08/14/2025 1:07 PM EDT) Salicylate <5.0(L) 15 - 30 mg/dL [facility] 08/14/2025 1:07 PM EDT 08/14/2025 1:11 PM EDT Generic External Data Provider LAB BLOOD ORDERAB LES Final Result Performing Organization Address [facility] Co de Phone Number [facility] [address] [place] [phone] * (ABNORMAL) Comprehensive Metabolic Panel (08/14/2025 1:07 PM EDT) Sodium 141 135 - 145 mmol/L [facility] Potassium 3.6 3.3 - 5.1 mmol/L [facility] Chloride 110(H) 96 - 108 mmol/L [facility] Carbon Dioxide 21(L) 22 - 29 mmol/L [facility] Anion Gap 14 12 - 20 [facility] Urea Nitrogen (BUN) 19(H) 9 - 16 mg/dL [facility] Creatinine, Serum 1.62(H) 0.5 - 1.4 mg/dL [facility] Creatinine Clr Calc Pharmacy 65.2 [facility] Comment:eGFR (calculated fro m the MDRD study equation) and eCrCl(calculated from the Cockcroft-Gault equation) are based ondifferent parameters and may not yield comparable results.If eCrCl result is absurd, please check patient'sheight/weight. Estimated Glomerular Filt Rate 46 [facility] Comment:Chronic Kidney Disea se: Estimated GFR < 60 mL/min/1.23v3Yyuujt Kidney Disease: Estimated GFR < 15 mL/min/1.73m2 Glucose 91 60 - 115 mg/dL [facility] Calcium 9.1 8.4 - 10.2 mg/dL [facility] Bilirubin, Total 0.2 0.0 - 1.0 mg/dL [facility] Aspartate Amino Transferase 19 5 - 37 U/L [facility] Alanine Aminotransferase 6 0 - 40 U/L [facility] Total Protein 7.9 6.5 - 8.0 g/dL [facility] Albumin Level 4.3 3.5 - 5.0 g/dL [facility] Alkaline Phosphatase 79 39 - 117 U/L [facility] 08/14/2025 1:07 PM EDT 08/14/2025 1:11 PM EDT us Generic External Data Provider LAB BLOOD ORDERAB LES Final Result [facility] [address] [place] [phone] * Hepatitis C Antibody with Reflex to HCV, RNA, Quantitative, Real-Time PCR (01/28/2025 10:44 AM EDT) Hepatitis C Antibody Nonreactive Nonreactive [facility] Comment:Antibodies to HCV no t detected; does not exclude early acuteHCV infection. Blood Venous blood specimen / Unknown 01/28/2025 10:44 AM EDT 01/28/2025 11:14 AM EDT Erica Meysurjit LAB BLOOD ORDERABLES Final R esult Performing Organization Address City/[facility]/ZIP Co de Phone Number [facility] [address] [place] [phone] * HIV-1/2 Antigen and Antibodies, Fourth Generation, with Reflexes (01/28/2025 10:44 AM EDT) [facility] HIV AB/AG Nonreactive Nonreactive [facility] Comment:HIV-1 p24 Ag and/or HIV-1/HIV-2 Ab not detected.A test result that is nonreactive does not exclude thepossibility of exposure to or infection with HIV-1 and/orHIV-2. Nonreactive results in this assay for individualswith prior exposure to HIV-1 and/or HIV-2 may be due toantigen and antibody levels that are below the limit ofdetection of this assay.The [employer] HIV Ag/Ab Combo assay result andsupplemental assay results should be interpreted inconjunction with the patient's clinical presentation,history and other laboratory results. If the results areinconsistent with clinical evidence, additional testing issuggested to confirm the result. Blood Venous blood specimen / Unknown 01/28/2025 10:44 AM EDT 01/28/2025 11:14 AM EDT Erica Noguerasaul LAB BLOOD ORDERABLES Final R esult Performing Organization Address City/[facility]/ZIP Co de Phone Number [facility] [address] [place] [phone] * (ABNORMAL) Lipid Panel, Standard (01/28/2025 10:44 AM EDT) Triglycerides 81 <150 mg/dL [facility] Comment:Desirable Triglyceri de: less than 150 mg/dLBorderline High Triglyceride 150-199 mg/dLHigh Triglyceride: 200-499 mg/dLVery High Triglyceride: greater than or equal to 5OO mg/dL Cholesterol 159 <200 mg/dL [facility] Comment:Desirable Cholestero l: less than 200 mg/dLBorderline High Cholesterol: 200-239 mg/dLHigh Cholesterol: greater than 239 mg/dL LDL Cholesterol Calculated 108(H) <100 mg/dL [facility] Comment:Desirable LDL: less than 100 mg/dLNear Optimal/Above Optimal LDL: 110- 129 mg/dLBorderline High LDL: 130-159 mg/dLHigh LDL: 160-189 mg/dLVery High LDL: greater than or equal to 190 mg/dL HDL Cholesterol 35(L) >40 mg/dL [facility] Comment:Desirable HDL: great er than 40 mg/dL Note: This HDL assay may give artificially low results in patients with liver disease. Blood Venous blood specimen / Unknown 01/28/2025 10:44 AM EDT 01/28/2025 11:14 AM EDT us Erica Cantu DO LAB BLOOD ORDERABLES Final R esult [facility] [address] [place] [phone] [phone] from Last 3 Months or Most Recently Relevant to Health Maintenance [facility] [place] [employer] C/O [employer] SERENAJEAN MARIE [id number] Care Teams Hand Thermal Cutter Relationship Specialty Start Date End Date Erica Cantu DO [address] [place] [phone] PCP - General Family Medicine 05/30/14
--- OUTSIDE RECORDS SUMMARY | 2025-08-19 16:44 | XMS_ITS | Encounter Summary ---
Author Organization [employer] Address [address] [facility] 7t [place] [address] Care Team Providers Care Civil Service Clerk Name Role Phone Erica Cantu DO Primary Care Provider + [phone] Reason for Visit * Reason Comments Med Refill Encounter Details Date Type Department Care Team ([facility] st Contact Info) Description 09/19/2023 Refill [facility] [address] [place] [address] Erica Cantu DO [address] [place] [address] Social History Tobacco Use Types Packs/Day Years [...] documented as of this encounter Care Teams Civil Service Clerk Relationship Specialty Start Date End Date Erica Cantu DO [address] [place] [address] PCP - General Family Medicine 05/30/14 documented as of this encounter
--- OUTSIDE RECORDS SUMMARY | 2025-08-19 16:44 | XMS_ITS | Encounter Summary ---
Author Organization [employer] Address [address] [facility] [address]t [place] [address] Care Team Providers Care Gritting Machine Operator Name Role Phone Erica Cantu DO Primary Care Provider [phone] Encounter Details Date Type Department Care Team ([facility] st Contact Info) Description 06/20/2023 Orders Only [facility] [address] [place] [address] Charito Bell MD [address] [place] [address] Social History Tobacco Use Types Packs/Day Years [...] on filedocumented in this encounter Care Teams Gritting Machine Operator Relationship Specialty Start Date End Date Erica Cantu DO [address] [place], [place] [phone] PCP - General Family Medicine 05/30/14 documented as of this encounter
== END 2025-08-19 14:45 | disposition home or self-care (01) ==
LOC: HO.HCC 13:36
PROVIDERS: Visit Provider Clinical Nurse Specialist Psychiatric/Mental Health
DX: F19.20 Other psychoactive substance dependence, uncomplicated (principal); Z51.81 Encounter for therapeutic drug level monitoring
CPT/HCPCS: 99203

== ENCOUNTER → 2025-08-19 13:35 | Outpatient (BNVA) | payer MEDICAID, SELFPAY | PROVIDERS: Visit Provider Clinical Nurse Specialist Psychiatric/Mental Health | DX: F19.20 Other psychoactive substance dependence, uncomplicated (principal); Z51.81 Encounter for therapeutic drug level monitoring | CPT/HCPCS: 80307; 99212 ==

== ENCOUNTER 2025-08-21 15:10 | Outpatient (REF) | payer MEDICAID, SELFPAY ==
[2025-08-25 08:33] LABS: Hydrocodone, Ur NEGATIVE; Hydromorphone, Ur NEGATIVE; Morphine, Ur NEGATIVE; Norhydrocodone, Ur NEGATIVE; Oxycodone, Ur NEGATIVE; Oxymorphone, Ur 202
[2025-08-25 08:34] LABS: Noroxycodone, Ur NEGATIVE
[2025-08-25 08:35] LABS: Codeine, Ur NEGATIVE
== END 2025-08-21 15:11 | disposition home or self-care (01) ==
LOC: HO.LAB 15:10
PROVIDERS: Visit Provider Clinical Nurse Specialist Psychiatric/Mental Health
DX: F19.20 Other psychoactive substance dependence, uncomplicated (principal); Z51.81 Encounter for therapeutic drug level monitoring; Z79.891 Long term (current) use of opiate analgesic
CPT/HCPCS: 80307; 80365; 99212; G0480

== ENCOUNTER 2025-08-21 15:10 | Outpatient (AMB) | payer MEDICAID, SELFPAY ==
--- OUTSIDE RECORDS SUMMARY | 2025-08-21 15:12 | XMS_ITS | Encounter Summary ---
Author Organization [employer] Address [address] [facility] 7t [place] [address] Care Team Providers Care Stage Set Up Worker Name Role Phone Erica Cantu DO Primary Care Provider + [phone] Reason for Visit * Reason Comments Med Refill Encounter Details Date Type Department Care Team ([facility] st Contact Info) Description 09/01/2023 Refill [facility] [address] [place] [address] Erica Cantu DO [address] [place] [address] Social History Tobacco Use Types Packs/Day Years [...] documented as of this encounter Care Teams Stage Set Up Worker Relationship Specialty Start Date End Date Erica Cantu DO [address] [place] [phone] PCP - General Family Medicine 05/30/14 documented as of this encounter
--- OUTSIDE RECORDS SUMMARY | 2025-08-21 15:12 | XMS_ITS | Encounter Summary ---
Author Organization [employer] Address [address] [facility] [address]t [place] [address] Care Team Providers Care Operational Test Mechanic Name Role Phone Erica Cantu DO Primary Care Provider + [phone] Reason for Visit * Reason Comments Med Refill Encounter Details Date Type Department Care Team ([facility] st Contact Info) Description 02/20/2025 Refill [facility] [address] [place] [address] Erica Cantu DO [address] [place] [address] Social History Tobacco Use Types Packs/Day Years [...] documented as of this encounter Care Teams Operational Test Mechanic Relationship Specialty Start Date End Date Erica Cantu DO [address] [place] [address] PCP - General Family Medicine 05/30/14 documented as of this encounter
--- OUTSIDE RECORDS SUMMARY | 2025-08-21 15:12 | XMS_ITS | Encounter Summary ---
Author Organization [employer] Address [address] [facility] 7t [place] [address] Care Team Providers Care Food Service Helper Name Role Phone Erica Cantu DO Primary Care Provider Encounter Details Date Type Department Care Team ([facility] st Contact Info) Description 05/22/[address] [facility] MEDICINE [address] [place] [address] Paula Woo RN Social History Tobacco Use [...] on filedocumented in this encounter Care Teams Food Service Helper Relationship Specialty Start Date End Date Erica Cantu DO [address] [place] [address] PCP - General Family Medicine 05/30/14 documented as of this encounter
--- OUTSIDE RECORDS SUMMARY | 2025-08-21 15:12 | XMS_ITS | Encounter Summary ---
Author Organization [employer] Address 75 [facility] 7t [place] [address] Care Team Providers Care Sales Operations Coordinator Name Role Phone Erica Cantu DO Primary Care Provider + [phone] Reason for Visit * Reason Onset Date Comments Hospital Follow-up 01/16/2025 Encounter Details Date Type Department Care Team ([facility] st Contact Info) Description 01/16/2025 Telephone [facility] MEDICINE [address] [place] [address] Erica Cantu DO [address] [place] [address] Hospital Follow-up Social History Tobacco Use Types [...] the past 12 months, has t he [employer], gas, oil or water company threatened to [...] from pt requesting a HDF appt. Hospital: [place], [place] Date of admission: 01/07 Discharge date: 01/10 Diagnosed: Blood spots *Send message to [facility] Coordinators [phone] documented in this encounter Plan of Treatment Not on file documented as of this encounter Visit Diagnoses Not on filedocumented in this encounter Additional Health Concerns Assessment Noted Time PHQ-9 Depression Total Score: 3 07/03/20 23 10:46 AM EDT documented as of this encounter Care Teams Sales Operations Coordinator Relationship Specialty Start Date End Date Erica Cantu DO [address] [place] [address] PCP - General Family Medicine 05/30/14 documented as of this encounter
--- OUTSIDE RECORDS SUMMARY | 2025-08-21 15:12 | XMS_ITS | Clinical Summary ---
Author Organization [employer] Address 75 [facility] 7t [place] [address] Care Team Providers Care Geophysical Laboratory Supervisor Name Role Phone Dulce Cantufer Primary Care [...] 25 Active ergocalciferol (Vitamin D2) 1.25 MG (13542 UT) capsule TAKE 1 CAPSULE BY MOUTH ONCE A WEEK 12 capsule 04/17/20 25 Active baclofen (Lioresal) 10 MG tablet TAKE 1 TABLET BY MOUTH THREE TIMES DAILY IN THE MORNING, AT NOON, AND AT BEDTIME NEEDED FOR MUSCLE SPASMS 60 tablet 1 08/01/20 25 Active Buprenorphine HCl-Naloxone HCl (Suboxone) 8-2 MG SL filmIndication s:Opioid type dependence, continuous (CMS/HCC) ([facility]) Place 1 Film under the tongue Once per day for 4 days. 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, crisis therapist Procedure Name Priority Date/Time Associated Diagnosis Comments [...] EDT) Sodium 142 135 - 145 mmol/L [facility] Potassium 3.8 3.3 - 5.1 mmol/L [facility] Comment:Slight Hemolysis.Int erpret result with caution. Chloride 109(H) 96 - 108 mmol/L [facility] Carbon Dioxide 25 22 - 29 mmol/L [facility] Anion Gap 12 12 - 20 [facility] Urea Nitrogen (BUN) 14 9 - 16 mg/dL [facility] Creatinine, Serum 0.90 0.5 - 1.4 mg/dL [facility] Creatinine Clr Calc Pharmacy 117.4 [facility] Comment:eGFR (calculated fro m the MDRD study equation) and eCrCl(calculated from the Cockcroft-Gault equation) are based ondifferent parameters and may not yield comparable results.If eCrCl result is absurd, please check patient'sheight/weight. Estimated Glomerular Filt Rate >60 [facility] Comment:Chronic Kidney Disea se: Estimated GFR < 60 mL/min/1.37d5Fauopt Kidney Disease: Estimated GFR < 15 mL/min/1.73m2 Glucose 99 60 - 115 mg/dL [facility] Calcium 9.2 8.4 - 10.2 mg/dL [facility] 08/14/2025 10:1 2 PM EDT 08/14/2025 10:16 PM EDT Generic External Data Provider LAB BLOOD ORDERAB LES Final Result Performing Organization Address [facility] Co de Phone Number [facility] [address] [place] [phone] * Slide Review (08/14/2025 1:07 PM EDT) Pathologist [facility] Slide Review VERIFIED [facility] 08/14/2025 1:07 PM EDT 08/14/2025 1:11 PM EDT Generic External Data Provider LAB BLOOD ORDERAB LES Final Result Performing Organization Address [facility] Phone Number [facility] [address] [place] [phone] * Ethanol (08/14/2025 1:07 PM EDT) ETHANOL (MG/DL) IN SER/PLAS 12 mg/dL [facility] Comment:Serum/plasma ethanol results are to be used formedical/treatment purposes only. 08/14/2025 1:07 PM EDT 08/14/2025 1:11 PM EDT Generic External Data Provider LAB BLOOD ORDERAB LES Final Result Performing Organization Address [facility] de Phone Number [facility] [address] [place] [phone] * (ABNORMAL) CBC auto differential (08/14/2025 1:07 PM EDT) Pathologist [facility] White Blood Count 9.7 4.8 - 10.8 X10*3/uL [facility] Red Blood Count 4.31(L) 4.60 - 5.80 X10*6/uL [facility] Hemoglobin 12.5(L) 14.0 - 18.0 g/dl [facility] Hematocrit 39.1(L) 42.0 - 52.0 % [facility] Mean Corpuscular Volume 90.7 80.0 - 98.0 fL [facility] Mean Corpuscular Hemoglobin 29.0 27.0 - 33.0 pg [facility] Mean Corpuscular HGB Conc 32.0 31.0 - 36.0 g/dl [facility] Red Cell Distribution Width 13.1 11.0 - 16.0 % [facility] Platelet Count 190 160 - 400 X10*3/uL [facility] Mean Platelet Volume 10.9 9.4 - 12.4 fL [facility] Neutrophils Percent Auto 77.6(H) 45 - 73 % [facility] Imm Gran Pct Auto 0.4 0.0 - 0.4 % [facility] Lymphocytes Percent Auto 7.6(L) 20 - 40 % [facility] Monocytes Percent Auto 12.3(H) 2 - 11 % [facility] Eosinophils Percent Auto 1.5 0 - 4 % [facility] Basophils Percent Auto 0.6 0 - 2 % [facility] NRBC Pct Auto 0.0 0.0 - 0.2 /100WBC [facility] Neutrophils Absolute Auto 7.6 2.0 - 8.3 x10*3/uL [facility] Imm Gran Abs Auto 0.04(H) 0.00 - 0.03 X10*3/uL [facility] Lymphocytes Absolute Auto 0.7(L) 1.2 - 4.9 X10*3/uL [facility] Monocytes Absolute Auto 1.2 0.1 - 1.2 X10*3/uL [facility] Eosinophils Absolute Auto 0.2 0.0 - 0.4 X10*3/uL [facility] Basophils Absolute Auto 0.1 0.0 - 0.2 X10*3/uL [facility] NRBC Abs Auto 0.000 0.0 - 0.012 X10*3/uL [facility] 08/14/2025 1:07 PM EDT 08/14/2025 1:11 PM EDT us Generic External Data Provider LAB BLOOD ORDERAB LES Edited Result - Final Performing Organization Address [facility]/ZIP Co de Phone Number [facility] [address] [place] [phone] * Acetaminophen level (08/14/2025 1:07 PM EDT) Pathologist [facility] Acetaminophen LAB <3 <30 mcg/mL [facility] 08/14/2025 1:07 PM EDT 08/14/2025 1:11 PM EDT us Generic External Data Provider LAB BLOOD ORDERAB LES Final Result Performing Organization Address [facility] Co de Phone Number [facility] [address] [place] [phone] * (ABNORMAL) Salicylate (08/14/2025 1:07 PM EDT) Salicylate <5.0(L) 15 - 30 mg/dL [facility] 08/14/2025 1:07 PM EDT 08/14/2025 1:11 PM EDT Generic External Data Provider LAB BLOOD ORDERAB LES Final Result Performing Organization Address [facility] Co de Phone Number [facility] [address] [place] [phone] * (ABNORMAL) Comprehensive Metabolic Panel (08/14/2025 1:07 PM EDT) Sodium 141 135 - 145 mmol/L [facility] Potassium 3.6 3.3 - 5.1 mmol/L [facility] Chloride 110(H) 96 - 108 mmol/L [facility] Carbon Dioxide 21(L) 22 - 29 mmol/L [facility] Anion Gap 14 12 - 20 [facility] Urea Nitrogen (BUN) 19(H) 9 - 16 mg/dL [facility] Creatinine, Serum 1.62(H) 0.5 - 1.4 mg/dL [facility] Creatinine Clr Calc Pharmacy 65.2 [facility] Comment:eGFR (calculated fro m the MDRD study equation) and eCrCl(calculated from the Cockcroft-Gault equation) are based ondifferent parameters and may not yield comparable results.If eCrCl result is absurd, please check patient'sheight/weight. Estimated Glomerular Filt Rate 46 [facility] Comment:Chronic Kidney Disea se: Estimated GFR < 60 mL/min/1.56p0Kwlpvz Kidney Disease: Estimated GFR < 15 mL/min/1.73m2 Glucose 91 60 - 115 mg/dL [facility] Calcium 9.1 8.4 - 10.2 mg/dL [facility] Bilirubin, Total 0.2 0.0 - 1.0 mg/dL [facility] Aspartate Amino Transferase 19 5 - 37 U/L [facility] Alanine Aminotransferase 6 0 - 40 U/L [facility] Total Protein 7.9 6.5 - 8.0 g/dL [facility] Albumin Level 4.3 3.5 - 5.0 g/dL [facility] Alkaline Phosphatase 79 39 - 117 U/L [facility] 08/14/2025 1:07 PM EDT 08/14/2025 1:11 PM EDT us Generic External Data Provider LAB BLOOD ORDERAB LES Final Result [facility] [address] [place] [phone] * Hepatitis C Antibody with Reflex to HCV, RNA, Quantitative, Real-Time PCR (01/28/2025 10:44 AM EDT) Hepatitis C Antibody Nonreactive Nonreactive [facility] Comment:Antibodies to HCV no t detected; does not exclude early acuteHCV infection. Blood Venous blood specimen / Unknown 01/28/2025 10:44 AM EDT 01/28/2025 11:14 AM EDT Erica Meysurjit LAB BLOOD ORDERABLES Final R esult Performing Organization Address City/[facility]/ZIP Co de Phone Number [facility] [address] [place] [phone] * HIV-1/2 Antigen and Antibodies, Fourth Generation, with Reflexes (01/28/2025 10:44 AM EDT) [facility] [address] HIV AB/AG Nonreactive Nonreactive [facility] Comment:HIV-1 p24 Ag and/or HIV-1/HIV-2 Ab not detected.A test result that is nonreactive does not exclude thepossibility of exposure to or infection with HIV-1 and/orHIV-2. Nonreactive results in this assay for individualswith prior exposure to HIV-1 and/or HIV-2 may be due toantigen and antibody levels that are below the limit ofdetection of this assay.The [employer] HIV Ag/Ab Combo assay result andsupplemental assay results should be interpreted inconjunction with the patient's clinical presentation,history and other laboratory results. If the results areinconsistent with clinical evidence, additional testing issuggested to confirm the result. Blood Venous blood specimen / Unknown 01/28/2025 10:44 AM EDT 01/28/2025 11:14 AM EDT Erica Noguerasaul LAB BLOOD ORDERABLES Final R esult Performing Organization Address City/[facility]/ZIP Co de Phone Number [facility] [address] [place] [phone] * (ABNORMAL) Lipid Panel, Standard (01/28/2025 10:44 AM EDT) Triglycerides 81 <150 mg/dL [facility] Comment:Desirable Triglyceri de: less than 150 mg/dLBorderline High Triglyceride 150-199 mg/dLHigh Triglyceride: 200-499 mg/dLVery High Triglyceride: greater than or equal to 5OO mg/dL Cholesterol 159 <200 mg/dL [facility] Comment:Desirable Cholestero l: less than 200 mg/dLBorderline High Cholesterol: 200-239 mg/dLHigh Cholesterol: greater than 239 mg/dL LDL Cholesterol Calculated 108(H) <100 mg/dL [facility] Comment:Desirable LDL: less than 100 mg/dLNear Optimal/Above Optimal LDL: 110- 129 mg/dLBorderline High LDL: 130-159 mg/dLHigh LDL: 160-189 mg/dLVery High LDL: greater than or equal to 190 mg/dL HDL Cholesterol 35(L) >40 mg/dL [facility] Comment:Desirable HDL: great er than 40 mg/dL Note: This HDL assay may give artificially low results in patients with liver disease. Blood Venous blood specimen / Unknown 01/28/2025 10:44 AM EDT 01/28/2025 11:14 AM EDT us Erica Cantu DO LAB BLOOD ORDERABLES Final R esult [facility] [address] [place] [phone] [phone] from Last 3 Months or Most Recently Relevant to Health Maintenance Insurance [facility] Pty C[employer] C/O [employer] SERE[place]JE[place] MARIE [id number] Care Teams Geophysical Laboratory Supervisor Relationship Specialty Start Date End Date Erica Cantu DO [address] [place] [phone] PCP - General Family Medicine 05/30/14
--- OUTSIDE RECORDS SUMMARY | 2025-08-21 15:12 | XMS_ITS | Encounter Summary ---
Author Organization [employer] Address 75 [facility] 7t [place] [address] Care Team Providers Care Tiler Name Role Phone Erica Cantu DO Primary Care Provider Encounter Details Date Type Department Care Team ([facility] st Contact Info) Description 06/20/2023 Orders Only [facility] MEDICINE [address] [place] [address] Charito Bell MD [address] [place] [address] Social History Tobacco Use Types Packs/Day Years [...] on filedocumented in this encounter Care Teams Tiler Relationship Specialty Start Date End Date Erica Cantu DO [address] [place], [place] [phone] PCP - General Family Medicine 05/30/14 documented as of this encounter
--- OUTSIDE RECORDS SUMMARY | 2025-08-21 15:12 | XMS_ITS | Encounter Summary ---
Author Organization [employer] Address 75 [facility] 7t [place] [address] Care Team Providers Care Gas Cutter Name Role Phone MeyErica eddy Primary Care Provider [phone] Encounter Details Date Type Department Care Team ([facility] st Contact Info) Description 04/03/2025 Community Care Management [facility] MEDICINE [address] [place] [address] Epiccare Link, Physician, Social History Tobacco Use [...] as of this encounter Care Teams Gas Cutter Relationship Specialty Start Date End Date Erica Cantu DO [address] [place] [phone] PCP - General Family Medicine 05/30/14 documented as of this encounter
--- OUTSIDE RECORDS SUMMARY | 2025-08-21 15:12 | XMS_ITS | Encounter Summary ---
Author Organization [employer] Address [address] [facility] 7t [place] [address] Care Team Providers Care Ambulatory Care Name Role Phone Erica Cantu DO Primary Care Provider + [phone] Reason for Visit * Reason Comments Med Refill Encounter Details Date Type Department Care Team ([facility] st Contact Info) Description 02/10/2025 Refill [facility] [address] [place] [address] Erica Cantu DO [address] [facility] [place] [address] Social History Tobacco Use Types Packs/Day Years [...] documented as of this encounter Care Teams Ambulatory Care Relationship Specialty Start Date End Date Erica Cantu DO [address] [place] [phone] PCP - General Family Medicine 05/30/14 documented as of this encounter
--- OUTSIDE RECORDS SUMMARY | 2025-08-21 15:12 | XMS_ITS | Encounter Summary ---
Author Organization [employer] Address [address] [facility] 7t [place] [address] Care Team Providers Care Conservation Scientist Name Role Phone Erica Cantu DO Primary Care Provider + [phone] Reason for Visit * Reason Comments Med Refill Encounter Details Date Type Department Care Team ([facility] st Contact Info) Description 09/19/2023 Refill [facility] MEDICINE [address] [place] [address] Erica Cantu DO [address] [place] [address] Social History Tobacco Use Types Packs/Day Years [...] documented as of this encounter Care Teams Conservation Scientist Relationship Specialty Start Date End Date Erica Cantu DO [address] [place] [address] PCP - General Family Medicine 05/30/14 documented as of this encounter
--- NOTE | 2025-08-21 15:22 | MHC.OFFVIS ---
Vital Signs 08/21/25 15:23 BP 148/82 H Pulse 80 Pulse Oximetry (%) 98 Intake Visit Reasons: MAT Allergies No Known Allergies (No Known Allergies*) Allergy (Verified 08/21/25 15:23) HPI Comments Details: A 45-year-old male presents with for a 2 day follow-up appointment r/t ERNESTINE post MAT intake to evaluate continued opioid use. Reports mother today. Acknowledges the buprenorphine-naloxone 8-2 mg BID is working well. Denies active opiate use, past 2 office based drug screens have tested positive for oxycodone. Reports mother today. The office based drug screen urine will be sent to lab for an opiate GCMS expanded for confirmation. [facility] Medical History PAF (paroxysmal atrial fibrillation) Pulmonary embolism Sleep apnea Chronic pain syndrome Femur fracture, right History of substance abuse Obesity Hypertension Surgical History H/O spinal fusion Hx of umbilical hernia repair (12/20/23) History of laparoscopic adjustable gastric banding Hx of laparoscopic gastric banding Family History Father Lung cancer Mother Breast cancer Social History Household Members: Spouse and Children Housing: House Are you a primary palliative care coordinator to a significant other at home: No Do you presently have visiting nurse or other home services: No Patient Tobacco Use Status: Never used Tobacco Substance Use Type: Painkillers service: No Current occupational status: unemployed Physical Exam Vital Signs: Last Vital Signs Pulse 80 08/21/25 15:23 BP 148/82 H 08/21/25 15:23 Pulse Ox 98 08/21/25 15:23 Results AMB 14 Panel Urine Drug Screen Urine Marijuana (THC) Negative Last Edit by Yola Barfield CMA on 08/21/25 15:26 Urine Cocaine Negative Last Edit by Yola Barfield CMA on 08/21/25 15:26 Urine Morphine Negative Last Edit by Yola Barfield CMA on 08/21/25 15:26 Urine Methamphetamine Negative Last Edit by Yola Barfield, BAL on 08/21/25 15:26 Urine Amphetamine Negative Last Edit by Yola Barfield, BAL on 08/21/25 15:26 Urine Benzodiazepine Negative Last Edit by Yola Barfield, BURNER TECHNICIAN on 08/21/25 15:26 Urine Barbiturates Negative Last Edit by Yola Barfield, BURNER TECHNICIAN on 08/21/25 15:26 Urine Methadone Negative Last Edit by Yola Barfield, BURNER TECHNICIAN on 08/21/25 15:26 Urine Buprenorphine Positive Last Edit by Yola Barfield, BURNER TECHNICIAN on 08/21/25 15:26 Urine Tricyclic Antidepressant Positive Last Edit by Yola Barfield, BURNER TECHNICIAN on 08/21/25 15:26 Urine MDMA Negative Last Edit by Yola Barfield, BAL on 08/21/25 15:26 Urine Oxycodone Positive Last Edit by Yola Barfield, BAL on 08/21/25 15:26 Urine Phencyclidine Negative Last Edit by Yola Barfield, BURNER TECHNICIAN on 08/21/25 15:26 Urine Propoxyphene Negative Last Edit by Yola Barfield, BURNER TECHNICIAN on 08/21/25 15:26 Results Reviewed Results Reviewed: Laboratory Last Values POC Urine Buprenorphine Positive 08/21/25 15:24 POC Urine Morphine Negative 08/21/25 15:24 POC Urine Oxycodone Positive 08/21/25 15:24 POC Urine Methadone Negative 08/21/25 15:24 POC Urine Propoxyphene Negative 08/21/25 15:24 POC Urine Barbiturates Negative 08/21/25 15:24 POC U Tricyclic Antidpr Positive 08/21/25 15:24 POC Urine PCP Negative 08/21/25 15:24 POC Ur Amphetamines Negative 08/21/25 15:24 POC Ur Methamphetamine Negative 08/21/25 15:24 POC Urine MDMA Negative 08/21/25 15:24 POC Ur Benzodiazepine Negative 08/21/25 15:24 POC Urine Cocaine Negative 08/21/25 15:24 POC Ur Marijuana (THC) Negative 08/21/25 15:24 Assessment & Plan Assessment & Plan (1) Severe substance use disorder: Code(s): F19.20 - Other psychoactive substance dependence, uncomplicated Category: Medical Plan The plan of care is to continue with buprenorphine-naloxone 8-2 mg BID, additional education provided on the importance of not taking opioids with buprenorphine-naloxone due to risk for respiratory depression. Risk reduction activities reinforced. Narcan prescribed. Follow-up on August 26 or sooner if needed. Orders: Orders AMB 14 Panel Urine Drug Screen Today Z51.81 - Encounter for therapeutic drug level monitoring Opiates GCMS Expanded, Ur Today F19.20 - Other psychoactive substance dependence, uncomplicated Medications: New buprenorphine-naloxone 8-2 mg (Suboxone) Place 1 film sublingually twice per day 1 film sublingual BID 10 ea 0RF 5 days Refilled buprenorphine-naloxone 8-2 mg (Suboxone) 1 film sublingual twice per day 1 film sublingual BID 10 ea 0RF 2 days Patient Instructions: - Continue with buprenorphine-naloxone as prescribed. - Engage in risk reduction activities to reduce or stop opiate use. - Narcan prescribed. - Follow-up on August 26 or sooner if needed. - Call with questions, concerns, or to report side effects/new onset of symptoms to [facility]. - The patient verbalized understanding and agreed with plan of care. Coding Level of Care Code Est Pt Level 3 (31110) Diagnoses Severe substance use disorder F19.20
[2025-08-21 15:23] VITALS: BP 148/82; PULSE 80; O2SAT 98
== END 2025-08-21 16:19 | disposition home or self-care (01) ==
LOC: HO.HCC 15:10
PROVIDERS: Visit Provider Clinical Nurse Specialist Psychiatric/Mental Health
DX: F19.20 Other psychoactive substance dependence, uncomplicated (principal); Z51.81 Encounter for therapeutic drug level monitoring
CPT/HCPCS: 99213

== ENCOUNTER 2025-08-29 10:13 | Outpatient (AMB) | payer MEDICAID, SELFPAY ==
[2025-08-29 10:19] VITALS: BP 162/82; PULSE 92; O2SAT 96; BMI 39.5
--- NOTE | 2025-08-29 10:19 | A.OFFVIS_ITS ---
Vital Signs 08/29/25 10:19 Height 5 ft 8 in Weight 260 lb BMI 39.5 BP 162/82 H Pulse 92 Pulse Oximetry (%) 96 Intake Visit Reasons: MAT Allergies No Known Allergies (No Known Allergies*) Allergy (Verified 08/29/25 10:20) HPI Comments Details: History of Present Illness The patient is a 45-year-old male presenting with opioid use disorder. He has been participating in a treatment program and receiving Suboxone twice daily. The patient describes ongoing cravings and associated agitation. He attends the program weekly, maintaining stable vital signs. An increase in Suboxone dosage has been considered to address his symptoms more effectively. Review of Systems - Psychiatric: Reports agitation; Reports cravings associated with opioid use disorder Physical Exam - Vital Signs- Stable Results Plan Patient was informed and verbally consented to the use of an ambient scribe for clinic note documentation during this visit. 1. Opioid use, unspecified, uncomplicated F11.90 The therapy plan involves increasing Suboxone dosage from twice to three times daily to manage ongoing cravings and agitation. A 2-week supply, consisting of 42 tablets, has been advised. Progress will be closely monitored, with the next review scheduled in two weeks. 2. Cravings Associated With Opioid Use Disorder An increase in the frequency of Suboxone aims to address cravings and associated agitation. The effectiveness of this adjustment will be reviewed after two weeks to ensure effective management of symptoms. Discussion Notes I discussed at length the need for adjusting the Suboxone dosage due to persistent cravings and associated agitation. We explored the potential benefits of increasing the frequency to three times daily. We also talked about monitoring for any adverse reactions to the increased dosage. The importance of consistent medication intake and attending the upcoming follow-up was emphasized. The patient has agreed to the plan and will return for evaluation in two weeks with his regular provider, Tosh[facility]. Medical Decision Making The patient's persistent cravings and agitation necessitate an adjustment in his current treatment regimen for opioid use disorder. Increasing the Suboxone dosage from two to three times daily is warranted to enhance efficacy. My decision is informed by the stability of the patient's vital signs and his commitment to the program. The goal is to reduce cravings and improve agitation levels, optimizing the patient?s management plan. The increased dosage is anticipated to attenuate symptoms, facilitating more effective treatment adherence and outcome. Patient Instructions - Take Suboxone as prescribed three times a day. - Monitor for any adverse reactions. - Return for a follow-up appointment in two weeks. - Stick to the treatment plan and attend all scheduled visits. - Reach out to the program if cravings escalate or if there are side effects from the medication. PFSH Medical History PAF (paroxysmal atrial fibrillation) Pulmonary embolism Sleep apnea Chronic pain syndrome Femur fracture, right History of substance abuse Obesity Hypertension Surgical History H/O spinal fusion Hx of umbilical hernia repair (12/20/23) History of laparoscopic adjustable gastric banding Hx of laparoscopic gastric banding Family History Father Lung cancer Mother Breast cancer Social History Household Members: Spouse and Children Housing: House Are you a primary administrator health care facility to a significant other at home: No Do you presently have visiting nurse or other home services: No Patient Tobacco Use Status: Never used Tobacco Substance Use Type: Painkillers service: No Current occupational status: unemployed Physical Exam Vital Signs: Last Vital Signs Pulse 92 08/29/25 10:19 BP 162/82 H 08/29/25 10:19 Pulse Ox 96 08/29/25 10:19 BMI result Body Mass Index 39.5 Assessment & Plan Assessment & Plan (1) Severe substance use disorder: Code(s): F19.20 - Other psychoactive substance dependence, uncomplicated Category: Medical Plan: n/a Plan n/a Medications: New buprenorphine-naloxone 8-2 mg (Suboxone) 1 film sublingual TID 42 ea 0RF 14 days Discontinued buprenorphine-naloxone 8-2 mg (Suboxone) Place 1 film sublingually twice per day Discontinued Reason: Doctor's Order 1 film sublingual BID 5 days 10 ea 0RF buprenorphine-naloxone 8-2 mg (Suboxone) 1 film sublingual twice per day Discontinued Reason: Doctor's Order 1 film sublingual BID 2 days 10 ea 0RF Coding Level of Care Code Est Pt Level 3 (38297) Diagnoses Severe substance use disorder F19.20
--- OUTSIDE RECORDS SUMMARY | 2025-08-29 12:04 | XMS_ITS | Clinical Summary ---
Author Organization [employer] Address [address] [facility] 7t [place] [address] Care Team Providers Care Stone Lathe Operator Name Role Phone Dulce Cantufer Primary Care [...] 25 Active ergocalciferol (Vitamin D2) 1.25 MG (14819 UT) capsule TAKE 1 CAPSULE BY MOUTH ONCE A WEEK 12 capsule 04/17/20 25 Active baclofen (Lioresal) 10 MG tablet TAKE 1 TABLET BY MOUTH THREE TIMES DAILY IN THE MORNING, AT NOON, AND AT BEDTIME NEEDED FOR MUSCLE SPASMS 60 tablet 1 08/01/20 25 Active Buprenorphine HCl-Naloxone HCl (Suboxone) 8-2 MG SL filmIndication s:Opioid type dependence, continuous (CMS/HCC) ([facility]) Place 1 Film under the tongue [...] diet and exercise,discussed healthy life style -discussed bellows tester referral -referred today Chronic pain syndrome 07/27/2016 [...] xr calcification-denies symptoms History of substance abuse ([facility]) 12/22/2022 01/28/2025 Encounters Date Type Department Care Team Description 08/21/2025 Orders Only GENERIC EXTERNAL DATA DEPARTMENT Provider, Generic External Data 08/14/2025 Orders Only GENERIC EXTERNAL DATA DEPARTMENT Provider, Generic External Data 07/31/2025 Refill [facility] [address] [place] [phone] Erica Cantu DO from Last 3 Months [...] To stay clean. 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, host/hostess ground Procedure Name Priority Date/Time Associated Diagnosis Comments DRUG MONITOR, OPIATES EXPANDED, QN, URINE Routine 08/21/2025 3:44 PM EDT BASIC METABOLIC PANEL Routine 08/14/2025 10:12 PM [...] Recently Relevant to Health Maintenance Results * Drug Monitoring, Opiates Expanded, Quantitative, Urine (08/21/2025 3:44 PM EDT) Codeine, Urine NEGATIVE [facility] Comment:CUTOFF 50 NG/MLPERFO RMING SITE:[facility] Workhint [facility], [address] [place] [phone] Telephone Station Installer: LENKA STRNAGE MD, CLIA:[id number] Hydrocodone, Ur NEGATIVE [facility] Comment:CUTOFF 50 NG/ML Oxycodone, Urine NEGATIVE [facility] Comment:CUTOFF 50 NG/ML Oxycodone GC/MS Note SEE NOTE [facility] Comment:NOTES AND COMMENTSTh is drug testing is for medical treatment only. Analysiswas performed as non-forensic testing and these resultsshould be used only by healthcare providers to renderdiagnosis or treatment, or to monitor progress of medicalconditions.Oxycodone Notes:Oxymorphone detected is consistent with the use of the drugOxymorphone. Oxymorphone can be a prescribed drug and isalso a metabolite of Oxycodone.LDT Notes:Confirmation tests were developed and their analyticalperformance characteristics have been determined by [employer]. It has not been cleared or approved by the FDA.This assay has been validated pursuant to the CLIAregulations and is used for clinical purposes.Healthcare Providers needing Interpretation assistance,please contact us at [phone] ( ) M-F,8am to 10pm EST Morphine, Urine NEGATIVE [facility] Comment:CUTOFF 50 NG/ML Hydromorphone, Urine NEGATIVE [facility] Comment:CUTOFF 50 NG/ML Oxymorphone, Urine [address] [facility] Comment:CUTOFF 50 NG/ML Opiates GC/MS Note SEE NOTE H [facility] Comment:NOTES AND COMMENTSTh is drug testing is for medical treatment only. Analysiswas performed as non-forensic testing and these resultsshould be used only by healthcare providers torender diagnosis or treatment, or to monitor progress ofmedical conditions.LDT Notes:Confirmation tests were developed and their analyticalperformance characteristics have been determined by [employer]. It has not been cleared orapproved by the FDA. This assay has been validated pursuantto the CLIA regulations and is used for clinical purposes.Healthcare Providers needing Interpretation assistance,please contact us at [phone] ( ) M-F,8am to 10pm EST Norhydrocodone, Urine NEGATIVE [facility] Comment:CUTOFF 50 NG/ML Noroxycodone, Urine NEGATIVE [facility] Comment:CUTOFF 50 NG/ML 08/21/2025 3:44 PM EDT 08/21/2025 3:44 PM EDT us Generic External Data Provider LAB URINE ORDERAB LES Final Result [facility] [address] [place] [phone] * (ABNORMAL) Basic Metabolic Panel (08/14/2025 10:12 PM EDT) Sodium 142 135 - 145 mmol/L [facility] Potassium 3.8 3.3 - 5.1 mmol/L [facility] Comment:Slight Hemolysis.Int erpret result with caution. Chloride 109(H) 96 - 108 mmol/L [facility] Carbon Dioxide 25 22 - 29 mmol/L [facility] Anion Gap 12 12 - 20 [facility] Urea Nitrogen (BUN) 14 9 - 16 mg/dL [facility] Creatinine, Serum 0.90 0.5 - 1.4 mg/dL [facility] Creatinine Clr Calc Pharmacy 117.4 [facility] Comment:eGFR (calculated fro m the MDRD study equation) and eCrCl(calculated from the Cockcroft-Gault equation) are based ondifferent parameters and may not yield comparable results.If eCrCl result is absurd, please check patient'sheight/weight. Estimated Glomerular Filt Rate >60 [facility] Comment:Chronic Kidney Disea se: Estimated GFR < 60 mL/min/1.18j3Pdjete Kidney Disease: Estimated GFR < 15 mL/min/1.73m2 Glucose 99 60 - 115 mg/dL [facility] Calcium 9.2 8.4 - 10.2 mg/dL [facility] 08/14/2025 10:1 2 PM EDT 08/14/2025 10:16 PM EDT us Generic External Data Provider LAB BLOOD ORDERAB LES Final Result [facility] [address] [place] [address] [phone] * Slide Review (08/14/2025 1:07 PM EDT) Slide Review VERIFIED [facility] 08/14/2025 1:07 PM EDT 08/14/2025 1:11 PM EDT us Generic External Data Provider LAB BLOOD ORDERAB LES Final Result Performing Organization Address City/[facility]/ZIP Co de Phone Number [facility] [address] [place] [phone] * Ethanol (08/14/2025 1:07 PM EDT) ETHANOL (MG/DL) IN SER/PLAS 12 mg/dL [facility] Comment:Serum/plasma ethanol results are to be used formedical/treatment purposes only. 08/14/2025 1:07 PM EDT 08/14/2025 1:11 PM EDT Generic External Data Provider LAB BLOOD ORDERAB LES Final Result Performing Organization Address [facility] Co de Phone Number [facility] [address] [place] [phone] * (ABNORMAL) CBC auto differential (08/14/2025 1:07 PM EDT) [facility] White Blood Count 9.7 4.8 - 10.8 X10*3/uL [facility] Red Blood Count 4.31(L) 4.60 - 5.80 X10*6/uL [facility] Hemoglobin 12.5(L) 14.0 - 18.0 g/dl [facility] Hematocrit 39.1(L) 42.0 - 52.0 % [facility] Mean Corpuscular Volume 90.7 80.0 - 98.0 fL [facility] Mean Corpuscular Hemoglobin 29.0 27.0 - 33.0 pg [facility] Mean Corpuscular HGB Conc 32.0 31.0 - 36.0 g/dl [facility] Red Cell Distribution Width 13.1 11.0 - 16.0 % [facility] Platelet Count 190 160 - 400 X10*3/uL [facility] Mean Platelet Volume 10.9 9.4 - 12.4 fL [facility] Neutrophils Percent Auto 77.6(H) 45 - 73 % [facility] Imm Gran Pct Auto 0.4 0.0 - 0.4 % [facility] Lymphocytes Percent Auto 7.6(L) 20 - 40 % [facility] Monocytes Percent Auto 12.3(H) 2 - 11 % [facility] Eosinophils Percent Auto 1.5 0 - 4 % [facility] Basophils Percent Auto 0.6 0 - 2 % [facility] NRBC Pct Auto 0.0 0.0 - 0.2 /100WBC [facility] Neutrophils Absolute Auto 7.6 2.0 - 8.3 x10*3/uL [facility] Imm Gran Abs Auto 0.04(H) 0.00 - 0.03 X10*3/uL [facility] Lymphocytes Absolute Auto 0.7(L) 1.2 - 4.9 X10*3/uL [facility] Monocytes Absolute Auto 1.2 0.1 - 1.2 X10*3/uL [facility] Eosinophils Absolute Auto 0.2 0.0 - 0.4 X10*3/uL [facility] Basophils Absolute Auto 0.1 0.0 - 0.2 X10*3/uL [facility] NRBC Abs Auto 0.000 0.0 - 0.012 X10*3/uL [facility] 08/14/2025 1:07 PM EDT 08/14/2025 1:11 PM EDT us Generic External Data Provider LAB BLOOD ORDERAB LES Edited Result - Final [facility] [address] [place] [phone] * Acetaminophen level (08/14/2025 1:07 PM EDT) Acetaminophen LAB <3 <30 mcg/mL [facility] 08/14/2025 1:07 PM EDT 08/14/2025 1:11 PM EDT us Generic External Data Provider LAB BLOOD ORDERAB LES Final Result Performing Organization Address City/[facility]/ZIP Co de Phone Number [facility] [address] [place] [phone] * (ABNORMAL) Salicylate (08/14/2025 1:07 PM EDT) Salicylate <5.0(L) 15 - 30 mg/dL [facility] 08/14/2025 1:07 PM EDT 08/14/2025 1:11 PM EDT Generic External Data Provider LAB BLOOD ORDERAB LES Final Result Performing Organization Address [facility] Co de Phone Number [facility] [address] [place] [phone] * (ABNORMAL) Comprehensive Metabolic Panel (08/14/2025 1:07 PM EDT) Sodium 141 135 - 145 mmol/L [facility] Potassium 3.6 3.3 - 5.1 mmol/L [facility] Chloride 110(H) 96 - 108 mmol/L [facility] Carbon Dioxide 21(L) 22 - 29 mmol/L [facility] Anion Gap 14 12 - 20 [facility] Urea Nitrogen (BUN) 19(H) 9 - 16 mg/dL [facility] Creatinine, Serum 1.62(H) 0.5 - 1.4 mg/dL [facility] Creatinine Clr Calc Pharmacy 65.2 [facility] Comment:eGFR (calculated fro m the MDRD study equation) and eCrCl(calculated from the Cockcroft-Gault equation) are based ondifferent parameters and may not yield comparable results.If eCrCl result is absurd, please check patient'sheight/weight. Estimated Glomerular Filt Rate 46 [facility] Comment:Chronic Kidney Disea se: Estimated GFR < 60 mL/min/1.46h4Hvtjdw Kidney Disease: Estimated GFR < 15 mL/min/1.73m2 Glucose 91 60 - 115 mg/dL [facility] Calcium 9.1 8.4 - 10.2 mg/dL [facility] Bilirubin, Total 0.2 0.0 - 1.0 mg/dL [facility] Aspartate Amino Transferase 19 5 - 37 U/L [facility] Alanine Aminotransferase 6 0 - 40 U/L [facility] Total Protein 7.9 6.5 - 8.0 g/dL [facility] Albumin Level 4.3 3.5 - 5.0 g/dL [facility] Alkaline Phosphatase 79 39 - 117 U/L [facility] 08/14/2025 1:07 PM EDT 08/14/2025 1:11 PM EDT us Generic External Data Provider LAB BLOOD ORDERAB LES Final Result Performing Organization Address [facility]/ZIP Co de Phone Number [facility] [address] [place] [address] [phone] * Hepatitis C Antibody with Reflex to HCV, RNA, Quantitative, Real-Time PCR (01/28/2025 10:44 AM EDT) Hepatitis C Antibody Nonreactive Nonreactive [facility] Comment:Antibodies to HCV no t detected; does not exclude early acuteHCV infection. Blood Venous blood specimen / Unknown 01/28/2025 10:44 AM EDT 01/28/2025 11:14 AM EDT us Erica Cantu DO LAB BLOOD ORDERABLES Final R esult Performing Organization Address City/[facility]/ZIP Co de Phone Number [facility] [address] [place] [phone] * HIV-1/2 Antigen and Antibodies, Fourth Generation, with Reflexes (01/28/2025 10:44 AM EDT) HIV AB/AG Nonreactive Nonreactive [facility] Comment:HIV-1 p24 Ag and/or HIV-1/HIV-2 Ab not detected.A test result that is nonreactive does not exclude thepossibility of exposure to or infection with HIV-1 and/orHIV-2. Nonreactive results in this assay for individualswith prior exposure to HIV-1 and/or HIV-2 may be due toantigen and antibody levels that are below the limit ofdetection of this assay.The [email or web address] HIV Ag/Ab Combo assay result andsupplemental assay results should be interpreted inconjunction with the patient's clinical presentation,history and other laboratory results. If the results areinconsistent with clinical evidence, additional testing issuggested to confirm the result. Blood Venous blood specimen / Unknown 01/28/2025 10:44 AM EDT 01/28/2025 11:14 AM EDT us Erica Cantu DO LAB BLOOD ORDERABLES Final R esult [facility] [address] [place] [phone] * (ABNORMAL) Lipid Panel, Standard (01/28/2025 10:44 AM EDT) Triglycerides 81 <150 mg/dL [facility] Comment:Desirable Triglyceri de: less than 150 mg/dLBorderline High Triglyceride 150-199 mg/dLHigh Triglyceride: 200-499 mg/dLVery High Triglyceride: greater than or equal to 5OO mg/dL Cholesterol 159 <200 mg/dL [facility] Comment:Desirable Cholestero l: less than 200 mg/dLBorderline High Cholesterol: 200-239 mg/dLHigh Cholesterol: greater than 239 mg/dL LDL Cholesterol Calculated 108(H) <100 mg/dL [facility] Comment:Desirable LDL: less than 100 mg/dLNear Optimal/Above Optimal LDL: 110- 129 mg/dLBorderline High LDL: 130-159 mg/dLHigh LDL: 160-189 mg/dLVery High LDL: greater than or equal to 190 mg/dL HDL Cholesterol 35(L) >40 mg/dL [facility] Comment:Desirable HDL: great er than 40 mg/dL Note: This HDL assay may give artificially low results in patients with liver disease. Blood Venous blood specimen / Unknown 01/28/2025 10:44 AM EDT 01/28/2025 11:14 AM EDT Erica Cantu DO LAB BLOOD ORDERABLES Final R esult [facility] [address] [place] [phone] from Last 3 Months or Most Recently Relevant to Health Maintenance [facility] [employer] C/O [employer] Care Teams Stone Lathe Operator Relationship Specialty Start Date End Date Erica Cantu DO [address] [place] [phone] PCP - General Family Medicine 05/30/14
--- OUTSIDE RECORDS SUMMARY | 2025-08-29 12:04 | XMS_ITS | Encounter Summary ---
Author Organization [employer] Address [address] [facility] 7t [place] [address] Care Team Providers Care Put In Beat Adjuster Name Role Phone Erica Cantu DO Primary Care Provider + [phone] Reason for Visit * Reason Comments Med Refill Encounter Details Date Type Department Care Team ([facility] st Contact Info) Description 09/01/2023 Refill [facility] [address] [place] [address] Erica Cantu DO [address] [place] [address] Social History Tobacco Use Types Packs/Day Years [...] documented as of this encounter Care Teams Put In Beat Adjuster Relationship Specialty Start Date End Date Erica Cantu DO [address] [place] [address] PCP - General Family Medicine 05/30/14 documented as of this encounter
--- OUTSIDE RECORDS SUMMARY | 2025-08-29 12:04 | XMS_ITS | Encounter Summary ---
Author Organization [employer] Address [address] [facility] 7t [place] [address] Care Team Providers Care Filter Tank Operator Name Role Phone AlondraErica Primary Care Provider [phone] Encounter Details Date Type Department Care Team (Late st Contact Info) Description 08/21/2025 Orders Only GENERIC EXTERNAL DATA [...] QN, URINE Routine 08/21/2025 3:44 PM EDT documented in this encounter Results * Drug Monitoring, Opiates Expanded, Quantitative, Urine (08/21/2025 3:44 PM EDT) Codeine, Urine NEGATIVE [facility] Comment:CUTOFF 50 NG/MLPERFO RMING SITE:[email or web address] [facility], [address] [place] [phone] Paver Operator: LENKA STRANGE MD, CLIA:[id number] Hydrocodone, Ur NEGATIVE [facility] Comment:CUTOFF 50 NG/ML Oxycodone, Urine NEGATIVE [facility] Comment:CUTOFF 50 NG/ML Oxycodone GC/MS Note SEE NOTE [facility] Comment:NOTES AND COMMENTSTh is drug [...] their analyticalperformance characteristics have been determined by [employer]. It has not been cleared or approved by the FDA.This assay has been validated pursuant to the CLIAregulations and is used for clinical purposes.Healthcare Providers needing Interpretation assistance,please contact us at [phone] ( ) M-F,8am to 10pm EST Morphine, Urine NEGATIVE [facility] Comment:CUTOFF 50 NG/ML Hydromorphone, Urine NEGATIVE [facility] Comment:CUTOFF 50 NG/ML Oxymorphone, Urine [address] [facility] Comment:CUTOFF 50 NG/ML Opiates GC/MS Note SEE NOTE H [facility] Comment:NOTES AND COMMENTSTh is drug testing is for medical treatment only. Analysiswas performed as non-forensic testing and these resultsshould be used only by healthcare providers torender diagnosis or treatment, or to monitor progress ofmedical conditions.LDT Notes:Confirmation tests were developed and their analyticalperformance characteristics have been determined by [employer]. It has not been cleared orapproved by the FDA. This assay has been validated pursuantto the CLIA regulations and is used for clinical purposes.Healthcare Providers needing Interpretation assistance,please contact us at [phone] ( ) M-F,8am to 10pm EST Norhydrocodone, Urine NEGATIVE [facility] Comment:CUTOFF 50 NG/ML Noroxycodone, Urine NEGATIVE [facility] Comment:CUTOFF 50 NG/ML 08/21/2025 3:44 PM EDT 08/21/2025 3:44 PM EDT us Generic External Data Provider LAB URINE ORDERAB LES Final Result [facility] [address] [place] [address] [phone] documented in this encounter Visit Diagnoses Not on filedocumented in this encounter Additional Health Concerns Assessment Noted Time PHQ-9 Depression Total Score: 0 01/29/20 25 9:24 AM EDT documented as of this encounter Care Teams Filter Tank Operator Relationship Specialty Start Date End Date Erica Cantu DO [address] [place] [phone] PCP - General Family Medicine 05/30/14 documented as of this encounter
--- OUTSIDE RECORDS SUMMARY | 2025-08-29 12:04 | XMS_ITS | Encounter Summary ---
Author Organization [employer] Address [address] [facility] 7t [place] [address] Care Team Providers Care Test Man Name Role Phone Erica Cantu DO Primary Care Provider + [phone] Reason for Visit * Reason Onset Date Comments Hospital Follow-up 01/16/2025 Encounter Details Date Type Department Care Team ([facility] st Contact Info) Description 01/16/2025 Telephone [facility] [address] [place] [address] Erica Cantu DO [address] [place] [address] Hospital Follow-up Social History Tobacco Use Types [...] the past 12 months, has t he [employer], gas, oil or water company threatened to [...] from pt requesting a HDF appt. Hospital: [address], [place] Date of admission: 01/07 Discharge date: 01/10 Diagnosed: Blood spots *Send message to [place] Clinical Care Coordinators [phone] documented in this encounter Plan of Treatment Not on file documented as of this encounter Visit Diagnoses Not on filedocumented in this encounter Additional Health Concerns Assessment Noted Time PHQ-9 Depression Total Score: 3 07/03/20 23 10:46 AM EDT documented as of this encounter Care Teams Test Man Relationship Specialty Start Date End Date Erica Cantu DO [address] [place] [address] PCP - General Family Medicine 05/30/14 documented as of this encounter
--- OUTSIDE RECORDS SUMMARY | 2025-08-29 12:04 | XMS_ITS | Encounter Summary ---
Author Organization [employer] Address [address] [facility] 7t [place] [address] Care Team Providers Care Vice President Safety Name Role Phone Erica Cantu DO Primary Care Provider Encounter Details Date Type Department Care Team ([facility] st Contact Info) Description 05/22/2023 Orders Only [facility] MEDICINE [address] [place] [address] Paula Woo RN Social History Tobacco Use [...] on filedocumented in this encounter Care Teams Vice President Safety Relationship Specialty Start Date End Date Erica Cantu DO [address] [place] [address] PCP - General Family Medicine 05/30/14 documented as of this encounter
--- OUTSIDE RECORDS SUMMARY | 2025-08-29 12:04 | XMS_ITS | Encounter Summary ---
Author Organization [employer] Address [address] [facility] 7t [place] [address] Care Team Providers Care Housekeeping Attendant Name Role Phone Erica Cantu DO Primary Care Provider Encounter Details Date Type Department Care Team ([facility] st Contact Info) Description 06/20/2023 Orders Only [facility] MEDICINE [address] [place] [address] Charito Bell MD [address] [place] [address] Social History Tobacco Use Types Packs/Day Years [...] on filedocumented in this encounter Care Teams Housekeeping Attendant Relationship Specialty Start Date End Date Erica Cantu DO [address] [place], [place] [id number] PCP - General Family Medicine 05/30/14 documented as of this encounter
--- OUTSIDE RECORDS SUMMARY | 2025-08-29 12:04 | XMS_ITS | Encounter Summary ---
Author Organization [employer] Address [address] [facility] 7t [place] [address] Care Team Providers Care Lumber Carrier Operator Name Role Phone MeyErica eddy Primary Care Provider [phone] Encounter Details Date Type Department Care Team ([facility] st Contact Info) Description 04/03/2025 Community Care Management [facility] MEDICINE [address] [place] [address] [employer] Link, Physician, Social History Tobacco Use [...] documented as of this encounter Care Teams Lumber Carrier Operator Relationship Specialty Start Date End Date Erica Cantu DO [address] [place] [address] PCP - General Family Medicine 05/30/14 documented as of this encounter
--- OUTSIDE RECORDS SUMMARY | 2025-08-29 12:04 | XMS_ITS | Encounter Summary ---
Author Organization [employer] Address [address] [facility] 7t [place] [address] Care Team Providers Care Engine Setter Name Role Phone Erica Cantu DO Primary Care Provider + [phone] Reason for Visit * Reason Comments Med Refill Encounter Details Date Type Department Care Team ([facility] st Contact Info) Description 02/10/2025 Refill [facility] MED & PEDS [address] [place] [address] Erica Cantu DO [address] [place] [address] Social History Tobacco Use Types Packs/Day Years [...] documented as of this encounter Care Teams Engine Setter Relationship Specialty Start Date End Date Erica Cantu DO [address] [place] [address] PCP - General Family Medicine 05/30/14 documented as of this encounter
--- OUTSIDE RECORDS SUMMARY | 2025-08-29 12:04 | XMS_ITS | Encounter Summary ---
Author Organization [employer] Address [address] [facility] 7t [place] [address] Care Team Providers Care Merchandise Worker Name Role Phone Erica Cantu DO Primary Care Provider + [phone] Reason for Visit * Reason Comments Med Refill Encounter Details Date Type Department Care Team ([facility] st Contact Info) Description 02/20/2025 Refill [facility] MEDICINE [address] [place] [address] Erica Cantu DO [address] [place] [address] Social History Tobacco Use Types Packs/Day Years [...] documented as of this encounter Care Teams Merchandise Worker Relationship Specialty Start Date End Date Erica Cantu DO [address] [place] [address] PCP - General Family Medicine 05/30/14 documented as of this encounter
--- OUTSIDE RECORDS SUMMARY | 2025-08-29 12:04 | XMS_ITS | Encounter Summary ---
Author Organization [employer] Address [address] [facility] [address]t [place] [address] Care Team Providers Care Assembler Bicycle Name Role Phone Erica Cantu DO Primary Care Provider + [phone] Reason for Visit * Reason Comments Med Refill Encounter Details Date Type Department Care Team ([facility] st Contact Info) Description 09/19/2023 [facility] [address] [place] [address] Erica Cantu DO [address] [place] [address] Social History Tobacco Use Types Packs/Day Years [...] documented as of this encounter Care Teams Assembler Bicycle Relationship Specialty Start Date End Date Erica Cantu DO [address] [place] [address] PCP - General Family Medicine 05/30/14 documented as of this encounter
== END 2025-08-29 11:02 | disposition home or self-care (01) ==
LOC: HO.HCC 10:14
PROVIDERS: Visit Provider Internal Medicine
DX: F19.20 Other psychoactive substance dependence, uncomplicated (principal)
CPT/HCPCS: 99213

== ENCOUNTER → 2025-08-29 10:13 | Outpatient (BNVA) | payer MEDICAID, SELFPAY | PROVIDERS: Visit Provider Internal Medicine | DX: F19.20 Other psychoactive substance dependence, uncomplicated (principal) | CPT/HCPCS: 99212 ==

== ENCOUNTER 2025-09-11 11:04 | Outpatient (AMB) | payer MEDICAID, SELFPAY ==
[2025-09-11 11:12] VITALS: BP 160/80; PULSE 78; O2SAT 98
--- NOTE | 2025-09-11 11:12 | A.OFFVIS_ITS ---
Vital Signs 09/11/25 11:12 Height 5 ft 8 in BP 160/80 H Pulse 78 Pulse Oximetry (%) 98 Intake Visit Reasons: MAT Allergies No Known Allergies (No Known Allergies*) Allergy (Verified 09/11/25 11:13) HPI Comments Details: A 45-year-old male presents for follow-up visit r/t ERNESTINE and reports abstaining from opiate use with the assistance of buprenorphine-naloxone 8-2 mg TID. Denies use of opiates, alcohol, and other substances. The patient states I'm feeling stable with the increase in the buprenorphine-naloxone dose. A referral offered for a recovery assistant to which patient reports he will go personally to Lauren Patton. COUNTS INCLUDE 234 BEDS AT [facility] Medical History PAF (paroxysmal atrial fibrillation) Pulmonary embolism Sleep apnea Chronic pain syndrome Femur fracture, right History of substance abuse Obesity Hypertension Surgical History H/O spinal fusion Hx of umbilical hernia repair (12/20/23) History of laparoscopic adjustable gastric banding Hx of laparoscopic gastric banding Family History Father Lung cancer Mother Breast cancer Social History Household Members: Spouse and Children Housing: House Are you a primary behavioral health care manager to a significant other at home: No Do you presently have visiting nurse or other home services: No Patient Tobacco Use Status: Never used Tobacco Substance Use Type: Painkillers service: No Current occupational status: unemployed Review of Systems Const All systems reviewed & are unremarkable except as noted in HPI and below Physical Exam Vital Signs: Last Vital Signs Pulse 78 09/11/25 11:12 BP 160/80 H 09/11/25 11:12 Pulse Ox 98 09/11/25 11:12 Const General: cooperative Assessment & Plan Assessment & Plan (1) Severe substance use disorder: Code(s): F19.20 - Other psychoactive substance dependence, uncomplicated Category: Medical Plan The plan of care is to continue with the buprenorphine-naloxone 8-2 mg TID until Sublocade is approved by insurance. T/w explained when Sublocade is received we will notify. Follow-up in 1 month or sooner if needed. Medications: New buprenorphine ER (Sublocade) Administer SQ Q4W 300 mg (1.5 mL) subcut QMONTH 1.5 mL 3RF 4 weeks Changed From buprenorphine-naloxone 8-2 mg (Suboxone) 1 film sublingual TID 14 days 42 ea 0RF To buprenorphine-naloxone 8-2 mg (Suboxone) One film sublingually 3 times per day 1 film sublingual TID 90 ea 0RF 30 days Patient Instructions: - Continue with buprenorphine-naloxone as prescribed. - Sublocade ordered pending insurance approval. - Follow-up in 1 month or sooner if needed. - Call with questions, concerns, or to report side effects/new onset of symptoms to [facility]. - The patient verbalized understanding and agreed with plan of care. Coding Level of Care Code Est Pt Level 3 (05030) Diagnoses Severe substance use disorder F19.20
== END 2025-09-11 11:25 | disposition home or self-care (01) ==
LOC: HO.HCC 11:05
PROVIDERS: Visit Provider Clinical Nurse Specialist Psychiatric/Mental Health
DX: F19.20 Other psychoactive substance dependence, uncomplicated (principal)
CPT/HCPCS: 99213

== ENCOUNTER → 2025-09-11 11:04 | Outpatient (BNVA) | payer MEDICAID, SELFPAY | PROVIDERS: Visit Provider Clinical Nurse Specialist Psychiatric/Mental Health | DX: F19.20 Other psychoactive substance dependence, uncomplicated (principal) | CPT/HCPCS: 99212 ==

== ENCOUNTER 2025-10-02 09:28 | Outpatient (AMB) | payer MEDICAID, SELFPAY ==
--- NOTE | 2025-10-02 09:56 | AM.OFFVISNUR ---
Vital Signs 10/02/25 10:04 BP 146/82 H Pulse 88 Pulse Oximetry (%) 98 Intake Visit Reasons: Injection Allergies No Known Allergies (No Known Allergies*) Allergy (Verified 10/02/25 10:05) Nursing Note Ben is here for his first Sublocade injection in this series, he has had them in the past with positive effect. Ben is alert, oriented, cooperative and presents with positive affect. Ben reports that he just got in from [place] last night after losing father; he lost his mother a couple of months ago. Sublocade education provided, Sublocade Alert, wallet ID filled out and provided. All questions answered. Folllow up in 4 weeks for the next injection. Office Meds Sublocade 300 mg/1.5 mL solution,extended release subcutaneous syringe Performing Provider: ABNER Moreno Performing Location: [facility] Administered by: Kiersten Meade RN on 10/02/25 10:03 Dose Route Admin Location Dispensed Lot Number Expiration Date [facility] Supervisor Silvering Department 300 mg subcut LLQ 1.5 mL [id number] 04/12/26 [address]-9 [employer]. Total Dispensed Waste 1.5 mL 0 % Comments: Pt is present for first Sublocade 300 mg injection in this series. Pt denies any concern with past injections and tolerated injection well. Educated on signs and symptoms of infection and encouraged to call [facility] with any related questions or concerns, pt verbalized understanding. Follow-up scheduled in 4 weeks for next injection. 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
[2025-10-02 10:04] VITALS: BP 146/82; PULSE 88; O2SAT 98
== END 2025-10-02 10:13 | disposition home or self-care (01) ==
LOC: HO.HCC 09:28
DX: F11.21 Opioid dependence, in remission (principal); Z51.81 Encounter for therapeutic drug level monitoring

== ENCOUNTER → 2025-10-02 09:28 | Outpatient (BNVA) | payer MEDICAID, SELFPAY | DX: F11.21 Opioid dependence, in remission (principal); Z51.81 Encounter for therapeutic drug level monitoring | CPT/HCPCS: 80307; 96372; Q9992 ==

== ENCOUNTER 2025-10-29 09:23 | Outpatient (AMB) | payer MEDICAID, SELFPAY ==
--- NOTE | 2025-10-29 09:02 | AM.OFFVISNUR ---
Vital Signs 10/29/25 09:31 Height 5 ft 8 in Weight 122.924 kg BMI 41.2 BP 156/90 H Blood Pressure Location Lt brachial Position Sitting Pulse 92 Pulse Source Pulse Oximeter Pulse Oximetry (%) 98 Oxygen Delivery Method Room Air Intake Visit Reasons: Injection Allergies No Known Allergies (No Known Allergies*) Allergy (Verified 10/29/25 09:32) Nursing Note deanna is here for his second Sublocade injection in this series. Ben is alert, oriented, cooperative and presents with positive affect. Ben reports feeling really good. No symptoms noted between injections, no SL bridging needed. Romero stated that in his previous series of Sublocade injections he received 4 of the 300mg doses and then dropped down to the 100 mg for maintenance and would be comfortable following the same course so long as symptoms remain absent. the same effects noted. Reviewed with provider and agreeable to tentative plan. Office Meds Sublocade 300 mg/1.5 mL solution,extended release subcutaneous syringe Performing Provider: ABNER Moreno Performing Location: [facility] Administered by: Kiersten Meade RN on 10/29/25 10:00 Dose Route Admin Location Dispensed Lot Number Expiration Date [facility] Cartography Supervisor 300 mg subcut LUQ 1.5 mL [id number] 04/12/26 [address]-9 [employer]. Total Dispensed Waste 1.5 mL 0 % Comments: Pt is present for Sublocade 300 mg injection. Pt denies any concern with previous injection and tolerated injection well. Educated on signs and symptoms of infection and encouraged to call [facility] with any related questions or concerns, pt verbalized understanding. Follow-up scheduled in 4 weeks for next injection. 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
[2025-10-29 09:31] VITALS: BP 156/90; PULSE 92; O2SAT 98; BMI 41.2
--- OUTSIDE RECORDS SUMMARY | 2025-10-29 10:41 | XMS_ITS | Encounter Summary ---
Author Organization [employer] Address [address] [facility] [address] [place] [address] Care Team Providers Care Broadcast Journalist Name Role Phone Erica Cantu DO Primary Care Provider + [phone] Reason for Visit * Reason Comments Med Refill Encounter Details Date Type Department Care Team ([facility] st Contact Info) Description 02/10/2025 Refill [facility] MED & PEDS [address] [place] [address] Erica Cantu DO [address] [facility] [place] [address] Social History Tobacco Use Types Packs/Day Years [...] documented as of this encounter Care Teams Broadcast Journalist Relationship Specialty Start Date End Date Erica Cantu DO [address] [place] [address] PCP - General Family Medicine 05/30/14 documented as of this encounter
--- OUTSIDE RECORDS SUMMARY | 2025-10-29 10:41 | XMS_ITS | Encounter Summary ---
Author Organization [employer] Address [address] [facility] [address]t [place] [address] Care Team Providers Care Overseamer Name Role Phone Erica Cantu DO Primary Care Provider + [phone] Reason for Visit * Reason Comments Med Refill Encounter Details Date Type Department Care Team ([facility] st Contact Info) Description 09/19/2023 Refill [facility] MEDICINE [address] [place] [address] Erica Cantu DO [address] [place] [address] Social History Tobacco Use Types Packs/Day Years [...] documented as of this encounter Care Teams Overseamer Relationship Specialty Start Date End Date Erica Cantu DO [address] [place] [address] PCP - General Family Medicine 05/30/14 documented as of this encounter
--- OUTSIDE RECORDS SUMMARY | 2025-10-29 10:41 | XMS_ITS | Encounter Summary ---
Author Organization [employer] Address [address] [facility] [address]t [place] [address] Care Team Providers Care Documentation Improvement Specialist Name Role Phone Erica Cantu DO Primary Care Provider [phone] Encounter Details Date Type Department Care Team ([facility] st Contact Info) Description 05/22/2023 Orders Only [facility] MEDICINE [address] [place] [address] Paula Woo RN Social History Tobacco Use [...] on filedocumented in this encounter Care Teams Documentation Improvement Specialist Relationship Specialty Start Date End Date Erica Cantu DO [address] [place] [address] PCP - General Family Medicine 05/30/14 documented as of this encounter
--- OUTSIDE RECORDS SUMMARY | 2025-10-29 10:41 | XMS_ITS | Clinical Summary ---
Author Organization [employer] Address [address] [place] [address] Care Team Providers Care Plant Culture Manager Name Role Phone Erica Cantu DO Primary Care Provider [phone] Allergies No known active allergies Medications naloxone [...] morning. 90 tablet 3 06/20/20 23 Active apixaban (Eliquis) 5 MG tabletIndicat ions:History of blood clots Take 1 tablet (5 mg) by mouth 2 times daily. 60 tablet 01/22/20 25 Active ferrous gluconate (Fergon) 324 (38 Fe) MG tablet Take 1 tablet (324 mg) by mouth with breakfast. 90 tablet 3 01/31/20 25 026 Active Blood Pressure kit Use to check blood pressure as directed. 1 kit 02/06/20 25 Active Diclofenac Sodium 1 % gel APPLY 2 GRAMS TOPICALLY TO AFFECTED AREA(S) 4 TIMES A DAY IN THE MORNING, AT NOON, IN THE EVENING, AND AT BEDTIME NEEDED FOR PAIN 200 g 2 04/16/20 25 Active ergocalcifero l (Vitamin D2) 1.25 MG (19104 UT) capsule TAKE 1 CAPSULE BY MOUTH ONCE A WEEK 12 capsule 04/17/20 25 Active dilTIAZem ER (Tiazac) 120 MG 24 hr capsule Take 1 capsule (120 mg) by mouth Once per day. 90 capsule 1 10/22/20 25 Active losartan (Cozaar) 50 MG tablet Take 1 tablet (50 mg) by mouth Once per day. 90 tablet 1 10/22/20 25 026 Active sildenafil (Viagra) 100 MG tablet TAKE 1 TABLET 1 HOUR BEFORE SEXUAL RELATIONS ONCE DAILY NEEDED. 10 tablet 1 5 5:41 PM EST 10/22/20 25 Active acetaminophen (Tylenol 8 Hour) 650 MG ER tablet Take 1 tablet (650 mg) by mouth every 8 (eight) hours if needed for mild pain. Do not crush, chew, or split. 40 tablet 1 5 5:41 PM EST 10/22/20 25 Active baclofen (Lioresal) 10 MG tablet Take 1 tablet (10 mg) by mouth if needed in the morning, at noon, and at bedtime for muscle spasms. 60 tablet 1 5 5:41 PM EST 10/22/20 25 Active lidocaine (Lidoderm) 5 % patch APPLY 1 PATCH TOPICALLY TO SKIN IN THE MORNING. LEAVE ON FOR 12 HOURS AND OFF FOR 12 HOURS DIRECTED 15 patch 2 5 5:41 PM EST 10/22/20 25 Active Sublocade 300 MG/1.5ML injection INJECT 1.5ML UNDER THE SKIN EVERY 4 WEEKS 10/06/20 25 Active tadalafil (Cialis) 5 MG tablet Take 5 mg by mouth Once per day. Active predniSONE (Deltasone) 20 MG tablet Take 2 tablets (40 mg) by mouth Once per day for 5 days. 10 tablet 5 5:41 PM EST 10/22/20 25 025 Active azithromycin (Zithromax) 250 MG tablet Take 2 tabs PO today then 1 tab PO daily x 4 days 6 tablet 5 5:41 PM EST 10/22/20 25 Active guaiFENesin (Mucinex) 600 MG 12 hr tablet Take 1 tablet (600 mg) by mouth if needed in the morning and at bedtime for cough or congestion. Do not crush, chew, or split. 30 tablet 10/22/20 25 026 Active cetirizine (ZyrTEC) 10 MG tablet Take 1 tablet (10 mg) by mouth if needed each day for rhinitis. 30 tablet 3 5 5:41 PM EST 10/22/20 25 Active fluticasone (Flonase) 50 MCG/ACT nasal spray Administer 2 sprays into each nostril if needed each day for rhinitis. Shake gently. Before first use, prime pump. After use, clean tip and replace cap. 16 g 3 5 5:41 PM EST 10/22/20 25 Active benzonatate (Tessalon) 100 MG capsule Take 1 capsule (100 mg) by mouth if needed in the morning, at noon, and at bedtime for cough for up to 10 days. Do not crush or chew. 30 capsule 10/22/20 25 Active lidocaine (Lidoderm) 5 % patch APPLY 1 PATCH TOPICALLY TO SKIN IN THE MORNING. LEAVE ON FOR 12 HOURS AND OFF FOR 12 HOURS DIRECTED 15 patch 2 11/07/20 025 Discontinued(Re order (will not trigger notification to Pharmacy)) Buprenorphine HCl-Naloxone HCl (Suboxone) 8-2 MG SL filmIndicatio ns:Opioid type dependence, continuous (CMS/HCC) ([facility]) Place 1 Film under the tongue Once per day for 4 days. 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 30 tablet 11 02/06/20 25 025 Discontinued(Re order (will not trigger notification to Pharmacy)) sildenafil (Viagra) 100 MG tablet TAKE 1 TABLET 1 HOUR BEFORE SEXUAL RELATIONS ONCE DAILY NEEDED. 10 tablet 04/10/20 25 025 Discontinued(Me d list cleanup (will not trigger notification to Pharmacy)) acetaminophen (Tylenol 8 Hour) 650 MG ER tablet TAKE 1 TABLET BY MOUTH EVERY 8 HOURS NEEDED FOR MILD PAIN. DO NOT BREAK, CRUSH, DISSOLVE OR CHEW 40 tablet 1 04/16/20 25 025 Discontinued(Re order (will not trigger notification to Pharmacy)) baclofen (Lioresal) 10 MG tablet TAKE 1 TABLET BY MOUTH THREE TIMES DAILY IN THE MORNING, AT NOON, AND AT BEDTIME NEEDED FOR MUSCLE SPASMS 60 tablet 1 08/01/20 25 025 Discontinued(Re order (will not trigger notification to Pharmacy)) Active Problems Problem Noted Date Diagnosed Date Anemia 10/22/2025 History of pulmonary embolism 01/28/2025 History of atrial fibrillation 01/28/2025 Nephrolithiasis 01/28/2025 Opioid dependence 02/15/2023 BMI 40.0-44.9, adult ([facility]) 12/22/2022 Assessment & Plan (07/04/2023 7:12 PM EDT): Advised pt to improve diet and exercise,discussed healthy life style -discussed speech language specialist referral -referred today Chronic pain syndrome 07/27/2016 [...] xr calcification-denies symptoms History of substance abuse ([facility]) 12/22/2022 01/28/2025 Encounters Date Type Department Care Team Description 10/22/2025 2:00 PM EST Office Visit [facility] [address] [place] [phone] Erica Cantu DO Essential hypertension (Primary Dx); Influenza B; Dietary counseling; Exercise counseling 10/22/2025 Travel 10/22/2025 Telephone [facility] [address] [place] [phone] Erica Cantu DO Chart Prep 10/21/2025 Refill [facility] [address] [place] [address], [place] [address] Marie Jay MD 10/21/2025 Refill [facility] [address] [place] [address] Erica Cantu DO 10/21/2025 Travel 10/16/[address] [phone] Erica Cantu DO Recall Appointment 10/16/2025 Travel 08/21/2025 Orders Only GENERIC EXTERNAL DATA DEPARTMENT Provider, Generic External Data 08/14/2025 Orders Only GENERIC EXTERNAL DATA DEPARTMENT Provider, Generic External Data 07/31/2025 Refill [facility] [address] [place] [address] Erica Cantu DO from Last 3 Months Immunizations Immunization Administration Dates Next Due Hep B, adult 05/30/2022,07/08/2011,05/23/2011 TD (adult), 2 Lf tetanus tox oid, preservative free, adsorbed 11/13/2007 Tdap 02/13/2014 Family History Medical History Relation Name Comments Hypertension Brother Diabetes Father Lung cancer Father Breast cancer Mother Dementia Mother Endometrial cancer Mother Hypertension Mother Lung disease Mother Brain cancer Son Relation Name Status Comments Brother Father Mother Son Social History Tobacco Use Types Packs/Day Years Used Date Smoking Tobacco: Never Smokeless Tobacco: Never Tobacco Cessation:Counseling Given: Not Answered Depression Answer Date Recorded Patient Health Questionnaire-9 Score 0 10/22/2025 Patient Health Questionnaire-9 Score 0 10/22/2025 Last PHQ-9: Questionnaire Data Not on file 1 12/23/2024 Housing Stability Answer Date Recorded What is [...] Date Recorded Patient Health Questionnaire-2 Score 0 10/22/2025 Internet Access Answer Date Recorded Internet Access [...] Sign Reading Time Taken Comments Blood Pressure 174/102 10/22/2025 2:58 PM EST Pulse 92 10/22/2025 1:54 PM EST Temperature 36.3 C (97.4 F) 10/22/2025 1:54 PM EST Respiratory Rate 21 10/22/2025 1:54 PM EST Oxygen Saturation 98% 10/22/2025 1:54 PM EST Inhaled Oxygen Concentration - - Weight 121 kg (266 lb) 10/22/2025 1:54 PM EST Height 172.7 cm (5' 8 ) 10/22/2025 1:54 PM EST Body Mass Index 40.45 10/22/2025 1:54 PM EST Plan of Treatment Health Maintenance Due Date [...] 01/16/2026 01/16/2025 Alcohol/Substance Use Screening 01/28/2026 01/28/2025 Disability Screening 03/19/2026 03/19/2025 Depression Screening 10/22/2026 10/22/2025, 10/22/20 Tobacco Screening 10/22/2026 10/22/2025 Zoster Vaccines (1 of 2) 2029 Lipid [...] To stay clean. 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, safety advisor Procedure Name Priority Date/Time Associated Diagnosis Comments POCT INFLUENZA A (ID NOW RAPID MOLECULAR) Routine 10/22/2025 2:55 PM EST Influenza B POCT INFLUENZA B (ID NOW RAPID MOLECULAR) Routine 10/22/2025 2:54 PM EST Influenza B POCT RAPID COVID ANTIGEN Routine 10/22/2025 2:54 PM EST Influenza B DRUG MONITOR, OPIATES EXPANDED, QN, URINE Routine [...] Recently Relevant to Health Maintenance Results * POCT Rapid Influenza A GONZALEZ ID NOW (10/22/2025 2:55 PM EST) Influenza A Negative Negative, Indeterminate [facility] QC Media Lot # [id number] [facility] Lot# Expiration Date ,026 [facility] Swab 10/22/2025 2:55 PM EST Erica Cantu DO POINT OF CARE TEST ENTER/DILSHAD T ORDERABLES Final Result Performing Organization Address [facility]/ZIP Co de Phone Number [facility] [address] [place] [address] [phone] * (ABNORMAL) POCT Rapid Influenza B GONZALEZ ID NOW (10/22/2025 2:54 PM EST) Influenza B Positive( A) Negative, Indeterminate [facility] QC Media Lot # [id number] [facility] Lot# Expiration Date 6 [facility] Swab 10/22/2025 2:54 PM EST Erica Cantu DO POINT OF CARE TEST ENTER/DILSHAD T ORDERABLES Final Result Performing Organization Address City/[facility] Co de Phone Number [facility] [address] [place] [phone] * POCT Rapid Covid-19 BinaxNOW (10/22/2025 2:54 PM EST) Rapid COVID Ag Negative QC Media Lot # [id number] Lot# Expiration Date [id number] Swab 10/22/2025 2:54 PM EST Erica Cantu DO POINT OF CARE TEST ENTER/DILSHAD T ORDERABLES Final Result * Drug Monitoring, Opiates Expanded, Quantitative, Urine (08/21/2025 3:44 PM EDT) Codeine, Urine NEGATIVE [facility] Comment:CUTOFF 50 NG/MLPERFO RMING SITE:[facility] [employer] [facility], [address] [place] [phone] Slurry Control Operator Helper: LENKA STRANGE MD, CLIA:[id number] Hydrocodone, Ur NEGATIVE [facility] Comment:CUTOFF 50 NG/ML Oxycodone, Urine NEGATIVE [facility] Comment:CUTOFF 50 NG/ML Oxycodone GC/MS Note SEE NOTE [facility] Comment:NOTES AND COMMENTSTh is drug [...] their analyticalperformance characteristics have been determined by [employer]. It has not been cleared or approved by the FDA.This assay has been validated pursuant to the CLIAregulations and is used for clinical purposes.Healthcare Providers needing Interpretation assistance,please contact us at [phone] ( ) M-F,8am to 10pm EST Morphine, Urine NEGATIVE [facility] Comment:CUTOFF 50 NG/ML Hydromorphone, Urine NEGATIVE [facility] Comment:CUTOFF 50 NG/ML Oxymorphone, Urine [address] [facility] Comment:CUTOFF 50 NG/ML Opiates GC/MS Note SEE NOTE [facility] Comment:NOTES AND COMMENTSTh is drug testing is for medical treatment only. Analysiswas performed as non-forensic testing and these resultsshould be used only by healthcare providers torender diagnosis or treatment, or to monitor progress ofmedical conditions.LDT Notes:Confirmation tests were developed and their analyticalperformance characteristics have been determined by [employer]. It has not been cleared orapproved by the FDA. This assay has been validated pursuantto the CLIA regulations and is used for clinical purposes.Healthcare Providers needing Interpretation assistance,please contact us at [phone] ( ) M-F,8am to 10pm EST Norhydrocodone, Urine NEGATIVE [facility] Comment:CUTOFF 50 NG/ML Noroxycodone, Urine NEGATIVE [facility] Comment:CUTOFF 50 NG/ML 08/21/2025 3:44 PM EDT 08/21/2025 3:44 PM EDT us Generic External Data Provider LAB URINE ORDERAB LES Final Result Performing Organization Address City/[facility]/ZIP Co de Phone Number [facility] [address] [place] [phone] [phone] * (ABNORMAL) Basic Metabolic Panel (08/14/2025 10:12 PM EDT) Sodium 142 135 - 145 mmol/L [facility] Potassium 3.8 3.3 - 5.1 mmol/L [facility] Comment:Slight Hemolysis.Int erpret result with caution. Chloride 109(H) 96 - 108 mmol/L [facility] Carbon Dioxide 25 22 - 29 mmol/L [facility] Anion Gap 12 12 - 20 [facility] Urea Nitrogen (BUN) 14 9 - 16 mg/dL [facility] Creatinine, Serum 0.90 0.5 - 1.4 mg/dL [facility] Creatinine Clr Calc Pharmacy 117.4 [facility] Comment:eGFR (calculated fro m the MDRD study equation) and eCrCl(calculated from the Cockcroft-Gault equation) are based ondifferent parameters and may not yield comparable results.If eCrCl result is absurd, please check patient'sheight/weight. Estimated Glomerular Filt Rate >60 [facility] Comment:Chronic Kidney Disea se: Estimated GFR < 60 mL/min/1.84t9Butydv Kidney Disease: Estimated GFR < 15 mL/min/1.73m2 Glucose 99 60 - 115 mg/dL [facility] Calcium 9.2 8.4 - 10.2 mg/dL [facility] 08/14/2025 10:1 2 PM EDT 08/14/2025 10:16 PM EDT us Generic External Data Provider LAB BLOOD ORDERAB LES Final Result Performing Organization Address City/[facility]/ZIP Co de Phone Number [facility] [address] [place] [address] [phone] * Slide Review (08/14/2025 1:07 PM EDT) Pathologist [facility] Slide Review VERIFIED [facility] 08/14/2025 1:07 PM EDT 08/14/2025 1:11 PM EDT Generic External Data Provider LAB BLOOD ORDERAB LES Final Result Performing Organization Address [facility]/ZIP Co de Phone Number [facility] [address] [place] [phone] * Ethanol (08/14/2025 1:07 PM EDT) Pathologist [facility] ETHANOL (MG/DL) IN SER/PLAS 12 mg/dL [facility] Comment:Serum/plasma ethanol results are to be used formedical/treatment purposes only. 08/14/2025 1:07 PM EDT 08/14/2025 1:11 PM EDT Generic External Data Provider LAB BLOOD ORDERAB LES Final Result Performing Organization Address [facility] Co de Phone Number [facility] [address] [place] [phone] * (ABNORMAL) CBC auto differential (08/14/2025 1:07 PM EDT) [facility] White Blood Count 9.7 4.8 - 10.8 X10*3/uL [facility] Red Blood Count 4.31(L) 4.60 - 5.80 X10*6/uL [facility] Hemoglobin 12.5(L) 14.0 - 18.0 g/dl [facility] Hematocrit 39.1(L) 42.0 - 52.0 % [facility] Mean Corpuscular Volume 90.7 80.0 - 98.0 fL [facility] Mean Corpuscular Hemoglobin 29.0 27.0 - 33.0 pg [facility] Mean Corpuscular HGB Conc 32.0 31.0 - 36.0 g/dl [facility] Red Cell Distribution Width 13.1 11.0 - 16.0 % [facility] Platelet Count 190 160 - 400 X10*3/uL [facility] Mean Platelet Volume 10.9 9.4 - 12.4 fL [facility] Neutrophils Percent Auto 77.6(H) 45 - 73 % [facility] Imm Gran Pct Auto 0.4 0.0 - 0.4 % [facility] Lymphocytes Percent Auto 7.6(L) 20 - 40 % [facility] Monocytes Percent Auto 12.3(H) 2 - 11 % [facility] Eosinophils Percent Auto 1.5 0 - 4 % [facility] Basophils Percent Auto 0.6 0 - 2 % [facility] NRBC Pct Auto 0.0 0.0 - 0.2 /100WBC [facility] Neutrophils Absolute Auto 7.6 2.0 - 8.3 x10*3/uL [facility] Imm Gran Abs Auto 0.04(H) 0.00 - 0.03 X10*3/uL [facility] Lymphocytes Absolute Auto 0.7(L) 1.2 - 4.9 X10*3/uL [facility] Monocytes Absolute Auto 1.2 0.1 - 1.2 X10*3/uL [facility] Eosinophils Absolute Auto 0.2 0.0 - 0.4 X10*3/uL [facility] Basophils Absolute Auto 0.1 0.0 - 0.2 X10*3/uL [facility] NRBC Abs Auto 0.000 0.0 - 0.012 X10*3/uL [facility] 08/14/2025 1:07 PM EDT 08/14/2025 1:11 PM EDT us Generic External Data Provider LAB BLOOD ORDERAB LES Edited Result - Final [facility] [address] [place] [phone] * Acetaminophen level (08/14/2025 1:07 PM EDT) Pathologist [facility] Acetaminophen LAB <3 <30 mcg/mL [facility] 08/14/2025 1:07 PM EDT 08/14/2025 1:11 PM EDT Generic External Data Provider LAB BLOOD ORDERAB LES Final Result Performing Organization Address [facility]/ZIP Co de Phone Number [facility] [address] [place] [phone] * (ABNORMAL) Salicylate (08/14/2025 1:07 PM EDT) [facility] Salicylate <5.0(L) 15 - 30 mg/dL [facility] 08/14/2025 1:07 PM EDT 08/14/2025 1:11 PM EDT [place] External Data Provider LAB BLOOD ORDERAB LES Final Result Performing Organization Address [facility] de Phone Number [facility] [address] [place] [phone] * (ABNORMAL) Comprehensive Metabolic Panel (08/14/2025 1:07 PM EDT) [facility] Sodium 141 135 - 145 mmol/L [facility] Potassium 3.6 3.3 - 5.1 mmol/L [facility] Chloride 110(H) 96 - 108 mmol/L [facility] Carbon Dioxide 21(L) 22 - 29 mmol/L [facility] Anion Gap 14 12 - 20 [facility] Urea Nitrogen (BUN) 19(H) 9 - 16 mg/dL [facility] Creatinine, Serum 1.62(H) 0.5 - 1.4 mg/dL [facility] Creatinine Clr Calc Pharmacy 65.2 [facility] Comment:eGFR (calculated fro m the MDRD study equation) and eCrCl(calculated from the Cockcroft-Gault equation) are based ondifferent parameters and may not yield comparable results.If eCrCl result is absurd, please check patient'sheight/weight. Estimated Glomerular Filt Rate 46 [facility] Comment:Chronic Kidney Disea se: Estimated GFR < 60 mL/min/1.95c6Mhrmmo Kidney Disease: Estimated GFR < 15 mL/min/1.73m2 Glucose 91 60 - 115 mg/dL [facility] Calcium 9.1 8.4 - 10.2 mg/dL [facility] Bilirubin, Total 0.2 0.0 - 1.0 mg/dL [facility] Aspartate Amino Transferase 19 5 - 37 U/L [facility] Alanine Aminotransferase 6 0 - 40 U/L [facility] Total Protein 7.9 6.5 - 8.0 g/dL [facility] Albumin Level 4.3 3.5 - 5.0 g/dL [facility] Alkaline Phosphatase 79 39 - 117 U/L [facility] 08/14/2025 1:07 PM EDT 08/14/2025 1:11 PM EDT us Generic External Data Provider LAB BLOOD ORDERAB LES Final Result Performing Organization Address [facility] Co de Phone Number [facility] [address] [place] [phone] * Hepatitis C Antibody with Reflex to HCV, RNA, Quantitative, Real-Time PCR (01/28/2025 10:44 AM EDT) Hepatitis C Antibody Nonreactive Nonreactive [facility] Comment:Antibodies to HCV no t detected; does not exclude early acuteHCV infection. Blood Venous blood specimen / Unknown 01/28/2025 10:44 AM EDT 01/28/2025 11:14 AM EDT us Erica Cantu DO LAB BLOOD ORDERABLES Final R esult Performing Organization Address City/[facility]/ZIP Co de Phone Number [facility] [address] [place] [phone] * HIV-1/2 Antigen and Antibodies, Fourth Generation, with Reflexes (01/28/2025 10:44 AM EDT) Pathologist [facility] HIV AB/AG Nonreactive Nonreactive [facility] Comment:HIV-1 p24 Ag and/or HIV-1/HIV-2 Ab not detected.A test result that is nonreactive does not exclude thepossibility of exposure to or infection with HIV-1 and/orHIV-2. Nonreactive results in this assay for individualswith prior exposure to HIV-1 and/or HIV-2 may be due toantigen and antibody levels that are below the limit ofdetection of this assay.The [employer] HIV Ag/Ab Combo assay result andsupplemental assay results should be interpreted inconjunction with the patient's clinical presentation,history and other laboratory results. If the results areinconsistent with clinical evidence, additional testing issuggested to confirm the result. Blood Venous blood specimen / Unknown 01/28/2025 10:44 AM EDT 01/28/2025 11:14 AM EDT us Erica Cantu DO LAB BLOOD ORDERABLES Final R esult [facility] [address] [place] [phone] * (ABNORMAL) Lipid Panel, Standard (01/28/2025 10:44 AM EDT) Triglycerides 81 <150 mg/dL [facility] Comment:Desirable Triglyceri de: less than 150 mg/dLBorderline High Triglyceride 150-199 mg/dLHigh Triglyceride: 200-499 mg/dLVery High Triglyceride: greater than or equal to 5OO mg/dL Cholesterol 159 <200 mg/dL [facility] Comment:Desirable Cholestero l: less than 200 mg/dLBorderline High Cholesterol: 200-239 mg/dLHigh Cholesterol: greater than 239 mg/dL LDL Cholesterol Calculated 108(H) <100 mg/dL [facility] Comment:Desirable LDL: less than 100 mg/dLNear Optimal/Above Optimal LDL: 110- 129 mg/dLBorderline High LDL: 130-159 mg/dLHigh LDL: 160-189 mg/dLVery High LDL: greater than or equal to 190 mg/dL HDL Cholesterol 35(L) >40 mg/dL [facility] Comment:Desirable HDL: great er than 40 mg/dL Note: This HDL assay may give artificially low results in patients with liver disease. Blood Venous blood specimen / Unknown 01/28/2025 10:44 AM EDT 01/28/2025 11:14 AM EDT us Erica Cantu DO LAB BLOOD ORDERABLES Final R esult [facility] [address] [place] [phone] from Last 3 Months or Most Recently Relevant to Health Maintenance Insurance [employer] C/O MED[employer] JEAN MARIE L[place]ONS [id number] Care Teams Plant Culture Manager Relationship Specialty Start Date End Date Erica Cantu DO [address] [place] [address] PCP - General Family Medicine 05/30/14
--- OUTSIDE RECORDS SUMMARY | 2025-10-29 10:41 | XMS_ITS | Encounter Summary ---
Author Organization [employer] Address [address] [facility] 7t [place] [address] Care Team Providers Care Telegraph Plant Maintainer Name Role Phone AlondraErica Primary Care Provider + [phone] Reason for Visit * Reason Onset Date Comments Med Refill 10/21/2025 Encounter Details Date Type Department Care Team ([facility] st Contact Info) Description 10/21/2025 Refill [facility] MEDICINE [address] [place] [address] Marie Jay MD [address] [place] [address] Social History Tobacco Use Types Packs/Day Years [...] AM EDT documented as of this encounter Functional Status * Over the past 2 weeks, how often have you been bothered by any of the following problems? Question Answer Date of Assessment Author Patient Health Questionnaire -2 Score 0 10/22/2025 1:49 PM Mirta Clement MA * Little interest or pleasure in doing things Answer Date of Assessment Author Not at all 10/22/2025 1:49 PM Ashley Clement MA * Feeling down, depressed, or hopeless Answer Date of Assessment Author Not at all 10/22/2025 1:49 PM Ashley Clement MA * Trouble falling or staying asleep, or sleeping too much Answer Date of Assessment Author Not at all 10/22/2025 1:49 PM Ashley Clement MA * Feeling tired or having little energy Answer Date of Assessment Author Not at all 10/22/2025 1:49 PM Ashley Clement MA * Poor appetite or overeating Answer Date of Assessment Author Not at all 10/22/2025 1:49 PM Ashley Clement MA * Feeling bad about yourself - or that you are a failure or have let yourself or your family down Answer Date of Assessment Author Not at all 10/22/2025 1:49 PM Ashley Clement MA * Trouble concentrating on things, such as reading the newspaper or watching television Answer Date of Assessment Author Not at all 10/22/2025 1:49 PM Ashley Clement MA * Moving or speaking so slowly that other people could have noticed? Or the opposite - being so fidgety or restless that you have been moving around a lot more than usual. Answer Date of Assessment Author Not at all 10/22/2025 1:49 PM Ashley Clement MA * Thoughts that you would be better off or hurting yourself in some way Answer Date of Assessment Author Not at all 10/22/2025 1:49 PM Ashley Clement MA * Patient Health Questionnaire-9 Score Answer Date of Assessment Author 0 10/22/2025 1:49 PM Ashley Clement MA * Over the last 2 weeks, how often have you been bothered by any of the following problems? Question Answer Date of Assessment Author Feeling nervous, anxious, or on edge 0 10/22/2025 1:50 PM Mirta Clement MA Not being able to stop or co ntrol worrying 0 10/22/2025 1:50 PM Mirta Clement MA Worrying too much about diff erent things 0 10/22/2025 1:50 PM Mirta Clement MA Trouble relaxing 0 10/22/2025 1:50 PM Mirta Calderón MA Being so restless that it is hard to sit still 0 10/22/2025 1:50 PM Mirta Clement MA Becoming easily annoyed or irritable 0 10/22/2025 1:50 PM Mirta Clement MA Feeling afraid as if somethi ng awful might happen 0 10/22/2025 1:50 PM Mirta Clement MA JAMI-7 Total Score 0 10/22/2025 1:50 PM Mirta Clement MA documented as of this encounter Plan of [...] documented as of this encounter Care Teams Telegraph Plant Maintainer Relationship Specialty Start Date End Date Erica Cantu DO [address] [place] [address] PCP - General Family Medicine 05/30/14 documented as of this encounter
--- OUTSIDE RECORDS SUMMARY | 2025-10-29 10:41 | XMS_ITS | Encounter Summary ---
Author Organization [employer] Address [address] [facility] 7t [place] [address] Care Team Providers Care Director Of Land Name Role Phone Erica Cantu DO Primary Care Provider + [phone] Reason for Visit * Reason Comments Med Refill Encounter Details Date Type Department Care Team ([facility] st Contact Info) Description 02/20/[address] [facility] MEDICINE [address] [place] [address] Erica Cantu DO [address] [place] [address] Social History Tobacco Use Types Packs/Day Years [...] of this encounter Care Teams Director Of Land Relationship Specialty Start Date End Date Erica Cantu DO [address] [place] [address] PCP - General Family Medicine 05/30/14 documented as of this encounter
--- OUTSIDE RECORDS SUMMARY | 2025-10-29 10:41 | XMS_ITS | Encounter Summary ---
Author Organization [employer] Address [address] [facility] 7t [place] [address] Care Team Providers Care [place] Manager Name Role Phone Erica Cantu DO Primary Care Provider + [phone] Reason for Visit * Reason Onset Date Comments Hospital Follow-up 01/16/2025 Encounter Details Date Type Department Care Team ([facility] st Contact Info) Description 01/16/2025 Telephone [facility] MEDICINE [address] [place] [address] Erica Cantu DO [address] [place] [address] Hospital Follow-up Social History Tobacco Use Types [...] the past 12 months, has t he [employer], gas, oil or water company threatened to [...] from pt requesting a HDF appt. Hospital: [place], [place] Date of admission: 01/07 Discharge date: 01/10 Diagnosed: Blood spots *Send message to [place] [facility]ordin[facility] [phone] documented in this encounter Plan of Treatment Not on file documented as of this encounter Visit Diagnoses Not on filedocumented in this encounter Additional Health Concerns Assessment Noted Time PHQ-9 Depression Total Score: 3 07/03/20 23 10:46 AM EDT documented as of this encounter Care Teams [place] Manager Relationship Specialty Start Date End Date Erica Cantu DO [address] [place] [address] PCP - General Family Medicine 05/30/14 documented as of this encounter
--- OUTSIDE RECORDS SUMMARY | 2025-10-29 10:41 | XMS_ITS | Encounter Summary ---
Author Organization [employer] Address [address] [facility] 7t [place] [address] Care Team Providers Care Thickener Operator Name Role Phone AlondraErica Primary Care Provider + [phone] Encounter Details Date Type Department Care Team ([facility] st Contact Info) Description 04/03/2025 Community Care Management [facility] MEDICINE [address] [place] [address] [employer] Link, Physician, Social History Tobacco Use [...] documented as of this encounter Care Teams Thickener Operator Relationship Specialty Start Date End Date Erica Cantu DO [address] [place] [address] PCP - General Family Medicine 05/30/14 documented as of this encounter
--- OUTSIDE RECORDS SUMMARY | 2025-10-29 10:41 | XMS_ITS | Encounter Summary ---
Author Organization [employer] Address [address] [facility] 7[address] [place] [address] Care Team Providers Care Rehab Tech Name Role Phone Erica Cantu DO Primary Care Provider + [phone] Reason for Visit * Reason Comments Med Refill Encounter Details Date Type Department Care Team ([facility] st Contact Info) Description 09/01/2023 Refill [facility] MEDICINE [address] [place] [address] Erica Cantu DO [address] [place] [address] Social History Tobacco Use Types Packs/Day Years [...] documented as of this encounter Care Teams Rehab Tech Relationship Specialty Start Date End Date Erica Cantu DO [address] [place] [address] PCP - General Family Medicine 05/30/14 documented as of this encounter
--- OUTSIDE RECORDS SUMMARY | 2025-10-29 10:41 | XMS_ITS | Encounter Summary ---
Author Organization [employer] Address [address] [facility] [address] [place] [address] Care Team Providers Care Education Program Manager Name Role Phone Erica Cantu DO Primary Care Provider Encounter Details Date Type Department Care Team ([facility] st Contact Info) Description 06/20/2023 Orders Only [facility] MEDICINE [address] [place] [address] Charito Bell MD [address] [place] [address] Social History Tobacco Use Types Packs/Day Years [...] on filedocumented in this encounter Care Teams Education Program Manager Relationship Specialty Start Date End Date Erica Cantu DO [address] [place], [place] [id number] PCP - General Family Medicine 05/30/14 documented as of this encounter
== END 2025-10-29 10:11 | disposition home or self-care (01) ==
LOC: HO.HCC 09:23
DX: F11.21 Opioid dependence, in remission (principal)

== ENCOUNTER → 2025-10-29 09:23 | Outpatient (BNVA) | payer MEDICAID, SELFPAY | DX: F11.21 Opioid dependence, in remission (principal) | CPT/HCPCS: 96372; Q9992 ==